=== PATIENT | female | born 1955 | race Caucasian/White ===

== ENCOUNTER 2019-11-13 14:02 | Outpatient (REF) | payer OTHER, SELFPAY ==
[2019-11-13 14:14] LABS: Glucose Urine UA NEG (NEG); Leukocyte Esterase Urine 2+ (NEG); Nitrite Urine POS (NEG); PH 5.5 (5.0-8.0); Specific Gravity - Urine >= 1.030 (1.005-1.025); Urine Blood TRACE (NEG); Urine Ketones NEG (NEG); Urine Protein NEG (NEG-TRACE)
[2019-11-13 14:17] LABS: Appearance Urine CLOUDY; Color Urine YELLOW
[2019-11-13 14:24] LABS: Bacteria Urine 2+ /LPF; Mucus Urine 1+ /LPF; RBC Urine 0-2 /HPF (0); Squamous Epithelial Cell Urine 1+ /LPF; WBC Urine TNTC /HPF (0-4)
[2019-11-14 09:34] LABS: BV Int Neg Control Negative (Negative)
[2019-11-14 09:36] LABS: BV Int Pos Control Positive (Positive)
== END 2019-11-13 14:03 | disposition home or self-care (01) ==
LOC: HO.LNP 14:02
PROVIDERS: Visit Provider Nurse Practitioner Family
DX: R19.5 Other fecal abnormalities (principal); R10.2 Pelvic and perineal pain; N39.0 Urinary tract infection, site not specified
CPT/HCPCS: 81001; 87086; 87088; 87186; 87480; 87510; 87660

== ENCOUNTER 2019-12-14 08:46 | Outpatient (REF) | payer OTHER, SELFPAY ==
[2019-12-14 10:51] LABS: Potassium Urine Random 43.8 mmol/l
[2019-12-14 10:57] LABS: Anion Gap 14 (12-20); Blood Urea Nitrogen 16 mg/dL (9-16); Calcium 9.1 mg/dL (8.4-10.2); Carbon Dioxide 25 mmol/L (22-29); Chloride 109 mmol/L (96-108); Estimated Glomerular Filt Rate > 60; Potassium 4.2 mmol/l (3.3-5.1); Sodium 144 mmol/L (135-145)
== END 2019-12-14 08:47 | disposition home or self-care (01) ==
LOC: HO.LAB 08:46
PROVIDERS: PCP Internal Medicine; Visit Provider Internal Medicine Hypertension Specialist
DX: I63.9 Cerebral infarction, unspecified (principal); I10 Essential (primary) hypertension
CPT/HCPCS: 80051; 82310; 82436; 82565; 84133; 84300; 84520

== ENCOUNTER 2020-01-09 08:01 | Outpatient (REF) | payer OTHER, SELFPAY ==
[2020-01-09 09:03] LABS: MANUAL DIFF FLAG NO
[2020-01-09 09:07] LABS: Basophils Absolute Auto 0.1 X10*3/uL (0.0-0.2); Basophils Percent Auto 0.7 % (0-2); Eosinophils Absolute Auto 0.2 X10*3/uL (0.0-0.4); Eosinophils Percent Auto 3.4 % (0-4); Hematocrit 41.9 % (37-47); Hemoglobin 13.2 g/dl (12.0-16.0); Imm Gran Abs Auto 0.09 X10*3/uL (0.00-0.03); Imm Gran Pct Auto 1.3 % (0.0-0.4); Lymphocytes Absolute Auto 1.6 X10*3/uL (1.2-4.9); Lymphocytes Percent Auto 22.7 % (20-40); Mean Corpuscular HGB Conc 31.5 g/dl (31.0-35.0); Mean Corpuscular Hemoglobin 27.6 pg (27.0-33.0); Mean Corpuscular Volume 87.5 fL (80-98); Mean Platelet Volume 11.1 fL (9.4-12.3); Monocytes Absolute Auto 0.4 X10*3/uL (0.1-1.2); Monocytes Percent Auto 5.7 % (2-11); Neutrophils Absolute Auto 4.5 X10*3/uL (2.0-8.3); Neutrophils Percent Auto 66.2 % (45-73); Platelet Count 244 X10*3/uL (160-400); Red Blood Count 4.79 X10*6/uL (4.20-5.50); Red Cell Distribution Width 13.9 % (11.0-16.0); White Blood Count 6.8 X10*3/uL (4.8-10.8)
[2020-01-09 09:35] LABS: Alanine Aminotransferase 35 U/L (0-31); Albumin Level 4.1 g/dL (3.5-5.0); Alkaline Phosphatase 92 U/L (39-117); Anion Gap 13 (12-20); Aspartate Amino Transferase 21 U/L (5-31); Bilirubin Total 0.5 mg/dL (0.0-1.0); Blood Urea Nitrogen 15 mg/dL (9-16); Calcium 9.5 mg/dL (8.4-10.2); Carbon Dioxide 26 mmol/L (22-29); Chloride 110 mmol/L (96-108); Cholesterol 156 mg/dL; Estimated Glomerular Filt Rate > 60; Glucose Fasting 204 mg/dL (60-99); HDL Cholesterol 35 mg/dL; LDL Cholesterol Calculated 90 mg/dl; Potassium 4.4 mmol/l (3.3-5.1); Sodium 145 mmol/L (135-145); Total Protein 6.9 g/dL (6.5-8.0); Triglycerides 157 mg/dL
[2020-01-09 09:50] LABS: Vitamin D 25-OH Total 17.4 ng/mL (>30)
[2020-01-09 10:09] LABS: Glucose Urine UA 100 MG/DL (NEG); Leukocyte Esterase Urine NEG (NEG); Nitrite Urine NEG (NEG); PH 5.5 (5.0-8.0); Specific Gravity - Urine >= 1.030 (1.005-1.025); Urine Blood NEG (NEG); Urine Ketones NEG (NEG); Urine Protein NEG (NEG-TRACE)
[2020-01-09 10:13] LABS: Appearance Urine CLEAR; Color Urine YELLOW
== END 2020-01-09 08:02 | disposition home or self-care (01) ==
LOC: HO.LAB 08:01
PROVIDERS: Nurse Practitioner Family; Visit Provider Internal Medicine
DX: N39.0 Urinary tract infection, site not specified (principal); R10.2 Pelvic and perineal pain; E11.9 Type 2 diabetes mellitus without complications; E78.2 Mixed hyperlipidemia; E55.9 Vitamin D deficiency, unspecified; Z86.73 Personal history of transient ischemic attack (TIA), and cerebral infarction without residual deficits
CPT/HCPCS: 36415; 80053; 80061; 81003; 82306; 85025

== ENCOUNTER 2020-01-23 15:52 | Emergency (ER) | payer OTHER, SELFPAY ==
--- NOTE | 2020-01-23 | ECG_ITS ---
Test Reason : CHEST PAIN Blood Pressure : / mmHG Vent. Rate : 092 BPM Atrial Rate : 092 BPM P-R Int : 158 ms QRS Dur : 084 ms QT Int : 358 ms P-R-T Axes : 063 056 051 degrees QTc Int : 442 ms Normal sinus rhythm Nonspecific ST abnormality Abnormal ECG When compared with ECG of 29-AUG-2017 08:30, No significant change was found Referred By: Generic ED Physician Electronically Signed By:Jeff Barrett
[2020-01-23 16:12] VITALS: BP 157/71; PULSE 90; RESP 18; TEMP 37.6; O2SAT 96; BMI 26.4
[2020-01-23] MEDS: Magnesium Hydrox/Alum Hydrox 30 ML ORAL.SUSP PO (17:22)
[2020-01-23] MEDS: Lidocaine HCl Viscous 2 % 15 ML SOLUTION MUCOUS MEM (17:22)
--- NOTE | 2020-01-23 17:41 | ED_ITS ---
HPI - Chest Pain General Chief Complaint: Chest Pain Stated Complaint: Chest Pain/Abdominal pain Time Seen by Provider: 01/23/20 16:07 Source: patient and family Mode of arrival: wheelchair Limitations: language barrier ([place]-speaking) History of Present Illness HPI narrative: Patient comes to emergency room complaining reflux and chest pain. Patient states she has history of frequent episodes of reflux, this time did not feel any different. Patient states earlier this morning she had an episode of chest pain, lasted approximately 1 minute and it self-resolved. At this time, patient states that she does not have reflux or chest pain. Patient states she usually has GERD that is worse at night, takes Tums at night with some relief. Related Data Home Medications Medication Instructions Recorded Confirmed amlodipine 2.5 mg tablet 2.5 mg PO DAILY 11/13/19 01/09/20 anastrozole 1 mg tablet 1 mg PO DAILY 11/13/19 01/09/20 aspirin 81 mg tablet,delayed 81 mg PO DAILY 11/13/19 01/09/20 release atorvastatin 80 mg tablet 80 mg PO DAILY 11/13/19 01/09/20 blood-glucose meter #1 ea 11/13/19 01/09/20 clopidogrel 75 mg tablet 75 mg PO DAILY 11/13/19 01/09/20 dulaglutide 0.75 mg/0.5 mL mg SUBCUT 11/13/19 01/09/20 subcutaneous pen injector fenofibrate 54 mg tablet 54 mg PO DAILY 11/13/19 01/09/20 insulin lispro 100 unit/mL SUBCUT 11/13/19 01/09/20 subcutaneous solution lancets 28 gauge #100 ea 11/13/19 01/09/20 linagliptin 5 mg tablet 5 mg PO DAILY 11/13/19 01/09/20 lisinopril 20 mg tablet 20 mg PO DAILY 11/13/19 01/09/20 pen needle, diabetic 32 gauge x #50 ea 11/13/19 01/09/20 Previous Rx's Medication Instructions Recorded blood sugar diagnostic #100 ea 11/11/19 metformin 500 mg tablet,extended 500 mg PO DAILY 90 Days #90 tab 11/13/19 release 24 hr insulin glargine 100 unit/mL 60 unit SUBCUT DAILY #30 ml 12/19/19 subcutaneous solution insulin syringe-needle U-100 1 mL 1 ml MISCELLANEOUS BID #150 ea 12/19/19 31 gauge x 06/22 insulin glargine 100 unit/mL (3 57 unit SUBCUT DAILY #15 ml 12/27/19 mL) subcutaneous pen insulin syringe-needle U-100 0.5 #150 ea 01/07/20 mL 31 gauge x 06/22 ergocalciferol (vitamin D2) 1,250 1,250 mcg PO QWEEK 30 Days #5 cap 01/09/20 mcg (50,000 unit) capsule ondansetron 8 mg disintegrating 8 mg PO Q12H PRN 30 Days #60 tab 01/09/20 tablet omeprazole 40 mg PO DAILY #14 cap 01/23/20 Allergies Allergy/AdvReac Type Severity Reaction Status Date / Time metformin AdvReac Unknown diarrhea Verified 01/09/20 10:05 sitagliptin [Januvia] AdvReac Unknown abdominal Verified 01/09/20 10:05 pain Review of Systems Review of Systems: Constitutional : No Weight loss, No Fever, No Chills, No Night Sweats, No Fatigue, No Malaise ENT/Mouth : No Hearing loss, No Ear Pain, No Nasal Congestion, No Sinus Pain, No Hoarseness, No sore throat, No Rhinorrhea, No Swallowing Difficulty Eyes: No Eye Pain, No Swelling, No Redness, No Foreign Body, No Discharge, No Vision Changes Cardiovascular : 1 episode of chest pain that lasted 1 minutes and self- resolved, no chest pain at this time, No SOB, No Dyspnea on Exertion, No Orthopnea, No Edema, No Palpitations Respiratory : No Cough, No Sputum, No Wheezing, No Smoke Exposure, No Dyspnea Gastrointestinal : No Nausea, No Vomiting, No Diarrhea, No Constipation, No abdominal Pain, earlier episode GERD, burning sensation which self resolved, No Hematochezia, No Melena Genitourinary : no irregular bleeding, No Dysuria, No Urinary Frequency, No Hematuria, No Urinary Incontinence, No Urgency, No Flank Pain, No Urinary Flow Changes, No Hesitancy Musculoskeletal : No joint pain, No Myalgias, No Joint Swelling Skin : No Skin Lesions, No rash Neuro : No Weakness, No Numbness, No Paresthesias, No Loss of Consciousness, No Dizziness, No Headache Psych : No Anxiety/Panic, No Depression, No SI/HI/AH/VH, No Social Issues, Heme/Lymph: No Bruising, No Bleeding,No Lymphadenopathy Endocrine : No Polyuria, No Polydipsia, No Temperature Intolerance [facility] Past Medical History Medical History Diabetes mellitus Diabetes mellitus Essential hypertension History of stroke Hypovitaminosis D Mixed hyperlipidemia Nausea Surgical History (Updated 12/03/19 @ 07:08 by DREW Nunez) H/O right mastectomy History of hemicolectomy History of left mastectomy Status post unilateral salpingo-oophorectomy Family History Family History (Updated 12/03/19 @ 07:09 by Ruth Dickson Jean) Father Diabetes Mother Diabetes Hypertension Sister Cervical cancer Social History Social History Alcohol intake: never Smoking Status: Former smoker Tobacco Type: Cigarette Smoked in Last 30 Days: No Use of substances other than those prescribed or required for medical reasons: No Advance Directives: No Advance Directives Information Provided: Yes Physical Exam Vital Signs: Vital Signs: Last Vital Signs Temp 98.7 F 01/23/20 18:00 Pulse 86 01/23/20 18:00 Resp 16 01/23/20 18:00 BP 147/64 H 01/23/20 18:00 Pulse Ox 98 01/23/20 18:00 Body Mass Index 26.4 Appearance: Alert. Oriented X3. No acute distress. Eyes: Pupils equal, round and reactive to light. ENT: Pharynx normal. Neck: Normal inspection. Neck supple. No lymph nodes noted. No crepitus CVS: Normal heart rate and rhythm. Pulses normal. Normal S1 and S2 Respiratory: No respiratory distress. Breath sounds normal. No Wheezing. No rales Abdomen: Soft and nontender. No rigidity. No distention. good BS x4 Skin: Skin warm and dry. Normal skin color. Normal skin turgor. Extremities: No lower extremity edema. No lower extremity edema. No Lacerations. No Rash Neuro: Oriented X 3. No motor deficit. No sensory deficit. Moving all extermities. No slurred speech. Course Course Course Narrative: Patient remains asymptomatic. I discussed the labs with the patient, EKG and troponin within normal limits. Patient ready for discharge home. MDM - Chest Pain Lab Data Result diagrams: 01/23/20 17:50 01/23/20 17:50 Labs: Lab Results 01/23/20 01/23/20 01/23/20 Range/Units 17:50 17:50 17:50 WBC 8.5 (4.8-10.8) X10*3/uL RBC 4.71 (4.20-5.50) X10*6/uL Hgb 13.2 (12.0-16.0) g/dl Hct 41.0 (37-47) % MCV 87.0 (80-98) fL MCH 28.0 (27.0-33.0) pg MCHC 32.2 (31.0-35.0) g/dl RDW 13.7 (11.0-16.0) % Plt Count 254 (160-400) X10*3/uL MPV 10.6 (9.4-12.3) fL Immature Gran % (Auto) 0.8 H (0.0-0.4) % Neut % (Auto) 73.9 H (45-73) % Lymph % (Auto) 17.9 L (20-40) % Butts % (Auto) 5.1 (2-11) % Eos % (Auto) 1.9 (0-4) % Baso % (Auto) 0.4 (0-2) % Lymph # (Auto) 1.5 (1.2-4.9) X10*3/uL Butts # (Auto) 0.4 (0.1-1.2) X10*3/uL Eos # (Auto) 0.2 (0.0-0.4) X10*3/uL Baso # (Auto) 0.0 (0.0-0.2) X10*3/uL Abs Immat Gran (auto) 0.07 H (0.00-0.03) X10*3/uL Absolute Neuts (auto) 6.3 (2.0-8.3) X10*3/uL Absolute Nucleated RBC 0.000 (0.0-0.012) X10*3/uL Nucleated RBC % (auto) 0.0 (0.0-0.2) /100WBC Sodium 146 H (135-145) mmol/L Potassium 4.1 (3.3-5.1) mmol/l Chloride 111 H (96-108) mmol/L Carbon Dioxide 27 (22-29) mmol/L Anion Gap 12 (12-20) BUN 13 (9-16) mg/dL Creatinine 0.76 (0.5-1.4) mg/dL Estim Creat Clear Calc 61.1 Estimated GFR > 60 Random Glucose 115 (60-115) mg/dL Calcium 8.6 D (8.4-10.2) mg/dL Total Bilirubin 0.3 (0.0-1.0) mg/dL Direct Bilirubin < 0.2 (0.0-0.5) mg/dL AST 23 (5-31) U/L ALT 34 H (0-31) U/L Alkaline Phosphatase 87 (39-117) U/L Troponin I High Sens < 3.5 (<3.5-17.0) ng/L Total Protein 6.9 (6.5-8.0) g/dL Albumin 4.1 (3.5-5.0) g/dL Lipase 64 (8-78) U/L ECG Data ECG #1: Attestation: I personally reviewed and interpreted this ECG as follows: (Normal sinus rhythm, heart rate 92, QTC 442, nonspecific T-wave abnormalities in leads V4 through V6) Discharge Plan Discharge Clinical Impression: Atypical chest pain GERD (gastroesophageal reflux disease) Qualifiers: Esophagitis presence: esophagitis presence not specified Qualified Code(s): K2 1.9 - Gastro-esophageal reflux disease without esophagitis Patient Disposition: Home, Self-Care Instructions: Gastroesophageal Reflux Disease (ED) Additional Instructions: Please try to increase the inclination on your bed, so that the top part is slightly above the rest of your body. Please follow-up with your primary care physician tomorrow. If you have any worsening or new symptoms, please return to the emergency room or call 911 Prescriptions: New omeprazole 40 mg capsule,delayed release(DR/EC) 40 mg PO DAILY Qty: 14 RF: 0 No Action (DME) FreeStyle Test Strip See Rx Instructions .ROUTE .MEDSUPPLY Qty: 100 RF: 11 metformin 500 mg tablet extended release 24 hr 500 mg PO DAILY 90 Days Qty: 90 RF: 4 insulin glargine [Lantus U-100 Insulin] 100 unit/mL solution 60 unit subcut DAILY Qty: 30 RF: 2 insulin syringe-needle U-100 [BD Insulin Syringe Ultra-Fine] 1 mL 31 gauge x 5/16 syringe 1 ml miscellaneous BID Qty: 150 RF: 5 insulin glargine 100 unit/mL (3 mL) insulin pen 57 unit subcut DAILY Qty: 15 RF: 2 (DME) insulin syringe-needle U-100 0.5 mL 31 gauge x 5/16 syringe See Rx Instructions ml .ROUTE .MEDSUPPLY Qty: 150 RF: 11 ergocalciferol (vitamin D2) 1,250 mcg (50,000 unit) capsule 1,250 mcg PO QWEEK 30 Days Qty: 5 RF: 3 ondansetron 8 mg tablet,disintegrating 8 mg PO Q12H PRN (Reason: nausea and vomiting) 30 Days Qty: 60 RF: 3 (DME) lancets 28 gauge misc See Rx Instructions lancet topical TID Qty: 100 RF: 0 insulin lispro 100 unit/mL solution subcut RF: 0 Trulicity 0.75 mg/0.5 mL pen injector subcut RF: 0 Tradjenta 5 mg tablet 5 mg PO DAILY RF: 0 fenofibrate 54 mg tablet 54 mg PO DAILY RF: 0 aspirin 81 mg tablet,delayed release (DR/EC) 81 mg PO DAILY RF: 0 amlodipine 2.5 mg tablet 2.5 mg PO DAILY RF: 0 atorvastatin 80 mg tablet 80 mg PO DAILY RF: 0 anastrozole 1 mg tablet 1 mg PO DAILY RF: 0 clopidogrel 75 mg tablet 75 mg PO DAILY RF: 0 lisinopril 20 mg tablet 20 mg PO DAILY RF: 0 (DME) pen needle, diabetic 32 gauge x 5/32 needle See Rx Instructions ea subcut DAILY Qty: 50 RF: 0 (DME) blood-glucose meter Kit See Rx Instructions ea .ROUTE BID Qty: 1 RF: 0
[2020-01-23 17:56] LABS: MANUAL DIFF FLAG NO
[2020-01-23 17:59] LABS: Basophils Percent Auto 0.4 % (0-2); Eosinophils Absolute Auto 0.2 X10*3/uL (0.0-0.4); Eosinophils Percent Auto 1.9 % (0-4); Hemoglobin 13.2 g/dl (12.0-16.0); Imm Gran Abs Auto 0.07 X10*3/uL (0.00-0.03); Imm Gran Pct Auto 0.8 % (0.0-0.4); Lymphocytes Absolute Auto 1.5 X10*3/uL (1.2-4.9); Lymphocytes Percent Auto 17.9 % (20-40); Mean Corpuscular HGB Conc 32.2 g/dl (31.0-35.0); Mean Platelet Volume 10.6 fL (9.4-12.3); Monocytes Absolute Auto 0.4 X10*3/uL (0.1-1.2); Monocytes Percent Auto 5.1 % (2-11); Neutrophils Absolute Auto 6.3 X10*3/uL (2.0-8.3); Neutrophils Percent Auto 73.9 % (45-73); Platelet Count 254 X10*3/uL (160-400); Red Blood Count 4.71 X10*6/uL (4.20-5.50); Red Cell Distribution Width 13.7 % (11.0-16.0); White Blood Count 8.5 X10*3/uL (4.8-10.8)
[2020-01-23 18:00] VITALS: BP 147/64; PULSE 86; PULSE 89; RESP 16; TEMP 37.1; O2SAT 98
[2020-01-23 18:22] LABS: Alanine Aminotransferase 34 U/L (0-31); Albumin Level 4.1 g/dL (3.5-5.0); Alkaline Phosphatase 87 U/L (39-117); Anion Gap 12 (12-20); Aspartate Amino Transferase 23 U/L (5-31); Bilirubin Direct < 0.2 mg/dL (0.0-0.5); Bilirubin Total 0.3 mg/dL (0.0-1.0); Blood Urea Nitrogen 13 mg/dL (9-16); Calcium 8.6 mg/dL (8.4-10.2); Carbon Dioxide 27 mmol/L (22-29); Chloride 111 mmol/L (96-108); Creatinine Clr Calc Pharmacy 61.1; Estimated Glomerular Filt Rate > 60; Glucose Random 115 mg/dL (60-115); Lipase 64 U/L (8-78); Potassium 4.1 mmol/l (3.3-5.1); Sodium 146 mmol/L (135-145); Total Protein 6.9 g/dL (6.5-8.0)
[2020-01-23 18:28] LABS: Troponin-I High Sensitivity < 3.5 ng/L (<3.5-17.0)
== END 2020-01-23 19:18 | disposition home or self-care (01) ==
PROVIDERS: Emergency Provider Emergency Medicine; PCP Internal Medicine
DX: R07.89 Other chest pain (principal); K21.9 Gastro-esophageal reflux disease without esophagitis; E11.9 Type 2 diabetes mellitus without complications; I10 Essential (primary) hypertension; Z87.891 Personal history of nicotine dependence; Z79.4 Long term (current) use of insulin; Z79.899 Other long term (current) drug therapy; Z79.82 Long term (current) use of aspirin
CPT/HCPCS: 36415; 80048; 80076; 83690; 84484; 85025; 93005; 99284

== ENCOUNTER → 2020-02-15 09:24 | Outpatient (BNVA) | payer OTHER, SELFPAY | PROVIDERS: PCP Internal Medicine; Visit Provider Internal Medicine Gastroenterology | DX: Z76.89 Persons encountering health services in other specified circumstances (principal) ==

== ENCOUNTER → 2020-02-19 08:00 | Outpatient (BNV) | payer MEDICARE, OTHER, MEDICAID, SELFPAY | PROVIDERS: PCP Internal Medicine; Visit Provider Internal Medicine | DX: C18.2 Malignant neoplasm of ascending colon (principal); C18.7 Malignant neoplasm of sigmoid colon; Z85.3 Personal history of malignant neoplasm of breast; Z79.811 Long term (current) use of aromatase inhibitors | CPT/HCPCS: 99212; 99213; 99214 ==

== ENCOUNTER 2020-02-25 18:41 | Outpatient (REF) | payer OTHER, SELFPAY | END 2020-02-25 18:42 | disposition home or self-care (01) | LOC: HO.LNP 18:41 | PROVIDERS: Visit Provider Physician Assistant | DX: R30.0 Dysuria (principal) | CPT/HCPCS: 87086 ==

== ENCOUNTER 2020-04-08 07:40 | Outpatient (REF) | payer OTHER, SELFPAY ==
[2020-04-08 08:48] LABS: MANUAL DIFF FLAG NO
[2020-04-08 08:50] LABS: Basophils Absolute Auto 0.1 X10*3/uL (0.0-0.2); Basophils Percent Auto 0.7 % (0-2); Eosinophils Absolute Auto 0.2 X10*3/uL (0.0-0.4); Eosinophils Percent Auto 2.6 % (0-4); Hematocrit 41.5 % (37-47); Hemoglobin 13.3 g/dl (12.0-16.0); Imm Gran Abs Auto 0.09 X10*3/uL (0.00-0.03); Imm Gran Pct Auto 1.2 % (0.0-0.4); Lymphocytes Absolute Auto 1.9 X10*3/uL (1.2-4.9); Lymphocytes Percent Auto 25.4 % (20-40); Mean Corpuscular Hemoglobin 27.8 pg (27.0-33.0); Mean Corpuscular Volume 86.6 fL (80-98); Mean Platelet Volume 11.4 fL (9.4-12.3); Monocytes Absolute Auto 0.4 X10*3/uL (0.1-1.2); Monocytes Percent Auto 5.4 % (2-11); Neutrophils Absolute Auto 4.9 X10*3/uL (2.0-8.3); Neutrophils Percent Auto 64.7 % (45-73); Platelet Count 224 X10*3/uL (160-400); Red Blood Count 4.79 X10*6/uL (4.20-5.50); Red Cell Distribution Width 13.2 % (11.0-16.0); White Blood Count 7.6 X10*3/uL (4.8-10.8)
[2020-04-08 09:16] LABS: Creatinine Urine 52.92 mg/dL; Microalbum/Creatinine Ratio Ur 39.6 ug/mg cr
[2020-04-08 09:22] LABS: Alanine Aminotransferase 26 U/L (0-31); Albumin Level 4.1 g/dL (3.5-5.0); Alkaline Phosphatase 82 U/L (39-117); Anion Gap 13 (12-20); Aspartate Amino Transferase 16 U/L (5-31); Bilirubin Total 0.5 mg/dL (0.0-1.0); Blood Urea Nitrogen 19 mg/dL (9-16); Calcium 9.4 mg/dL (8.4-10.2); Carbon Dioxide 27 mmol/L (22-29); Chloride 109 mmol/L (96-108); Cholesterol 170 mg/dL; Estimated Glomerular Filt Rate > 60; Glucose Fasting 219 mg/dL (60-99); HDL Cholesterol 36 mg/dL; LDL Cholesterol Calculated 90 mg/dl; Potassium 4.3 mmol/L (3.3-5.1); Sodium 145 mmol/L (135-145); Total Protein 6.8 g/dL (6.5-8.0); Triglycerides 221 mg/dL
[2020-04-12 10:36] LABS: Vitamin D 25-OH, D2 44 ng/mL; Vitamin D 25-OH, D3 6 ng/mL; Vitamin D 25-OH, Total 50 ng/mL (30-100)
== END 2020-04-08 07:41 | disposition home or self-care (01) ==
LOC: HO.LAB 07:40
PROVIDERS: Absent Provider Internal Medicine; PCP Internal Medicine; Referring Provider Nurse Practitioner Family; Visit Provider Internal Medicine
DX: C50.919 Malignant neoplasm of unspecified site of unspecified female breast (principal); E78.5 Hyperlipidemia, unspecified; E11.65 Type 2 diabetes mellitus with hyperglycemia; Z79.4 Long term (current) use of insulin; E55.9 Vitamin D deficiency, unspecified
CPT/HCPCS: 36415; 80053; 80061; 82043; 82306; 85025

== ENCOUNTER 2020-04-29 08:45 | Outpatient (REF) | payer OTHER, SELFPAY ==
--- NOTE | ~2020-04-29 | CT_ITS ---
EXAMINATION: CT HEAD WITHOUT CONTRAST CLINICAL INFORMATION: New daily persistent headache. COMPARISON: CT brain 02/12/2016. MRI brain 05/24/2016. TECHNIQUE: Contiguous axial imaging was performed from the skull base to vertex without intravenous administration of contrast. This CT examination was performed using dose optimization techniques as appropriate, variously including the following: *Automated exposure control *Adjustment of mA and/or kV according to patient size (this includes techniques or standardized protocols for targeted exams where dose is matched to indication/reason for exam; i.e. extremities or head) *Use of iterative reconstruction technique DLP: 793 mGy-cm FINDINGS: There is no evidence of acute intracranial hemorrhage or territorial infarction. No abnormal mass effect or midline shift is seen. Lopez to white matter differentiation is well preserved. No extra-axial fluid collections are identified. The ventricles are normal in size. There is no abnormal attenuation within the brain parenchyma. There is focal hypodensity periventricular white matter left frontal lobe, asymmetric to right side. There is benign hyperostosis frontalis interna. Osseous structures and soft tissues are normal. The mastoid air cells and visualized portions of the paranasal sinuses are well aerated. CT/CT head/brain wo con IMPRESSION: No acute intracranial process seen. There is moderate hypodensity more prominent in the left frontal lobe deep white matter, similar to previous study 05/24/2016 MRI.
== END 2020-04-29 08:46 | disposition home or self-care (01) ==
LOC: HO.CT 08:45
PROVIDERS: Visit Provider Internal Medicine
DX: G44.52 New daily persistent headache (NDPH) (principal)
CPT/HCPCS: 70450

== ENCOUNTER 2020-06-27 09:38 | Outpatient (REF) | payer MEDICARE, MEDICAID, SELFPAY ==
--- NOTE | ~2020-06-27 | XR_ITS ---
EXAMINATION: XR CHEST CLINICAL INFORMATION: Right lower rib pain. COMPARISON: Chest 08/29/2017 TECHNIQUE: 2 views of the chest were obtained. FINDINGS: The lungs are well-expanded and clear of acute process. Heart size and pulmonary vascularity is normal. No gross bony abnormality seen. There are surgical henrry along the left anterior chest wall. XR/XR chest 2V IMPRESSION: Unremarkable chest exam. No major change from previous study 03/01/2017.
== END 2020-06-27 09:39 | disposition home or self-care (01) ==
LOC: HO.XRAY 09:38
PROVIDERS: PCP Internal Medicine; Visit Provider Internal Medicine
DX: R07.81 Pleurodynia (principal)
CPT/HCPCS: 71046

== ENCOUNTER → 2020-07-10 07:40 | Outpatient (BNVA) | payer MEDICARE, MEDICAID, SELFPAY | PROVIDERS: PCP Internal Medicine; Visit Provider Internal Medicine | DX: Z13.89 Encounter for screening for other disorder (principal) | CPT/HCPCS: 82947; 99202 ==

== ENCOUNTER 2020-07-10 09:20 | Outpatient (REF) | payer MEDICARE, MEDICAID, SELFPAY ==
[2020-07-10 10:52] LABS: Creatinine Urine 80.06 mg/dL
[2020-07-10 10:53] LABS: Creatinine Urine 80.89 mg/dL; Microalbum/Creatinine Ratio Ur 22.2 ug/mg cr
[2020-07-10 10:56] LABS: Cholesterol 186 mg/dL; HDL Cholesterol 43 mg/dL; LDL Cholesterol Calculated 106 mg/dl; Triglycerides 187 mg/dL
[2020-07-10 11:01] LABS: Alanine Aminotransferase 33 U/L (0-31); Albumin Level 4.1 g/dL (3.5-5.0); Alkaline Phosphatase 74 U/L (39-117); Anion Gap 13 (12-20); Aspartate Amino Transferase 18 U/L (5-31); Bilirubin Total 0.5 mg/dL (0.0-1.0); Blood Urea Nitrogen 19 mg/dL (9-16); Carbon Dioxide 29 mmol/L (22-29); Chloride 109 mmol/L (96-108); Estimated Glomerular Filt Rate > 60; Glucose Random 127 mg/dL (60-115); Sodium 147 mmol/L (135-145); Total Protein 6.9 g/dL (6.5-8.0)
[2020-07-11 06:47] LABS: LDL Cholesterol Direct 104 mg/dL (<100)
[2020-07-11 08:22] LABS: C Peptide 1.16 ng/mL (0.80-3.85)
[2020-07-11 10:01] LABS: Insulin Level Total 54.2 uIU/mL
[2020-07-13 15:51] LABS: Glutamic acid decarboxylase Ab <5 IU/mL (<5)
[2020-07-17 18:52] LABS: Insulinoma associated 2 aatb <5.4 U/mL (<5.4)
[2020-07-18 10:12] LABS: Islet Cell Antibody Screen NEGATIVE (NEGATIVE)
== END 2020-07-10 09:21 | disposition home or self-care (01) ==
LOC: HO.10HDL 09:20
PROVIDERS: PCP Internal Medicine; Visit Provider Internal Medicine
DX: E11.65 Type 2 diabetes mellitus with hyperglycemia (principal); Z79.4 Long term (current) use of insulin; I10 Essential (primary) hypertension; E78.5 Hyperlipidemia, unspecified; Z79.899 Other long term (current) drug therapy
CPT/HCPCS: 36415; 80053; 80061; 82043; 82947; 83525; 83721; 84681; 86255; 86341; 99202

== ENCOUNTER → 2020-08-08 08:26 | Outpatient (BNVA) | payer MEDICARE, SELFPAY | PROVIDERS: PCP Internal Medicine; Visit Provider Internal Medicine Gastroenterology | DX: L29.0 Pruritus ani (principal) | CPT/HCPCS: 99212 ==

== ENCOUNTER → 2020-08-14 09:12 | Outpatient (BNVA) | payer MEDICARE, SELFPAY | PROVIDERS: PCP Internal Medicine; Visit Provider Dietitian, Registered | DX: E11.65 Type 2 diabetes mellitus with hyperglycemia (principal); Z79.4 Long term (current) use of insulin | CPT/HCPCS: 97802 ==

== ENCOUNTER 2020-09-05 08:27 | Outpatient (REF) | payer MEDICARE, SELFPAY ==
[2020-09-05 09:52] LABS: Alanine Aminotransferase 31 U/L (0-31); Albumin Level 4.2 g/dL (3.5-5.0); Alkaline Phosphatase 98 U/L (39-117); Anion Gap 10 (12-20); Aspartate Amino Transferase 18 U/L (5-31); Bilirubin Total 0.6 mg/dL (0.0-1.0); Blood Urea Nitrogen 18 mg/dL (9-16); Calcium 10.1 mg/dL (8.4-10.2); Carbon Dioxide 29 mmol/L (22-29); Chloride 109 mmol/L (96-108); Cholesterol 163 mg/dL; Estimated Glomerular Filt Rate > 60; Glucose Fasting 226 mg/dL (60-99); HDL Cholesterol 36 mg/dL; LDL Cholesterol Calculated 97 mg/dl; Sodium 144 mmol/L (135-145); Total Protein 7.1 g/dL (6.5-8.0); Triglycerides 151 mg/dL
[2020-09-05 10:34] LABS: Creatinine Urine 68.75 mg/dL; Microalbum/Creatinine Ratio Ur 66.9 ug/mg cr
[2020-09-10 19:06] LABS: Vitamin D 25-OH, D2 15 ng/mL; Vitamin D 25-OH, D3 30 ng/mL; Vitamin D 25-OH, Total 45 ng/mL (30-100)
== END 2020-09-05 08:28 | disposition home or self-care (01) ==
LOC: HO.LAB 08:27
PROVIDERS: PCP Internal Medicine; Visit Provider Internal Medicine
DX: E55.9 Vitamin D deficiency, unspecified (principal); E11.65 Type 2 diabetes mellitus with hyperglycemia; E78.5 Hyperlipidemia, unspecified; Z79.4 Long term (current) use of insulin
CPT/HCPCS: 36415; 80053; 80061; 82043; 82306

== ENCOUNTER → 2020-10-16 07:41 | Outpatient (BNVA) | payer MEDICARE, SELFPAY | PROVIDERS: PCP Internal Medicine; Visit Provider Internal Medicine | DX: E11.65 Type 2 diabetes mellitus with hyperglycemia (principal); Z79.4 Long term (current) use of insulin | CPT/HCPCS: 82947; 99212 ==

== ENCOUNTER 2020-12-06 17:15 | Outpatient (REF) | payer MEDICARE, SELFPAY ==
[2020-12-06 17:21] LABS: Appearance Urine CLEAR; Color Urine ORANGE; Glucose Urine UA >=1000 MG/DL (NEG); Leukocyte Esterase Urine 1+ (NEG); Nitrite Urine POS (NEG); PH 5.5 (5.0-8.0); Specific Gravity - Urine 1.025 (1.005-1.025); UACC Culture Trigger YES; Urine Blood NEG (NEG); Urine Ketones NEG (NEG); Urine Protein NEG (NEG-TRACE)
[2020-12-06 17:35] LABS: WBC Urine 50-75 /HPF (0-4)
[2020-12-06 17:36] LABS: Bacteria Urine 3+ /LPF; Mucus Urine TRACE /LPF; Squamous Epithelial Cell Urine 2+ /LPF
== END 2020-12-06 17:16 | disposition home or self-care (01) ==
LOC: HO.LNP 17:15
PROVIDERS: Visit Provider Physician Assistant
DX: R30.0 Dysuria (principal)
CPT/HCPCS: 81001; 87086; 87088; 87186

== ENCOUNTER 2020-12-29 18:51 | Outpatient (REF) | payer MEDICARE, SELFPAY ==
[2020-12-29 19:10] LABS: Appearance Urine CLEAR; Color Urine YELLOW; Glucose Urine UA NEG (NEG); Leukocyte Esterase Urine NEG (NEG); Nitrite Urine NEG (NEG); PH 5.5 (5.0-8.0); Specific Gravity - Urine >= 1.030 (1.005-1.025); Urine Blood NEG (NEG); Urine Ketones NEG (NEG); Urine Protein NEG (NEG-TRACE)
== END 2020-12-29 18:52 | disposition home or self-care (01) ==
LOC: HO.LNP 18:51
PROVIDERS: Visit Provider Nurse Practitioner Acute Care
DX: N76.0 Acute vaginitis (principal); C50.919 Malignant neoplasm of unspecified site of unspecified female breast; N39.0 Urinary tract infection, site not specified
CPT/HCPCS: 81003

== ENCOUNTER 2021-01-08 11:40 | Outpatient (REF) | payer MEDICARE, SELFPAY ==
[2021-01-08 16:57] LABS: CT PCR NOT DETECTED (Not Detect.); NG PCR NOT DETECTED (Not Detect.)
[2021-01-09 10:08] LABS: BV Int Neg Control Negative (Negative); BV Int Pos Control Positive (Positive)
== END 2021-01-08 11:41 | disposition home or self-care (01) ==
LOC: HO.LAB 11:40
PROVIDERS: PCP Internal Medicine; Visit Provider Obstetrics & Gynecology
DX: R10.2 Pelvic and perineal pain (principal); N76.0 Acute vaginitis
CPT/HCPCS: 87480; 87491; 87510; 87591; 87660; 99212

== ENCOUNTER 2021-01-29 10:51 | Outpatient (REF) | payer MEDICARE, MEDICAID, SELFPAY ==
--- NOTE | ~2021-01-29 | MM_ITS ---
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 Left lumpectomy for breast cancer, 2002. Due for yearly exam. COMPARISON: Mammography: 10/17/2019, 04/28/2018, 04/04/2017, 04/01/2016 TECHNIQUE: Digital breast tomosynthesis is performed in both the craniocaudal and mediolateral oblique views along with computer-aided detection (CAD). Synthesized 2D images are generated from the tomosynthesis. Additional exaggerated left CC view is provided. FINDINGS: There are scattered areas of fibroglandular density (ACR BI-RADS breast composition Category b). There are postsurgical changes with minor scarring. No interval mass or architectural abnormality. Again, there are scattered punctate calcifications along with some coarse and dystrophic calcification. No significant changes. MM/MM tomosynthesis screening BI IMPRESSION: No significant changes from prior exams. ASSESSMENT: BI-RADS 2: Benign RECOMMENDATION: Routine annual mammography screening. This patient's information was entered into a reminder system with a target due date for their next mammogram.
== END 2021-01-29 10:52 | disposition home or self-care (01) ==
LOC: HO.MAMMO 10:51
PROVIDERS: Visit Provider Internal Medicine
DX: Z12.31 Encounter for screening mammogram for malignant neoplasm of breast (principal)
CPT/HCPCS: 77063; 77067

== ENCOUNTER 2021-02-02 11:25 | Outpatient (REF) | payer MEDICARE, MEDICAID, SELFPAY ==
--- NOTE | ~2021-02-02 | US_ITS ---
EXAMINATION: US PELVIS CLINICAL INFORMATION: Right lower quadrant and left lower quadrant pain. Postmenopausal. Left oophorectomy. COMPARISON: CT 07/20/2019, ultrasound 12/06/2018 TECHNIQUE: Ultrasound of the pelvis is performed using both transabdominal and transvaginal transducers along with Doppler. Transvaginal imaging is performed due to inadequate visualization transabdominally. FINDINGS: Uterus: The uterus is anteverted and measures 8.2 x 4.2 x 5.3 cm. The double wall endometrial thickness is 7 mm. The uterus is smooth in contour and has normal myometrial echogenicity. For fibroids are identified, similar to the prior study. The largest measures 1.5 x 1.2 x 1.5 cm in the anterior body, previously measuring 1.4 x 1.3 x 1.2 cm. Adnexa: Only the right ovary was visualized. There is normal color flow to the adnexa. There is no ovarian torsion. Small pelvic free fluid. Right ovary measures 2.8 x 1.0 x 2.2 cm. US/US pelvic and transvaginal IMPRESSION: 1. Uterus contains 4 small fibroids. 2. Small pelvic free fluid of uncertain significance.
== END 2021-02-02 11:26 | disposition home or self-care (01) ==
LOC: HO.US 11:25
PROVIDERS: Visit Provider Obstetrics & Gynecology
DX: R10.2 Pelvic and perineal pain (principal)
CPT/HCPCS: 76830; 76856

== ENCOUNTER → 2021-02-16 11:03 | Outpatient (BNVA) | payer MEDICAID, SELFPAY | PROVIDERS: Visit Provider Obstetrics & Gynecology ==

== ENCOUNTER → 2021-03-05 11:45 | Outpatient (BNVA) | payer MEDICARE, SELFPAY | PROVIDERS: PCP Internal Medicine; Visit Provider Obstetrics & Gynecology | DX: N76.0 Acute vaginitis (principal) | CPT/HCPCS: 99212 ==

== ENCOUNTER 2021-05-11 08:28 | Outpatient (REF) | payer MEDICARE, MEDICAID, SELFPAY ==
[2021-05-11 09:18] LABS: COVID-19 Test Negative (Negative)
== END 2021-05-11 08:29 | disposition home or self-care (01) ==
LOC: HO.LAB 08:28
PROVIDERS: PCP Internal Medicine; Visit Provider Internal Medicine
DX: Z20.822 Contact with and (suspected) exposure to COVID-19 (principal)
CPT/HCPCS: 87635; C9803

== ENCOUNTER 2022-02-19 08:55 | Outpatient (REF) | payer MEDICARE, MEDICAID, SELFPAY ==
--- NOTE | ~2022-02-19 | MM_ITS ---
EXAMINATION: MM SCREENING DIGITAL BREAST TOMOSYNTHESIS, LEFT CLINICAL INFORMATION: Screening. Asymptomatic. Right IDC status post mastectomy, 2016. Prior history left lumpectomy for breast cancer, 2002. COMPARISON: Mammography: 01/29/2021, 10/17/2019, 04/28/2018, 04/04/2017 TECHNIQUE: Digital breast tomosynthesis is performed in both the craniocaudal and mediolateral oblique views along with computer-aided detection (CAD). Synthesized 2D images are generated from the tomosynthesis. FINDINGS: There are scattered areas of fibroglandular density (ACR BI-RADS breast composition Category b). Left breast parenchymal pattern is similar to prior exams. There is no developing density or significant mass or interval architectural abnormality. Again, there are post surgical changes with old scarring and scattered coarse and dystrophic calcifications as well as scattered punctate calcifications as before. The axilla is unremarkable. No significant changes. MM/MM tomosynthesis screening LT IMPRESSION: No significant changes from prior studies. ASSESSMENT: BI-RADS 2: Benign RECOMMENDATION: Routine annual mammography screening. This patient's information was entered into a reminder system with a target due date for their next mammogram.
== END 2022-02-19 08:56 | disposition home or self-care (01) ==
LOC: HO.MAMMO 08:55
PROVIDERS: Visit Provider Internal Medicine
DX: Z12.31 Encounter for screening mammogram for malignant neoplasm of breast (principal)
CPT/HCPCS: 77063; 77067

== ENCOUNTER 2022-04-05 09:13 | Outpatient (REF) | payer MEDICARE, MEDICAID, SELFPAY ==
[2022-04-05 12:15] LABS: Appearance Urine Clear; Color Urine Yellow; Glucose Urine UA >=1000 mg/dL (Negative); Leukocyte Esterase Urine Negative (Negative); Nitrite Urine Positive (Negative); Specific Gravity - Urine >= 1.030 (1.005-1.025); UMIC TRIGGER UACC YES; Urine Blood Negative (Negative); Urine Ketones Negative (Negative); Urine Protein Negative (Neg-Trace)
[2022-04-05 12:42] LABS: Bacteria Urine 1+ (None Seen); Hyaline Casts Urine 0-2 /LPF (0-2); RBC Urine 0-2 /HPF (0-2); UACC Culture Trigger YES
== END 2022-04-05 09:14 | disposition home or self-care (01) ==
LOC: HO.LAB 09:13
PROVIDERS: Internal Medicine; PCP Internal Medicine; Referring Provider Internal Medicine; Visit Provider Internal Medicine Gastroenterology
DX: R10.9 Unspecified abdominal pain (principal); R30.0 Dysuria
CPT/HCPCS: 81001; 81003; 87086; 99212

== ENCOUNTER 2022-04-22 07:54 | Outpatient (REF) | payer MEDICARE, MEDICAID, SELFPAY ==
--- NOTE | ~2022-04-22 | US_ITS ---
EXAMINATION: US ABDOMEN COMPLETE CLINICAL INFORMATION: Right flank pain, extends into right groin. Rule out kidney pathology. COMPARISON: CT abdomen and pelvis 07/20/2019. Ultrasound abdomen limited 05/19/2017. TECHNIQUE: Real-time imaging of the abdominal viscera. FINDINGS: PANCREAS: Pancreas could not be adequately examined secondary to overlying bowel gas. ABDOMINAL AORTA: The proximal, mid, and distal segments are normal in caliber. INFERIOR VENA CAVA: Visualized portions are normal. LIVER: The liver measures at least 16.5 cm in cephalocaudad dimension. The liver contour is normal. There is diffuse increased liver parenchymal echogenicity, consistent with hepatic steatosis. No focal hepatic lesion. There is no intrahepatic biliary duct dilatation seen. GALLBLADDER: A 3 mm-sized gallbladder polyp is noted. The gallbladder is physiologically distended without evidence of stones, sludge, wall thickening or pericholecystic fluid. COMMON BILE DUCT: Normal in caliber measuring 0.5 cm in diameter. RIGHT KIDNEY: Two echogenic masses are present in the left kidney, one measuring 1.6 cm and the other 0.6 cm, both consistent with angiomyolipomas which have been seen in the past. There is a lower pole benign simple 1.4 cm cyst that needs no additional imaging or followup. No hydronephrosis or renal calculi. The kidney measures 10.6 cm in maximum dimension. LEFT KIDNEY: Normal. No hydronephrosis. No renal calculi or focal parenchymal lesions. The kidney measures 9.4 cm in maximum dimension. SPLEEN: The spleen measures 9.0 cm in maximum dimension. FREE FLUID: None. US/US abdomen complete IMPRESSION: 1. Hepatic steatosis. 2. Gallbladder polyp. 3. Benign right renal angiomyolipomas.
== END 2022-04-22 07:55 | disposition home or self-care (01) ==
LOC: HO.US 07:54
PROVIDERS: PCP Internal Medicine; Visit Provider Internal Medicine Gastroenterology
DX: R10.9 Unspecified abdominal pain (principal)
CPT/HCPCS: 76700

== ENCOUNTER → 2022-08-02 08:50 | Outpatient (BNVA) | payer MEDICARE, MEDICAID, SELFPAY | PROVIDERS: Visit Provider Internal Medicine Gastroenterology | DX: K76.0 Fatty (change of) liver, not elsewhere classified (principal); Z87.19 Personal history of other diseases of the digestive system | CPT/HCPCS: 99212 ==

== ENCOUNTER 2022-10-01 10:03 | Outpatient (AMB) | payer MEDICARE, MEDICAID, SELFPAY ==
--- NOTE | 2022-10-01 10:13 | AM.OFFWIN_ITS ---
Intake Vital Signs 10/01/22 10:29 Weight 135 lb BP 118/64 Blood Pressure Location Rt brachial Position Sitting Pulse 80 Pulse Source Pulse Oximeter Temp 98 F Temp Source Temporal Artery Scan Pulse Oximetry (%) 97 Oxygen Delivery Method Room Air Intake Visit Reasons: EP, UTI? [phone] Intake Note: Patient here for UTI that has been present for a few weeks. strong odor, lower back pain, burning when urinating and frequent urination. Patient Tobacco Use Status: Former Tobacco user Allergies dulaglutide [From Trulicity] Allergy (Mild, Verified 10/01/22 10:27) Abdominal Pain metformin Adverse Reaction (Mild, Verified 10/01/22 10:27) Diarrhea sitagliptin [Januvia] Adverse Reaction (Mild, Verified 10/01/22 10:27) abdominal pain Do you need a note to return to daycare/school/sports/work: No HPI HPI Comments History of Present Illness Details This is a 67-year-old female who presents to the office today for sick visit. Patient complaining of vaginal odor and burning x 1-2 weeks. She reports some mild increased urinary frequency. She denies any fevers or chills. She denies any flank or back pain. She is not sure if she has any vaginal discharge as she utilizes a pad. She denies any abnormal vaginal bleeding. She is not sexually active. 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 Son No problems noted. Brother No problems noted. Brother No problems noted. Family/Other Mental health disorder Substance use disorder Social History Household Members: Spouse Housing: Condominium Alcohol intake: never Patient Tobacco Use Status: Former Tobacco user Tobacco use type: Cigarette e-Cigarette/Vaping Use: Never Used Second Hand Smoke Exposure: No service: No Current occupational status: disabled Cognitive needs: No Hearing needs: No Vision needs: No Female Reproductive History Menstrual Age of Menarche: 12 Review of Systems Const All systems reviewed & are unremarkable except as noted in HPI and below Reports no additional complaints Eyes Reports no additional complaints ENT Reports no additional complaints Card Reports no additional complaints Resp Reports no additional complaints GI Reports no additional complaints Reports no additional complaints Musc Reports no additional complaints Skin/Breast Reports system reviewed and no additional complaints, except as documented Neuro Reports no additional complaints Psych Reports no additional complaints Endo Reports no additional complaints Gonzalez/Lymph Reports no additional complaints Aller/Immun Reports no additional complaints Physical Exam Vital Signs: Last Vital Signs Temp 98 F 10/01/22 10:29 Pulse 80 10/01/22 10:29 BP 118/64 10/01/22 10:29 Pulse Ox 97 10/01/22 10:29 Oxygen Delivery Method Room Air 10/01/22 10:29 Const General: cooperative, healthy appearing, no acute distress and well developed Orientation/consciousness: patient oriented x3 HEENT Head: Yes normal to inspection Ears: hearing grossly normal bilaterally General nose exam: Normal external nose present Face and sinus: Yes normal facial exam Mouth: Normal oral and palatal mucosa present Eyes General: appearance normal, both eyes and all related structures Pupils: Equal, round and reactive pupils present EOM: EOMs intact bilaterally Resp Effort & Inspection: normal respiratory effort and no respiratory distress Auscultation: clear to auscultation bilaterally Cardio Rate: regular rate Rhythm: regular rhythm Heart sounds: no gallops, no murmurs and no rubs Peripheral pulses: Peripheral pulses 2+ throughout GI Inspection: No distended Palpation (GI): Soft to palpation and nontender Auscultation: normal bowel sounds Other: Darleen-Linda Stevenson CCMA 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 External Female Exam: normal external appearance Speculum Exam - Vagina: abnormal vaginal discharge white Skin General skin exam: no rashes or lesions noted Neuro General: patient oriented x3 Cranial nerves: Yes CN's II-XII intact bilaterally and Yes Equal, round and reactive pupils present Gait exam (Neuro): Normal gait present Motor exam (neuro): 5/5 motor strength present throughout Extrem General: Yes normal to inspection, Yes full ROM and Yes no clubbing, cyanosis or edema Psych Appearance: grossly normal Mental Status: mental status grossly normal Results AMB Urinalysis, Automated UA Leukoctes 0 Yeimy/uL Last Edit by Arya Stevenson [facility] on 10/01/22 10:37 UA Nitrite Negative Last Edit by Arya Stevenson [facility] on 10/01/22 10:37 UA Urobilinogen 0.2 mg/dL Last Edit by Arya Stevenson [facility] on 10/01/22 10:37 UA Protein 0 mg/dL Last Edit by Arya Stevenson [facility] on 10/01/22 10:37 UA pH 5.5 Last Edit by DarleenPricila Stevenson [facility] on 10/01/22 10:37 UA Blood 10 Ethan/uL Last Edit by Arya Stevenson [facility] on 10/01/22 10:37 UA Specific [place] 1.015 Last Edit by Arya Stevenson [facility] on 10/01/22 10:37 UA Ketone Negative Last Edit by Arya Stevenson [facility] on 10/01/22 10:37 UA Bilirubin 0 mg/dL Last Edit by Arya Stevenson [facility] on 10/01/22 10:37 UA Glucose 1000 mg/dL Last Edit by DarleenPricila Stevenson [facility] on 10/01/22 10:37 AMB Random Glucose (hemocue) AMB Random Glucose (hemocue) 134 mg/dL Last Edit by Arya Stevenson [facility] on 10/01/22 10:46 Assessment & Plan Assessment & Plan (1) Vulvovaginal candidiasis: Code(s): B37.31 - Acute candidiasis of vulva and vagina Plan: This is a 67-year-old female with past medical history significant for diabetes mellitus who presents with vaginal odor and burning. Urinalysis was negative for nitrites or leukocyte esterase, so urinary tract infection is unlikely. She did have 3+ glucose in her urine but POC glucose in the office was well controlled at 134. On pelvic exam in patient, patient found to have white vaginal discharge. Bacterial vaginosis swab was obtained and sent. History and physical most consistent with vulvovaginal candidiasis, possible BP. Patient sent home on p.o. fluconazole 150 mg x 1 dose with repeat dose in 72 hours if symptoms persist. Follow results of BV panel. Patient advised to follow-up here go to the emergency room for persistent/worsening symptoms or if she were to develop fever/chills, flank/back pain, or systemic symptoms. Patient verbalized understanding and she is in agreement with the plan. Orders: Orders AMB Urinalysis Automated Today Z13.9 - Encounter for screening, unspecified AMB Random Glucose (hemocue) Today Z13.9 - Encounter for screening, unspecified Bacterial Vaginosis Panel Today N89.8 - Other specified noninflammatory disorders of vagina Medications: New fluconazole may repeat second dose 72 hrs after first dose if symptoms persist 150 mg PO Q3D 2 tabs 0RF Coding Level of Care Code Est Pt Level 3 (57713) Diagnoses Vulvovaginal candidiasis B37.31
[2022-10-01 10:29] VITALS: BP 118/64; PULSE 80; TEMP 36.6; O2SAT 97
== END 2022-10-01 11:20 | disposition home or self-care (01) ==
PROVIDERS: Visit Provider Physician Assistant Medical
DX: B37.31 Acute candidiasis of vulva and vagina (principal); R30.0 Dysuria
CPT/HCPCS: 81003; 82948; 99213

== ENCOUNTER 2022-10-01 11:05 | Outpatient (REF) | payer MEDICARE, MEDICAID, SELFPAY ==
[2022-10-03 13:31] LABS: BV Int Neg Control Negative (Negative); BV Int Pos Control Positive (Positive)
== END 2022-10-01 11:06 | disposition home or self-care (01) ==
LOC: HO.LAB 11:05
PROVIDERS: Visit Provider Physician Assistant Medical
DX: N89.8 Other specified noninflammatory disorders of vagina (principal)
CPT/HCPCS: 87480; 87510; 87660

== ENCOUNTER 2022-10-06 09:05 | Day surgery (SDC) | payer MEDICARE, MEDICAID, SELFPAY ==
--- NOTE | 2022-10-04 12:26 | HO.ANESPROP2 ---
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 (Acute) Vaginitis (Acute) Vaginitis and vulvovaginitis (Acute) Acute sinusitis (Acute) Memory loss (Acute) Muscle cramps (Acute) Menieres disease (Acute) Rectal itching (Acute) Hypernatremia (Acute) HTN (hypertension) (Acute) HLD (hyperlipidemia) (Acute) T2DM (type 2 diabetes mellitus) (Acute) Skin lesion (Acute) New daily persistent headache (Acute) Dysuria (Acute) Pelvic pain (Acute) Urinary tract infection (Acute) GERD (gastroesophageal reflux disease) (Acute) Epigastric abdominal pain (Acute) Dark stools (Acute) Rectal itching (Acute) Breast cancer (Chronic) History of stroke (Acute) Hypovitaminosis D (Acute) Nausea (Acute) Mixed hyperlipidemia (Acute) Essential hypertension (Acute) Diabetes mellitus (Acute) Past Medical History Medical History Breast cancer Diabetes mellitus Dizziness Essential hypertension History of stroke HLD (hyperlipidemia) HTN (hypertension) Hypercalcemia Hypovitaminosis D 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 Son No problems noted. Brother No problems noted. Brother No problems noted. Family/Other Mental health disorder Substance use disorder Surgical History Surgical History H/O colonoscopy H/O right mastectomy History of hemicolectomy History of left mastectomy History of parotid gland removal Status post unilateral salpingo-oophorectomy Social History Social History Household Members: Spouse Housing: Condominium Alcohol intake: never Patient Tobacco Use Status: Former Tobacco user Tobacco use type: Cigarette e-Cigarette/Vaping Use: Never Used Second Hand Smoke Exposure: No Advance Directives: No Advance Directives Information Provided: Yes service: No Current occupational status: disabled Cognitive needs: No Hearing needs: No Vision needs: No Meds Allergies Allergy/AdvReac Type Severity Reaction Status Date / Time dulaglutide [From Trulicity] Allergy Mild Abdominal Verified 10/01/22 10:27 Pain metformin AdvReac Mild Diarrhea Verified 10/01/22 10:27 sitagliptin [Januvia] AdvReac Mild abdominal Verified 10/01/22 10:27 pain Home Medications Medication Instructions Recorded Confirmed Last Taken Type ciclopirox 1 % shampoo ml topical Q OTHER DAY 04/05/22 Unknown History empagliflozin 25 mg tablet 25 mg PO QAM 04/05/22 10/04/22 Unknown History (Jardiance) blood sugar diagnostic (FreeStyle #10 ea 08/02/22 Unknown History Lite Strips) Exam Exam Date and Time: October 04, 2022 1226 Assessment and Plan Assessment Anesthesia Assessment: Chart Reviewed Documented by User: Ana Laura Haddad MD 10/06/22 09:51 [facility] Past Medical History Medical History Breast cancer Diabetes mellitus Dizziness Essential hypertension History of stroke HLD (hyperlipidemia) HTN (hypertension) Hypercalcemia Hypovitaminosis D 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 Son No problems noted. Brother No problems noted. Brother No problems noted. Family/Other Mental health disorder Substance use disorder Family history of problems with anesthesia: No Surgical History Surgical History H/O colonoscopy H/O right mastectomy History of hemicolectomy History of left mastectomy History of parotid gland removal Status post unilateral salpingo-oophorectomy History of Problems with Anesthesia: No Social History Social History Household Members: Spouse Housing: [facility] Alcohol intake: never Patient Tobacco Use Status: Former Tobacco user Tobacco use type: Cigarette e-Cigarette/Vaping Use: Never Used Second Hand Smoke Exposure: No Advance Directives: No Advance Directives Information Provided: Yes service: No Current occupational status: disabled Cognitive needs: No Hearing needs: No Vision needs: No Meds Allergies Allergy/AdvReac Type Severity Reaction Status Date / Time dulaglutide [From Trulicity] Allergy Mild Abdominal Verified 10/01/22 10:27 Pain metformin AdvReac Mild Diarrhea Verified 10/01/22 10:27 sitagliptin [Januvia] AdvReac Mild abdominal Verified 10/01/22 10:27 pain Home Medications Medication Instructions Recorded Confirmed Last Taken Type ciclopirox 1 % shampoo ml topical Q OTHER DAY 04/05/22 Unknown History empagliflozin 25 mg tablet 25 mg PO QAM 04/05/22 10/04/22 Unknown History (Jardiance) blood sugar diagnostic (FreeStyle #10 ea 08/02/22 Unknown History Lite Strips) Exam Airway Mallampati Class: II TM Dist: >3cm Neck ROM: Full Heart: rrr Lungs: cta Assessment and Plan Assessment Anesthesia Assessment: Anesthesia Plan Discussed Final Anesthetic Review Family History of Problems with Anesthesia: No History of Problems with Anesthesia: No NPO: Yes ASA Class: III Final Preanesthetic Review: No Changes in Pt Med Stat, Meds/Allgs Chart Reviewed and Consent Obtained/Reviewed Patient Risk: Intermediate Procedure Risk: Intermediate Anesthetic Plan Anesthetic Plan: MAC: Disposition: Standard PACU
[2022-10-04 14:08] VITALS: BMI 26.2
[2022-10-06 09:39] LABS: Glucose, Whole Blood 140 mg/dL (60-115)
[2022-10-06 09:44] VITALS: BMI 26.2
[2022-10-06 09:55] VITALS: BP 154/59; PULSE 78; RESP 20; TEMP 36.2; O2SAT 97
[2022-10-06] MEDS: Lactated Ringers 1,000 ML 100 ML IVCONT (10:22)
--- NOTE | 2022-10-06 10:33 | MHC.SHP ---
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) use of insulin Memory loss Menieres disease Mixed hyperlipidemia Mixed hyperlipidemia Muscle cramps Nausea New daily persiste) History of Previous Operations: Relevant previous surgery/procedure and date(s) (H/O colonoscopy H/O right mastectomy History of hemicolectomy History of left mastectomy History of parotid gland removal Status post unilateral salpingo-oophorectomy) Allergies: Allergies Allergy/AdvReac Type Severity Reaction Status Date / Time dulaglutide [From Trulicity] Allergy Mild Abdominal Verified 10/01/22 10:27 Pain metformin AdvReac Mild Diarrhea Verified 10/01/22 10:27 sitagliptin [Januvia] AdvReac Mild abdominal Verified 10/01/22 10:27 pain Review of Systems Sugical H&P ROS: Negative: Constitution, Cardiovascular, Respiratory, Neurological, Psychiatric, Hem-Onc, Allergic/Immunologic, Gastrointestinal, Genitourinary, Musculoskeletal, Integumentary, Endocrine and Eyes/Ears/Nose/Throat Exam Surgical H&P Exam: Normal: HEENT, Normal: Heart, Normal: Lungs, Normal: Extremities, Normal: Abdomen, Normal: Skin and Normal: Neurological Plan Diagnosis/Plan: Unchanged I have reviewed the history and physical and performed a pertinent physical examination on my patient. No changes have occurred unless specified. Time Spent With Patient Time: Total time managing care of this patient today ____ minutes.
--- NOTE | 2022-10-06 10:35 | W.PM.OPN ---
Operative Note Operative Note Date of Service: 10/06/22 Narrative: Operative Information Procedure Description: Colonoscopy Indication: hx of polyps Anesthesia: MAC COLONOSCOPY Instrument: Olympus variable stiffness pediatric scope 190L Colonoscopy Monitoring: Vital signs and clinical assessment, continuous EKG monitoring, Pulse oximetry, Carbon Dioxide monitoring and blood pressure monitoring were done throughout the procedure. Colon withdrawal time was 11 minutes. Procedure: The patient was placed in the left lateral decubitis position and pre-procedure medications were administered. After a digital rectal examination of the ano-rectum, the video colonoscope was inserted into the rectum and advanced through the colon to the cecum/TI. The colonoscope was slowly withdrawn in a retrograde panoramic fashion and the colon mucosa was carefully examined including a retroflexed view of the rectum. Findings and interventions are described below. Procedure Difficulty: easy Findings: Terminal Ileum-not intubated Cecum:normal Ascending Colon: x 2 sessile polyps 10-14 mm removed with cold snare Transverse Colon -normal Descending Colon:normal Sigmoid Colon: normal Rectum: Retroflexion with small internal hemorrhoids, grade I, 5-6 mm sessile polyp removed with cold forceps Anorectum - normal Colon preparation: [place] Bowel Preparation Scale Right colon; 1-2 Transverse colon: 2 Left colon; 2 (0 = Unprepared colon segment with mucosa not seen due to solid stool that cannot be cleared. 1 = Portion of mucosa of the colon segment seen, but other areas of the colon segment not well seen due to staining, residual stool and/or opaque liquid. 2 = Minor amount of residual staining, small fragments of stool and/or opaque liquid, but mucosa of colon segment seen well. 3 = Entire mucosa of colon segment seen well with no residual staining, small fragments of stool or opaque liquid) Impression and Post Procedure Diagnosis: polyps internal hemorrhoids Plan: High fiber diet leaflet Avoid straining at stool, epsom salts and sitz bath, anusol supps or cream Repeat Colonoscopy in 1-2 years due to fair right sided prep or earlier if clinically indicated restart plavix tomorrow Above findings were reviewed with the patient and relevant handouts were provided if indicated.
[2022-10-06 11:10] VITALS: BP 100/40; PULSE 75; RESP 16; TEMP 36.2; O2SAT 97
[2022-10-06 11:25] VITALS: BP 119/51; PULSE 75; RESP 18; O2SAT 95
[2022-10-06 11:35] VITALS: BP 124/55; PULSE 68; RESP 18; TEMP 36.7; O2SAT 95
== END 2022-10-06 12:28 | disposition home or self-care (01) ==
PROVIDERS: Visit Provider Internal Medicine Gastroenterology
PROC: 0DJD8ZZ Inspection of Lower Intestinal Tract, Via Natural or Artificial Opening Endoscopic (ICD-10-PCS; CPT 45378; principal; 2022-10-06 11:10)
DX: Z12.11 Encounter for screening for malignant neoplasm of colon (principal); Z86.010 Personal history of colon polyps; K51.40 Inflammatory polyps of colon without complications; K62.1 Rectal polyp; K64.0 First degree hemorrhoids; Z85.3 Personal history of malignant neoplasm of breast; E11.9 Type 2 diabetes mellitus without complications; I10 Essential (primary) hypertension; E78.2 Mixed hyperlipidemia; Z79.4 Long term (current) use of insulin; Z79.899 Other long term (current) drug therapy; Z88.8 Allergy status to other drugs, medicaments and biological substances; Z87.891 Personal history of nicotine dependence
CPT/HCPCS: 45385; 45380; 82947; 88305

== ENCOUNTER → 2022-10-06 09:05 | Outpatient (BNV) | payer MEDICARE, MEDICAID, SELFPAY | PROVIDERS: Visit Provider Internal Medicine Gastroenterology | DX: Z86.010 Personal history of colon polyps (principal); D12.2 Benign neoplasm of ascending colon; D12.8 Benign neoplasm of rectum; K64.9 Unspecified hemorrhoids | CPT/HCPCS: 45380; 45385 ==

== ENCOUNTER 2022-10-22 09:59 | Outpatient (REF) | payer OTHER, SELFPAY ==
[2022-10-22 11:53] LABS: Appearance Urine Clear; Color Urine Yellow; Glucose Urine UA >=1000 mg/dL (Negative); Leukocyte Esterase Urine Trace (Negative); Nitrite Urine Positive (Negative); PH 5.5 (5.0-9.0); Specific Gravity - Urine >= 1.030 (1.005-1.025); UMIC TRIGGER UACC YES; Urine Blood Negative (Negative); Urine Ketones Negative (Negative); Urine Protein Negative (Neg-Trace)
[2022-10-22 11:59] LABS: Bacteria Urine 4+ (None Seen); Hyaline Casts Urine 0-2 /LPF (0-2); RBC Urine 0-2 /HPF (0-2); UACC Culture Trigger YES; WBC Urine >50 /HPF (0-5)
== END 2022-10-22 10:00 | disposition home or self-care (01) ==
LOC: HO.LAB 09:59
PROVIDERS: PCP Internal Medicine; Visit Provider Internal Medicine Gastroenterology
DX: K76.0 Fatty (change of) liver, not elsewhere classified (principal); K63.5 Polyp of colon; N39.0 Urinary tract infection, site not specified
CPT/HCPCS: 81001; 87086; 87088; 87186; 99212

== ENCOUNTER 2022-10-22 09:59 | Outpatient (AMB) | payer MEDICARE, MEDICAID, SELFPAY ==
--- NOTE | 2022-10-22 10:00 | MHC.OFFVIS ---
Intake Vital Signs 10/22/22 10:04 Height 5 ft 3 in Weight 132 lb 4.438 oz BMI 23.4 BP 167/71 H Blood Pressure Location Lt brachial Position Sitting Pulse 73 Intake Visit Reasons: S/P Colon Intake Note: Monica presents in the office as a follow up colonoscopy. CC: She states that she is having pains in her stomach still. Senior Media Planner Required: Yes Senior Media Planner Name: Allergies dulaglutide [[facility] Allergy (Mild, Verified 10/22/22 10:04) Abdominal Pain metformin Adverse Reaction (Mild, Verified 10/22/22 10:04) Diarrhea sitagliptin [Januvia] Adverse Reaction (Mild, Verified 10/22/22 10:04) abdominal pain HPI S/P Colon HPI Details 67 yr old f with hx of breast ca, DM, HTN, sleep d/o, HLP, carotid surgery being seen for f/u? RECAP She had been having itching in the rectum, ? been on and off ? denied rectal bleeding ? had nausea no vomiting ? she had abdo pain but not now for a while, it was in her sides, mostly right ? no urine sx ? she had diarrhea , thoguht due to metformin, going on for a while ? denied straining at stool ? she had palpitations when sits down ? she is on aspirin and plavix ? advised on fiber diet, epsom salts and sitz bath\ TESTS: colonoscopy 2018--several polyps removed-mostly tubular adenomas, internal hemorhroids ? colonoscopy 2019---desc and rectal polyps, internal hemorrhoids--path--TA and hyperplastic polyps colonoscopy 09/29-- inflammatory polyp and hyperplastic polyp removed ? UA: ?Renal US: 04/2022 hepatic steatosis, GB polyp, renal angiomyolipoma INTERIM: she has lower back pain since colonoscopy feels like soreness, worse with bending she has urine frequency, but this chronic no constipation or diarrhea - but recently stools more hard and pain worse in back when passes stool no dysphagia EXAM: GENERAL: The patient is well developed and nontoxic. VITAL SIGNS:see workflow HEENT: Nonicteric sclerae, PERRLA, EOMI. Oropharynx clear. Moist mucous membranes. Conjunctivae appear well perfused. No thyroid mass. CHEST: Chest wall is nontender. HEART: Regular rate and rhythm without murmurs. LUNGS: Clear to auscultation bilaterally. ABDOMEN: Soft, positive bowel sounds, nontender, no organomegaly. pos tenderness suprapubic area , no hernia seen SKIN: No rash, no excessive bruising, petechiae, or purpura. brijesh keratosis noted on skin NEUROLOGIC: Cranial nerves II-XII intact without motor/sensory deficit. MS; pain with lateral flexion of spine, no point tenderness but reduced ROM spine Assessments ? 1. Fatty liver --nml LFT 2. hx of polyps 3. 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 Son No problems noted. Brother No problems noted. Brother No problems noted. Family/Other Mental health disorder Substance use disorder Social History Household Members: Spouse Housing: Condominium Alcohol intake: never Patient Tobacco Use Status: Former Tobacco user Quit Date: quit 40 yrs ago Tobacco use type: Cigarette e-Cigarette/Vaping Use: Never Used Second Hand Smoke Exposure: No service: No Current occupational status: disabled Cognitive needs: No Hearing needs: No Vision needs: No Female Reproductive History Menstrual Age of Menarche: 12 Physical Exam Vital Signs: Last Vital Signs Pulse 73 10/22/22 10:04 BP 167/71 H 10/22/22 10:04 BMI result Body Mass Index 23.4 Assessment & Plan Assessment & Plan (1) NAFLD (nonalcoholic fatty liver disease): Code(s): K76.0 - Fatty (change of) liver, not elsewhere classified (2) Colon polyps: Code(s): K63.5 - Polyp of colon (3) Urinary tract infection: Code(s): N39.0 - Urinary tract infection, site not specified Orders: Orders UA CC w/rflx Micro + Cult Today R30.0 - Dysuria Medications: New polyethylene glycol 3350 (Miralax) 17 grams PO BID 510 grams 0RF psyllium husk (Metamucil) mix into at least 8 oz of water or juice before administering 1 tbsp PO BID 660 grams 3RF Coding Level of Care Code Est Pt Level 3 (44431) Diagnoses NAFLD (nonalcoholic fatty liver disease) K76.0 Colon polyps K63.5 Urinary tract infection N39.0
[2022-10-22 10:04] VITALS: BP 167/71; PULSE 73; BMI 23.4
== END 2022-10-22 10:29 | disposition home or self-care (01) ==
PROVIDERS: PCP Internal Medicine; Visit Provider Internal Medicine Gastroenterology
DX: K76.0 Fatty (change of) liver, not elsewhere classified (principal); K63.5 Polyp of colon; N39.0 Urinary tract infection, site not specified
CPT/HCPCS: 99213

== ENCOUNTER 2022-10-26 12:51 | Outpatient (AMB) | payer OTHER, SELFPAY ==
--- NOTE | 2022-10-26 14:10 | MHC.OFFWIV ---
Intake Vital Signs 10/26/22 14:17 Weight 130 lb BP 114/72 Blood Pressure Location Rt brachial Position Sitting Pulse 75 Pulse Source Pulse Oximeter Pulse Oximetry (%) 95 Oxygen Delivery Method Room Air Intake Visit Reasons: EST/UTI Intake Note: Patient here for UTI, she has been experiecing lower back pain. she was put on a antibiotic here which helped but then it came back. She had a pcp appt last week and spoke to pcp about symptoms and was put on cipro and was advised of side affects and she is not willing to take them now. Patient Tobacco Use Status: Former Tobacco user Quit Date: quit 40 yrs ago Allergies dulaglutide [From Trulicity] Allergy (Mild, Verified 10/26/22 14:53) Abdominal Pain metformin Adverse Reaction (Mild, Verified 10/26/22 14:53) Diarrhea sitagliptin [Januvia] Adverse Reaction (Mild, Verified 10/26/22 14:53) abdominal pain Medication List - Last Reconciled 10/26/22 by Anthony Alvarez MD amlodipine 2.5 mg PO DAILY aspirin 81 mg PO DAILY atorvastatin 80 mg PO DAILY 90 days blood sugar diagnostic (FreeStyle Lite Strips) As directed blood-glucose meter (FreeStyle Lite Meter kit) As directed cholecalciferol (vitamin D3) 50 mcg PO DAILY 90 days ciclopirox 1% mL topical Q OTHER DAY ciprofloxacin HCl 500 mg PO BID clopidogrel 75 mg PO DAILY empagliflozin (Jardiance) 25 mg PO QAM fenofibrate 54 mg PO DAILY 90 days flash glucose scanning reader (FreeStyle Katelyn 14 Day [place]) As directed flash glucose sensor (FreeStyle Katelyn 14 Day Sensor kit) Once every 14 days insulin glargine (Lantus U-100 Insulin) 82 units (0.82 mL) subcut DAILY 90 days insulin lispro (Humalog U-100 Insulin) 30 units (0.3 mL) subcut TID 90 days insulin syringe-needle U-100 (BD Insulin Syringe Ultra-Fine) Use 1 syringe four times a day lancets TEST 4 TIMES DAILY lisinopril 20 mg PO DAILY mastectomy bra (bra, mastectomy) As Directed pen needle, diabetic (BD Ultra-Fine Short Pen Needle) 4x daily polyethylene glycol 3350 (Miralax) 17 grams PO BID psyllium husk (Metamucil) 1 tbsp PO BID Do you need a note to return to daycare/school/sports/work: No HPI EST/UTI HPI Details 67-year-old female presents to the office for a sick visit. Her is translating for her. Patient complains of symptoms of back pain. Yesterday she was at another medical provider's office when she reported the symptoms of back pain. She was given a prescription of ciprofloxacin. Today she comes back with her stating she wants another prescription. She stays due to the side effects that she read in the pamphlet provided at the pharmacy, she does not want to take this medication. Patient has lower back pain. 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 Son No problems noted. Brother No problems noted. Brother No problems noted. Family/Other Mental health disorder Substance use disorder Social History Household Members: Spouse Housing: Condominium Alcohol intake: never Patient Tobacco Use Status: Former Tobacco user Quit Date: quit 40 yrs ago Tobacco use type: Cigarette e-Cigarette/Vaping Use: Never Used Second Hand Smoke Exposure: No service: No Current occupational status: disabled Cognitive needs: No Hearing needs: No Vision needs: No Female Reproductive History Menstrual Age of Menarche: 12 Physical Exam Vital Signs: Last Vital Signs Pulse 75 10/26/22 14:17 BP 114/72 10/26/22 14:17 Pulse Ox 95 10/26/22 14:17 Oxygen Delivery Method Room Air 10/26/22 14:17 General: Yes no CVA tenderness Back/Spine/Pelvis Back: no CVA tenderness Results AMB Urinalysis, Automated UA Leukoctes 0 Yeimy/uL Last Edit by Arya Stevenson [facility] on 10/26/22 14:29 UA Nitrite Negative Last Edit by Arya Stevenson [facility] on 10/26/22 14:29 UA Urobilinogen 0 mg/dL Last Edit by Arya Stevenson [facility] on 10/26/22 14:29 UA Protein 0 mg/dL Last Edit by Arya Stevenson [facility] on 10/26/22 14:29 UA pH 5.5 Last Edit by Arya Stevenson [facility] on 10/26/22 14:29 UA Blood 0 Ethan/uL Last Edit by Arya Stevenson [facility] on 10/26/22 14:29 UA Specific [place] 1.015 Last Edit by Arya Stevenson [facility] on 10/26/22 14:29 UA Ketone Negative Last Edit by Arya Stevenson [facility] on 10/26/22 14:29 UA Bilirubin 0 mg/dL Last Edit by DarleenPricila Stevenson [facility] on 10/26/22 14:29 UA Glucose 1000 mg/dL Last Edit by DarleenPricila Stevenson [facility] on 10/26/22 14:29 Results Reviewed Results Reviewed: Laboratory Last Values Urine pH (Auto) 5.5 10/26/22 14:27 Specific [place] (Auto) 1.015 10/26/22 14:27 Urine Protein (Auto) 0 mg/dL 10/26/22 14:27 Glucose (UA)(Auto) 1000 mg/dL 10/26/22 14:27 Urine Ketones (Auto) Negative 10/26/22 14:27 Urine Blood (Auto) 0 Ethan/uL 10/26/22 14:27 Urine Nitrite (Auto) Negative 10/26/22 14:27 Urine Bilirubin (Auto) 0 mg/dL 10/26/22 14:27 Urine Urobilinogen (Auto) 0 mg/dL 10/26/22 14:27 Leukocyte Esterase (Auto) 0 Yeimy/uL 10/26/22 14:27 Assessment & Plan Assessment & Plan (1) Urinary tract infection: Code(s): N39.0 - Urinary tract infection, site not specified Plan: Urinalysis done in the office did not show any evidence of UTI. I declined to write her an alternative medication to ciprofloxacin. She could contact the physician who prescribed the medication in the 1st place. Or she could contact her primary care provider. Orders: Orders AMB Urinalysis Automated Today Z13.9 - Encounter for screening, unspecified Coding Level of Care Code Est Pt Level 3 (75367) Diagnoses Urinary tract infection N39.0
[2022-10-26 14:17] VITALS: BP 114/72; PULSE 75; O2SAT 95
== END 2022-10-26 15:09 | disposition home or self-care (01) ==
PROVIDERS: PCP Internal Medicine; Visit Provider Internal Medicine
DX: N39.0 Urinary tract infection, site not specified (principal); M54.50 Low back pain, unspecified
CPT/HCPCS: 81003; 99213

== ENCOUNTER 2022-12-15 12:28 | Outpatient (AMB) | payer OTHER, SELFPAY ==
--- NOTE | 2022-12-15 12:41 | MHC.OFFWIV ---
Intake Intake Visit Reasons: EP Vaginal Infection [phone] Patient Tobacco Use Status: Former Tobacco user Quit Date: quit 40 yrs ago [facility] Allergy (Mild, Verified 10/26/22 14:53) Abdominal Pain metformin Adverse Reaction (Mild, Verified 10/26/22 14:53) Diarrhea sitagliptin [Januvia] Adverse Reaction (Mild, Verified 10/26/22 14:53) abdominal pain PFSH Medical History Hypercalcemia Mixed hyperlipidemia Dizziness [facility] (current) use of insulin Breast cancer Memory loss Muscle cramps Menieres disease HTN (hypertension) T2DM (type 2 diabetes mellitus) Skin lesion New daily persistent headache History of stroke Hypovitaminosis D Nausea Essential hypertension Diabetes mellitus Surgical History H/O colonoscopy History of parotid gland removal Status post unilateral salpingo-oophorectomy H/O right mastectomy History of left mastectomy History of hemicolectomy Family History Father Diabetes Mother Diabetes Hypertension Sister Cervical cancer Daughter No problems noted. Son No problems noted. Brother No problems noted. Brother No problems noted. Family/Other Mental health disorder Substance use disorder Social History Household Members: Spouse Housing: Condominium Alcohol intake: never Patient Tobacco Use Status: Former Tobacco user Quit Date: quit 40 yrs ago Tobacco use type: Cigarette e-Cigarette/Vaping Use: Never Used Second Hand Smoke Exposure: No service: No Current occupational status: disabled Cognitive needs: No Hearing needs: No Vision needs: No Female Reproductive History Menstrual Age of Menarche: 12 Coding
[2022-12-15 12:55] VITALS: PULSE 79; TEMP 36.8; O2SAT 93
--- NOTE | 2022-12-15 12:55 | MHC.OFFWIV ---
Intake Vital Signs 12/15/22 12:55 Weight 137 lb Pulse 79 Pulse Source Pulse Oximeter Temp 98.2 F Temp Source Oral Pulse Oximetry (%) 93 Intake Visit Reasons: EP Vaginal Infection [phone] Patient Tobacco Use Status: Former Tobacco user Quit Date: quit 40 yrs ago Allergies dulaglutide [From Trulicity] Allergy (Mild, Verified 12/15/22 12:56) Abdominal Pain metformin Adverse Reaction (Mild, Verified 12/15/22 12:56) Diarrhea sitagliptin [Januvia] Adverse Reaction (Mild, Verified 12/15/22 12:56) abdominal pain Medication List - Last Reconciled 12/15/22 by Joel Mccord MD amlodipine 2.5 mg PO DAILY aspirin 81 mg PO DAILY atorvastatin 80 mg PO DAILY 90 days blood sugar diagnostic (FreeStyle Lite Strips) As directed blood-glucose meter (FreeStyle Lite Meter kit) As directed cholecalciferol (vitamin D3) 50 mcg PO DAILY 90 days ciclopirox 1% mL topical Q OTHER DAY clopidogrel 75 mg PO DAILY empagliflozin (Jardiance) 25 mg PO QAM fenofibrate 54 mg PO DAILY 90 days flash glucose scanning reader ([employer] Katelyn 14 Day [place]) As directed flash glucose sensor (FreeStyle Katelyn 14 Day Sensor kit) Once every 14 days insulin glargine (Lantus U-100 Insulin) 82 units (0.82 mL) subcut DAILY 90 days insulin lispro (Humalog U-100 Insulin) 30 units (0.3 mL) subcut TID 90 days insulin syringe-needle U-100 (BD Insulin Syringe Ultra-Fine) Use 1 syringe four times a day lancets TEST 4 TIMES DAILY lisinopril 20 mg PO DAILY mastectomy bra (bra, mastectomy) As Directed pen needle, diabetic (BD Ultra-Fine Short Pen Needle) 4x daily HPI EP Vaginal Infection [phone] HPI Details Chief complaint: Vaginal and lower pelvic pain for the past 1 week with vaginal discharge Was sent for ultrasound this morning, by PCP, but patient could not go through because of discomfort Came in today for evaluation and treatment On examination she has green vaginal discharge Patient has no fever no chills no nausea vomiting diarrhea We have taken vaginal cultures She is having discomfort with pelvic pressure mild I am treating her with metronidazole and doxycycline b.i.d. 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 Son No problems noted. Brother No problems noted. Brother No problems noted. Family/Other Mental health disorder Substance use disorder Social History Household Members: Spouse Housing: Condominium Alcohol intake: never Patient Tobacco Use Status: Former Tobacco user Quit Date: quit 40 yrs ago Tobacco use type: Cigarette e-Cigarette/Vaping Use: Never Used Second Hand Smoke Exposure: No service: No Current occupational status: disabled Cognitive needs: No Hearing needs: No Vision needs: No Female Reproductive History Menstrual Age of Menarche: 12 Review of Systems Const All systems reviewed & are unremarkable except as noted in HPI and below Physical Exam Vital Signs: Last Vital Signs Temp 98.2 F 12/15/22 12:55 Pulse 79 12/15/22 12:55 Pulse Ox 93 12/15/22 12:55 Const General: no acute distress Orientation/consciousness: patient oriented x3 Eyes General: appearance normal, both eyes and all related structures Resp Effort & Inspection: normal respiratory effort and able to speak in complete sentences Auscultation: clear to auscultation bilaterally Cardio Other: S1 S2 Other: Greenish vaginal discharge noticed, discomfort with pressure over pelvic area Neuro General: patient oriented x3 Psych Mental Status: mental status grossly normal Assessment & Plan Assessment & Plan (1) Pelvic inflammatory disease: Code(s): N73.9 - Female pelvic inflammatory disease, unspecified (2) Pelvic pain in female: Code(s): R10.2 - Pelvic and perineal pain (3) Vaginal discharge: Code(s): N89.8 - Other specified noninflammatory disorders of vagina (4) Vaginal pain: Code(s): R10.2 - Pelvic and perineal pain Plan Chief complaint: Vaginal and lower pelvic pain for the past 1 week with vaginal discharge Was sent for ultrasound this morning, by PCP, but patient could not go through because of discomfort Came in today for evaluation and treatment On examination she has green vaginal discharge Patient has no fever no chills no nausea vomiting diarrhea We have taken vaginal cultures She is having discomfort with pelvic pressure mild I am treating her with metronidazole and doxycycline b.i.d. for 7 days Patient should had repeat vaginal cultures after Orders: Orders Bacterial Vaginosis Panel Today N89.8 - Other specified noninflammatory disorders of vagina, R10.2 - Pelvic and perineal pain Medications: New doxycycline hyclate 100 mg PO BID 14 tabs 0RF 7 days metronidazole 500 mg PO Q8H 21 tabs 0RF 7 days Coding Level of Care Code Est Pt Level 4 (04196) Diagnoses Pelvic inflammatory disease N73.9 Pelvic pain in female R10.2 Vaginal discharge N89.8 Vaginal pain R10.2
== END 2022-12-15 13:50 | disposition home or self-care (01) ==
PROVIDERS: PCP Internal Medicine; Visit Provider Internal Medicine
DX: N73.9 Female pelvic inflammatory disease, unspecified (principal); R10.2 Pelvic and perineal pain; N89.8 Other specified noninflammatory disorders of vagina
CPT/HCPCS: 99214

== ENCOUNTER 2022-12-15 14:00 | Outpatient (REF) | payer OTHER, SELFPAY ==
[2022-12-17 13:11] LABS: BV Int Neg Control Negative (Negative); BV Int Pos Control Positive (Positive)
== END 2022-12-15 14:01 | disposition home or self-care (01) ==
LOC: HO.LAB 14:00
PROVIDERS: Visit Provider Internal Medicine
DX: R10.2 Pelvic and perineal pain (principal); N89.8 Other specified noninflammatory disorders of vagina
CPT/HCPCS: 87480; 87510; 87660

== ENCOUNTER 2023-02-25 08:46 | Outpatient (REF) | payer MEDICARE, SELFPAY ==
--- NOTE | ~2023-02-25 | MM_ITS ---
EXAMINATION: MM SCREENING DIGITAL BREAST TOMOSYNTHESIS, LEFT BREAST CLINICAL INFORMATION: Screening. Asymptomatic. The patient is status post right mastectomy. The patient has a history of prior left breast conservation surgery for cancer in 2003. COMPARISON: Mammography: This study is compared with prior exams dating back to 2019. TECHNIQUE: Digital breast tomosynthesis is performed in both the craniocaudal and mediolateral oblique views along with computer-aided detection (CAD). Synthesized 2D images are generated from the tomosynthesis. FINDINGS: There are scattered areas of fibroglandular density (ACR BI-RADS breast composition Category b). There are no significant masses, abnormal calcifications, or other abnormalities. Postsurgical changes in benign calcifications are present in the medial aspect of the left breast. MM/MM tomosynthesis screening LT IMPRESSION: No mammographic evidence of malignancy. ASSESSMENT: BI-RADS BI-RADS 2 - Benign Findings RECOMMENDATION: Routine annual mammography screening. 1 year F/U This examination should not preclude the clinical evaluation of a suspicious palpable abnormality. This patient's information was entered into a reminder system with a target due date for their next mammogram.
== END 2023-02-25 08:47 | disposition home or self-care (01) ==
LOC: HO.MAMMO 08:46
PROVIDERS: PCP Internal Medicine; Visit Provider Internal Medicine
DX: Z12.31 Encounter for screening mammogram for malignant neoplasm of breast (principal)
CPT/HCPCS: 77063; 77067

== ENCOUNTER → 2023-02-25 09:00 | Outpatient (BNV) | payer MEDICARE, SELFPAY | PROVIDERS: PCP Internal Medicine; Visit Provider Radiology Diagnostic Radiology | DX: Z12.31 Encounter for screening mammogram for malignant neoplasm of breast (principal) | CPT/HCPCS: 77063; 77067 ==

== ENCOUNTER 2023-03-30 09:49 | Outpatient (AMB) | payer MEDICARE, SELFPAY ==
--- NOTE | 2023-03-30 09:59 | AM.OFFWIN_ITS ---
Intake Vital Signs 03/30/23 10:00 Height 5 ft Weight 138 lb BMI 26.9 BP 122/68 Blood Pressure Location Lt brachial Position Sitting Pulse 82 Pulse Source Pulse Oximeter Temp 98.7 F Temp Source Temporal Artery Scan Pulse Oximetry (%) 96 Oxygen Delivery Method Room Air Intake Visit Reasons: EP cough head/earache sore throat sinus pain Intake Note: pt is here today for cough head ear ache sore throat sinus pain started 1 month ago Patient Tobacco Use Status: Former Tobacco user Quit Date: quit 40 yrs ago Allergies dulaglutide [From Trulicity] Allergy (Mild, Verified 03/30/23 10:01) Abdominal Pain metformin Adverse Reaction (Mild, Verified 03/30/23 10:01) Diarrhea sitagliptin [Januvia] Adverse Reaction (Mild, Verified 03/30/23 10:01) abdominal pain Do you need a note to return to daycare/school/sports/work: No HPI HPI Comments History of Present Illness Details She presents to office with flu symptoms Ongoing x 3-4 weeks States getting worse + body aches, fatigue + congestion, watery eyes + ST + cough; no phlegm She sais fevers; subjective with chills She tried NyQuil OTC medicine; BP controlled one; no help No SOB No urine or bowel complaints PFSH Medical History Hypercalcemia Mixed hyperlipidemia Dizziness [facility] ([facility]) use of insulin Breast cancer Memory loss Muscle cramps Menieres disease HTN (hypertension) T2DM (type 2 diabetes mellitus) Skin lesion New daily persistent headache History of stroke Hypovitaminosis D Nausea Essential hypertension Diabetes mellitus Surgical History H/O colonoscopy History of parotid gland removal Status post unilateral salpingo-oophorectomy H/O right mastectomy History of left mastectomy History of hemicolectomy Family History Father Diabetes Mother Diabetes Hypertension Sister Cervical cancer Daughter No problems noted. Son No problems noted. Brother No problems noted. Brother No problems noted. Family/Other Mental health disorder Substance use disorder Social History Household Members: Spouse Housing: Condominium Alcohol intake: never Patient Tobacco Use Status: Former Tobacco user Quit Date: quit 40 yrs ago Tobacco use type: Cigarette e-Cigarette/Vaping Use: Never Used Second Hand Smoke Exposure: No service: No Current occupational status: disabled Cognitive needs: No Hearing needs: No Vision needs: No Female Reproductive History Menstrual Age of Menarche: 12 Review of Systems Const Reports body aches, Reports chills, Reports fatigue and Denies fever(s) Eyes Denies blurry vision ENT Reports otalgia (pressure), Reports nasal discharge, Denies sinus pain, Denies sinus pressure, Reports sore throat and Denies throat swelling Card Denies chest pain and Denies dyspnea Resp Reports chest congestion, Reports cough and Denies dyspnea GI Denies diarrhea and Denies vomiting Endo Reports fatigue Aller/Immun Denies throat swelling Physical Exam Vital Signs: Last Vital Signs Temp 98.7 F 03/30/23 10:00 Pulse 82 03/30/23 10:00 BP 122/68 03/30/23 10:00 Pulse Ox 96 03/30/23 10:00 Oxygen Delivery Method Room Air 03/30/23 10:00 BMI result Body Mass Index 26.9 General: Non-toxic, NAD. Speaking full sentences. Skin: Warm dry throughout Eye: EOMI HENT: Airway patent. Uvula midline. No pharyngeal erythema or edema. No DIRECTOR OF CHANNEL MARKETING. +rhinorrhea Bilateral canals clear. TM non-erythematous, non-bulging. No TM perforation or hemotympanum noted. Respiratory: Slight decreased at bases due to poor ausculatory effort. CTA bilaterally. No wheezes, rales or rhonchi Cardiac: RRR. No murmur MSK: Full ROM extremities. Neurology: A/O. No aphasia or facial droop. Gait without abnormality Psych: Good mood and affect Results AMB Rapid Strep AMB Rapid Strep Negative Last Edit by Yisel Packer CMA on 03/30/23 10:14 Results Reviewed Results Reviewed: Laboratory Last Values Strep Scn [facility] Negative 03/30/23 10:13 Assessment & Plan Assessment & Plan (1) Cough: Code(s): R05.9 - Cough, unspecified Qualifiers: Cough type: acute Qualified Code(s): R05.1 - Acute cough Plan: Patient seen and evaluated. Symptoms ongoing x 4 weeks No respiratory distress At home covid test negative Strep negative in office Concern for development of bacterial infection with hx of diabetes; will cover with augmentin Take medicine with food; no alcohol F/U with PCP to discussed CPAP machine and follow up Patient gave verbal understanding and had no additional questions or concerns at time of discharge All questions answered Orders: Orders AMB Rapid Strep Screen Today Z13.9 - Encounter for screening, unspecified Medications: New amoxicillin-pot clavulanate 875-125 mg 1 tab PO BID 14 tabs 0RF Coding Level of Care Code Est Pt Level 3 (53100) Diagnoses Acute cough R05.1 Cough type: acute
[2023-03-30 10:00] VITALS: BP 122/68; PULSE 82; TEMP 37.1; O2SAT 96; BMI 26.9
== END 2023-03-30 10:22 | disposition home or self-care (01) ==
PROVIDERS: PCP Internal Medicine; Visit Provider Physician Assistant
DX: R05.1 Acute cough (principal); J02.9 Acute pharyngitis, unspecified
CPT/HCPCS: 87880; 99213

== ENCOUNTER 2023-04-11 12:45 | Outpatient (AMB) | payer OTHER, SELFPAY ==
--- NOTE | 2023-04-11 12:50 | MHC.OFFVIS ---
Intake Vital Signs 04/11/23 12:52 Height 5 ft Weight 134 lb 7.712 oz BMI 26.3 BP 136/63 Blood Pressure Location Lt brachial Position Sitting Pulse 80 Intake Visit Reasons: 4 month follow up Intake Note: Monica presents in the office as a 4 month follow up. CC: She is having bleeding when she has a BM. No irregular bowel movements. Pains in her stomach. Allergies dulaglutide [From Trulicity] Allergy (Mild, Verified 04/11/23 12:55) Abdominal Pain metformin Adverse Reaction (Mild, Verified 04/11/23 12:55) Diarrhea sitagliptin [Januvia] Adverse Reaction (Mild, Verified 04/11/23 12:55) abdominal pain HPI 4 month follow up HPI Details 67 yr old f with hx of breast ca, DM, HTN, sleep d/o, exp-lap, HLP, carotid surgery being seen for f/u RECAP She had been having itching in the rectum, been on and off denied rectal bleeding had nausea no vomiting she had abdo pain but not now for a while, it was in her sides, mostly right no urine sx she had diarrhea , thoguht due to metformin, going on for a while denied straining at stool she had palpitations when sits down she is on aspirin and plavix advised on fiber diet, epsom salts and sitz bath\ TESTS: colonoscopy 2018--several polyps removed-mostly tubular adenomas, internal hemorhroids colonoscopy 2019---desc and rectal polyps, internal hemorrhoids--path--TA and hyperplastic polyps colonoscopy 09/29-- inflammatory polyp and hyperplastic polyp removed UA: Renal US: 04/2022 hepatic steatosis, GB polyp, renal angiomyolipoma INTERIM: she has noted blood in stool usu on wiping she has lower abdominal pain, relieved once she passes stool denies nausea or vomiting stool is soft, comes out easy no dysphagia no urine sx, no dysuria, no anal pain she has occ lower back pain EXAM: GENERAL: The patient is well developed and nontoxic., ++ brijesh warts VITAL SIGNS:see workflow HEENT: Nonicteric sclerae, PERRLA, EOMI. Oropharynx clear. Moist mucous membranes. Conjunctivae appear well perfused. No thyroid mass. CHEST: Chest wall is nontender. HEART: Regular rate and rhythm without murmurs. LUNGS: Clear to auscultation bilaterally. ABDOMEN: Soft, positive bowel sounds, nontender, no organomegaly. pos tenderness suprapubic area , no hernia seen -- scar noted SKIN: No rash, no excessive bruising, petechiae, or purpura. brijesh keratosis noted on skin NEUROLOGIC: Cranial nerves II-XII intact without motor/sensory deficit. Assessments 1. Fatty liver --nml LFT 2. hx of polyps 3. 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 Son No problems noted. Brother No problems noted. Brother No problems noted. Family/Other Mental health disorder Substance use disorder Social History Household Members: Spouse Housing: Condominium Alcohol intake: never Patient Tobacco Use Status: Former Tobacco user Quit Date: quit 40 yrs ago Tobacco use type: Cigarette e-Cigarette/Vaping Use: Never Used Second Hand Smoke Exposure: No service: No Current occupational status: disabled Cognitive needs: No Hearing needs: No Vision needs: No Female Reproductive History Menstrual Age of Menarche: 12 Physical Exam Vital Signs: Last Vital Signs Pulse 80 04/11/23 12:52 BP 136/63 04/11/23 12:52 BMI result Body Mass Index 26.3 Assessment & Plan Assessment & Plan (1) Nausea: Code(s): R11.0 - Nausea Plan: 1. Fatty liver --nml LFT 2. hx of polyps 3. abn bowel habit, has ++ brijesh warts can be associated wt internal malignancy (Leser Trelet sign) Plan: 1/ TSH 2/ CT A/P 3/ repeat colonoscopy can use suprep (2) RLQ abdominal pain: Code(s): R10.31 - Right lower quadrant pain Plan: 1. Fatty liver --nml LFT 2. hx of polyps 3. abn bowel habit, has ++ brijesh warts can be associated wt internal malignancy (Leser Trelet sign) Plan: 1/ TSH 2/ CT A/P 3/ repeat colonoscopy can use suprep (3) Constipation: Code(s): K59.00 - Constipation, unspecified Plan: 1. Fatty liver --nml LFT 2. hx of polyps 3. abn bowel habit, has ++ brijesh warts can be associated wt internal malignancy (Leser Trelet sign) Plan: 1/ TSH 2/ CT A/P 3/ repeat colonoscopy can use suprep Orders: Orders XR KUB Today K59.00 - Constipation, unspecified, R10.31 - Right lower quadrant pain, R11.0 - Nausea CT abdomen pelvis w IV con Today K59.00 - Constipation, unspecified, R10.31 - Right lower quadrant pain, R11.0 - Nausea TSH reflex Free T4 Today K59.00 - Constipation, unspecified, R10.31 - Right lower quadrant pain Comprehensive Met. Panel Today K75.81 - Nonalcoholic steatohepatitis (BERUMEN) Coding Level of Care Code Est Pt Level 4 (06206) Diagnoses Nausea R11.0 RLQ abdominal pain R10.31 Constipation K59.00
[2023-04-11 12:52] VITALS: BP 136/63; PULSE 80; BMI 26.3
== END 2023-04-11 13:50 | disposition home or self-care (01) ==
PROVIDERS: PCP Internal Medicine; Visit Provider Internal Medicine Gastroenterology
DX: R11.0 Nausea (principal); R10.31 Right lower quadrant pain; K59.00 Constipation, unspecified
CPT/HCPCS: 99214

== ENCOUNTER 2023-04-11 12:45 | Outpatient (REF) | payer OTHER, SELFPAY ==
--- NOTE | ~2023-04-11 | XR_ITS ---
EXAMINATION: XR ABDOMEN KUB CLINICAL INDICATION: Constipation. COMPARISON: Ultrasound abdomen of 04/22/2022, CT abdomen and pelvis of 07/20/2019. TECHNIQUE: 2 AP views of the abdomen. FINDINGS: Surgical clips in the left midabdomen. Degenerative change in the imaged spine and bilateral hips. Nonobstructive bowel gas pattern. Axmpjutx-kd-cztxv amount of stool in the colon. XR/XR KUB IMPRESSION: Yinyyymi-or-cjimp amount of stool in the colon. Nonobstructive bowel gas pattern.
[2023-04-11 15:35] LABS: Alanine Aminotransferase 20 U/L (0-31); Albumin Level 3.9 g/dL (3.5-5.0); Alkaline Phosphatase 81 U/L (39-117); Anion Gap 12 (12-20); Aspartate Amino Transferase 19 U/L (5-31); Bilirubin Total 0.3 mg/dL (0.0-1.0); Blood Urea Nitrogen 17 mg/dL (9-16); Calcium 9.7 mg/dL (8.4-10.2); Carbon Dioxide 29 mmol/L (22-29); Chloride 110 mmol/L (96-108); Estimated Glomerular Filt Rate > 60; Glucose Random 103 mg/dL (60-115); Potassium 3.7 mmol/L (3.3-5.1); Sodium 147 mmol/L (135-145); Total Protein 7.3 g/dL (6.5-8.0)
[2023-04-11 15:52] LABS: TSH reflex Free T4 2.36 uIU/mL (0.32-4.0)
== END 2023-04-11 12:46 | disposition home or self-care (01) ==
LOC: HO.LAB 12:45
PROVIDERS: PCP Internal Medicine; Visit Provider Internal Medicine Gastroenterology
DX: R11.0 Nausea (principal); K59.00 Constipation, unspecified; R10.31 Right lower quadrant pain; K75.81 Nonalcoholic steatohepatitis (NASH)
CPT/HCPCS: 36415; 74018; 80053; 84443; 99212

== ENCOUNTER 2023-05-02 10:18 | Outpatient (AMB) | payer OTHER, SELFPAY ==
--- NOTE | 2023-05-02 10:21 | HO.NEPHOV_ITS ---
HPI HPI Comments History of Present Illness Details Middle-aged woman with a history of hypertension and obstructive sleep apnea. Overall blood pressure has been well controlled. She is unable to use CPAP machine and has returned the same. She continues to have lower abdominal pain has been evaluated by Dr. Loredo. 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 Son No problems noted. Brother No problems noted. Brother No problems noted. Family/Other Mental health disorder Substance use disorder Social History Household Members: Spouse Housing: Condominium Alcohol intake: never Patient Tobacco Use Status: Former Tobacco user Quit Date: quit 40 yrs ago Tobacco use type: Cigarette e-Cigarette/Vaping Use: Never Used Second Hand Smoke Exposure: No service: No Current occupational status: disabled Cognitive needs: No Hearing needs: No Vision needs: No Female Reproductive History Menstrual Age of Menarche: 12 Vital Signs 05/02/23 10:22 Height 5 ft Weight 134 lb BMI 26.2 BP 120/58 L Blood Pressure Location Lt brachial Position Sitting Pulse 83 Pulse Source Pulse Oximeter Pulse Oximetry (%) 97 Oxygen Delivery Method Room Air Physical Exam Vital Signs: Last Vital Signs Pulse 83 05/02/23 10:22 BP 120/58 L 05/02/23 10:22 Pulse Ox 97 05/02/23 10:22 Oxygen Delivery Method Room Air 05/02/23 10:22 BMI result Body Mass Index 26.2 Const General: comfortable Nutritional Appearance: well nourished Orientation/consciousness: patient oriented x3 HEENT Head: No normal to inspection Mouth: moist mucous membranes Neck Neck: Yes supple and Yes no JVD Resp Auscultation: clear to auscultation bilaterally, no rales and rub present Cardio Jugular venous distension: no JVD Palpation: no palpable S3 and no palpable S4 Heart sounds: no rubs GI Palpation (GI): Soft to palpation and nontender Percussion: No Fluid wave present General: Yes no CVA tenderness Back/Spine/Pelvis Back: no CVA tenderness Skin General skin exam: no rashes or lesions noted Neuro General: patient oriented x3 Extrem General: Yes no pedal edema and No clubbing Assessment & Plan Assessment & Plan (1) Hypernatremia: Code(s): E87.0 - Hyperosmolality and hypernatremia (2) HTN (hypertension): Code(s): I10 - Essential (primary) hypertension Plan Middle-aged woman with well-controlled hypertension and an essentially normal renal function. She has no significant proteinuria. She is mild hypernatremia due to free water deficit. I have encouraged her to increase her free water intake. Keep intake more than output. Continue to stand low-sodium diet. At present blood pressure control therefore not made any changes to her medications. Continue to avoid nephrotoxic agents including NSAIDs. Orders: Orders UA and rflx microscopic 11 Months E87.0 - Hyperosmolality and hypernatremia, I10 - Essential (primary) hypertension Basic Metabolic Panel 11 Months E87.0 - Hyperosmolality and hypernatremia, I10 - Essential (primary) hypertension Coding Level of Care Code Est Pt Level 4 (40608) Diagnoses Hypernatremia E87.0 HTN (hypertension) I10 Results Reviewed Nephrology Results: Hgb 14.8 g/dl (12.0-16.0) 02/16/23 WBC 7.2 X10*3/uL (4.8-10.8) 02/16/23 Plt Count 207 X10*3/uL (160-400) 02/16/23 Sodium 147 mmol/L (135-145) H 04/11/23 Potassium 3.7 mmol/L (3.3-5.1) 04/11/23 Chloride 110 mmol/L (96-108) H 04/11/23 Carbon Dioxide 29 mmol/L (22-29) 04/11/23 BUN 17 mg/dL (9-16) H 04/11/23 Creatinine 0.73 mg/dL (0.5-1.4) 04/11/23 Calcium 9.7 mg/dL (8.4-10.2) 04/11/23 Urine Protein Negative mg/dL (Neg-Trace) 10/22/22
[2023-05-02 10:22] VITALS: BP 120/58; PULSE 83; O2SAT 97; BMI 26.2
== END 2023-05-02 10:45 | disposition home or self-care (01) ==
PROVIDERS: PCP Internal Medicine; Visit Provider Internal Medicine Hypertension Specialist
DX: E87.0 Hyperosmolality and hypernatremia (principal); I10 Essential (primary) hypertension
CPT/HCPCS: 99214

== ENCOUNTER → 2023-05-02 10:18 | Outpatient (BNVA) | payer OTHER, SELFPAY | PROVIDERS: PCP Internal Medicine; Visit Provider Internal Medicine Hypertension Specialist | DX: E87.0 Hyperosmolality and hypernatremia (principal); I10 Essential (primary) hypertension | CPT/HCPCS: 99212 ==

== ENCOUNTER 2023-05-30 10:03 | Outpatient (REF) | payer OTHER, SELFPAY ==
[2023-05-30 11:15] LABS: Anion Gap 11 (12-20); Blood Urea Nitrogen 15 mg/dL (9-16); Calcium 9.8 mg/dL (8.4-10.2); Carbon Dioxide 28 mmol/L (22-29); Chloride 111 mmol/L (96-108); Estimated Glomerular Filt Rate > 60; Glucose Random 169 mg/dL (60-115); Potassium 3.8 mmol/L (3.3-5.1); Sodium 146 mmol/L (135-145)
== END 2023-05-30 10:04 | disposition home or self-care (01) ==
LOC: HO.CT 10:03
PROVIDERS: PCP Internal Medicine; Visit Provider Internal Medicine Gastroenterology
DX: R10.31 Right lower quadrant pain (principal); N18.30 Chronic kidney disease, stage 3 unspecified; R11.0 Nausea; K59.00 Constipation, unspecified
CPT/HCPCS: 36415; 80048

== ENCOUNTER 2023-05-31 08:02 | Outpatient (REF) | payer OTHER, SELFPAY ==
--- NOTE | ~2023-05-31 | CT_ITS ---
EXAMINATION: CT ABDOMEN AND PELVIS WITH CONTRAST CLINICAL INFORMATION: Right lower quadrant pain. COMPARISON: Ultrasound abdomen 04/22/2022, ultrasound pelvis 02/02/2021, CT abdomen and pelvis 07/20/2019. TECHNIQUE: Multidetector volumetric images were obtained from the superior aspect of the liver through the pubic symphysis following administration 85 mL of Omnipaque 350 intravenous contrast. Sagittal and coronal reformatted images were obtained on the technologist's workstation. Oral contrast: No This CT examination was performed using dose optimization techniques as appropriate, variously including the following: *Automated exposure control *Adjustment of mA and/or kV according to patient size (this includes techniques or standardized protocols for targeted exams where dose is matched to indication/reason for exam; i.e. extremities or head) *Use of iterative reconstruction technique DLP: 236 mGy-cm FINDINGS: LUNG BASES: Right basilar atelectasis/scarring is again noted laterally. The visualized lung bases are otherwise unremarkable. LIVER, GALLBLADDER, AND BILIARY TREE: The liver is normal in size, shape, and attenuation. 6 mm hypodensity seen in the right lobe of the liver which measures 8 Hounsfield units even after IV contrast consistent with a benign cyst. Fatty infiltration seen previously is still present but less apparent after IV contrast. No concerning focal hepatic lesion or biliary ductal dilatation is present. The gallbladder is unremarkable with no evidence of radiopaque gallstones, gallbladder wall thickening, or obvious pericholecystic inflammatory changes. PANCREAS: Unremarkable. SPLEEN: Unremarkable. ADRENAL GLANDS: There is a benign 8 mm left adrenal myelolipoma which needs no additional imaging or follow-up. The right adrenal gland appears normal. KIDNEYS AND URETERS: The kidneys are normal in size, shape, and attenuation. No hydronephrosis, hydroureter, or calculi seen. No perinephric stranding. 2 right-sided benign Bosniak class I renal cysts are noted which require no additional imaging or follow-up. No solid renal masses are seen. BLADDER: Unremarkable. GASTROINTESTINAL TRACT: Moderately large stool burden is present in the colon. A colonic anastomosis is seen at the descending colon/sigmoid junction. No convincing obstruction seen. Small bowel is unremarkable. The appendix is normal. ABDOMINAL WALL: No significant hernia is appreciated. LYMPH NODES: No retroperitoneal lymphadenopathy. VASCULAR: Calcific atherosclerotic changes are present in the aorta and iliofemoral vessels. There is no evidence of an abdominal aortic aneurysm. PELVIC VISCERA: The uterus contains enhancing small fibroids similar to prior studies. The adnexa are unremarkable. OSSEOUS STRUCTURES: Degenerative changes are seen at the L5-S1 facet joints. Minimal degenerative changes seen elsewhere. CT/CT abdomen pelvis w IV con IMPRESSION: 1. A cause for the patient's right lower quadrant pain has not been found. The appendix is normal. 2. Benign hepatic and renal cysts which need no additional imaging or follow-up. 3. Benign left adrenal myelolipoma needs no additional imaging or follow-up. 4. Colonic anastomosis without obstruction. 5. Fibroid uterus. 6. Degenerative changes L5-S1 facet joints. Fleischner guidelines were followed.
[2023-05-31] MEDS: iohexoL 350 MG/ML 100 ML INFUS..BTL IV (10:58)
[2023-05-31] MEDS: Barium Sulfate Oral (Vanilla) 450 ML ORAL.SUSP 900 ML PO (10:59)
[2023-05-31] MEDS: Barium Sulfate Oral (Vanilla) 450 ML ORAL.SUSP PO (11:00)
== END 2023-05-31 08:03 | disposition home or self-care (01) ==
LOC: HO.CT 08:02
PROVIDERS: PCP Internal Medicine; Visit Provider Internal Medicine Gastroenterology
DX: R10.31 Right lower quadrant pain (principal); K59.00 Constipation, unspecified; R11.0 Nausea
CPT/HCPCS: 74177; Q9967

== ENCOUNTER 2023-06-01 12:44 | Outpatient (AMB) | payer OTHER, SELFPAY ==
[2023-06-01 12:46] VITALS: BP 122/60; PULSE 85; TEMP 36.8; O2SAT 95; BMI 26.0
--- NOTE | 2023-06-01 12:46 | AM.OFFWIN_ITS ---
Intake Vital Signs 06/01/23 12:46 Height 5 ft Weight 133 lb BMI 26.0 BP 122/60 Blood Pressure Location Lt brachial Position Sitting Pulse 85 Pulse Source Pulse Oximeter Temp 98.3 F Temp Source Temporal Artery Scan Pulse Oximetry (%) 95 Oxygen Delivery Method Room Air Intake Visit Reasons: EP rt ear pain Intake Note: pt is here today for rt ear pain started 3 months ago and has been dizzy Patient Tobacco Use Status: Former Tobacco user Quit Date: quit 40 yrs ago Allergies dulaglutide [From Trulicity] Allergy (Mild, Verified 06/01/23 12:49) Abdominal Pain metformin Adverse Reaction (Mild, Verified 06/01/23 12:49) Diarrhea sitagliptin [Januvia] Adverse Reaction (Mild, Verified 06/01/23 12:49) abdominal pain Do you need a note to return to daycare/school/sports/work: No HPI HPI Comments History of Present Illness Details Patient is a 67yo F who presents with R ear pain Pt many years ago had tumor removed from R ear and said shes had issues with it since She said intermittent infections or cerumen impaction Symptoms include pressure in R ear, decreased hearing and slight headache No discharge, sharp pains, fever or chills She has not tried anything for symptoms Last time this happened, ear lavage helped [facility] Medical History Hypercalcemia Mixed hyperlipidemia 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 Son No problems noted. Brother No problems noted. Brother No problems noted. Family/Other Mental health disorder Substance use disorder Social History Household Members: Spouse Housing: Condominium Alcohol intake: never Patient Tobacco Use Status: Former Tobacco user Quit Date: quit 40 yrs ago Tobacco use type: Cigarette e-Cigarette/Vaping Use: Never Used Second Hand Smoke Exposure: No service: No Current occupational status: disabled Cognitive needs: No Hearing needs: No Vision needs: No Female Reproductive History Menstrual Age of Menarche: 12 Review of Systems Const Denies chills and Denies fever(s) ENT Reports otalgia, Denies nasal discharge and Denies sinus pressure Card Denies chest pain Physical Exam Vital Signs: Last Vital Signs Temp 98.3 F 06/01/23 12:46 Pulse 85 06/01/23 12:46 BP 122/60 06/01/23 12:46 Pulse Ox 95 06/01/23 12:46 Oxygen Delivery Method Room Air 06/01/23 12:46 BMI result Body Mass Index 26.0 General: Non-toxic, NAD. Speaking full sentences. Skin: Warm dry throughout Eye: EOMI HENT: R canal clear. R TM non-erythematous, non-bulging. No TM perforation or hemotympanum noted. R canals + cerumen, unable to visualize TM. Respiratory: No respiratory distress MSK: Full ROM extremities. Neurology: A/O. No aphasia or facial droop. Gait without abnormality Psych: Good mood and affect Office Procedures Cerumen Removal From which ear canal was the cerumen removed: right Removal: irrigation and cerumen loop/spoon Notes: patient tolerated procedure well, no complications and ear canal clear [id number] Irrigation/Lavage Assessment & Plan Assessment & Plan (1) Cerumen impaction: Code(s): H61.20 - Impacted cerumen, unspecified ear Qualifiers: Laterality: right Qualified Code(s): H61.21 - Impacted cerumen, right ear Plan: verbal consent. see procedure note. After removal TM non-erythematous, non-bulging. No TM perforation or hemotympanum noted. Pt tolerted well and could hear post procedure Will call with any concerns. Otherwise all questions answered at time of discharge Coding Level of Care Code Est Pt Level 3 (62896) Diagnoses Impacted cerumen of right ear H61.21 Laterality: right CPT Codes Office Procedure - CPT: 44867-Mqz Irrigation/Lavage ([id number])
== END 2023-06-01 13:28 | disposition home or self-care (01) ==
PROVIDERS: PCP Internal Medicine; Visit Provider Physician Assistant
DX: H61.21 Impacted cerumen, right ear (principal)
CPT/HCPCS: 69210; 99213

== ENCOUNTER 2023-07-25 14:43 | Outpatient (AMB) | payer OTHER, SELFPAY ==
[2023-07-25 15:10] VITALS: BP 120/68; BMI 25.8
--- NOTE | 2023-07-25 15:10 | MHC.OFFVIS ---
Vital Signs 07/25/23 15:10 Height 5 ft Weight 132 lb 4.438 oz BMI 25.8 BP 120/68 Intake Visit Reasons: PMB Editor House Organ Required: Yes Editor House Organ Language: Research Assistant Member Name: Sara RUSSELL Information Interpreted: non-clinical & clinical Director Of Environmental Services: Director Of Environmental Services Present (Sara RUSSELL) Accompanied by: Self / Same As Patient Allergies dulaglutide [From Trulicity] Allergy (Mild, Verified 07/25/23 15:17) Abdominal Pain metformin Adverse Reaction (Mild, Verified 07/25/23 15:17) Diarrhea sitagliptin [Januvia] Adverse Reaction (Mild, Verified 07/25/23 15:17) abdominal pain Post menopausal: Yes HPI Comments Details: The patient is presenting with right LQ pain started many ago. The patient has been having blood per rectum over the last few months. It's intermittent in nature lasting few seconds and occurs 3x/day. it is not associated with constipation, no dysuria, frequency or incontinence, no n/v, no feverishness. The patient is scheduled for follow-up appointment with Dr. 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 Son No problems noted. Brother No problems noted. Brother No problems noted. Family/Other Mental health disorder Substance use disorder Social History Household Members: Spouse Housing: Condominium Alcohol intake: never Patient Tobacco Use Status: Former Tobacco user Tobacco use type: Cigarette e-Cigarette/Vaping Use: Never Used Second Hand Smoke Exposure: No service: No Current occupational status: disabled Cognitive needs: No Hearing needs: No Vision needs: No Female Reproductive History Menstrual Age of Menarche: 12 Review of Systems Const All systems reviewed & are unremarkable except as noted in HPI and below Physical Exam Vital Signs: Last Vital Signs BP 120/68 07/25/23 15:10 BMI result Body Mass Index 25.8 General: Yes no CVA tenderness External Female Exam: normal external appearance and normal appearance of the urethra Speculum Exam - Vagina: normal appearance of the vagina, normal palpation, no lesions and no masses Speculum Exam - Cervix: normal appearance of the cervix, normal palpation, no lesions, no masses and nontender Bimanual exam- vagina & uterus: normal bimanual exam, normal palpation, uterine size normal, normal palpation, uterine shape normal, No Cervical tenderness present and non-tender Bimanual Exam- Adnexa, other: normal adnexae Back/Spine/Pelvis Back: no CVA tenderness Results AMB Urinalysis Dipstick UR Leukocytes Negative Last Edit by Sara Jimenes CMA on 07/25/23 15:48 UR Nitrite Negative Last Edit by Sara Jimeens CMA on 07/25/23 15:48 UR Urobilinogen Normal Last Edit by Sara Jimenes CMA on 07/25/23 15:48 UR Protein Negative Last Edit by Sara Jimenes CMA on 07/25/23 15:48 UR Ph 5.5 Last Edit by Sara Jimenes CMA on 07/25/23 15:48 UR Blood Negative Last Edit by Sara Jimenes CMA on 07/25/23 15:48 UR Specific [place] 1.015 Last Edit by Sara Jimenes CMA on 07/25/23 15:48 UR Ketone Negative Last Edit by Sara Jimenes CMA on 07/25/23 15:48 UR Bilirubin Negative Last Edit by Sara Jimenes CMA on 07/25/23 15:48 UR Glucose 2000 Last Edit by Sara Jimenes CMA on 07/25/23 15:48 Assessment & Plan Assessment & Plan (1) Pelvic pain: Code(s): R10.2 - Pelvic and perineal pain Category: Medical Plan: Urine dip done in the office was negative. GC and chlamydia taken and pelvic ultrasound ordered. Discussed with the patient the differential diagnosis of pelvic pain including but not limited to adnexal, uterine masses, pelvic infections (PID), GI the (Irritable bowel syndrome, diverticulitis, others), musculoskeletal, myofascial pain abdominal wall , adhesions, endometriosis, psychological and others causes. Instructions given the patient to schedule an ultrasound follow-up appointment within 2 weeks.. All questions answered, the patient verbalized understanding. (2) Blood per rectum: Code(s): K62.5 - Hemorrhage of anus and rectum Category: Medical Plan: Instructed the patient to follow-up with schedule GI appointment for colonoscopy with Dr. Carson within 2 weeks. All questions answered, the patient verbalized understanding Orders: Orders AMB Urinalysis Dipstick Today R10.2 - Pelvic and perineal pain US pelvic and transvaginal Today R10.2 - Pelvic and perineal pain Coding Level of Care Code Est Pt Level 3 (35442) Diagnoses Pelvic pain R10.2 Blood per rectum K62.5
== END 2023-07-25 15:51 | disposition home or self-care (01) ==
PROVIDERS: PCP Internal Medicine; Visit Provider Obstetrics & Gynecology
DX: R10.2 Pelvic and perineal pain (principal); K62.5 Hemorrhage of anus and rectum
CPT/HCPCS: 99213

== ENCOUNTER 2023-07-25 14:43 | Outpatient (REF) | payer OTHER, SELFPAY ==
[2023-07-27 03:57] LABS: CT PCR NOT DETECTED (Not Detect.); NG PCR NOT DETECTED (Not Detect.)
== END 2023-07-25 14:44 | disposition home or self-care (01) ==
LOC: HO.LNP 14:43
PROVIDERS: PCP Internal Medicine; Visit Provider Obstetrics & Gynecology
DX: R10.2 Pelvic and perineal pain (principal)
CPT/HCPCS: 0353U; 81002; 99212

== ENCOUNTER 2023-07-29 10:42 | Outpatient (REF) | payer OTHER, SELFPAY ==
--- NOTE | ~2023-07-29 | US_ITS ---
EXAMINATION: US PELVIS CLINICAL INFORMATION: Pelvic and perineal pain Right lower quadrant pain History of left salpingo-oophorectomy Postmenopausal COMPARISON: CT scan abdomen and pelvis 05/31/2023, pelvic ultrasound 02/02/2021 TECHNIQUE: Transabdominal scanning was performed. The patient refused transvaginal scanning. FINDINGS: Uterus: The uterus is anteverted and measures 9.8 x 4.0 x 5.0 cm. 0.8 x 0.3 x 0.4 cm avascular echogenic focus in the myometrium was previously seen and is unchanged in appearance. 1.2 x 0.9 x 1.0 cm fibroid in the anterior body previously measured 1.0 x 0.8 x 0.9 cm. 1.5 x 1.3 x 1.2 cm fibroid in the posterior body previously measured 1.5 x 1.2 x 1.5 cm. The endometrium measures 0.2 cm. Adnexa: Right ovary measures 2.0 x 1.1 x 1.5 cm. Volume 1.7 mL. The right ovary is normal in appearance. The left ovary was removed. US/US pelvic complete IMPRESSION: 1. Uterine fibroids. 2. Normal right ovary. 3. Prior left salpingo-oophorectomy.
== END 2023-07-29 10:43 | disposition home or self-care (01) ==
LOC: HO.US 10:42
PROVIDERS: PCP Internal Medicine; Visit Provider Obstetrics & Gynecology
DX: R10.2 Pelvic and perineal pain (principal)
CPT/HCPCS: 76856

== ENCOUNTER 2023-08-15 09:15 | Outpatient (AMB) | payer OTHER, SELFPAY ==
--- NOTE | 2023-08-15 09:18 | MHC.OFFVIS ---
Vital Signs 08/15/23 09:20 Height 5 ft Weight 131 lb 13.383 oz BMI 25.7 BP 119/56 L Blood Pressure Location Lt brachial Position Sitting Pulse 80 Intake Visit Reasons: Follow up months Intake Note: Monica presents in the office as a follow up. CC: rectal bleeding, pains on the lower right side of her abdomen. Denies irregular bowel movements. Allergies dulaglutide [From Trulicity] Allergy (Mild, Verified 08/15/23 09:20) Abdominal Pain metformin Adverse Reaction (Mild, Verified 08/15/23 09:20) Diarrhea sitagliptin [Januvia] Adverse Reaction (Mild, Verified 08/15/23 09:20) abdominal pain HPI HPI Follow up months: Details: 68 yr old f with hx of breast ca, DM, HTN, sleep d/o, exp-lap, HLP, carotid surgery being seen for f/u RECAP She had been having itching in the rectum, been on and off denied rectal bleeding had nausea no vomiting she had abdo pain but not now for a while, it was in her sides, mostly right no urine sx she had diarrhea , thoguht due to metformin, going on for a while denied straining at stool she had palpitations when sits down she is on aspirin and plavix advised on fiber diet, epsom salts and sitz bath\ TESTS: colonoscopy 2018--several polyps removed-mostly tubular adenomas, internal hemorhroids colonoscopy 2019---desc and rectal polyps, internal hemorrhoids--path--TA and hyperplastic polyps colonoscopy 09/29-- inflammatory polyp and hyperplastic polyp removed UA: Renal US: 04/2022 hepatic steatosis, GB polyp, renal angiomyolipoma CT 05/31 --ordered due to lower abdominal pain, incidental findings benign, no serious pathology, but fibroid uterus noted --colonic anastomosis w/o obstruction also saw ob/gyn and had pelvic US INTERIM: she has simialr sx to before RLQ pain, rectal bleeding she has noted blood in stool usu on wiping she has lower abdominal pain, relieved once she passes stool denies nausea or vomiting stool is soft, comes out easy no dysphagia no urine sx, no dysuria, no anal pain she has occ lower back pain EXAM: GENERAL: The patient is well developed and nontoxic., ++ brijesh warts VITAL SIGNS:see workflow HEENT: Nonicteric sclerae, PERRLA, EOMI. Oropharynx clear. Moist mucous membranes. Conjunctivae appear well perfused. No thyroid mass. CHEST: Chest wall is nontender. HEART: Regular rate and rhythm without murmurs. LUNGS: Clear to auscultation bilaterally. ABDOMEN: Soft, positive bowel sounds, nontender, no organomegaly. pos tenderness suprapubic area , no hernia seen -- scar noted SKIN: No rash, no excessive bruising, petechiae, or purpura. brijesh keratosis noted on skin NEUROLOGIC: Cranial nerves II-XII intact without motor/sensory deficit. Assessments 1. Fatty liver --nml LFT 2. hx of polyps 3. 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 Son No problems noted. Brother No problems noted. Brother No problems noted. Family/Other Mental health disorder Substance use disorder Social History Household Members: Spouse Housing: Condominium Alcohol intake: never Patient Tobacco Use Status: Former Tobacco user Tobacco use type: Cigarette e-Cigarette/Vaping Use: Never Used Second Hand Smoke Exposure: No service: No Current occupational status: disabled Cognitive needs: No Hearing needs: No Vision needs: No Female Reproductive History Menstrual Age of Menarche: 12 Physical Exam Vital Signs: Last Vital Signs Pulse 80 08/15/23 09:20 BP 119/56 L 08/15/23 09:20 BMI result Body Mass Index 25.7 Assessment & Plan Assessment & Plan (1) Blood per rectum: Code(s): K62.5 - Hemorrhage of anus and rectum Category: Medical Plan: see above (2) RLQ abdominal pain: Code(s): R10.31 - Right lower quadrant pain Category: Medical Plan: see above Medications: New sodium,potassium,mag sulfates 17.5-3.13-1.6 gram (Suprep Bowel Prep Kit) DILUTE; drink 1/2 at 6-8 pm and half at 11 PM- 1AM 354 mL 0RF dicyclomine 10 mg PO BID 30 caps 0RF Coding Level of Care Code Est Pt Level 3 (38280) Diagnoses Blood per rectum K62.5 RLQ abdominal pain R10.31
[2023-08-15 09:20] VITALS: BP 119/56; PULSE 80; BMI 25.7
== END 2023-08-15 09:46 | disposition home or self-care (01) ==
PROVIDERS: PCP Internal Medicine; Visit Provider Internal Medicine Gastroenterology
DX: K62.5 Hemorrhage of anus and rectum (principal); R10.31 Right lower quadrant pain
CPT/HCPCS: 99213

== ENCOUNTER → 2023-08-15 09:15 | Outpatient (BNVA) | payer OTHER, SELFPAY | PROVIDERS: PCP Internal Medicine; Visit Provider Internal Medicine Gastroenterology | DX: K62.5 Hemorrhage of anus and rectum (principal); R10.31 Right lower quadrant pain | CPT/HCPCS: 99212 ==

== ENCOUNTER 2023-09-15 14:04 | Outpatient (AMB) | payer OTHER, SELFPAY ==
--- NOTE | 2023-09-15 14:17 | AM.OFFWIN_ITS ---
Intake Vital Signs 09/15/23 14:19 Height 5 ft Weight 130 lb BMI 25.4 BP 142/90 H Blood Pressure Location Lt brachial Position Sitting Pulse 90 Pulse Source Pulse Oximeter Temp 100.9 F H Temp Source Oral Pulse Oximetry (%) 97 Oxygen Delivery Method Room Air Intake Visit Reasons: EP Flu like symptoms Intake Note: pt c/o flu like symptoms, body aches, diarrhea, cough. Started 4 days ago Patient Tobacco Use Status: Former Tobacco user Allergies dulaglutide [From Trulicity] Allergy (Mild, Verified 09/15/23 14:21) Abdominal Pain metformin Adverse Reaction (Mild, Verified 09/15/23 14:21) Diarrhea sitagliptin [Januvia] Adverse Reaction (Mild, Verified 09/15/23 14:21) abdominal pain Do you need a note to return to daycare/school/sports/work: No HPI HPI Comments History of Present Illness Details Patient is a 68-year-old female complaining of 4 days of a dry cough, head congestion, headaches and body aches as well as some diarrhea. She denies any bloody or black in her diarrhea, she also denies fevers, wheezing, shortness of breath, chest congestion, ear pain or sinus pain. Her is also sick with similar symptoms, she has tried Tylenol without much relief. 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 Son No problems noted. Brother No problems noted. Brother No problems noted. Family/Other Mental health disorder Substance use disorder Social History Household Members: Spouse Housing: Condominium Alcohol intake: never Patient Tobacco Use Status: Former Tobacco user Tobacco use type: Cigarette e-Cigarette/Vaping Use: Never Used Second Hand Smoke Exposure: No service: No Current occupational status: disabled Cognitive needs: No Hearing needs: No Vision needs: No Female Reproductive History Menstrual Age of Menarche: 12 Review of Systems Const All systems reviewed & are unremarkable except as noted in HPI and below Physical Exam Vital Signs: Last Vital Signs Temp 100.9 F H 09/15/23 14:19 Pulse 90 09/15/23 14:19 BP 142/90 H 09/15/23 14:19 Pulse Ox 97 09/15/23 14:19 Oxygen Delivery Method Room Air 09/15/23 14:19 BMI result Body Mass Index 25.4 Const General: cooperative, healthy appearing, comfortable and no acute distress Orientation/consciousness: patient oriented x3 Limitations: no limitations HEENT Head: Yes normal to inspection Ears: hearing grossly normal bilaterally, external ears normal and TM's normal bilaterally General nose exam: Normal external nose present, Normal nares present and No nasal discharge present Face and sinus: Yes normal facial exam and Yes sinuses nontender Mouth: Normal oral and palatal mucosa present and moist mucous membranes Throat: Yes tonsils normal, Yes uvula midline and Yes posterior oropharynx abnormal (Erythema) Eyes General: appearance normal, both eyes and all related structures Neck Neck: Yes normal visual inspection Resp Effort & Inspection: normal respiratory effort, able to speak in complete sentences, no respiratory distress, not tachypneic, no tripod positioning and no use of accessory muscles Auscultation: clear to auscultation bilaterally Cardio Rate: regular rate Rhythm: regular rhythm Heart sounds: normal S1 and S2 Skin General skin exam: no rashes or lesions noted Neuro General: patient oriented x3 Extrem General: Yes normal to inspection and Yes no clubbing, cyanosis or edema Assessment & Plan Assessment & Plan (1) Upper respiratory tract infection: Code(s): J06.9 - Acute upper respiratory infection, unspecified Qualifiers: URI type: unspecified viral URI Qualified Code(s): J06.9 - Acute upper respiratory infection, unspecified Plan: Patient did have temp of 100.9F, recommended treating with Tylenol, sent flu COVID and RSV testing. Plan See above Orders: Orders SARS-CoV2/FLU/RSV Today J06.9 - Acute upper respiratory infection, unspecified Coding Level of Care Code New Pt Level 3 (01986) Diagnoses Viral upper respiratory tract infection J06.9 URI type: unspecified viral URI
[2023-09-15 14:19] VITALS: BP 142/90; PULSE 90; TEMP 38.3; O2SAT 97; BMI 25.4
== END 2023-09-15 15:19 | disposition home or self-care (01) ==
PROVIDERS: PCP Internal Medicine; Visit Provider Physician Assistant
DX: J06.9 Acute upper respiratory infection, unspecified (principal)
CPT/HCPCS: 99203

== ENCOUNTER 2023-09-15 14:26 | Outpatient (REF) | payer OTHER, SELFPAY ==
[2023-09-15 17:35] LABS: Influenza A PCR NEGATIVE (Negative); Influenza B PCR NEGATIVE (Negative); Resp Syncy Virus RNA Qual PCR NEGATIVE (Negative); SARS COV2 PCR INHOUSE POSITIVE (Negative)
== END 2023-09-15 14:27 | disposition home or self-care (01) ==
LOC: HO.LAB 14:26
PROVIDERS: Visit Provider Physician Assistant
DX: J06.9 Acute upper respiratory infection, unspecified (principal)
CPT/HCPCS: 0241U

== ENCOUNTER 2023-09-26 09:29 | Emergency (ER) | payer OTHER, SELFPAY ==
--- NOTE | ~2023-09-26 | CT_ITS ---
EXAMINATION: CT ABDOMEN AND PELVIS WITH CONTRAST CLINICAL INFORMATION: Right lower quadrant tenderness. COMPARISON: 07/20/2019 and 05/31/2023 TECHNIQUE: Multidetector volumetric images were obtained from the superior aspect of the liver through the pubic symphysis following administration 85 mL of Omnipaque 350 intravenous contrast. Sagittal and coronal reformatted images were obtained on the technologist's workstation. Oral contrast: None given. This CT examination was performed using dose optimization techniques as appropriate, variously including the following: *Automated exposure control *Adjustment of mA and/or kV according to patient size (this includes techniques or standardized protocols for targeted exams where dose is matched to indication/reason for exam; i.e. extremities or head) *Use of iterative reconstruction technique DLP: 330 mGy-cm FINDINGS: LUNG BASES: Chronic peripheral opacity of scarring and lateral right lower lobe. Also, there is peripheral somewhat linear opacity of mild atelectasis or scarring in lateral left lower lobe. No pleural effusion. HEPATOBILIARY: 0.8 cm simple cyst in the right lobe of liver. No suspicious hepatic lesion. Gallbladder is unremarkable. No dilated bile ducts. PANCREAS: No edema, pancreatic ductal dilatation or mass. SPLEEN: Normal. ADRENAL GLANDS: An old small lesion of fat density of the left adrenal gland (lipoma or myelolipoma) is 1 cm AP dimension. No adrenal imaging follow-up required. KIDNEYS AND URETERS: Kidneys are normal in size and enhance symmetrically. 1.7 cm simple cortical cyst of the anterior right lower pole. No renal imaging follow-up recommended for a simple cyst. Angiomyolipoma of fat attenuation at the posterior right lower pole is approximately 1.4 cm AP dimension, unchanged in size compared to 07/20/2019. No nephrolithiasis or hydronephrosis. BLADDER: Normal. BOWEL AND PERITONEUM: No dilated bowel loops. There is a diverticulum of the distal duodenum. Within the right lower quadrant, the distal ileum, cecum and appendix are unremarkable. There is focal abnormal wall thickening of the sigmoid colon at site of sigmoid anastomosis with subtle haziness of the fat in this area. No pericolonic fluid collection. No pneumoperitoneum. ABDOMINAL WALL: Unremarkable. VASCULATURE: Unremarkable. LYMPH NODES: No pathologic sized lymph nodes in the abdomen or pelvis. No inguinal lymphadenopathy. PELVIC VISCERA: There appear to be a few small uterine leiomyomas. No adnexal mass. No pelvic free fluid. MUSCULOSKELETAL: No acute or suspicious osseous abnormality. Hemangioma of the T12 vertebra. CT/CT abdomen pelvis w IV con IMPRESSION: * No evidence of appendicitis. * Focal abnormal wall thickening at site of sigmoid anastomosis and subtle haziness of adjacent pericolonic fat without bowel perforation or abscess. This might represent a malignant lesion. If not recently performed, correlation with colonoscopy may be needed to further evaluate for possible carcinoma. 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
[2023-09-26 09:40] VITALS: BP 157/62; PULSE 84; RESP 16; O2SAT 97; BMI 25.4
[2023-09-26 10:24] LABS: Basophils Absolute Auto 0.1 X10*3/uL (0.0-0.2); Basophils Percent Auto 0.7 % (0-2); PLT CLUMP 1; SCAN SMEAR FLAG 1
[2023-09-26 10:26] VITALS: BP 179/67; PULSE 76; RESP 14; TEMP 37; O2SAT 98
[2023-09-26 10:26] LABS: Eosinophils Absolute Auto 0.1 X10*3/uL (0.0-0.4); Eosinophils Percent Auto 1.4 % (0-4); Hematocrit 42.9 % (37.0-47.0); Hemoglobin 13.2 g/dl (12.0-16.0); Imm Gran Abs Auto 0.18 X10*3/uL (0.00-0.03); Imm Gran Pct Auto 1.9 % (0.0-0.4); Lymphocytes Absolute Auto 1.7 X10*3/uL (1.2-4.9); Lymphocytes Percent Auto 17.5 % (20-40); MANUAL DIFF FLAG SCAN; Mean Corpuscular HGB Conc 30.8 g/dl (31.0-35.0); Mean Corpuscular Hemoglobin 25.9 pg (27.0-33.0); Mean Corpuscular Volume 84.3 fL (80.0-98.0); Monocytes Absolute Auto 0.5 X10*3/uL (0.1-1.2); Monocytes Percent Auto 5.7 % (2-11); Neutrophils Absolute Auto 6.9 x10*3/uL (2.0-8.3); Neutrophils Percent Auto 72.8 % (45-73); Red Blood Count 5.09 X10*6/uL (4.20-5.50); Red Cell Distribution Width 14.7 % (11.0-16.0); White Blood Count 9.5 X10*3/uL (4.8-10.8)
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
[2023-09-26 11:11] LABS: Alanine Aminotransferase 20 U/L (0-31); Alkaline Phosphatase 80 U/L (39-117); Anion Gap 17 (12-20); Aspartate Amino Transferase 21 U/L (5-31); Bilirubin Direct 0.1 mg/dL (0.0-0.5); Bilirubin Total 0.3 mg/dL (0.0-1.0); Blood Urea Nitrogen 14 mg/dL (9-16); Calcium 10.1 mg/dL (8.4-10.2); Carbon Dioxide 22 mmol/L (22-29); Chloride 111 mmol/L (96-108); Creatinine Clr Calc Pharmacy 52.1; Estimated Glomerular Filt Rate > 60; Glucose Random 207 mg/dL (60-115); Lipase 32 U/L (8-78); Potassium 5.1 mmol/L (3.3-5.1); Sodium 145 mmol/L (135-145)
[2023-09-26 11:15] LABS: Platelet Count 280 X10*3/uL (160-400)
[2023-09-26 11:16] LABS: SLIDE REVIEW VERIFIED
--- NOTE | 2023-09-26 11:44 | ED_ITS ---
HPI - General Adult General Chief complaint: Abdominal Pain Stated complaint: Abd pain? Time Seen by Provider: 09/26/23 10:36 Source: patient, family () and nurses educator Mode of arrival: ambulatory Limitations: language barrier History of Present Illness ED Provider: paulo GAMBOA narrative: Patient is a 68-year-old Australian-speaking female with history of T2DM on insulin, HTN, prior CVA, Menieres disease, breast CA, HLD presenting to the emergency department with complaint of right lower quadrant abdominal pain and rectal bleeding for several months. Has seen GI, had colonoscopy which was + for polyps, as well as CT abdomen/pelvis which was relatively unremarkable. Scheduled for repeat colonoscopy in January. Saw Dr. Talamantes who ordered pelvic ultrasound notable for uterine fibroids. She reports intermittent diarrhea at times due to her metformin use, states this is not new. Denies constipation, nausea, vomiting. Denies fevers. Denies dysuria, urinary urgency or other urinary symptoms. Patient reports feeling a mass to RLQ. MD complaint: abdominal pain Onset (ago): month(s) Location: abdomen Quality: aching Pain Consistency: colicky Associated symptoms: other Related Data Home Medications ?Medication ?Instructions ?Recorded ?Confirmed ciclopirox 1 % shampoo 1 ml topical Q OTHER DAY 04/05/22 02/16/23 empagliflozin 25 mg tablet 25 mg PO QAM 04/05/22 02/16/23 (Jardiance) blood sugar diagnostic (FreeStyle #10 ea 08/02/22 02/16/23 Lite Strips) blood-glucose meter,continuous #1 ea 08/15/23 (FreeStyle Katelyn 3 [place]) blood-glucose sensor (FreeStyle #1 ea 08/15/23 Katelyn 3 Sensor device) Previous Rx's ?Medication ?Instructions ?Recorded lancets 28 gauge #120 ea 05/01/20 aspirin 81 mg tablet,delayed 81 mg PO DAILY #90 tabs 06/22/20 release mastectomy bra (bra, mastectomy) #1 ea 07/08/20 flash glucose sensor (FreeStyle #2 ea 07/14/20 Katelyn 14 Day Sensor kit) blood-glucose meter (FreeStyle #1 ea 07/22/20 Lite Meter kit) flash glucose scanning reader #1 ea 08/05/20 (FreeStyle Katelyn 14 Day [place]) pen needle, diabetic 31 gauge x #100 ea 11/17/20 5/16 (BD Ultra-Fine Short Pen Needle) insulin glargine 100 unit/mL 82 unit (0.82 mL) subcut DAILY 90 01/15/21 subcutaneous solution (Lantus days #73.8 mL U-100 Insulin) insulin syringe-needle U-100 1 mL #100 ea 01/15/21 31 gauge x 5/16 (BD Insulin Syringe Ultra-Fine) amlodipine 2.5 mg tablet 2.5 mg PO DAILY #90 tabs 03/21/21 fenofibrate 54 mg tablet 54 mg PO DAILY 90 days #90 tabs 06/01/21 cholecalciferol (vitamin D3) 50 50 mcg PO DAILY 90 days #90 caps 06/06/21 mcg (2,000 unit) capsule clopidogrel 75 mg tablet 75 mg PO DAILY #30 tabs 07/11/21 atorvastatin 80 mg tablet 80 mg PO DAILY 90 days #90 tabs 04/25/22 lisinopril 20 mg tablet 20 mg PO DAILY #90 tabs 07/10/22 insulin lispro 100 unit/mL 30 unit (0.3 mL) subcut TID 90 12/29/22 subcutaneous solution (Humalog days #81 mL U-100 Insulin) peg-electrolyte solution 420 gram 240 ml PO Q10M #4,000 mL 06/09/23 oral solution sodium,potassium,mag sulfates 17.5 See Rx Instructions PO .COMPLEX 08/15/23 gram-3.13 gram-1.6 gram oral soln #354 mL (Suprep Bowel Prep Kit) dicyclomine 10 mg capsule 10 mg PO BID 90 days #180 caps 08/25/23 methocarbamol 750 mg tablet 750 mg PO Q8H #14 tabs 09/26/23 Allergies Allergy/AdvReac Type Severity Reaction Status Date / Time dulaglutide [From [facility]] Allergy Mild Abdominal Verified 09/26/23 09:43 Pain metformin AdvReac Mild Diarrhea Verified 09/26/23 09:43 sitagliptin [Januvia] AdvReac Mild abdominal Verified 09/26/23 09:43 pain Review of Systems 2 Review of Systems: As per HPI. Yes all other systems are reviewed and are negative Constitutional: Constitutional: Reports as per HPI PMFSH Past Medical History Medical History Hypercalcemia Mixed hyperlipidemia Dizziness alf (current) use of insulin Breast cancer Memory loss Muscle cramps Menieres disease HTN (hypertension) T2DM (type 2 diabetes mellitus) Skin lesion New daily persistent headache History of stroke Hypovitaminosis D Nausea Essential hypertension Diabetes mellitus Surgical History H/O colonoscopy History of parotid gland removal Status post unilateral salpingo-oophorectomy H/O right mastectomy History of left mastectomy History of hemicolectomy Family History Family History Father Diabetes Mother Diabetes Hypertension Sister Cervical cancer Daughter No problems noted. Son No problems noted. Brother No problems noted. Brother No problems noted. Family/Other Mental health disorder Substance use disorder Social History Social History Household Members: Spouse Housing: Condominium Alcohol intake: never Patient Tobacco Use Status: Former Tobacco user Tobacco use type: Cigarette Smoked in Last 30 Days: No e-Cigarette/Vaping Use: Never Used Second Hand Smoke Exposure: No Use of substances other than those prescribed or required for medical reasons: No Advance Directives: No Advance Directives Information Provided: Yes service: No Current occupational status: disabled Cognitive needs: No Hearing needs: No Vision needs: No Physical Exam ED Vital Signs: Vital Signs - 24 hr 09/26/23 09:40 09/26/23 10:26 09/26/23 14:28 Temperature 98.6 F Pulse Rate 84 76 87 Respiratory Rate 16 14 16 Blood Pressure 157/62 H 179/67 H 149/72 H Pulse Oximetry 97 98 95 Oxygen Delivery Method Room Air Room Air Room Air BMI result Body Mass Index 25.4 Vital signs have been reviewed and appear to be correct. Blood pressure elevated. Heart rate normal. Respiratory rate normal. Temperature normal. Oxygen saturation normal. Const General: cooperative, healthy appearing and no acute distress Orientation/consciousness: oriented to person, oriented to place, oriented to time and patient oriented x3 Limitations: no limitations HENMT Head: Yes normocephalic and Yes atraumatic Ears: external ears normal General nose exam: Normal external nose present Face and sinus: Yes face symmetric Mouth: oropharynx normal and moist mucous membranes Throat: Yes uvula midline Eyes Pupils: Equal, round and reactive pupils present Neck Neck: Yes normal visual inspection and Yes supple Resp Effort & Inspection: normal respiratory effort and able to speak in complete sentences Auscultation: clear to auscultation bilaterally Cardio Rate: regular rate Rhythm: regular rhythm Heart sounds: S1 normal heart sound present and S2 normal heart sound present GI Palpation (GI): Soft to palpation, Tenderness to palpation present (GI) in the RLQ, no guarding and No Rebound tenderness present Auscultation: normoactive bowel sounds General: Yes no CVA tenderness Back/Spine/Pelvis Back: no CVA tenderness Skin General skin exam: elasticity normal and turgor normal Neuro General: oriented to person, oriented to place, oriented to time, patient oriented x3, moves all extremities, no focal motor deficits and CN's II-XI intact bilaterally Cranial nerves: Yes Equal, round and reactive pupils present Cognition (Neuro): normal cognition Extrem General: Yes full ROM, Yes no pedal edema and Yes no calf tenderness Psych Mental Status: mental status grossly normal Affect: normal affect Thought process: Normal thought process present Course Reevaluation(s) Reevaluation #1: I Noni Lopes PA-C have accepted care of the patient had signed out pending imaging and final disposition. Patient has had been having ongoing right lower quadrant discomfort for months. She has had colonoscopy in the spring, she has polyps that are being followed. Her neck subsequent colonoscopy scheduled for January. In addition, patient has known uterine fibroids. The patient denies vaginal bleeding at this time. The patient has not had additional episodes of rectal bleeding, she is hemodynamically stable, her H and H your stable as well Time: 02:00 Reevaluation #2: I have independently reviewed the following tests: CT abdomen and pelvis:EXAMINATION: CT ABDOMEN AND PELVIS WITH CONTRAST CLINICAL INFORMATION: Right lower quadrant tenderness. COMPARISON: 07/20/2019 and 05/31/2023 TECHNIQUE: Multidetector volumetric images were obtained from the superior aspect of the liver through the pubic symphysis following administration 85 mL of Omnipaque 350 intravenous contrast. Sagittal and coronal reformatted images were obtained on the technologist's workstation. Oral contrast: None given. This CT examination was performed using dose optimization techniques as appropriate, variously including the following: *Automated exposure control *Adjustment of mA and/or kV according to patient size (this includes techniques or standardized protocols for targeted exams where dose is matched to indication/reason for exam; i.e. extremities or head) *Use of iterative reconstruction technique DLP: 330 mGy-cm FINDINGS: LUNG BASES: Chronic peripheral opacity of scarring and lateral right lower lobe. Also, there is peripheral somewhat linear opacity of mild atelectasis or scarring in lateral left lower lobe. No pleural effusion. HEPATOBILIARY: 0.8 cm simple cyst in the right lobe of liver. No suspicious hepatic lesion. Gallbladder is unremarkable. No dilated bile ducts. PANCREAS: No edema, pancreatic ductal dilatation or mass. SPLEEN: Normal. ADRENAL GLANDS: An old small lesion of fat density of the left adrenal gland (lipoma or myelolipoma) is 1 cm AP dimension. No adrenal imaging follow-up required. KIDNEYS AND URETERS: Kidneys are normal in size and enhance symmetrically. 1.7 cm simple cortical cyst of the anterior right lower pole. No renal imaging follow-up recommended for a simple cyst. Angiomyolipoma of fat attenuation at the posterior right lower pole is approximately 1.4 cm AP dimension, unchanged in size compared to 07/20/2019. No nephrolithiasis or hydronephrosis. BLADDER: Normal. BOWEL AND PERITONEUM: No dilated bowel loops. There is a diverticulum of the distal duodenum. Within the right lower quadrant, the distal ileum, cecum and appendix are unremarkable. There is focal abnormal wall thickening of the sigmoid colon at site of sigmoid anastomosis with subtle haziness of the fat in this area. No pericolonic fluid collection. No pneumoperitoneum. ABDOMINAL WALL: Unremarkable. VASCULATURE: Unremarkable. LYMPH NODES: No pathologic sized lymph nodes in the abdomen or pelvis. No inguinal lymphadenopathy. PELVIC VISCERA: There appear to be a few small uterine leiomyomas. No adnexal mass. No pelvic free fluid. MUSCULOSKELETAL: No acute or suspicious osseous abnormality. Hemangioma of the T12 vertebra. CT/CT abdomen pelvis w IV con IMPRESSION: * No evidence of appendicitis. * Focal abnormal wall thickening at site of sigmoid anastomosis and subtle haziness of adjacent pericolonic fat without bowel perforation or abscess. This might represent a malignant lesion. If not recently performed, correlation with colonoscopy may be needed to further evaluate for possible carcinoma. 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 I have reviewed findings with the patient and her spouse. They are very frustrated with her ongoing discomfort. I have explained at length that the patient requires further assessment by her cloth mender, and top steep tender. She may require a repeat colonoscopy sooner than what is scheduled for January. I have advised that they call their specialists tomorrow for further guidance. They understand. We will be sending the patient with medication for ongoing discomfort, to note, it seems as if it is mostly attributed to her fibroid. Time: 15:54 Medical Decision Making Medical Decision Making [facility] Narrative: Patient is a 68-year-old Australian-speaking female with history of T2DM on insulin, HTN, prior CVA, Menieres disease, breast CA, HLD presenting to the emergency department with complaint of right lower quadrant abdominal pain and rectal bleeding for several months. On exam patient is awake, A+Ox3, VS WNL, afebrile, normal neurological exam without focal deficits, physical exam findings as above. Given reported symptoms and physical exam findings, initial differential includes anemia, uterine fibroid, hemorrhoids, malignancy/mass. Less likely appendicitis, diverticulitis. Labs notable for no leukocytosis, no anemia, no significant electrolyte abnormalities, no ZARA, normal transaminases. Patient signed out to [facility] pending results of UA and CT. Differential Diagnosis Differential Diagnoses: The differential diagnosis associated with the presentation includes asper [facility] Admission/Observation Consideration of admission/observation: Escalation of care including admission/observation considered Lab Data [facility] Lab Attestation statement: I reviewed the patient's lab results. as per [facility] 09/26/23 10:15 09/26/23 10:15 Labs: Lab Results 09/26/23 09/26/23 09/26/23 Range/Units 10:15 11:49 12:48 WBC 9.5 (4.8-10.8) X10*3/uL RBC 5.09 (4.20-5.50) X10*6/uL Hgb 13.2 (12.0-16.0) g/dl Hct 42.9 (37.0-47.0) % MCV 84.3 (80.0-98.0) fL MCH 25.9 L (27.0-33.0) pg MCHC 30.8 L (31.0-35.0) g/dl RDW 14.7 (11.0-16.0) % Plt Count 280 D (160-400) X10*3/uL MPV Not Reportable Immature Gran % (Auto) 1.9 H (0.0-0.4) % Neut % (Auto) 72.8 (45-73) % Lymph % (Auto) 17.5 L (20-40) % [place] % (Auto) 5.7 (2-11) % Eos % (Auto) 1.4 (0-4) % Baso % (Auto) 0.7 (0-2) % Lymph # (Auto) 1.7 (1.2-4.9) X10*3/uL [place] # (Auto) 0.5 (0.1-1.2) X10*3/uL Eos # (Auto) 0.1 (0.0-0.4) X10*3/uL Baso # (Auto) 0.1 (0.0-0.2) X10*3/uL Abs Immat Gran (auto) 0.18 H (0.00-0.03) X10*3/uL Absolute Neuts (auto) 6.9 (2.0-8.3) x10*3/uL Absolute Nucleated RBC 0.000 (0.0-0.012) X10*3/uL Nucleated RBC % (auto) 0.0 (0.0-0.2) /100WBC Smear Tech's Comments VERIFIED PT 11.2 (11.1-13.3) SEC INR 0.9 (0.9-1.1) APTT 27.0 (26.0-36.8) SEC Sodium 145 (135-145) mmol/L Potassium 5.1 D (3.3-5.1) mmol/L Chloride 111 H (96-108) mmol/L Carbon Dioxide 22 (22-29) mmol/L Anion Gap 17 (12-20) BUN 14 (9-16) mg/dL Creatinine 0.83 (0.5-1.4) mg/dL Estim Creat Clear Calc 52.1 Estimated GFR > 60 Random Glucose 207 H (60-115) mg/dL Calcium 10.1 (8.4-10.2) mg/dL Total Bilirubin 0.3 (0.0-1.0) mg/dL Direct Bilirubin 0.1 (0.0-0.5) mg/dL AST 21 (5-31) U/L ALT 20 (0-31) U/L Alkaline Phosphatase 80 (39-117) U/L Total Protein 8.0 (6.5-8.0) g/dL Albumin 4.0 (3.5-5.0) g/dL Lipase 32 (8-78) U/L Urine Color Yellow Urine Appearance Clear Urine pH 6.0 (5.0-9.0) Ur Specific [place] >= 1.030 H (1.005-1.025) Urine Protein Negative (Neg-Trace) mg/dL Urine Glucose (UA) >=1000 H (Negative) mg/dL Urine Ketones Negative (Negative) mg/dL Urine Blood Negative (Negative) Urine Nitrite Negative (Negative) Ur Leukocyte Esterase Negative (Negative) Urine RBC 0-2 (0-2) /HPF Urine WBC 11-20 H (0-5) /HPF Ur Squamous Epith Cells 0-2 (0-2) /HPF Urine Bacteria 4+ (None Seen) Hyaline Casts 0-2 (0-2) /LPF Urine Yeast Present External Record Review External record reviewed: Inpatient record, Office record and Outpatient record Discharge Plan Discharge Clinical Impression: Abdominal pain, Colon polyps, Fibroid uterus Patient Disposition: Home, Self-Care Additional Instructions: All of your labs were stable including your blood counts. The CT scan did not reveal a new acute process. Given these you were still experiencing rectal bleeding at times, you need to touch base with your top steep tender, I will call tomorrow to make an appointment. You may require another colonoscopy sooner rather than what is scheduled for January. In regard to the uterine fibroid, you need to call your cloth mender, at that point you can have discussion about the next steps in regard to her ongoing discomfort. I am prescribing you a muscle relaxant, it may offer relief from this discomfort you are experiencing. To note it may cause drowsiness, do not drive or operate machinery while taking the medication. You can alternate this medication with the use of [id number] ibuprofen 600 mg taken every 6 hours with food. Prescriptions: New methocarbamol 750 mg tablet 750 mg PO Q8H Qty: 14 0RF No Action (DME) lancets 28 gauge misc See Rx Instructions topical TID Qty: 120 11RF Rx Instructions: TEST 4 TIMES DAILY aspirin 81 mg tablet,delayed release (DR/EC) 81 mg PO DAILY Qty: 90 2RF (DME) FreeStyle Katelyn 14 Day Sensor Kit See Rx Instructions .ROUTE .MEDSUPPLY Qty: 2 11RF Rx Instructions: Once every 14 days (DME) blood-glucose meter [FreeStyle Lite Meter] Kit See Rx Instructions .ROUTE .MEDSUPPLY Qty: 1 0RF Rx Instructions: As directed (DME) FreeStyle Katelyn 14 Day [place] Misc See Rx Instructions .ROUTE .MEDSUPPLY Qty: 1 0RF Rx Instructions: As directed (DME) pen needle, diabetic [BD Ultra-Fine Short Pen Needle] 31 gauge x 5/16 needle See Rx Instructions .ROUTE .MEDSUPPLY Qty: 100 11RF Rx Instructions: 4x daily amlodipine 2.5 mg tablet 2.5 mg PO DAILY Qty: 90 2RF fenofibrate 54 mg tablet 54 mg PO DAILY 90 Days Qty: 90 1RF cholecalciferol (vitamin D3) 50 mcg (2,000 unit) capsule 50 mcg PO DAILY 90 Days Qty: 90 3RF clopidogrel 75 mg tablet 75 mg PO DAILY Qty: 30 6RF atorvastatin 80 mg tablet 80 mg PO DAILY 90 Days Qty: 90 3RF lisinopril 20 mg tablet 20 mg PO DAILY Qty: 90 3RF insulin lispro [Humalog U-100 Insulin] 100 unit/mL solution 30 unit subcut TID 90 Days Qty: 81 3RF peg-electrolyte soln 420 gram recon soln 240 ml PO Q10M Qty: 4000 0RF Rx Instructions: until fecal effluent is clear; do not exceed a total volume of 2,000 mL dicyclomine 10 mg capsule 10 mg PO BID 90 Days Qty: 180 0RF (DME) bra, mastectomy Crystals Qty: 1 2RF Rx Instructions: As Directed (DME) insulin syringe-needle U-100 [BD Insulin Syringe Ultra-Fine] 1 mL 31 gauge x 5/16 syringe See Rx Instructions .Route Qty: 100 10RF Rx Instructions: Use 1 syringe four times a day Lantus U-100 Insulin 100 unit/mL solution 82 unit subcut DAILY 90 Days Qty: 73.8 3RF (DME) FreeStyle Lite Strips Strip See Rx Instructions .ROUTE QID Qty: 10 Rx Instructions: As directed ciclopirox 1 % shampoo 1 ml topical Q OTHER DAY Jardiance 25 mg tablet 25 mg PO QAM (DME) FreeStyle Katelyn 3 Sensor Device See Rx Instructions .ROUTE .MEDSUPPLY Qty: 1 Rx Instructions: As directed (DME) FreeStyle Katelyn 3 [place] Misc See Rx Instructions .ROUTE .MEDSUPPLY Qty: 1 Rx Instructions: As directed sodium,potassium,mag sulfates [Suprep Bowel Prep Kit] 17.5-3.13-1.6 gram recon soln See Rx Instructions PO .COMPLEX Qty: 354 0RF Rx Instructions: DILUTE; drink 1/2 at 6-8 pm and half at 11 PM- 1AM Print Language: Australian
--- NOTE | 2023-09-26 11:53 | PC.NURSE ---
22G PIV placed left hand, recollect PT/INR drawn and sent to lab, pt aware of need for urine sample.
[2023-09-26 12:00] LABS: INTERNATIONAL NORM RATIO 0.9 (0.9-1.1); Prothrombin Time 11.2 SEC (11.1-13.3)
[2023-09-26 12:57] LABS: Appearance Urine Clear; Color Urine Yellow; Glucose Urine UA >=1000 mg/dL (Negative); Leukocyte Esterase Urine Negative (Negative); Nitrite Urine Negative (Negative); Specific Gravity - Urine >= 1.030 (1.005-1.025); UMIC TRIGGER UACC YES; Urine Blood Negative (Negative); Urine Ketones Negative (Negative); Urine Protein Negative (Neg-Trace)
[2023-09-26 13:20] LABS: Bacteria Urine 4+ (None Seen); Hyaline Casts Urine 0-2 /LPF (0-2); RBC Urine 0-2 /HPF (0-2); Squamous Epithelial Cell Urine 0-2 /HPF (0-2); UACC Culture Trigger YES
[2023-09-26 14:28] VITALS: BP 149/72; PULSE 87; RESP 16; O2SAT 95
--- NOTE | 2023-09-26 14:42 | PC.NURSE ---
Pt reports feeling the need to have a BM; Pt assisted to the bathroom.
[2023-09-26 16:16] VITALS: BP 155/64; PULSE 86; RESP 16; TEMP 36.6; O2SAT 98
== END 2023-09-26 16:17 | disposition home or self-care (01) ==
PROVIDERS: Emergency Provider Emergency Medicine; PCP Internal Medicine
DX: N39.0 Urinary tract infection, site not specified (principal); B96.20 Unspecified Escherichia coli [E. coli] as the cause of diseases classified elsewhere; K63.5 Polyp of colon; D25.9 Leiomyoma of uterus, unspecified; R10.31 Right lower quadrant pain; E11.9 Type 2 diabetes mellitus without complications; I10 Essential (primary) hypertension; E78.5 Hyperlipidemia, unspecified; Z79.02 Long term (current) use of antithrombotics/antiplatelets; Z79.4 Long term (current) use of insulin; Z79.899 Other long term (current) drug therapy
CPT/HCPCS: 36415; 74177; 80048; 80076; 81001; 81003; 83690; 85025; 85610; 85730; 87086; 87088; 87186; 99284

== ENCOUNTER 2023-10-04 08:37 | Day surgery (SDC) | payer OTHER, SELFPAY ==
[2023-10-04 10:38] VITALS: BP 154/66; PULSE 84; RESP 16; TEMP 36.9; O2SAT 100; BMI 25.3
--- NOTE | 2023-10-04 10:45 | P.CONAN_ITS ---
[facility], [facility] Active Problems Active Problems: All Active Problems Blood per rectum (Acute) Cerumen impaction (Acute) RLQ abdominal pain (Acute) Constipation (Acute) Cough (Acute) Pelvic inflammatory disease (Acute) Vaginal pain (Acute) Vaginal discharge (Acute) Pelvic pain in female (Acute) NAFLD (nonalcoholic fatty liver disease) (Acute) Colon polyps (Acute) Right flank discomfort (Acute) COVID-19 (Acute) Upper respiratory tract infection (Acute) Vaginitis (Acute) Vaginitis and vulvovaginitis (Acute) Acute sinusitis (Acute) Rectal itching (Acute) Hypernatremia (Acute) HLD (hyperlipidemia) (Acute) Dysuria (Acute) Breast cancer (Chronic) Rectal itching (Acute) Dark stools (Acute) Epigastric abdominal pain (Acute) GERD (gastroesophageal reflux disease) (Acute) Urinary tract infection (Acute) Pelvic pain (Acute) Hypercalcemia (Acute) Mixed hyperlipidemia (Acute) Dizziness (Acute nursing home (current) use of insulin (Acute) Memory loss (Acute) Muscle cramps (Acute) Menieres disease (Acute) HTN (hypertension) (Acute) T2DM (type 2 diabetes mellitus) (Acute) Skin lesion (Acute) New daily persistent headache (Acute) History of stroke (Acute) Hypovitaminosis D (Acute) Nausea (Acute) Mixed hyperlipidemia (Acute) Essential hypertension (Acute) Diabetes mellitus (Acute) Past Medical History Medical History Hypercalcemia Mixed hyperlipidemia Dizziness 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 Son No problems noted. Brother No problems noted. Brother No problems noted. Family/Other Mental health disorder Substance use disorder Family history of problems with anesthesia: No Surgical History Surgical History H/O colonoscopy History of parotid gland removal Status post unilateral salpingo-oophorectomy H/O right mastectomy History of left mastectomy History of hemicolectomy History of Problems with Anesthesia: No Social History Social History Household Members: Spouse Housing: Condominium Alcohol intake: never Patient Tobacco Use Status: Former Tobacco user Tobacco use type: Cigarette e-Cigarette/Vaping Use: Never Used Second Hand Smoke Exposure: No Advance Directives: No Advance Directives Information Provided: Yes service: No Current occupational status: disabled Cognitive needs: No Hearing needs: No Vision needs: No Meds Allergies Allergy/AdvReac Type Severity Reaction Status Date / Time dulaglutide [From Trulicity] Allergy Mild Abdominal Verified 10/04/23 10:35 Pain metformin AdvReac Mild Diarrhea Verified 10/04/23 10:35 sitagliptin [Januvia] AdvReac Mild abdominal Verified 10/04/23 10:35 pain Active Medications: Current Medications Lactated Ringer's (Lr) 1,000 mls @ 80 mls/hr IVCONT .[id number] BRITTNEY Home Medications ?Medication ?Instructions ?Recorded ?Confirmed ?Last Taken ?Type ciclopirox 1 % shampoo 1 ml topical Q OTHER DAY 04/05/22 10/04/23 Unknown History empagliflozin 25 mg tablet 25 mg PO QAM 04/05/22 10/04/23 09/30/23 History (Jardiance) blood sugar diagnostic (FreeStyle #10 ea 08/02/22 02/16/23 Unknown History Lite Strips) blood-glucose meter,continuous #1 ea 08/15/23 Unknown History (FreeStyle Katelyn 3 [place]) blood-glucose sensor (FreeStyle #1 ea 08/15/23 Unknown History Katelyn 3 Sensor device) Exam Airway Mallampati Class: III TM Dist: >3cm Neck ROM: Limited Loose/Missing/Broken Teeth: No Heart: RRR Lungs: CTA Assessment and Plan Assessment Anesthesia Assessment: Anesthesia Plan Discussed and Chart Reviewed Final Anesthetic Review Family History of Problems with Anesthesia: No History of Problems with Anesthesia: No NPO: Yes ASA Class: III Final Preanesthetic Review: Meds/Allgs Chart Reviewed, Consent Obtained/Reviewed and Anes Risks/Benef Reviewed Patient Risk: Intermediate Procedure Risk: Low Anesthetic Plan Anesthetic Plan: MAC: Disposition: Standard PACU
--- NOTE | 2023-10-04 10:52 | P.HPSUR_ITS ---
Pre-Procedural Eval Section A - 24 Hr Update-Section A only Date of Service: 10/04/23 Section B - Complete if H&P > 30 days Chief Complaint: Hemorrhage of anus and rectum Relevant Family History (Specify if Yes): No Relevant Social History: None Present Medications: see Short Stay Collaborative assessment Medical History: Significant History (Hypercalcemia Mixed hyperlipidemia Dizziness group home (current) use of insulin Breast cancer Memory loss Muscle cramps Menieres disease HTN (hypertension) T2DM (type 2 diabetes mellitus) Skin lesion New daily persistent headache History of stroke Hypovitaminosis D Nausea Essential hypertension Diab) History of Previous Operations: Relevant previous surgery/procedure and date(s) ( H/O colonoscopy History of parotid gland removal Status post unilateral salpingo-oophorectomy H/O right mastectomy History of left mastectomy History of hemicolectomy) Allergies: Allergies Allergy/AdvReac Type Severity Reaction Status Date / Time dulaglutide [From Trulicity] Allergy Mild Abdominal Verified 10/04/23 10:35 Pain metformin AdvReac Mild Diarrhea Verified 10/04/23 10:35 sitagliptin [Januvia] AdvReac Mild abdominal Verified 10/04/23 10:35 pain Review of Systems Sugical H&P ROS: Negative: Constitution, Cardiovascular, Respiratory, Neurological, Psychiatric, Hem-Onc, Allergic/Immunologic, Gastrointestinal, Genitourinary, Musculoskeletal, Integumentary, Endocrine and Eyes/Ears/Nose/Throat Exam Surgical H&P Exam: Normal: HEENT, Normal: Heart, Normal: Lungs, Normal: Extremities, Normal: Abdomen, Normal: Skin and Normal: Neurological Plan Diagnosis/Plan: Unchanged I have reviewed the history and physical and performed a pertinent physical examination on my patient. No changes have occurred unless specified. Time Spent With Patient Time: Total time managing care of this patient today ____ minutes.
--- NOTE | 2023-10-04 11:01 | PC.NURSE ---
Patient in the ED earlier this month, COVID positive 09/14. Dr. Breen made aware. No s/s currently. Patient also in ED 09/25 ago with + UTI symptoms. Patient started on antibiotics and per her only took a few because of all of the procedures going on, but my peeing feels better . Dr. Loredo made aware. in waiting room assisted with reconciling home medications and last doses of meds.
[2023-10-04 11:04] LABS: Glucose, Whole Blood 133 mg/dL (60-115)
[2023-10-04] MEDS: Lactated Ringers 1,000 ML 80 ML IVCONT (11:12)
--- NOTE | 2023-10-04 11:35 | P.OPN-COLO_ITS ---
Colonoscopy Operative Note Operative Note Date of Service: 10/04/23 Narrative: Operative Information Procedure Description: Colonoscopy Indication: rectal bleeding Anesthesia: MAC COLONOSCOPY Instrument: Olympus variable stiffness pediatric scope 190L Colonoscopy Monitoring: Vital signs and clinical assessment, continuous EKG monitoring, Pulse oximetry, Carbon Dioxide monitoring and blood pressure monitoring were done throughout the procedure. Colon withdrawal time was 11 minutes. Procedure: The patient was placed in the left lateral decubitis position and pre-procedure medications were administered. After a digital rectal examination of the ano-rectum, the video colonoscope was inserted into the rectum and advanced through the colon to the cecum/TI. The colonoscope was slowly withdrawn in a retrograde panoramic fashion and the colon mucosa was carefully examined including a retroflexed view of the rectum. Findings and interventions are described below. Procedure Difficulty: easy Findings: Terminal Ileum-normal Cecum:normal Ascending Colon: 6-8 mm sessile polyp removed with cold snare Transverse Colon -normal Descending Colon:normal Sigmoid Colon: at 23 cm from anal verge there was a circumferential mass like lesion, with irregular edges and luminal narrowing, bx were taken Rectum: Retroflexion with small internal hemorrhoids seen, grade I Anorectum - normal Intervention: cold forceps biopsy and cold snare Colon preparation: [place] Bowel Preparation Scale Right colon; 2 Transverse colon: 2 Left colon; 2 (0 = Unprepared colon segment with mucosa not seen due to solid stool that cannot be cleared. 1 = Portion of mucosa of the colon segment seen, but other areas of the colon segment not well seen due to staining, residual stool and/or opaque liquid. 2 = Minor amount of residual staining, small fragments of stool and/or opaque liquid, but mucosa of colon segment seen well. 3 = Entire mucosa of colon segment seen well with no residual staining, small fragments of stool or opaque liquid) Impression and Post Procedure Diagnosis: colon polyp internal hemorrhoids distal sigmoid mass lesion concern for neoplasia Plan: High fiber diet leaflet Avoid straining at stool, epsom salts and sitz bath, anusol supps or cream Refer urgent assessment to Dr Ramírez, patient just had CT scan recently Above findings were reviewed with the patient and relevant handouts were provided if indicated.
[2023-10-04 11:38] VITALS: BP 105/48; PULSE 74; RESP 18; TEMP 36.3; O2SAT 99
[2023-10-04 11:53] VITALS: BP 126/84; PULSE 83; RESP 18; TEMP 36.8; O2SAT 100
--- NOTE | 2023-10-04 12:02 | PC.NURSE ---
Dr. Loredo visited with patient and and updated them regarding procedure, findings and f/u appts.
== END 2023-10-04 12:43 | disposition home or self-care (01) ==
LOC: HO.SSS 08:38
PROVIDERS: PCP Internal Medicine; Visit Provider Internal Medicine Gastroenterology
PROC: 0DJD8ZZ Inspection of Lower Intestinal Tract, Via Natural or Artificial Opening Endoscopic (ICD-10-PCS; CPT 45378; principal; 2023-10-04 11:30)
DX: K62.5 Hemorrhage of anus and rectum (principal); C18.2 Malignant neoplasm of ascending colon; C18.7 Malignant neoplasm of sigmoid colon; R10.31 Right lower quadrant pain; K64.0 First degree hemorrhoids; I10 Essential (primary) hypertension; E78.2 Mixed hyperlipidemia; E11.9 Type 2 diabetes mellitus without complications; Z85.3 Personal history of malignant neoplasm of breast; Z79.4 Long term (current) use of insulin; Z79.84 Long term (current) use of oral hypoglycemic drugs; Z79.82 Long term (current) use of aspirin; Z79.899 Other long term (current) drug therapy; Z88.8 Allergy status to other drugs, medicaments and biological substances; Z87.891 Personal history of nicotine dependence; Z86.73 Personal history of transient ischemic attack (TIA), and cerebral infarction without residual deficits
CPT/HCPCS: 45385; 45380; 82947; 88305; 88341; 88342; J2704

== ENCOUNTER → 2023-10-04 08:37 | Outpatient (BNV) | payer OTHER, SELFPAY | PROVIDERS: PCP Internal Medicine; Visit Provider Internal Medicine Gastroenterology | DX: K63.5 Polyp of colon (principal); K62.5 Hemorrhage of anus and rectum; K64.8 Other hemorrhoids; D37.4 Neoplasm of uncertain behavior of colon | CPT/HCPCS: 45380; 45385 ==

== ENCOUNTER 2023-10-13 09:04 | Outpatient (AMB) | payer OTHER, SELFPAY ==
--- NOTE | 2023-10-13 09:05 | AM.OFFWIN_ITS ---
Intake Vital Signs 10/13/23 09:06 Height 5 ft Weight 129 lb BMI 25.2 BP 118/82 Blood Pressure Location Rt brachial Position Sitting Pulse 85 Pulse Source Pulse Oximeter Temp 98.6 F Temp Source Oral Pulse Oximetry (%) 98 Oxygen Delivery Method Room Air Intake Visit Reasons: EP-urine burning Intake Note: pt c/o burning while urinating. Ongoing for a couple weeks. Was on antibiotics but stopped taking. No reaction Patient Tobacco Use Status: Former Tobacco user Allergies dulaglutide [From Trulicity] Allergy (Mild, Verified 10/13/23 09:05) Abdominal Pain metformin Adverse Reaction (Mild, Verified 10/13/23 09:05) Diarrhea sitagliptin [Januvia] Adverse Reaction (Mild, Verified 10/13/23 09:05) abdominal pain Do you need a note to return to daycare/school/sports/work: No HPI HPI Comments History of Present Illness Details Patient is a 68-year-old female complaining of feeling of pressure in her bladder like she has a urinary tract infection. She states she always feels this way when she gets 1. She states she just had a UTI on September 25, she was at [facility] and they called her a few days later to let her know that they were calling in a prescription because her urine grew out E coli. She took a those antibiotics in fall and felt better but now started feeling the same symptoms yesterday. She denies any fevers, low back pain or blood in her urine. 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 Son No problems noted. Brother No problems noted. Brother No problems noted. Family/Other Mental health disorder Substance use disorder Social History Household Members: Spouse Housing: Condominium Are you a primary field care advocate to a significant other at home: No Do you presently have visiting nurse or other home services: No Alcohol intake: never Patient Tobacco Use Status: Former Tobacco user Tobacco use type: Cigarette Years Smoked: 20 e-Cigarette/Vaping Use: Never Used Second Hand Smoke Exposure: No service: No Current occupational status: disabled Cognitive needs: No Hearing needs: No Vision needs: No Female Reproductive History Menstrual Age of Menarche: 12 Review of Systems Const All systems reviewed & are unremarkable except as noted in HPI and below Physical Exam Vital Signs: Last Vital Signs Temp 98.6 F 10/13/23 09:06 Pulse 85 10/13/23 09:06 BP 118/82 10/13/23 09:06 Pulse Ox 98 10/13/23 09:06 Oxygen Delivery Method Room Air 10/13/23 09:06 BMI result Body Mass Index 25.2 Const General: cooperative, healthy appearing, comfortable and no acute distress Orientation/consciousness: patient oriented x3 HEENT Head: Yes normal to inspection Ears: hearing grossly normal bilaterally General nose exam: Normal external nose present Face and sinus: Yes normal facial exam Neck Neck: Yes normal visual inspection, Yes trachea midline and Yes supple Resp Effort & Inspection: normal respiratory effort and able to speak in complete sentences Skin General skin exam: no rashes or lesions noted Neuro General: patient oriented x3 Psych Appearance: grossly normal Speech and movement: Normal speech and movement present Attitude: cooperative Thought process: Normal thought process present Insight: Good insight present (Psych) Judgement: Good judgement present (Psych) Results AMB Urinalysis, Automated UA Leukoctes 0 Yeimy/uL Last Edit by Mc Jordan CMA on 10/13/23 09:19 UA Nitrite Negative Last Edit by Mc Jordan CMA on 10/13/23 09:19 UA Urobilinogen 0.2 mg/dL Last Edit by Mc Jordan CMA on 10/13/23 09:19 UA Protein 0 mg/dL Last Edit by Mc Jordan CMA on 10/13/23 09:19 UA pH 5.5 Last Edit by Mc Jordan CMA on 10/13/23 09:19 UA Blood 0 Ethan/uL Last Edit by Mc Jordan CMA on 10/13/23 09:19 UA Specific [place] 1.020 Last Edit by Mc Jordan CMA on 10/13/23 09:19 UA Ketone Negative Last Edit by Mc Jordan CMA on 10/13/23 09:19 UA Bilirubin 0 mg/dL Last Edit by Mc Jordan CMA on 10/13/23 09:19 UA Glucose 1000 mg/dL Last Edit by Mc Jordan CMA on 10/13/23 09:19 Results Reviewed Results Reviewed: Laboratory Last Values Urine pH (Auto) 5.5 10/13/23 09:18 Specific [place] (Auto) 1.020 10/13/23 09:18 Urine Protein (Auto) 0 mg/dL 10/13/23 09:18 Glucose (UA)(Auto) 1000 mg/dL 10/13/23 09:18 Urine Ketones (Auto) Negative 10/13/23 09:18 Urine Blood (Auto) 0 Ethan/uL 10/13/23 09:18 Urine Nitrite (Auto) Negative 10/13/23 09:18 Urine Bilirubin (Auto) 0 mg/dL 10/13/23 09:18 Urine Urobilinogen (Auto) 0.2 mg/dL 10/13/23 09:18 Leukocyte Esterase (Auto) 0 Yeimy/uL 10/13/23 09:18 Assessment & Plan Assessment & Plan (1) Urinary tract infection: Code(s): N39.0 - Urinary tract infection, site not specified Qualifiers: Urinary tract infection type: acute cystitis Hematuria presence: without hematuria Qualified Code(s): N30.00 - Acute cystitis without hematuria Plan: Send prescription to pharmacy Plan See above Orders: Orders AMB Urinalysis Automated Today Z13.9 - Encounter for screening, unspecified Medications: New cefuroxime axetil 500 mg PO Q12H 10 tabs 0RF Coding Level of Care Code New Pt Level 3 (56603) Diagnoses Acute cystitis without hematuria N30.00 Urinary tract infection type: acute cystitis Hematuria presence: without hematuria
[2023-10-13 09:06] VITALS: BP 118/82; PULSE 85; TEMP 37; O2SAT 98; BMI 25.2
== END 2023-10-13 10:08 | disposition home or self-care (01) ==
PROVIDERS: PCP Internal Medicine; Visit Provider Physician Assistant
DX: N30.00 Acute cystitis without hematuria (principal)
CPT/HCPCS: 81003; 99213

== ENCOUNTER 2023-10-17 12:30 | Outpatient (AMB) | payer OTHER, SELFPAY ==
--- NOTE | 2023-10-17 12:51 | MHC.OFFVIS ---
Vital Signs 10/17/23 13:40 Height 5 ft Weight 127 lb 13.89 oz BMI 25.0 Pulse 80 Intake Visit Reasons: ref from [facility] Intake Note: Patient is seen in office for evaluation and treatment of Hemorrhage of anus and rectum. Pt c/o: per pt here for colon cancer, admits to pain right side of the abdomen, bleeding when cleaning and toilet, denies n/v/d Motorcycle Repairer Required: Yes Motorcycle Repairer Language: Drawing Box Tender Services: Motorcycle Repairer Present Motorcycle Repairer Name: Angelica Accompanied by: Family/Other Allergies dulaglutide [From Trulicity] Allergy (Mild, Verified 11/09/23 13:56) Abdominal Pain metformin Adverse Reaction (Mild, Verified 11/09/23 13:56) Diarrhea sitagliptin [Januvia] Adverse Reaction (Mild, Verified 11/09/23 13:56) abdominal pain Medication List - Last Reconciled 10/17/23 by Juan Jose Ramírez MD amlodipine 2.5 mg PO DAILY aspirin 81 mg PO DAILY atorvastatin 80 mg PO DAILY 90 days blood sugar diagnostic (FreeStyle Lite Strips) As directed blood-glucose meter (FreeStyle Lite Meter kit) As directed blood-glucose meter,continuous (FreeStyle Katelyn 3 [place]) As directed blood-glucose sensor (FreeStyle Katelyn 3 Sensor device) As directed cefuroxime axetil 500 mg PO Q12H cholecalciferol (vitamin D3) 50 mcg PO DAILY 90 days ciclopirox 1% 1 mL topical Q OTHER DAY clopidogrel 75 mg PO DAILY dicyclomine 10 mg PO BID 90 days empagliflozin (Jardiance) 25 mg PO QAM fenofibrate 54 mg PO DAILY 90 days flash glucose scanning reader (FreeStyle Katelyn 14 Day [place]) As directed flash glucose sensor (FreeStyle Katelyn 14 Day Sensor kit) Once every 14 days insulin glargine (Lantus U-100 Insulin) 82 units (0.82 mL) subcut DAILY 90 days insulin lispro (Humalog U-100 Insulin) 30 units (0.3 mL) subcut TID 90 days insulin syringe-needle U-100 (BD Insulin Syringe Ultra-Fine) Use 1 syringe four times a day lancets TEST 4 TIMES DAILY lisinopril 20 mg PO DAILY mastectomy bra (bra, mastectomy) As Directed pen needle, diabetic (BD Ultra-Fine Short Pen Needle) 4x daily HPI HPI ref from [facility] : Details: [age] year old female referred for a new diagnosis colon cancer. She had a colonoscopy with Dr. L[facility]o last 10/04/[address] scan. She had a CAT scan last month done in the ER for right lower quadrant pain showing this thickening of a segment of the sigmoid along an old anastomosis. She also had a CT scan last May, in the ER for similar symptoms which did not reveal any acute changes. Her colonoscopy last October 03 showed a circumferential masslike non obstructing lesion at level 23 cm. She also had a polyp removed from the right colon which was removed. Both of these lesions in the sigmoid as well as the right colon were adenocarcinoma on pathology. She has a history of sigmoid resection about 30 years ago. She was uncertain about the details of this but she states that this was not because of cancer. [facility] Medical History (Updated 11/10/23 @ 14:05 by Reyna Becker RN) Hx of radiation therapy History of chemotherapy Arthritis On anticoagulant therapy Sleep apnea Colon cancer Hypercalcemia Mixed hyperlipidemia Dizziness emt intermediate (current) use of insulin Breast cancer Memory loss Muscle cramps Menieres disease HTN (hypertension) T2DM (type 2 diabetes mellitus) Skin lesion New daily persistent headache History of stroke Hypovitaminosis D Nausea Essential hypertension Diabetes mellitus Surgical History H/O colonoscopy History of parotid gland removal Status post unilateral salpingo-oophorectomy H/O right mastectomy History of left mastectomy History of hemicolectomy Family History Father Diabetes Mother Diabetes Hypertension Sister Cervical cancer Daughter No problems noted. Son Skin cancer Brother No problems noted. Brother No problems noted. Family/Other Mental health disorder Substance use disorder Social History Household Members: Spouse Housing: Condominium Are you a primary career placement specialist to a significant other at home: No Do you presently have visiting nurse or other home services: No Alcohol intake: never Patient Tobacco Use Status: Former Tobacco user Tobacco use type: Cigarette Years Smoked: 20 e-Cigarette/Vaping Use: Never Used Second Hand Smoke Exposure: No service: No Current occupational status: disabled Cognitive needs: No Hearing needs: No Vision needs: No Female Reproductive History Menstrual Age of Menarche: 12 Review of Systems Const Denies chills and Denies fever(s) Card Denies chest pain, Denies dyspnea and Denies dyspnea on exertion Resp Denies cough, Denies dyspnea and Denies dyspnea on exertion GI Denies hematochezia and Denies change in bowel habits Denies hematuria Musc Details: Walks slowly in view of previous strokes Reports abnormal gait, Denies back pain and Denies limited range of motion Neuro Reports abnormal gait, Denies focal weakness and Denies convulsions Psych Denies depression and Denies mood swings Physical Exam Vital Signs: Last Vital Signs Pulse 80 10/17/23 13:40 BMI result Body Mass Index 25.0 Const Other: Has diffuse seborrheic keratotic lesions and nevi of the skin mostly on the face General: comfortable and no acute distress Orientation/consciousness: patient oriented x3 Neck Neck: Yes no lymphadenopathy Resp Auscultation: clear to auscultation bilaterally Cardio Rhythm: regular rhythm GI Other: Has a long left paramedian laparotomy scar Palpation (GI): Soft to palpation, nontender and no guarding Neuro General: patient oriented x3 Assessment & Plan Assessment & Plan (1) Colon cancer: Code(s): C18.9 - Malignant neoplasm of colon, unspecified Category: Medical Plan: She had a colonoscopy last October 03 and a circumferentially lesion was seen in the sigmoid colon at 23 cm. A small polyp was also removed from the right colon. Both of this lesions showed an invasive adenocarcinoma on pathology. I had a long discussion with the patient about the need to proceed with resection. I explained the procedure of a separate resection with a right colon resection and sigmoid resection. I explained the technique of hand assisted laparoscopic resection of these 2 different segments. I discussed the possibility of requiring a stoma. I also explained the option of subtotal colectomy for the synchronous lesions. This will involve an ileostomy and we will leave part of the rectum. She may still have adenocarcinoma in the remaining rectum. I reviewed the risks including but not limited to bleeding, infections, bowel injury, anastomotic leak, blood clots, pneumonia, inherent risks of anesthesia, injury to other organs in the abdomen, as well as the benefits and alternatives. She says that she wants to have the entire colon removed with a subtotal colectomy and a permanent ileostomy. She understands that she will need care for this ileostomy. I explained to her possible electrolyte problems with fluid losses. She is interested in genetic testing as well. She has had multiple cancers including on both breasts in the past. 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 She will need to be off Plavix for the procedure. She understands that she will need to be an inpatient after the surgery Her family was with her during the visit and appeared to have a good understanding of the plan. Her who say and her granddaughter Paola was present during the entire discussion. 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 Orders: Referrals Hematology & Oncology Referral C18.9 - Malignant neoplasm of colon, unspecified Coding Level of Care Code Est Pt Level 4 (90789) Diagnoses Colon cancer C18.9
[2023-10-17 13:40] VITALS: PULSE 80; BMI 25.0
== END 2023-10-17 14:07 | disposition home or self-care (01) ==
PROVIDERS: PCP Internal Medicine; Visit Provider Surgery
DX: C18.9 Malignant neoplasm of colon, unspecified (principal)
CPT/HCPCS: 99214

== ENCOUNTER 2023-10-17 12:30 | Outpatient (AMB) | payer OTHER, SELFPAY ==
--- NOTE | 2023-10-17 12:32 | MHC.OFFVIS ---
Vital Signs 10/17/23 12:34 Height 5 ft Weight 128 lb 4.944 oz BMI 25.1 BP 141/69 H Blood Pressure Location Lt brachial Position Sitting Pulse 82 Pulse Source Pulse Oximeter Pulse Oximetry (%) 98 Oxygen Delivery Method Room Air Intake Visit Reasons: f/u colonoscopy Intake Note: Pt presents to the office today for a follow up colonoscopy. Pt states she is having abdominal pain that comes and goes still but denies any N/V/D. Allergies dulaglutide [From Trulicity] Allergy (Mild, Verified 10/17/23 13:34) Abdominal Pain metformin Adverse Reaction (Mild, Verified 10/17/23 13:34) Diarrhea sitagliptin [Januvia] Adverse Reaction (Mild, Verified 10/17/23 13:34) abdominal pain HPI HPI f/u colonoscopy: Details: 68 yr old f here for f/u to review colon path Colonoscopy revealed sigmoid anastomosis adenoca and surprisingly a small polyp in the ascending colon with invasive adenoca on background of HGD. Last colonoscopy 1 yr ago without any sign of cancer albeit right sided prep was fair to poor. Ct scan 05/31 with constipation, no obstruction CT scan with thickened sigmoid anastomosis She is c/o non specific abdominal pain in various areas no nausea, no vomiting appetite is fair EXAM: GENERAL: The patient is well developed and nontoxic, ++ brijesh warts VITAL SIGNS:see workflow HEENT: Nonicteric sclerae, PERRLA, EOMI. Oropharynx clear. Moist mucous membranes. Conjunctivae appear well perfused. No thyroid mass. CHEST: Chest wall is nontender. HEART: Regular rate and rhythm without murmurs. LUNGS: Clear to auscultation bilaterally. ABDOMEN: Soft, positive bowel sounds, nontender, no organomegaly.no flank tenderness SKIN: No rash, no excessive bruising, petechiae, or purpura. NEUROLOGIC: Cranial nerves II-XII intact without motor/sensory deficit. 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 Son No problems noted. Brother No problems noted. Brother No problems noted. Family/Other Mental health disorder Substance use disorder Social History Household Members: Spouse Housing: [facility] Are you a primary occasional caregiver to a significant other at home: No Do you presently have visiting nurse or other home services: No Alcohol intake: never Patient Tobacco Use Status: Former Tobacco user Tobacco use type: Cigarette Years Smoked: 20 e-Cigarette/Vaping Use: Never Used Second Hand Smoke Exposure: No service: No Current occupational status: disabled Cognitive needs: No Hearing needs: No Vision needs: No Female Reproductive History Menstrual Age of Menarche: 12 Physical Exam Vital Signs: Last Vital Signs Pulse 82 10/17/23 12:34 BP 141/69 H 10/17/23 12:34 Pulse Ox 98 10/17/23 12:34 Oxygen Delivery Method Room Air 10/17/23 12:34 BMI result Body Mass Index 25.1 Assessment & Plan Assessment & Plan (1) Colon cancer: Code(s): C18.9 - Malignant neoplasm of colon, unspecified Category: Medical Plan: see above Coding Level of Care Code Est Pt Level 3 (76654) Diagnoses Colon cancer C18.9
[2023-10-17 12:34] VITALS: BP 141/69; PULSE 82; O2SAT 98; BMI 25.1
== END 2023-10-17 13:36 | disposition home or self-care (01) ==
PROVIDERS: PCP Internal Medicine; Visit Provider Internal Medicine Gastroenterology
DX: C18.9 Malignant neoplasm of colon, unspecified (principal)
CPT/HCPCS: 99213

== ENCOUNTER → 2023-10-17 12:30 | Outpatient (BNVA) | payer OTHER, SELFPAY | PROVIDERS: PCP Internal Medicine; Visit Provider Internal Medicine Gastroenterology | DX: C18.9 Malignant neoplasm of colon, unspecified (principal) | CPT/HCPCS: 99212 ==

== ENCOUNTER 2023-11-09 13:28 | Outpatient (AMB) | payer OTHER, SELFPAY ==
[2023-11-09 13:53] VITALS: BMI 25.4
--- NOTE | 2023-11-09 13:53 | A.OFFVIS_ITS ---
Vital Signs 11/09/23 13:53 Height 5 ft Weight 130 lb 1.164 oz BMI 25.4 Intake Visit Reasons: US follow up [employer] Certified Internetwork Expert Required: Yes [employer] Certified Internetwork Expert Language: Cartography Supervisor Services: [employer] Certified Internetwork Expert Present (in person) [employer] Certified Internetwork Expert Name: Sara RUSSELL Information Interpreted: non-clinical & clinical Accompanied by: Spouse Allergies dulaglutide [From Trulicity] Allergy (Mild, Verified 11/09/23 13:56) Abdominal Pain metformin Adverse Reaction (Mild, Verified 11/09/23 13:56) Diarrhea sitagliptin [Januvia] Adverse Reaction (Mild, Verified 11/09/23 13:56) abdominal pain Post menopausal: Yes HPI Comments Details: Presenting for follow-up regarding pelvic ultrasound Uterus: The uterus is anteverted and measures 9.8 x 4.0 x 5.0 cm. 0.8 x 0.3 x 0.4 cm avascular echogenic focus in the myometrium was previously seen and is unchanged in appearance. 1.2 x 0.9 x 1.0 cm fibroid in the anterior body previously measured 1.0 x 0.8 x 0.9 cm. 1.5 x 1.3 x 1.2 cm fibroid in the posterior body previously measured 1.5 x 1.2 x 1.5 cm. The endometrium measures 0.2 cm. Adnexa: Right ovary measures 2.0 x 1.1 x 1.5 cm. Volume 1.7 mL. The right ovary is normal in appearance. The left ovary was removed. The patient has no complaints no pelvic pressure or pain or vaginal bleeding [facility] Medical History Colon cancer Hypercalcemia Mixed hyperlipidemia Dizziness custodial (current) use of insulin Breast cancer Memory loss Muscle cramps Menieres disease HTN (hypertension) T2DM (type 2 diabetes mellitus) Skin lesion New daily persistent headache History of stroke Hypovitaminosis D Nausea Essential hypertension Diabetes mellitus Surgical History H/O colonoscopy History of parotid gland removal Status post unilateral salpingo-oophorectomy H/O right mastectomy History of left mastectomy History of hemicolectomy Family History Father Diabetes Mother Diabetes Hypertension Sister Cervical cancer Daughter No problems noted. Son Skin cancer Brother No problems noted. Brother No problems noted. Family/Other Mental health disorder Substance use disorder Social History Household Members: Spouse Housing: Condominium Are you a primary hearing care professional to a significant other at home: No Do you presently have visiting nurse or other home services: No Alcohol intake: never Patient Tobacco Use Status: Former Tobacco user Tobacco use type: Cigarette Years Smoked: 20 e-Cigarette/Vaping Use: Never Used Second Hand Smoke Exposure: No service: No Current occupational status: disabled Cognitive needs: No Hearing needs: No Vision needs: No Female Reproductive History Menstrual Age of Menarche: 12 Review of Systems Const All systems reviewed & are unremarkable except as noted in HPI and below Reports as per HPI and Reports no additional complaints GI Reports no additional complaints Reports no additional complaints Physical Exam Vital Signs: BMI result Body Mass Index 25.4 Assessment & Plan Assessment & Plan (1) Fibroid uterus: Code(s): D25.9 - Leiomyoma of uterus, unspecified Category: Medical Plan: Discussed with the patient the findings on pelvic ultrasound & the risk of myosarcoma; discussed with the patient the options of treatment including expectant management versus hysterectomy; the pros and cons, risks benefits of each approach were discussed with the patient including the fact that in cases of myosarcoma, surgical treatment can lead to early diagnosis and positively affects the prognosis; after further discussion, the patient decided to proceed with expectant management. Will repeat pelvic ultrasound periodically. Instructions given to patient to call in case any of the following occurs: pressure symptoms, abnormal uterine bleeding, pelvic pain; All questions answered, the patient verbalized understanding and agreed with the plan . Coding Level of Care Code Est Pt Level 3 (27077) Diagnoses Fibroid uterus D25.9
== END 2023-11-09 14:10 | disposition home or self-care (01) ==
PROVIDERS: PCP Internal Medicine; Visit Provider Obstetrics & Gynecology
DX: D25.9 Leiomyoma of uterus, unspecified (principal)
CPT/HCPCS: 99213

== ENCOUNTER → 2023-11-09 13:28 | Outpatient (BNVA) | payer OTHER, SELFPAY | PROVIDERS: PCP Internal Medicine; Visit Provider Obstetrics & Gynecology | DX: D25.9 Leiomyoma of uterus, unspecified (principal) | CPT/HCPCS: 99212 ==

== ENCOUNTER 2023-11-10 | Outpatient (REF) | payer OTHER, SELFPAY ==
--- NOTE | 2023-11-10 14:04 | P.CONAN_ITS ---
HPI - Anesthesia Eval Consult details Narrative: 68yo F for FOWLER Laparoscopic subtotal Colon Resection and Ileostomy, possible open, 11/22/23 s/p colo 09/2023 with MAC Medically optimized per [facility] preop clinic No CP/SOB with grocery shopping MARILOU: No CPAP d/t discomfort Stroke 2016: DAPT - Pt unsure of preop instructions, will contact CHRISTEN [facility] Bilateral Breast cancer s/p chemo/radiation/mastectomy 2015 DM: FBS ~ <100 Anesthesia Pre-Procedure Meds Is the patient on any of the following meds?: SGLT2 Inhib PMFSH Active Problems Active Problems: All Active Problems Blood per rectum (Acute) Cerumen impaction (Acute) RLQ abdominal pain (Acute) Constipation (Acute) Cough (Acute) Pelvic inflammatory disease (Acute) Vaginal pain (Acute) Vaginal discharge (Acute) Pelvic pain in female (Acute) NAFLD (nonalcoholic fatty liver disease) (Acute) Colon polyps (Acute) Right flank discomfort (Acute) COVID-19 (Acute) Upper respiratory tract infection (Acute) Vaginitis (Acute) Vaginitis and vulvovaginitis (Acute) Acute sinusitis (Acute) Rectal itching (Acute) Hypernatremia (Acute) HLD (hyperlipidemia) (Acute) Dysuria (Acute) Breast cancer (Chronic) Rectal itching (Acute) Mixed hyperlipidemia (Acute) Dark stools (Acute) Epigastric abdominal pain (Acute) GERD (gastroesophageal reflux disease) (Acute) Urinary tract infection (Acute) Pelvic pain (Acute) Colon cancer (Acute) Hypercalcemia (Acute) Mixed hyperlipidemia (Acute) Dizziness (Acute) alf (current) use of insulin (Acute) Memory loss (Acute) Muscle cramps (Acute) Menieres disease (Acute) HTN (hypertension) (Acute) T2DM (type 2 diabetes mellitus) (Acute) Skin lesion (Acute) New daily persistent headache (Acute) History of stroke (Acute) Hypovitaminosis D (Acute) Nausea (Acute) Essential hypertension (Acute) Diabetes mellitus (Acute) Past Medical History Medical History (Updated 11/10/23 @ 14:05 by Reyna Becker RN) Hx of radiation therapy History of chemotherapy Arthritis On anticoagulant therapy Sleep apnea Colon cancer Hypercalcemia Mixed hyperlipidemia Dizziness alf (current) use of insulin Breast cancer Memory loss Muscle cramps Menieres disease HTN (hypertension) T2DM (type 2 diabetes mellitus) Skin lesion New daily persistent headache History of stroke Hypovitaminosis D Nausea Essential hypertension Diabetes mellitus Family History Family History Father Diabetes Mother Diabetes Hypertension Sister Cervical cancer Daughter No problems noted. Son Skin cancer Brother No problems noted. Brother No problems noted. Family/Other Mental health disorder Substance use disorder Family history of problems with anesthesia: No Surgical History Surgical History H/O colonoscopy History of parotid gland removal Status post unilateral salpingo-oophorectomy H/O right mastectomy History of left mastectomy History of hemicolectomy History of Problems with Anesthesia: No Social History Social History Household Members: [facility] Are you a primary patient care assistant to a significant other at home: No Do you presently have visiting nurse or other home services: No Alcohol intake: never Patient Tobacco Use Status: Former Tobacco user Tobacco use type: Cigarette Years Smoked: 20 e-Cigarette/Vaping Use: Never Used Second Hand Smoke Exposure: No service: No Current occupational status: disabled Cognitive needs: No Hearing needs: No Vision needs: No Meds Allergies Allergy/AdvReac Type Severity Reaction Status Date / Time dulaglutide [From Trulicity] Allergy Mild Abdominal Verified 11/09/23 13:56 Pain simvastatin Allergy Joint Pain Verified 11/10/23 14:39 metformin AdvReac Mild Diarrhea Verified 11/09/23 13:56 sitagliptin [Januvia] AdvReac Mild abdominal Verified 11/09/23 13:56 pain Home Medications ?Medication ?Instructions ?Recorded ?Confirmed ?Last Taken ?Type empagliflozin 25 mg tablet 25 mg PO QAM 04/05/22 11/10/23 09/30/23 History (Jardiance) blood sugar diagnostic (FreeStyle #10 ea 08/02/22 11/08/23 Unknown History Lite Strips) blood-glucose meter,continuous #1 ea 08/15/23 11/08/23 Unknown History (FreeStyle Katelyn 3 [place]) blood-glucose sensor (FreeStyle #1 ea 08/15/23 10/17/23 Unknown History Katelyn 3 Sensor device) amlodipine 2.5 mg tablet 2.5 mg PO BEDTIME 11/10/23 11/10/23 Unknown History atorvastatin 80 mg tablet 80 mg PO BEDTIME 11/10/23 11/10/23 Unknown History clopidogrel 75 mg tablet 75 mg PO BEDTIME 11/10/23 11/10/23 Unknown History insulin glargine 100 unit/mL 52 unit subcut DAILY 11/10/23 11/10/23 Unknown History subcutaneous solution (Lantus U-100 Insulin) insulin lispro 100 unit/mL 11/10/23 11/10/23 Unknown History subcutaneous solution (Humalog U-100 Insulin) Exam Pertinent Lab Results Pertinent Lab Results: Last CBC, CMP & Coagulation? WBC: 8.7 k/mm3 (10/26/23) Hgb: 13.3 Gm/dL (10/26/23) Hct: 43.1 % (10/26/23) Platelet Count: 257 k/mm3 (10/26/23) Sodium: 144 mmol/L (10/26/23) Potassium: 4.8 mmol/L (10/26/23) Chloride: 106 mmol/L (10/26/23) Bicarbonate Level: 26 mmol/L (10/26/23) Anion Gap: 12 (10/26/23) Glucose Level: 93 mg/dL (10/26/23) BUN: 19 mg/dL (10/26/23) Creatinine-Blood:?1.06 mg/dL?High (10/26/23) Estimated GFR Creatinine: 57 ML/MIN/1.73 M2 (10/26/23) Calcium: 10.2 mg/dL (10/26/23) Narrative Narrative: EKG 10/2023 Ventricular Rate: 75 ?BPM Atrial Rate: 75 ?BPM P-R Interval: 150 ?ms QRS Duration: 78 ?ms Q-T Interval: 374 ?ms QTC Calculation(Bazett): 417 ?ms P [place]: 71 ?degrees R [place]: 55 ?degrees T [place]: 61 ?degrees Normal sinus rhythm Normal ECG When compared with ECG of 21-JAN-2023 12:32, Nonspecific T wave abnormality no longer evident in Inferior leads Confirmed by ADELA MENEZES MD ([id number]) on 10/26/2023 4:06:13 PM Airway Mallampati Class: III TM Dist: >3cm Neck ROM: Limited Loose/Missing/Broken Teeth: No Heart: RRR Lungs: CTA Assessment and Plan Assessment Anesthesia Assessment: Anesthesia Plan Discussed and PAT Visit Final Anesthetic Review Family History of Problems with Anesthesia: No History of Problems with Anesthesia: No
[2023-11-10 14:21] VITALS: BP 124/53; PULSE 82; RESP 16; O2SAT 98; BMI 25.8
== END 2023-11-10 00:01 ==
LOC: HO.PAT
PROVIDERS: PCP Internal Medicine; Visit Provider Surgery
DX: Z01.812 Encounter for preprocedural laboratory examination (principal); C18.9 Malignant neoplasm of colon, unspecified
CPT/HCPCS: 86850; 86900; 86901

== ENCOUNTER 2023-12-09 14:27 | Outpatient (AMB) | payer OTHER, SELFPAY ==
[2023-12-09 14:35] VITALS: BP 124/60; PULSE 88; O2SAT 98; BMI 21.2
--- NOTE | 2023-12-09 14:36 | MHC.OFFWIV ---
Intake Vital Signs 12/09/23 14:35 Height 5 ft 6 in Weight 131 lb 5 oz BMI 21.2 BP 124/60 Blood Pressure Location Lt brachial Position Sitting Pulse 88 Pulse Source Pulse Oximeter Pulse Oximetry (%) 98 Oxygen Delivery Method Room Air Intake Visit Reasons: EP-? yeast infection Patient Tobacco Use Status: Former Tobacco user Allergies dulaglutide [From Trulicity] Allergy (Mild, Verified 12/09/23 14:35) Abdominal Pain simvastatin Allergy (Verified 12/09/23 14:35) Joint Pain metformin Adverse Reaction (Mild, Verified 12/09/23 14:35) Diarrhea sitagliptin [Januvia] Adverse Reaction (Mild, Verified 12/09/23 14:35) abdominal pain Medication List - Last Reconciled 12/09/23 by Joel Mccord MD amlodipine 2.5 mg PO BEDTIME aspirin 81 mg PO DAILY atorvastatin 80 mg PO BEDTIME blood sugar diagnostic (FreeStyle Lite Strips) As directed blood-glucose meter (FreeStyle Lite Meter kit) As directed blood-glucose meter,continuous (FreeStyle Katelyn 3 [place]) As directed blood-glucose sensor (FreeStyle Katelyn 3 Sensor device) As directed cholecalciferol (vitamin D3) 50 mcg PO DAILY 90 days clopidogrel 75 mg PO BEDTIME docusate sodium (Colace) 100 mg PO BID empagliflozin (Jardiance) 25 mg PO QAM fenofibrate 54 mg PO DAILY 90 days flash glucose scanning reader (FreeStyle Katelyn 14 Day [place]) As directed flash glucose sensor (FreeStyle Katelyn 14 Day Sensor kit) Once every 14 days insulin glargine (Lantus U-100 Insulin) 52 units subcut DAILY insulin lispro (Humalog U-100 Insulin) insulin syringe-needle U-100 (BD Insulin Syringe Ultra-Fine) Use 1 syringe four times a day lancets TEST 4 TIMES DAILY lisinopril 20 mg PO DAILY mastectomy bra (bra, mastectomy) As Directed pen needle, diabetic (BD Ultra-Fine Short Pen Needle) 4x daily psyllium seed (sugar) (Metamucil (sugar) oral powder) 1 tbsp PO BID HPI EP-? yeast infection HPI Details Patient is 68-year-old female came in today to be evaluated for possible yeast infection Examination patient have erythema around genitalia Symptom has been going on for 2 days Patient says that since she has been started on Trulicity she has been having these symptoms Before that it was Jardiance which was also causing the symptoms UA does not show any infection But there is 3+ sugar Talked about controlling diet to controlled diabetes Also to discuss it further with endocrinology Diflucan 2 tablets sent 3 days apart Nystatin cream locally to be used [facility] Medical History Hx of radiation therapy History of chemotherapy Arthritis On anticoagulant therapy Sleep apnea Colon cancer Hypercalcemia Mixed hyperlipidemia 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 Son Skin cancer Brother No problems noted. Brother No problems noted. Family/Other Mental health disorder Substance use disorder Social History Household Members: Spouse [facility] Are you a primary care worker to a significant other at home: No Do you presently have visiting nurse or other home services: No Alcohol intake: never Patient Tobacco Use Status: Former Tobacco user Tobacco use type: Cigarette Years Smoked: 20 e-Cigarette/Vaping Use: Never Used Second Hand Smoke Exposure: No service: No Current occupational status: disabled Cognitive needs: No Hearing needs: No Vision needs: No Female Reproductive History Menstrual Age of Menarche: 12 Review of Systems Const All systems reviewed & are unremarkable except as noted in HPI and below Physical Exam Vital Signs: Last Vital Signs Pulse 88 12/09/23 14:35 BP 124/60 12/09/23 14:35 Pulse Ox 98 12/09/23 14:35 Oxygen Delivery Method Room Air 12/09/23 14:35 BMI result Body Mass Index 21.2 Const General: no acute distress Orientation/consciousness: patient oriented x3 Eyes General: appearance normal, both eyes and all related structures Resp Effort & Inspection: normal respiratory effort and able to speak in complete sentences Other: Positive erythema surrounding vaginal area with white discharge in vagina Neuro General: patient oriented x3 Psych Mental Status: mental status grossly normal Assessment & Plan Assessment & Plan (1) Vaginitis and vulvovaginitis: Code(s): N76.0 - Acute vaginitis Plan Patient is 68-year-old female came in today to be evaluated for possible yeast infection Examination patient have erythema around genitalia Symptom has been going on for 2 days Patient says that since she has been started on Trulicity she has been having these symptoms Before that it was Jardiance which was also causing the symptoms UA does not show any infection But there is 3+ sugar Talked about controlling diet to controlled diabetes Also to discuss it further with endocrinology Diflucan 2 tablets sent 3 days apart Nystatin cream locally to be used Medications: New fluconazole may repeat second dose 72 hrs after first dose if symptoms persist 150 mg PO Q3D 2 doses 2 tabs 0RF nystatin 1 appl topical DAILY 30 days 30 grams 1RF Coding Level of Care Code Est Pt Level 3 (07867) Diagnoses Vaginitis and vulvovaginitis N76.0
== END 2023-12-09 15:19 | disposition home or self-care (01) ==
PROVIDERS: PCP Internal Medicine; Visit Provider Internal Medicine
DX: N76.0 Acute vaginitis (principal)

== ENCOUNTER → 2023-12-09 14:27 | Outpatient (BNVA) | payer OTHER, SELFPAY | PROVIDERS: PCP Internal Medicine; Visit Provider Internal Medicine | DX: N76.0 Acute vaginitis (principal) | CPT/HCPCS: 99212 ==

== ENCOUNTER 2024-01-06 11:52 | Outpatient (REF) | payer OTHER, SELFPAY ==
[2024-01-06 13:47] LABS: Mean Corpuscular HGB Conc 31.6 g/dl (31.0-35.0); Mean Corpuscular Volume 82.4 fL (80.0-98.0); Mean Platelet Volume 10.9 fL (9.4-12.3); Platelet Count 263 X10*3/uL (160-400); Red Blood Count 4.61 X10*6/uL (4.20-5.50)
[2024-01-06 14:00] LABS: Alanine Aminotransferase 19 U/L (0-31); Albumin Level 3.9 g/dL (3.5-5.0); Alkaline Phosphatase 70 U/L (39-117); Anion Gap 11 (12-20); Aspartate Amino Transferase 20 U/L (5-31); Bilirubin Direct 0.2 mg/dL (0.0-0.5); Bilirubin Total 0.4 mg/dL (0.0-1.0); Blood Urea Nitrogen 15 mg/dL (9-16); Calcium 10.5 mg/dL (8.4-10.2); Carbon Dioxide 27 mmol/L (22-29); Chloride 109 mmol/L (96-108); Estimated Glomerular Filt Rate > 60; Glucose Random 157 mg/dL (60-115); Sodium 143 mmol/L (135-145); Total Protein 7.4 g/dL (6.5-8.0)
[2024-01-06 14:25] LABS: Erythrocyte Sedimentation Rate 34 MM/HR (0-20)
== END 2024-01-06 11:53 | disposition home or self-care (01) ==
LOC: HO.HMGCLDS 11:52
PROVIDERS: PCP Internal Medicine; Visit Provider Internal Medicine
DX: A09 Infectious gastroenteritis and colitis, unspecified (principal)
CPT/HCPCS: 36415; 80048; 80076; 85027; 85652; 99212

== ENCOUNTER 2024-01-06 11:52 | Outpatient (AMB) | payer OTHER, SELFPAY ==
--- NOTE | 2024-01-06 11:53 | MHC.OFFWIV ---
Intake Vital Signs 01/06/24 11:54 Weight 128 lb BP 122/78 Blood Pressure Location Lt brachial Position Sitting Pulse 88 Pulse Source Pulse Oximeter Temp 98.1 F Temp Source Oral Pulse Oximetry (%) 97 Oxygen Delivery Method Room Air Intake Visit Reasons: EP lower Ab pain/diarrhea Intake Note: Patient here for lower abd pain and diarrhea that has been present since Tuesday Patient Tobacco Use Status: Former Tobacco user Allergies dulaglutide [From Trulicity] Allergy (Mild, Verified 01/06/24 12:09) Abdominal Pain simvastatin Allergy (Verified 01/06/24 12:09) Joint Pain metformin Adverse Reaction (Mild, Verified 01/06/24 12:09) Diarrhea sitagliptin [Januvia] Adverse Reaction (Mild, Verified 01/06/24 12:09) abdominal pain Medication List - Last Reconciled 01/06/24 by Anthony Alvarez MD amlodipine 2.5 mg PO BEDTIME aspirin 81 mg PO DAILY atorvastatin 80 mg PO BEDTIME blood sugar diagnostic (FreeStyle Lite Strips) As directed blood-glucose meter (FreeStyle Lite Meter kit) As directed blood-glucose meter,continuous (FreeStyle Katelyn 3 [place]) As directed blood-glucose sensor (FreeStyle Katelyn 3 Sensor device) As directed cholecalciferol (vitamin D3) 50 mcg PO DAILY 90 days ciprofloxacin HCl 250 mg PO BID 7 days clopidogrel 75 mg PO BEDTIME docusate sodium (Colace) 100 mg PO BID dulaglutide (Trulicity) mg subcut fenofibrate 54 mg PO DAILY 90 days flash glucose scanning reader (FreeStyle Katelyn 14 Day [place]) As directed flash glucose sensor (FreeStyle Katelyn 14 Day Sensor kit) Once every 14 days insulin glargine (Lantus U-100 Insulin) 52 units subcut DAILY insulin lispro (Humalog U-100 Insulin) insulin syringe-needle U-100 (BD Insulin Syringe Ultra-Fine) Use 1 syringe four times a day lancets TEST 4 TIMES DAILY lisinopril 20 mg PO DAILY mastectomy bra (bra, mastectomy) As Directed nystatin 1 appl topical DAILY 30 days pen needle, diabetic (BD Ultra-Fine Short Pen Needle) 4x daily psyllium seed (sugar) (Metamucil (sugar) oral powder) 1 tbsp PO BID HPI EP lower Ab pain/diarrhea HPI Details 68-year-old female presents to the office for a sick visit. She is accompanied by her . Patient gives history of diarrhea for the past 5 days. No associated cramping. No nausea or vomiting. Patient has been going to the bathroom 6-10 times a day. Predominantly yellow and liquid. No fecal incontinence. Patient has been diagnosed with colon cancer in November and has been offered a complete colectomy with a permanent colostomy. She is looking for a 2nd opinion before getting the radical procedure done. Patient is also a diabetic but states her sugars have been reasonably under control. [facility] Medical History Hx of radiation therapy History of chemotherapy Arthritis On anticoagulant therapy Sleep apnea Colon cancer Hypercalcemia Mixed hyperlipidemia Dizziness [facility] (current) use of insulin Breast cancer Memory loss Muscle cramps Menieres disease HTN (hypertension) T2DM (type 2 diabetes mellitus) Skin lesion New daily persistent headache History of stroke Hypovitaminosis D Nausea Essential hypertension Diabetes mellitus Surgical History H/O colonoscopy History of parotid gland removal Status post unilateral salpingo-oophorectomy H/O right mastectomy History of left mastectomy History of hemicolectomy Family History Father Diabetes Mother Diabetes Hypertension Sister Cervical cancer Daughter No problems noted. Son Skin cancer Brother No problems noted. Brother No problems noted. Family/Other Mental health disorder Substance use disorder Social History Household Members: [facility] Are you a primary manager respiratory care to a significant other at home: No Do you presently have visiting nurse or other home services: No Alcohol intake: never Patient Tobacco Use Status: Former Tobacco user Tobacco use type: Cigarette Years Smoked: 20 e-Cigarette/Vaping Use: Never Used Second Hand Smoke Exposure: No service: No Current occupational status: disabled Cognitive needs: No Hearing needs: No Vision needs: No Female Reproductive History Menstrual Age of Menarche: 12 Physical Exam Vital Signs: Last Vital Signs Temp 98.1 F 01/06/24 11:54 Pulse 88 01/06/24 11:54 BP 122/78 01/06/24 11:54 Pulse Ox 97 01/06/24 11:54 Oxygen Delivery Method Room Air 01/06/24 11:54 Const General: cooperative and healthy appearing Nutritional Appearance: well nourished Orientation/consciousness: patient oriented x3 Limitations: no limitations HEENT Head: Yes normal to inspection Eyes General: appearance normal, both eyes and all related structures Neck Neck: Yes normal visual inspection Chest Chest palpation & inspection: normal palpation of entire chest wall Resp Effort & Inspection: normal respiratory effort Neuro General: patient oriented x3 Assessment & Plan Assessment & Plan (1) Diarrhea: Code(s): R19.7 - Diarrhea, unspecified Qualifiers: Diarrhea type: infectious Qualified Code(s): A09 - Infectious gastroenteritis and colitis, unspecified Plan: Diarrhea could have multiple etiologies. Infectious diarrhea is being treated right now with ciprofloxacin and blood work. Diarrhea could also be due to her colon cancer. Patient was advised to follow-up with her primary care afterr the weekend Orders: Orders Basic Metabolic Panel Today R19.7 - Diarrhea, unspecified Liver Panel Today R19.7 - Diarrhea, unspecified Complete Blood Count no Diff Today R19.7 - Diarrhea, unspecified Erythrocyte Sedimentation Rate Today R19.7 - Diarrhea, unspecified Medications: New ciprofloxacin HCl 250 mg PO BID 14 tabs 0RF 7 days Coding Level of Care Code Est Pt Level 4 (31072) Diagnoses Diarrhea of infectious origin A09 Diarrhea type: infectious
[2024-01-06 11:54] VITALS: BP 122/78; PULSE 88; TEMP 36.7; O2SAT 97
== END 2024-01-06 12:18 | disposition home or self-care (01) ==
PROVIDERS: PCP Internal Medicine; Visit Provider Internal Medicine
DX: A09 Infectious gastroenteritis and colitis, unspecified (principal)

== ENCOUNTER 2024-04-24 10:03 | Outpatient (REF) | payer OTHER, SELFPAY ==
--- NOTE | ~2024-04-24 | PE_ITS ---
EXAMINATION: FLUORINE-18 FDG PET/CT SCAN CLINICAL INFORMATION: Colon cancer. Elevated CEA levels. TECHNIQUE: 61 minutes following the intravenous administration of 15.9 mCi of fluorine 18 FDG, images from the skull base to proximal thigh were obtained using a combined PET/CT scanner with CT scan based attenuation correction. No oral or intravenous contrast was administered. Transverse, coronal, sagittal, and volume reconstruction projections were obtained. The patient's blood glucose as determined by a finger stick, was 111 mg/dL immediately prior to injection. The radiotracer was injected intravenously through left forearm, without any complications. Total CT exam dose-length product 442 mGy-cm. * These CT images were obtained using dose optimization techniques as appropriate, variously including the following: Automated exposure control * Adjustment of mA and/or kV according to patient size (this includes techniques or standardized protocols for targeted exams where dose is matched to indication/reason for exam; i.e. extremities or head) * Use of iterative reconstruction technique COMPARISON: CT abdomen and pelvis 09/26/2023. FINDINGS: HEAD AND NECK: There is a focal moderate to intense FDG activity seen in the left parotid gland corresponding to 8 mm hypodense lesion in the left superficial parotid gland on axial CT 209/2. Mild focal activity seen in the left inferior cricoid cartilage axial PET slice 189/3. CHEST: Ports and Devices: None Lungs: The lungs are well-expanded and focal atelectatic changes right lower lobe lateral basal segment. No FDG activity seen within. Rest of lungs are clear. No abnormal FDG avid lymph nodes in the mediastinum, axilla or the neck. Pleura: No significant pleural effusion. Lymph Nodes: No tracer-avid mediastinal, hilar or internal mammary or axillary lymphadenopathy. Mediastinum: There is no significant pericardial effusion/thickening. Breasts/Chest Wall: No abnormal radiotracer uptake. There is nonspecific calcification seen in left medial breast without FDG activity. ABDOMEN/PELVIS: Liver/Biliary System: No focal tracer-avid liver lesion. The gallbladder appears unremarkable. Pancreas: Normal. Spleen: No abnormal radiotracer uptake. No evidence of splenomegaly. Adrenal Glands: No abnormal radiotracer uptake. Kidneys: There is a 4 mm radiopaque calculi mid to lower pole left kidney. No additional radiopaque calculi seen. There is no caliectasis or hydronephrosis. Bowel: There is no significant bowel dilatation to suggest obstruction. Annular sutures are seen involving the entire sigmoid colon with patent lumen. No abnormal FDG activity seen in the GI tract or at the site of surgery. No FDG activity seen in the retroperitoneal or pelvic lymph nodes. Lymph Nodes: No tracer avid retroperitoneal, mesenteric, pelvic and/or groin lymphadenopathy. Pelvic Organs: The urinary bladder is underdistended. The left retroperitoneal henrry from previous intervention, likely lymph node resection. MUSCULOSKELETAL: There is diffuse abnormal metastatic skeletal disease involving right ischium, bilateral acetabulum, right pubis right sacrum, bilateral iliac bones, lumbar, thoracic, cervical spine, bilateral ribs, bilateral scapula PET/PET CT fusion skull to thigh IMPRESSION: Diffuse skeletal metastatic disease. No abnormal FDG active is seen in the lymph nodes involving neck, chest, abdomen or pelvis. Annular sutures in sigmoid colon from previous intervention. No FDG activity seen at this surgical site or in the pelvis. Focal abnormal FDG activity left superficial parotid gland corresponding to a hyper dense nodule on CT. Recommend further evaluation with ultrasound and if clinically indicated ultrasound guided biopsy. Electronically signed by: Roney Hernandez MD 04/26/2024 08:16 AM EDT
== END 2024-04-24 10:04 | disposition home or self-care (01) ==
LOC: HO.PET 10:03
PROVIDERS: PCP Internal Medicine; Visit Provider Internal Medicine
DX: Z13.89 Encounter for screening for other disorder (principal)

== ENCOUNTER 2024-04-27 08:08 | Outpatient (REF) | payer OTHER, SELFPAY ==
[2024-04-27 08:49] LABS: Appearance Urine Clear; Color Urine Yellow; Glucose Urine UA Negative (Negative); Leukocyte Esterase Urine Small (1+) (Negative); Nitrite Urine Negative (Negative); Specific Gravity - Urine 1.015 (1.005-1.025); UMIC TRIGGER UA YES; Urine Blood Negative (Negative); Urine Ketones Negative (Negative); Urine Protein Negative (Neg-Trace)
[2024-04-27 08:51] LABS: Bacteria Urine None Seen (None Seen); Hyaline Casts Urine 0-2 /LPF (0-2); RBC Urine 0-2 /HPF (0-2); WBC Urine 21-50 /HPF (0-5)
[2024-04-27 09:39] LABS: Anion Gap 10 (12-20); Blood Urea Nitrogen 14 mg/dL (9-16); Carbon Dioxide 27 mmol/L (22-29); Chloride 113 mmol/L (96-108); Estimated Glomerular Filt Rate > 60; Glucose Random 142 mg/dL (60-115); Potassium 3.9 mmol/L (3.3-5.1); Sodium 146 mmol/L (135-145)
== END 2024-04-27 08:09 | disposition home or self-care (01) ==
LOC: HO.LAB 08:08
PROVIDERS: PCP Internal Medicine; Visit Provider Internal Medicine Hypertension Specialist
DX: E87.0 Hyperosmolality and hypernatremia (principal); I10 Essential (primary) hypertension
CPT/HCPCS: 36415; 80048; 81001

== ENCOUNTER 2024-05-01 10:24 | Outpatient (AMB) | payer OTHER, SELFPAY ==
[2024-05-01 10:39] VITALS: BP 140/62; PULSE 86; O2SAT 97; BMI 25.4
--- NOTE | 2024-05-01 10:39 | HO.NEPHOV ---
Vital Signs 05/01/24 10:39 Height 5 ft Weight 130 lb BMI 25.4 BP 140/62 H Blood Pressure Location Rt brachial Position Sitting Pulse 86 Pulse Source Pulse Oximeter Pulse Oximetry (%) 97 Oxygen Delivery Method Room Air Intake Visit Reasons: 1 yr follow up/ Conf Medical And Health Services Manager Required: No Medical And Health Services Manager Services: Medical And Health Services Manager Offered & Declined Accompanied by: Spouse Allergies dulaglutide [From Trulicity] Allergy (Mild, Verified 05/01/24 10:42) Abdominal Pain simvastatin Allergy (Verified 05/01/24 10:42) Joint Pain metformin Adverse Reaction (Mild, Verified 05/01/24 10:42) Diarrhea sitagliptin [Januvia] Adverse Reaction (Mild, Verified 05/01/24 10:42) abdominal pain Medication List - Last Reconciled 05/01/24 by Ernesto Flores MD acetaminophen (Pain Relief Extra Strength (acetaminophen)) mg PO amlodipine 2.5 mg PO BEDTIME aspirin 81 mg PO DAILY atorvastatin 80 mg PO BEDTIME blood sugar diagnostic (FreeStyle Lite Strips) As directed blood-glucose meter (FreeStyle Lite Meter kit) As directed blood-glucose meter,continuous (FreeStyle Katelyn 3 [place]) As directed blood-glucose sensor (FreeStyle Katelyn 3 Sensor device) As directed cholecalciferol (vitamin D3) 50 mcg PO DAILY 90 days ciprofloxacin HCl 250 mg PO BID 7 days clopidogrel 75 mg PO BEDTIME docusate sodium (Colace) 100 mg PO BID fenofibrate 54 mg PO DAILY 90 days flash glucose scanning reader (FreeStyle Katelyn 14 Day [place]) As directed flash glucose sensor (FreeStyle Katelyn 14 Day Sensor kit) Once every 14 days insulin glargine (Lantus U-100 Insulin) 52 units subcut DAILY insulin lispro (Humalog U-100 Insulin) insulin syringe-needle U-100 (BD Insulin Syringe Ultra-Fine) Use 1 syringe four times a day lancets TEST 4 TIMES DAILY lisinopril 20 mg PO DAILY mastectomy bra (bra, mastectomy) As Directed nystatin 1 appl topical DAILY 30 days pen needle, diabetic (BD Ultra-Fine Short Pen Needle) 4x daily psyllium seed (sugar) (Metamucil (sugar) oral powder) 1 tbsp PO BID HPI Comments Details: Middle-aged woman with a history of hypertension and obstructive sleep apnea. Overall blood pressure has been well controlled. She is unable to use CPAP machine and has returned the same. She continues to have lower abdominal pain has been evaluated by Dr. Loredo. 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 Son Skin cancer Brother No problems noted. Brother No problems noted. Family/Other Mental health disorder Substance use disorder Social History Household Members: [facility] Are you a primary child care leader to a significant other at home: No Do you presently have visiting nurse or other home services: No Alcohol intake: never Patient Tobacco Use Status: Former Tobacco user Tobacco use type: Cigarette Years Smoked: 20 e-Cigarette/Vaping Use: Never Used Second Hand Smoke Exposure: No service: No Current occupational status: disabled Cognitive needs: No Hearing needs: No Vision needs: No Female Reproductive History Menstrual Age of Menarche: 12 Physical Exam Vital Signs: Last Vital Signs Pulse 86 05/01/24 10:39 BP 140/62 H 05/01/24 10:39 Pulse Ox 97 05/01/24 10:39 Oxygen Delivery Method Room Air 05/01/24 10:39 BMI result Body Mass Index 25.4 Const General: comfortable Nutritional Appearance: well nourished Orientation/consciousness: patient oriented x3 HEENT Head: No normal to inspection Mouth: moist mucous membranes Neck Neck: Yes supple and Yes no JVD Resp Auscultation: clear to auscultation bilaterally, no rales and rub present Cardio Jugular venous distension: no JVD Palpation: no palpable S3 and no palpable S4 Heart sounds: no rubs GI Palpation (GI): Soft to palpation and nontender Percussion: No Fluid wave present General: Yes no CVA tenderness Back/Spine/Pelvis Back: no CVA tenderness Skin General skin exam: no rashes or lesions noted Neuro General: patient oriented x3 Extrem General: Yes no pedal edema and No clubbing Results Reviewed Nephrology Results: Hgb 10.6 g/dl (12.0-16.0) L 04/02/24 WBC 7.8 X10*3/uL (4.8-10.8) 04/02/24 Plt Count 283 X10*3/uL (160-400) 04/02/24 Sodium 146 mmol/L (135-145) H 04/27/24 Potassium 3.9 mmol/L (3.3-5.1) 04/27/24 Chloride 113 mmol/L (96-108) H 04/27/24 Carbon Dioxide 27 mmol/L (22-29) 04/27/24 BUN 14 mg/dL (9-16) 04/27/24 Creatinine 0.67 mg/dL (0.5-1.4) 04/27/24 Calcium 10.0 mg/dL (8.4-10.2) 04/27/24 Urine Protein Negative mg/dL (Neg-Trace) 04/27/24 Assessment & Plan Assessment & Plan (1) Hypernatremia: Code(s): E87.0 - Hyperosmolality and hypernatremia Category: Medical (2) HTN (hypertension): Code(s): I10 - Essential (primary) hypertension Category: Medical Plan Middle-aged woman with well-controlled hypertension and an essentially normal renal function. She has no significant proteinuria. She is mild hypernatremia due to free water deficit. I have encouraged her to increase her free water intake. Keep intake more than output. Continue to stand low-sodium diet. At present blood pressure control therefore not made any changes to her medications. Continue to avoid nephrotoxic agents including NSAIDs. Breast CA and Colon CA PET with skeletal mets Await biopsy and management per Oncology Orders: Orders Basic Metabolic Panel 6 Months E87.0 - Hyperosmolality and hypernatremia Coding Level of Care Code Est Pt Level 4 (53876) Diagnoses Hypernatremia E87.0 HTN (hypertension) I10
--- OUTSIDE RECORDS SUMMARY | 2024-05-01 12:27 | XMS_ITS | Encounter Summary ---
Author Organization [facility] and [facility] Address [address] [place] [phone] Care Team Providers Care Marketing Strategy Manager Name Role Phone Unavailable Primary Care Provider Unavailabl e Encounter Details Date Type Department Care Team ([facility] Contact Info) Description 12/07/2023 Scanned Document [facility] Health Information Management [address] [place] [phone] External, Provider Social History Tobacco Use Types Packs/Day Years Used Date Smoking Tobacco: Never Assessed Comments Unknown Sex and Gender Information Value Date Recorded Sex Assigned at Not on file Legal Sex Female 7:38 AM EST Gender Identity Not on file Sexual Orientation Not on file documented as of this encounter Plan of Treatment Not on file documented as of this encounter Visit Diagnoses Not on filedocumented in this encounter
--- OUTSIDE RECORDS SUMMARY | 2024-05-01 12:27 | XMS_ITS | Encounter Summary ---
Author Organization [facility] and [facility] Address [address] [place] [phone] Care Team Providers Care Farm Equipment Maintenance Supervisor Name Role Phone Unavailable Primary Care Provider Unavailabl e Encounter Details Date Type Department Care Team ([facility] st Contact Info) Description 05/31/2023 Scanned Document INTERFACE DEFAULT [address] [place] [phone] System, Provider Not In Social History Tobacco Use Types Packs/Day Years Used Date Smoking Tobacco: Never Assessed Comments Unknown Sex and Gender Information Value Date Recorded Sex Assigned at Not on file Legal Sex Female 7:38 AM EST Gender Identity Not on file Sexual Orientation Not on file documented as of this encounter Plan of Treatment Not on file documented as of this encounter Procedures Procedure Name Priority Date/Time Associated Diagnosis Comments CT RESULT SCAN 05/31/2023 12:00 AM EDT documented in this encounter Results * CT Result Scan (05/31/2023 12:00 AM EDT) us Provider Not In System IMG SCAN REPORTS Final Re sult documented in this encounter Visit Diagnoses Not on filedocumented in this encounter
--- OUTSIDE RECORDS SUMMARY | 2024-05-01 12:27 | XMS_ITS | Encounter Summary ---
Author Organization [facility] and [facility] Address [address] [place] [phone] Care Team Providers Care Brusher Warp Name Role Phone Unavailable Primary Care Provider Unavailabl e Encounter Details Date Type Department Care Team ([facility] Contact Info) Description 08/15/2023 Scanned Document INTERFACE DEFAULT [address] [place] [phone] System, Provider Not In Social History Tobacco [...]
--- OUTSIDE RECORDS SUMMARY | 2024-05-01 12:27 | XMS_ITS | Encounter Summary ---
Author Organization [facility] and [facility] Address [address] [place] [phone] Care Team Providers Care Utility Porter Name Role Phone Unavailable Primary Care Provider Unavailabl e Encounter Details Date Type Department Care Team ([facility] st Contact Info) Description 10/04/2023 Scanned Document INTERFACE DEFAULT [address] [place] [phone] System, Provider Not In Social History [...] Procedure Name Priority Date/Time Associated Diagnosis Comments PATHOLOGY/CYTOLOGY SCAN 10/04/19 12:00 AM EDT COLONOSCOPY 10/04/2023 12:00 AM EDT documented in this encounter Results * HM COLONOSCOPY (10/04/2023 12:00 AM EDT) us Provider Not In System HEALTH MAINTENANCE Final Result * Pathology/Cytology Scan (10/04/2023 12:00 AM EDT) us Provider Not In System PATHOLOGY/CYTOLOGY ORDERA BLES Edited Result - Final documented in this encounter Visit Diagnoses Not on filedocumented in this encounter
--- OUTSIDE RECORDS SUMMARY | 2024-05-01 12:27 | XMS_ITS | Encounter Summary ---
Author Organization [facility] and [facility] Address [address] [place] [phone] Care Team Providers Care Automatic Grinding Machine Operator Name Role Phone Unavailable Primary Care Provider Unavailabl e Encounter Details Date Type Department Care Team ([facility] st Contact Info) Description 11/11/2023 Scanned Document INTERFACE DEFAULT [address] [place] [phone] System, Provider Not In Social History [...] Date/Time Associated Diagnosis Comments CT RESULT SCAN 11/11/2023 12:00 AM EDT documented in this encounter Results * CT Result Scan (11/11/2023 12:00 AM EDT) us Provider Not In System IMG SCAN REPORTS Final Re sult documented in this encounter Visit Diagnoses Not on filedocumented in this encounter
--- OUTSIDE RECORDS SUMMARY | 2024-05-01 12:27 | XMS_ITS | Encounter Summary ---
Author Organization [facility] and [facility] Address [address] [place] [phone] Care Team Providers Care Knotter Name Role Phone Unavailable Primary Care Provider Unavailabl e Encounter Details Date Type Department Care Team ([facility] Contact Info) Description 10/17/2023 Scanned Document INTERFACE DEFAULT [address] [place] [phone] System, Provider Not In Social History [...]
--- OUTSIDE RECORDS SUMMARY | 2024-05-01 12:27 | XMS_ITS | Encounter Summary ---
Author Organization [facility] and [facility] Address [address] [place] [phone] Care Team Providers Care Police District Switchboard Operator Name Role Phone Unavailable Primary Care Provider Unavailabl e Encounter Details Date Type Department Care Team ([facility] Contact Info) Description 11/08/2023 Scanned Document INTERFACE DEFAULT [address] [place] [phone] System, Provider Not In Social History [...]
--- OUTSIDE RECORDS SUMMARY | 2024-05-01 12:27 | XMS_ITS | Encounter Summary ---
Author Organization [facility] and [facility] Address [address] [place] [phone] Care Team Providers Care Flame Hardening Machine Setter Name Role Phone Unavailable Primary Care Provider Unavailabl e Encounter Details Date Type Department Care Team ([facility] Contact Info) Description 02/16/2023 Scanned Document INTERFACE DEFAULT [address] [place] [phone] System, Provider Not In Social History [...]
--- OUTSIDE RECORDS SUMMARY | 2024-05-01 12:27 | XMS_ITS | Encounter Summary ---
Author Organization [facility] and [facility] Address [address] [place] [phone] Care Team Providers Care Tiler'S Assistant Name Role Phone Unavailable Primary Care Provider Unavailabl e Encounter Details Date Type Department Care Team ([facility] st Contact Info) Description 03/29/2018 Scanned Document INTERFACE DEFAULT [address] [place] [phone] System, Provider Not In Social History Tobacco [...] Procedure Name Priority Date/Time Associated Diagnosis Comments GENETICS SCAN 03/29/2018 12:00 AM EST documented in this encounter Results * Genetics Scan (03/29/2018 12:00 AM EST) us Provider Not In System GENETIC TESTING Final Res ult documented in this encounter Visit Diagnoses Not on filedocumented in this encounter
--- OUTSIDE RECORDS SUMMARY | 2024-05-01 12:27 | XMS_ITS | Encounter Summary ---
Author Organization [facility] and [facility] Address [address] [place] [phone] Care Team Providers Care Information Technology Architect Name Role Phone Unavailable Primary Care Provider Unavailabl e Encounter Details Date Type Department Care Team ([facility] Contact Info) Description 04/11/2023 Scanned Document INTERFACE DEFAULT [address] [place] [phone] System, Provider Not In Social History [...]
--- OUTSIDE RECORDS SUMMARY | 2024-05-01 12:27 | XMS_ITS | Encounter Summary ---
Author Organization [facility] Address [address] [place] [id number] Care Team Providers Care Roll Up Machine Operator Name Role Phone Unavailable Primary Care Provider Unavailabl e Encounter Details Date Type Department Care Team ([facility] st Contact Info) Description 11/10/2023 Scanned Document INTERFACE DEFAULT [address] [place] [id number] System, Provider Not In Social History [...] Date/Time Associated Diagnosis Comments CT RESULT SCAN 11/10/2023 12:00 AM EDT documented in this encounter Results * CT Result Scan (11/10/2023 12:00 AM EDT) us Provider Not In System IMG SCAN REPORTS Final Re sult documented in this encounter Visit Diagnoses Not on filedocumented in this encounter
--- OUTSIDE RECORDS SUMMARY | 2024-05-01 12:28 | XMS_ITS | Clinical Summary ---
Author Organization 175 [facility] Address [address] [place] [address] Phone Care Team Providers Care Cloth Sponger Name Role Phone Reyna Pak MD Primary Care Provider [phone] Allergies Active Allergy Reactions Criticality Noted Date Comments Biguanides Low 10/01/2008 Diarrhea and nausea Metformin Low 10/01/2008 Diarrhea and nausea Simvastatin Low 06/09/2009 Muscle, joint pain Medications blood-glucose meter kit USE TO TEST 4 TIMES A DAY Active FREESTYLE LANCETS MISC TEST BLOOD SUGARS 4 TIMES DIALY Active blood sugar diagnostic (FreeStyle Lite Strips) test strip USE TO TEST BLOOD SUGAR 4 TIMES DAILY Active insulin syringe-needle U-100 0.3 mL 30 gauge x 1/2 syringe For insulin injection 4 times daily Active insulin syringe-needle U-100 1 mL 31 gauge x 5/16 syringe USE DIRECTED 5 TIMES DAILY Active atorvastatin (LIPITOR) 40 mg tablet Take 2 tablets (80 mg total) by mouth at bedtime. Active docusate sodium (COLACE) 100 mg capsule Take 1 Cap by mouth daily. Active fenofibrate (LOFIBRA) 54 mg tablet Take 54 mg by mouth daily. Active insulin glargine (Lantus U-100 Insulin) 100 unit/mL injection 52 Units at bedtime. Active insulin lispro (HumaLOG U-100 Insulin) 100 unit/mL injection INJECT 20 UNITS 3 TIMES A DAY BEFORE MEALS Active aspirin 81 mg EC tablet Take 1 tablet (81 mg total) by mouth 1 (one) time each day. 9 Active amLODIPine (NORVASC) 2.5 mg tablet Take 1 tablet (2.5 mg total) by mouth 1 (one) time each day. Active Trulicity 0.75 mg/0.5 mL pen injector injection Inject 0.5 mL (0.75 mg total) under the skin. 4 Active clopidogrel bisulfate (PLAVIX ORAL) Take by mouth. A ctive omega-3 fatty acids (FISH OIL CONCENTRATE ORAL) Take by mouth. Activ e bisacodyL (DULCOLAX) 5 mg EC tablet Take 2 tablets by mouth right before beginning bowel prep. See instructions provided by the office 2 tablet 4 Active lisinopriL (PRINIVIL,ZESTR IL) 20 mg tablet Take 1 tablet (20 mg total) by mouth 1 (one) time each day. Active oxyCODONE (ROXICODONE) 5 mg immediate release tablet Take 1 tablet (5 mg total) by mouth every 4 (four) hours if needed for moderate pain. Max Daily Amount: 30 mg 10 tablet 5 Active psyllium (MetamuciL) 0.4 gram capsule Take 1 capsule (400 mg total) by mouth 1 (one) time each day. 30 capsule 1 5 05/07/19 25 Active Active Problems Problem Noted Date Diagnosed Date Adenocarcinoma of sigmoid colon 01/19/2024 Other specified disorders of bladder 01/19/2024 Dysarthria 07/18/2015 Cerebrovascular accident (CV A) due to embolism of cerebral artery 07/18/2015 Ovarian cyst 10/18/2013 Overview (11/25/2023): Repeat TVUS 02/2016 Microalbuminuria 08/23/2012 Overview (11/25/2023): Elevated at 25 on 01/10/2012. Known medical problems 09/07/2010 Overview (11/25/2023): Last Assessment & Plan: Pt reports compliance with insulins but blood sugars above goal. She is inconsistent with testing. 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 Vitamin D deficiency 08/31/2010 Non-compliance with treatment 10/02/2008 Nevus 10/01/2008 Overview (11/25/2023): IMO update HTN (hypertension) 07/29/2008 High cholesterol 07/29/2008 Encounters Date Type Department Care Team Description 03/27/2024 Telephone Gastroenterology - [place] [address] [place] 175 [facility] [address] [place] [phone] Faisal Spear PA Establish Care 03/12/2024 Telephone Gastroenterology - [place] 175 [facility] 175 [facility] [address] [place] [phone] Clive Kunz DO 03/07/2024 10:30 AM EST Office Visit General Surgery - [address] [phone] Ralph Kimble MD History of colon cancer, stage II (Primary Dx); History of partial colectomy; Secondary hypertension; High cholesterol; Type 2 diabetes mellitus without complication, with long-term current use of insulin (CMS/HCC) 02/23/2024 7:54 AM EST Anesthesia Event [facility] OR [address] [place] [phone] Emir Delgadillo MD Georgette, Nathaniel, CRNA 02/23/2024 7:30 AM EST - 02/23/2024 11:30 AM EST Surgery [facility] OR [address] [place] [phone] Ralph Kimble MD LAPAROSCOPIC LEFT COLECTOMY, MOBILIZATION OF THE SPLENIC FLEXURE, LYSIS OF ADHESIONS [93497 (CPT??)] 02/23/2024 5:50 AM EST - 02/25/2024 4:00 PM EST Hospital Encounter [facility] Medical Surgical Unit [address] [place] [address] Ralph Kimble MD Adenocarcinoma of sigmoid colon (CMS/HCC); Other specified disorders of bladder Discharge Disposition: Home or Self Care 02/16/2024 Telephone General Surgery - [place] [address] [phone] Ralph Kimble MD Prior Authorization (02/23/24 Dr. Ralph Kimble) 02/16/2024 Telephone General Surgery - [place] 175 [facility] [address] [place] [address] Ralph Kimble MD Medication 02/13/2024 Telephone Gastroenterology [facility] 175 [facility] 175 [facility] [address] [place] [phone] Faisal Spear PA 02/10/2024 Telephone Gastroenterology [facility] 175 [facility] 175 [facility] [address] [place] [address] Faisal Spear, PA provider call back 02/06/2024 8:06 AM EST Anesthesia Event [facility] Endoscopy [address] [place] [address] Juan Pablo Mayes MD Elliott, Barbara J, FRANCO 02/06/2024 6:43 AM EST - 02/06/2024 11:59 PM EST Hospital Encounter [facility] Endoscopy [address] [place] [address] Clive Kunz DO Elliott, Barbara J, Juan Pablo Castillo MD Abnormal CT of the abdomen; Abnormal rectal biopsy; Adenocarcinoma of colon (CMS/HCC) Discharge Disposition: Home or Self Care 02/02/2024 Telephone Gastroenterology [facility] [address] [phone] Anabela Pro LPN Anticoagulation (Colonoscopy with Dr Kunz) 02/02/2024 Telephone [facility] 175 [facility] [address] [phone] Anabela Pro LPN reschedule colonoscopy (Needs colonoscopy rescheduled) from Last 3 Months Immunizations Name Administration Dates Next Due Td Tetanus diptheria (Tdvax) 7yo and older 10/22 Tdap Tetanus diptheria acell ular pertussis (Boostrix; Adacel) 7yo and older 01/10/2012 Surgical History Surgery Date Site/Laterality Comments BREAST LUMPECTOMY PROCEDURE: HISTORICAL BREAST LUMPECTOMY; COMMENT: 2002, left breast OTHER SURGICAL HISTORY PROCEDURE: CO RESCJ OVARIAN/TUBAL/PERITONEAL MALIGNANCY W/BSO; COMMENT: COLONOSCOPY 01/20/10 PROCEDURE: HISTORICAL COLONOSCOPY; COMMENT: adenomas; repeat in three years COLONOSCOPY W/ POLYPECTOMY 02/10/15 PROCEDURE: CO COLSC FLX W/RMVL OF TUMOR POLYP LESION SNARE TQ; COMMENT: adenomas; repeat in 3 yrs BREAST BIOPSY PROCEDURE: BX BREAST; PERC NEEDLE CORE W/IMAG GUID OOPHORECTOMY BREAST LUMPECTOMY Bilateral Medical History Medical History Date Comments DM (diabetes mellitus) (CMS/HCC) DX:DM (diabetes mellitus) (HCC) Hypercholesteremia DX:Hyperchole steremia Unspecified essential hypertension DX:Unspecified essential hypertension Personal history of malignan t neoplasm of breast DX:Personal history of malig nant neoplasm of breast; COMMENT: 2002 lt side Colon polyp Sleep apnea Stroke (CMS/HCC) Family History Medical History Relation Name Comments Diabetes Brother 1 Hyperlipidemia Brother 2 Hypertension Brother 3 Diabetes Father Hyperlipidemia Father Hypertension Father Cataracts Mother Diabetes Mother Hyperlipidemia Mother Hypertension Mother Diabetes Sister 1 Hyperlipidemia Sister 2 Hypertension Sister 3 Blindness Neg Hx Breast cancer Neg Hx Glaucoma Neg Hx Macular degeneration Neg Hx Strabismus Neg Hx Relation Name Status Comments Brother 1 Brother 2 Brother 3 Brother 4 Alive Brother 5 Alive Daughter Alive Father Alive dm, htn, high c holesterol Mother Alive dm, HTN Sister 1 Sister 2 Sister 3 Sister 4 Alive dm Sister 5 Alive Son 1 Alive Son 2 Alive Son 3 Alive Son 4 Alive Son 5 Alive Social History Tobacco Use Types Packs/Day Years Used Date Smoking Tobacco: Former Cigarettes Smokeless Tobacco: Never Alcohol Use Standard Drinks/Week Comments No 0 (1 standard drink = 0.6 oz pur e alcohol) Interpersonal Safety Answer Date Record ed Physical Abuse 02/23/2024 Verbal Abuse 02/23/2024 Comments Unknown Sex and Gender Information Value Date Recorded Sex Assigned at Female 02/21/2024 12:06 PM EST Legal Sex Female 12:50 AM EST Gender Identity Female 02/21/2024 12:06 PM EST Sexual Orientation Straight 02/21/2024 12 :06 PM EST Obstetrics History Last Filed Vital Signs Vital Sign Reading Time Taken Comments Blood Pressure 170/69 03/07/2024 10:40 AM EST Pulse 101 03/07/2024 10:40 AM EST Temperature 36.6 ??C (97.9 ??F) 02/25/2024 3:20 PM ES T Respiratory Rate 17 02/25/2024 3:20 PM EST Oxygen Saturation 97% 02/25/2024 3:20 PM EST Inhaled Oxygen Concentration - - Weight 57.9 kg (127 lb 9.6 oz) 03/07/2024 10:40 AM EST Height 152.4 cm (5') 03/07/2024 10:40 AM EST Body Mass Index 24.92 03/07/2024 10:40 AM EST Plan of Treatment Upcoming Encounters Date Type Department Care Team (Late st Contact Info) Description 05/21/2024 9:30 AM EDT Office Visit General Surgery - [place] 175 [facility] [address] [place] [phone] Ralph Kimble MD 175 [facility] [address] [place] [address] 09/13/2024 9:40 AM EDT Office Visit Gastroenterology - [place] [address] [place] 175 [facility] [address] [place] [address] Clive Kunz DO 175 [facility] [address] [place] [address] Health Maintenance Due Date Last Done Comments Breast Cancer Screening 1955 Diabetes: Annual Foot Exam 06/28/1965 Diabetes: Annual Retina Eye Exam 06/28/1965 Pneumococcal Vaccine: 50+ Years (1 of 2 - PCV) 06/28/1974 Zoster Vaccines (1 of 2) 06/28/1974 RSV Immunization Patients 60+ Years Old (1 - Risk 60-74 years 1-dose series) 2015 COVID-19 Vaccine (2 - Saurav risk series) 06/11/2020 05/14/2020 Influenza Vaccine (#1) 2023 Cholesterol Screening (Lipid Panel) 11/25/2023 11/16/2014 Depression Screening 11/25/2023 Hepatitis C Screening 11/25/2023 Medicare Annual Wellness Visit 11/25/2023 Osteoporosis Screening (Bone Density Screening) 11/25/2023 Social Influencers of Health Screening 11/25/2023 Diabetes: Annual Urine Albumin-Creatinine Ratio (uACR) 01/04/2024 11/16/2014 Diabetes: Blood Sugar Control Test (HGBA1C) 01/04/2024 05/09/2015 Diabetes: Annual GFR (Glomerular Filtration Rate) 02/24/2025 02/25/2024, 02/24/2024, 01/04/2024, Additional history exists Falls Risk Assessment 02/24/2025 02/25/2024 Hypertension/CHF/CAD Annual BMP Blood Test 02/24/2025 02/25/2024, 02/24/2024, 01/04/2024, Additional history exists DTaP,Tdap,and Td Vaccines (4 - Td or Tdap) 07/25/2031 07/24/2021, 01/10/2012, 10/22/2005 Colorectal Cancer Screening: Colonoscopy 02/05/2034 02/06/2024, 10/04/2023 HIB Vaccines Aged Out No longer eligi ble based on patient's age to complete this topic HPV Vaccines Aged Out No longer eligi ble based on patient's age to complete this topic Hepatitis A Vaccines Aged Out No long er eligible based on patient's age to complete this topic Hepatitis B Vaccines Aged Out No long er eligible based on patient's age to complete this topic IPV Vaccines Aged Out No longer eligi ble based on patient's age to complete this topic MMR Vaccines Aged Out No longer eligi ble based on patient's age to complete this topic Meningococcal ACWY Vaccine Aged Out N o longer eligible based on patient's age to complete this topic Meningococcal B Vacine Aged Out No lo nger eligible based on patient's age to complete this topic RSV Immunization Patients Under 20 months Aged Out No longer eligible based on patient's age to complete this topic Varicella Vaccines Aged Out No longer eligible based on patient's age to complete this topic Medical Devices Explanted Type Area Box Maker Device Identifier Shelf Expiration Date Model / Serial / Lot Stent Uret [id number] Stretch W/O Gw - Sna - [id number] Explanted:Qty: 1 on 02/23/2024 by Ralph Kimble MD at [facility] Stents Left: Ureter [employer]GYNECOL GY [id number] 08/16/2026 [id number] / NA / [id number] Procedures Procedure Name Priority Date/Time Associated Diagnosis Comments POCT GLUCOSE BLOOD Routine 02/25/2024 11:00 AM EST POCT GLUCOSE BLOOD Routine 02/25/2024 8: 59 AM EST CBC WITH AUTO DIFFERENTIAL Routine 02/25/2024 6:28 AM EST CBC AND DIFFERENTIAL Routine 02/25/2024 6:28 AM EST PHOSPHORUS Routine 02/25/2024 6:24 AM EST MAGNESIUM Routine 02/25/2024 6:24 AM EST BASIC METABOLIC PANEL Routine 02/25/2024 6:24 AM EST POCT GLUCOSE BLOOD Routine 02/24/2024 8: 00 PM EST POCT GLUCOSE BLOOD Routine 02/24/2024 4: 26 PM EST HEMOGLOBIN AND HEMATOCRIT Routine 02/24/2024 12:09 PM EST POCT GLUCOSE BLOOD Routine 02/24/2024 11:13 AM EST POCT GLUCOSE BLOOD Routine 02/24/2024 8: 06 AM EST CBC WITH AUTO DIFFERENTIAL Routine 02/24/2024 7:09 AM EST CBC AND DIFFERENTIAL Routine 02/24/2024 7:09 AM EST BASIC METABOLIC PANEL Routine 02/24/2024 7:09 AM EST MAGNESIUM Routine 02/24/2024 7:09 AM EST PHOSPHORUS Routine 02/24/2024 7:09 AM EST POCT GLUCOSE BLOOD Routine 02/23/2024 4: 37 PM EST POCT GLUCOSE BLOOD Routine 02/23/2024 1: 32 PM EST TISSUE EXAM Routine 02/23/2024 12:08 PM EST Adenocarcinoma of sigmoid colon (CMS/HCC) Other specified disorders of bladder ANESTHESIA PERIPHERAL IV PLACEMENT Routine 02/23/2024 8:48 AM EST TH AN ENDOTRACHEAL(NO CHARGE) Routine 02/23/2024 8:46 AM EST XR UROGRAM RETROGRADE Routine 02/23/2024 8:25 AM EST CO CYSTOURETHROSCOPY WITH INSERTION INDWELLING URETERAL STENT 02/23/2024 7:54 AM EST Adenocarcinoma of sigmoid colon (CMS/HCC) Other specified disorders of bladder Special Needs Coordinate with urology to place a left ureteral stent at the beginning of the case please Dr. Jones will be putting Left Stent in 7:30 a.m Please schedule 3 hours CO LAPAROSCOPY SURGICAL COLECTOMY PARTIAL WITH ANASTOMOSIS 02/23/2024 7:54 AM EST Adenocarcinoma of sigmoid colon (CMS/HCC) Other specified disorders of bladder Special Needs Coordinate with urology to place a left ureteral stent at the beginning of the case please Dr. Jones will be putting Left Stent in 7:30 a.m Please schedule 3 hours PROCEDURAL ECG Routine 02/23/2024 6:25 AM EST POCT GLUCOSE BLOOD Routine 02/23/2024 6: 13 AM EST COLONOSCOPY Routine 02/06/2024 8:[address] of the abdomen Abnormal rectal biopsy Adenocarcinoma of colon (CMS/HCC) TISSUE EXAM Routine 02/06/2024 8:[address] of the abdomen Abnormal rectal biopsy Adenocarcinoma of colon (CMS/HCC) TH AN ENDOTRACHEAL(NO CHARGE) Routine 02/06/2024 8:16 AM EST HEMOGLOBIN A1C Routine 05/09/2015 HM URINE ALBUMIN CREATININE RATIO Routine 11/16/2014 LIPID PANEL Routine 11/16/2014 from Last 3 Months or Most Recently Relevant to Health Maintenance Results * (ABNORMAL) POCT Glucose, blood (02/25/2024 11:00 AM EST) Only the most recent of9 resultswithin the time period is included. [facility] Glucose POCT 189(H) 70 - 100 mg/dL 02/25/2024 11:04 AM [facility] Blood Capillary blood specimen / Unknown 02/25/2024 11:00 AM EST 02/25/2024 11:05 AM EST Ralph Kimble MD LAB POINT OF CARE TE ST DOCKED DEVICE UNSOLICITED RESULTS Final Result [facility] [address] [place] [address], * (ABNORMAL) CBC auto differential (02/25/2024 6:28 AM EST) Only the most recent of2 resultswithin the time period is included. [facility] WBC 13.2(H) 4.8 - 10.8 K/mcL LAB HEMETOLOGY METHOD 02/25/2024 7:06 AM [facility] RBC 3.80 3.80 - 4.80 M/mcL LAB HEMETOLOGY METHOD 02/25/2024 7:06 AM [facility] Hemoglobin 9.2(L) 11.5 - 16.0 g/dL LAB HEMETOLOGY METHOD 02/25/2024 7:06 AM [facility] Hematocrit 30.7(L) 35.0 - 47.0 % LAB HEMETOLOGY METHOD 02/25/2024 7:06 AM [facility] MCV 81.9 79.0 - 98.0 FL LAB HEMETOLOGY METHOD 02/25/2024 7:06 AM [facility] MCH 24.5(L) 27.0 - 32.0 pcg LAB HEMETOLOGY METHOD 02/25/2024 7:06 AM [facility] MCHC 30.0(L) 32.0 - 37.0 g/dL LAB HEMETOLOGY METHOD 02/25/2024 7:06 AM [facility] RDW 15.6(H) 11.0 - 15.0 % LAB HEMETOLOGY METHOD 02/25/2024 7:06 AM [facility] Platelets 215 130 - 400 K/mcL LAB HEMETOLOGY METHOD 02/25/2024 7:06 AM [facility] MPV 10.7 7.0 - 11.0 FL LAB HEMETOLOGY METHOD 02/25/2024 7:06 AM [facility] NRBC 0.0 <1.0 % LAB HEMETOLOGY METHOD 02/25/2024 7:06 AM [facility] NRBC Absolute 0.00 <0.10 K/mcL LAB HEMETOLOGY METHOD 02/25/2024 7:06 AM [facility] Neutrophils Relative 82.6 % LAB HEMETOLOGY METHOD 02/25/2024 7:06 AM [facility] Lymphocytes Relative 10.4 % LAB HEMETOLOGY METHOD 02/25/2024 7:06 AM [facility] Monocytes Relative 4.3 % LAB HEMETOLOGY METHOD 02/25/2024 7:06 AM [facility] Eosinophils Relative 1.7 % LAB HEMETOLOGY METHOD 02/25/2024 7:06 AM [facility] Basophils Relative 0.4 % LAB HEMETOLOGY METHOD 02/25/2024 7:06 AM [facility] Immature Granulocytes Relative 0.6 % LAB HEMETOLOGY METHOD 02/25/2024 7:06 AM [facility] Neutrophils Absolute 10.87(H) 1.50 - 7.00 K/mcL LAB HEMETOLOGY METHOD 02/25/2024 7:06 AM EST [facility] Lymphocytes Absolute 1.37 1.00 - 5.00 K/mcL LAB HEMETOLOGY METHOD 02/25/2024 7:06 AM EST [facility] Monocytes Absolute 0.56 0.20 - 1.00 K/[facility] LAB HEMETOLOGY METHOD 02/25/2024 7:06 AM EST [facility] Eosinophils Absolute 0.22 0.00 - 0.50 K/[facility] LAB HEMETOLOGY METHOD 02/25/2024 7:06 AM EST [facility] Basophils Absolute 0.05 0.00 - 0.20 K/[facility] LAB HEMETOLOGY METHOD 02/25/2024 7:06 AM [facility] Immature Granulocytes Absolute 0.08(H) 0.00 - 0.03 K/[facility] LAB HEMETOLOGY METHOD 02/25/2024 7:06 AM [facility] Blood Venous blood specimen / Unknown Venipuncture / Unknown 02/25/2024 6:28 AM EST 02/25/2024 6:51 AM EST Fernanda SYLVESTER LAB BLOOD ORDERABLES Final R esult [facility] [address] [place] [address], * (ABNORMAL) Phosphorus (02/25/2024 6:24 AM EST) Only the most recent of2 resultswithin the time period is included. Phosphorus 1.8(L) 2.5 - 4.5 mg/dL LAB CHEMISTRY METHOD 02/25/2024 7:30 AM EST [facility] Blood Venous blood specimen / Unknown Venipuncture / Unknown 02/25/2024 6:24 AM EST 02/25/2024 6:51 AM EST Fernanda SYLVESTER LAB BLOOD ORDERABLES Final R esult Performing Organization Address City/[facility]/ZIP Co de Phone Number [facility] [address] [place] [address], [place] [phone] * Magnesium (02/25/2024 6:24 AM EST) Only the most recent of2 resultswithin the time period is included. Pathologist [facility] [place] Magnesium 2.2 1.9 - 2.6 mg/dL LAB CHEMISTRY METHOD 02/25/2024 7:30 AM [facility] Blood Venous blood specimen / Unknown Venipuncture / Unknown 02/25/2024 6:24 AM EST 02/25/2024 6:51 AM EST Fernanda SYLVESTER LAB BLOOD ORDERABLES Final R esult Performing Organization Address [facility] Co de Phone Number [facility] [address] [place] [address], [place] [phone] * (ABNORMAL) Basic metabolic panel (02/25/2024 6:24 AM EST) Only the most recent of2 resultswithin the time period is included. [facility] Sodium 143 133 - 145 mmol/L LAB CHEMISTRY METHOD 02/25/2024 8:40 AM [facility] Potassium 3.5 3.5 - 5.5 mmol/L LAB CHEMISTRY METHOD 02/25/2024 8:40 AM [facility] Chloride 109 96 - 110 mmol/L LAB CHEMISTRY METHOD 02/25/2024 8:40 AM [facility] CO2 29 21 - 32 mmol/L LAB CHEMISTRY METHOD 02/25/2024 8:40 AM [facility] Anion Gap 5 3 - 11 LAB CHEMISTRY METHOD 02/25/2024 8:40 AM [facility] Glucose 175(H) 70 - 100 mg/dL LAB CHEMISTRY METHOD 02/25/2024 8:40 AM [facility] BUN 12 5 - 25 mg/dL LAB CHEMISTRY METHOD 02/25/2024 8:40 AM [facility] Creatinine 0.83 0.50 - 1.10 mg/dL LAB CHEMISTRY METHOD 02/25/2024 8:40 AM [facility] eGFR 77 >=60 mL/min/1. 73m2 LAB CHEMISTRY METHOD 02/25/2024 8:40 AM [facility] Comment:Calculation based on the??Chronic Kidney Disease Epidemiology Collaboration (CKD-EPI) equation refit??without adjustment for race. BUN/Creatinine Ratio 14.5 LAB CHEMISTRY METHOD 02/25/2024 8:40 AM [facility] Calcium 8.9 8.5 - 10.5 mg/dL LAB CHEMISTRY METHOD 02/25/2024 8:40 AM [facility] Blood Venous blood specimen / Unknown Venipuncture / Unknown 02/25/2024 6:24 AM EST 02/25/2024 6:51 AM EST Fernanda SYLVESTER LAB BLOOD ORDERABLES Final R esult [facility] [address] [place] [address], * (ABNORMAL) Hemoglobin and hematocrit (02/24/2024 12:09 PM EST) Hemoglobin 8.8(L) 11.5 - 16.0 g/dL LAB HEMETOLOGY METHOD 02/24/2024 12:50 PM EST [facility] Hematocrit 29.4(L) 35.0 - 47.0 % LAB HEMETOLOGY METHOD 02/24/2024 12:50 PM [facility] Blood Venous blood specimen / Unknown Venipuncture / Unknown 02/24/2024 12:09 PM EST 02/24/2024 12:35 PM EST us Sherie SYLVESTER LAB BLOOD ORDERABLES Final Resu lt [facility] [address] [place] [address], [place] [phone] * Tissue exam (02/23/2024 12:08 PM EST) Only the most recent of2 resultswithin the time period is included. Final Diagnosis A. Sigmoid Colon, left hemicolectomy: Invasive adenocarcinoma with mucinous features. Carcinoma measures 5.5 cm in greatest dimension, is 95% circumferential, and extends through the muscularis propria into pericolic fat. Tattoo pigment present. No lymph vascular or perineural invasion is identfiied. Separate inflammatory polyp present. Margins are uninvolved. Twenty-two benign lymph nodes, negative for carcinoma (0/22). B. Large Intestine, Sigmoid Colon, anastamotic donuts: Short segments of benign colon with no specific pathologic change, compatible with donuts. AJCC 8th edition stage pT3N0, see synoptic. 2:53 PM EST [facility] Comment Given history of DRUPAL DEVELOPER primary, immunohistochemical stains are performed on block A7 and are interpreted as follows: -CDX2, SATB2, CK20: Positive. -PAX8, WT1: Negative. -CK7: Positive. Overall, the pattern favors colonic primary over involvement by DRUPAL DEVELOPER malignancy. As such, this case is staged as a primary colonic adenocarcinoma. Control stain appropriately. 2:53 PM EST [facility] Gross Description A. Large Intestine, Sigmoid Colon, left colectomy, stitch is proximal: Labeled left ilene, Sig colon . Received in formalin is a 15.5 x 3.5 cm oriented segment of colon with two stapled margins and abundant attached pericolic fat. There is a suture on one end designating proximal per the requisition. Adjacent, measuring 3 cm in length to the proximal margin is a there is a full-thickness slitlike incision and located 1.3 cm from the proximal stapled margin. The serosa is stevenson-pink and glistening with some black tattoo ink near the midpoint. The mucosa displays a 5.5 x 3.8 x 1.2 cm cm pink-red granular centrally ulcerating, 95% circumferential firm mass with raised rolled borders, located 4 cm from the proximal margin, 9 cm from the distal margin and 0.2 cm from the black inked circumferential resection margin. The mass grossly invades through the muscularis propria into the attached pericolic fat. The cut surfaces of the mass display embedded surgical henrry, consistent with a prior anastomosis. Also identified on the mucosa is a 0.2 cm mucosal polyp, located 6.5 cm distal to the mass, and 2.5 cm from the distal margin. The uninvolved mucosa is stevenson-pink and glistening with loss of normal folds. Multiple possible lymph nodes are identified within the attached pericolic fat, ranging from 0.2 cm to 1.4 cm in greatest dimension. The proximal margin is inked blue, distal green, circumferential resection margin black. Gross photographs are taken. Parking Meter Servicer sections are submitted follows: 1, perpendicular colonic margins, two pieces 2 and 3, mass to circumferential resection margin, one piece each 4, mass to uninvolved, one piece 5-7, mass, one piece each 8, additional mucosal polyp and five possible lymph nodes in toto, six pieces 9, six possible lymph nodes in toto, six pieces 10-12, three differentially bisected lymph nodes each, six pieces each 13, two differentially inked and bisected lymph nodes, four pieces 14 and 15, one sectioned lymph node, three pieces each B. Large Intestine, Sigmoid Colon, anastamotic donuts: Labeled anastomot, Sig colon . Received in formalin are two annular stevenson-pink mucosal covered tissue fragments, measuring 2.6 x 1.6 x 1.3 cm and 2.7 x 1.6 x 1.1 cm. The larger tissue is embedded with surgical henrry. The mucosa is stevenson-pink and glistening. No masses or lesions are appreciated. A security representative section of each is submitted in one cassette, two pieces. VINCE 5 2:53 PM EST [facility] Synoptic Checklist COLON AND RECTUM: Resection COLON AND RECTUM: RESECTION - All Specimens 8th Edition - Protocol posted: 07/27/2023 SPECIMEN ?? Procedure: ?Left hemicolectomy TUMOR ?? Tumor Site: ?Sigmoid colon ?? Histologic Type: ?Adenocarcinoma ? Histologic Type Comment: ?mucinous features ?? Histologic Grade: ?G1, well-differentiated ?? Tumor Size: ?Greatest dimension (Centimeters): 5.5 cm ?? Tumor Extent: ?Invades through muscularis propria into the pericolonic or perirectal tissue ?? Macroscopic Tumor Perforation: ?Not identified ?? Lymphatic and / or Vascular Invasion: ?Not identified ?? Perineural Invasion: ?Not identified ?? Tumor Budding Score: ?Low (0-4) ?? Type of Polyp in which Invasive Carcinoma Arose: ?None identified ?? Treatment Effect: ?No known presurgical therapy MARGINS ?? Margin Status for Invasive Carcinoma: ?All margins negative for invasive carcinoma ? Closest Margin(s) to Invasive Carcinoma: ?Radial (circumferential) ? Distance from Invasive Carcinoma to Closest Margin: ?0.2 cm ? Distance from Invasive Carcinoma to Radial (Circumferential) Margin: ?Distance already reported as closest margin ?? Margin Status for Non-Invasive Tumor: ?All margins negative for high-grade dysplasia / intramucosal carcinoma and low-grade dysplasia REGIONAL LYMPH NODES ?? Regional Lymph Node Status: ? : ?All regional lymph nodes negative for tumor ? Number of Lymph Nodes Examined: ?22 ?? Tumor Deposits: ?Not identified pTNM CLASSIFICATION (AJCC 8th Edition) ?? Reporting of pT, pN, and (when applicable) pM categories is based on information available to the pathologist at the time the report is issued. As per the AJCC (Chapter 1, 8th Ed.) it is the managing physician's responsibility to establish the final pathologic stage based upon all pertinent information, including but potentially not limited to this pathology report. ?? pT Category: ?pT3 ?? pN Category: ?pN0 ?? Comment(s): ?As per report from OSH, biomarkers previously done on diagnostic biopsy and are reported as MMR intact. 2:53 PM EST [facility] Disclaimer NOTE: The immunohistochemical tests and in situ hybridization tests were developed and their performance characteristics were determined by [facility]. They have not been cleared or approved by the U.S. Food and Drug Administration. The FDA has determined that such clearance or approval is not necessary. These tests are used for clinical purposes. They should not be regarded as investigational or for research. This laboratory is certified under the Clinical Laboratory Improvement Amendments of 1988 (CLIA) as qualified to perform high complexity clinical laboratory testing. (controls appropriate) Unless otherwise specified, all tissue is 10% NB formalin fixed and paraffin embedded. 5 2:53 PM EST [facility] Tissue Sigmoid colon structure / Unknown 02/23/2024 12:08 PM EST 02/23/2024 3:10 PM EST Tissue specimen (specimen) Sigmoid colon structure / Unknown 02/23/2024 12:26 PM EST 02/23/2024 3:10 PM EST Ralph Kimble MD LAB PATHOLOGY ORDERABLES Final Result [facility] [address] [place] [address], * Peripheral IV (02/23/2024 8:48 AM EST) Narrative Erwin Hawkins CRNA - 02/23/2024 8:48 AM EST Erwin Hawkins CRNA ? 02/23/2024 ??8:48 AM Peripheral IV Inserted by: Erwin Hawkins CRNA Placement Needle size: 20 G Laterality: left Location: antecubital Site prep: alcohol Technique: anatomical landmarks Attempts: 1 Emir Delgadillo MD ANESTHESIA ORDERABLES Final Re sult * TH AN ENDOTRACHEAL(NO CHARGE) (02/23/2024 8:46 AM EST) Narrative Erwin Hawkins CRNA - 02/23/2024 8:46 AM EST Erwin Hawkins CRNA ? 02/23/2024 ??8:48 AM General Information and Staff Patient location during procedure: OR Resident/EDITOR MAP: Erwin Hawkins CRNA Performed: resident/EDITOR MAP/CAA Performed by: Erwin Hawkins CRNA Authorized by: Emir Delgadillo MD ?? Intubation Urgency: elective Final Airway Details Successful airway: ETT Cuffed: yes Successful intubation technique: direct laryngoscopy Facilitating devices/methods: intubating stylet Endotracheal tube insertion site: oral Blade: Katharine Blade size: #3 Cormack-Lehane Classification: grade IIa - partial view of glottis Placement verified by: chest auscultation and capnometry Cuff volume (mL): 7 Measured from: lips ETT to lips (cm): 20 Number of attempts at approach: 1Final airway type: endotracheal airway Indications and Patient Condition Indications for airway management: anesthesia Spontaneous Ventilation: absent Sedation level: Yes Preoxygenated: yes Soft Tissue Damage: No Dentition Unchanged: Yes Patient position: sniffing MILS maintained throughout Mask difficulty assessment: 1 - vent by mask us Emir Delgadillo MD ANESTHESIA ORDERABLES Final Re sult * XR Urogram Retrograde (02/23/2024 8:25 AM EST) Anatomical Region Laterality Modality Body Radio Fluoroscop y 02/23/2024 8:27 AM EST Narrative 02/23/2024 8:28 AM EST Fluoroscopic spot radiographs obtained during a left endourologic procedure are submitted. No radiologist consultation was requested or provided during this procedure and there is no radiologist professional charge. This report is generated for documentation purposes only. The dose-area product for this procedure was 1304.8 mGy*cm2. PQRI CPT II G9500 -------- FINAL REPORT -------- Dictated By: Garrett Cespedes Dictated Date: 02/23/2024 08:27 ET Assigned Physician: Garrett Cespedes Reviewed and Electronically Signed By: Garrett Cespedes Signed Date: 02/23/2024 08:28 ET Workstation ID: [id number] Transcribed By: Self Edit Transcribed Date: 02/23/2024 08:27 ET Procedure Note Garrett Cespedes MD - 02/23/2024 Fluoroscopic spot radiographs obtained during a left endourologicprocedure are submitted. No radiologist consultation was requested orprovided during this procedure and there is no radiologist professionalcharge. This report is generated for documentation purposes only. The dose-area product for this procedure was 1304.8 mGy*cm2. PQRI CPT II G9500 -------- FINAL REPORT -------- Dictated By: Garrett Cespedes Dictated Date: 02/23/2024 08:27 ET Assigned Physician: Garrett Cespedes Reviewed and Electronically Signed By: Garrett Cespedes Signed Date: 02/23/2024 08:28 ET Workstation ID: [id number] Transcribed By: Self Edit Transcribed Date: 02/23/2024 08:27 ET Zachary Jones MD IMG FLUOROSCOPY PROCEDURES Final Result * ECG 12 lead - Procedural (No Charge) (02/23/2024 6:25 AM EST) Ventricular Rate ECG 85 BPM GEMUSE Atrial Rate 85 BPM GEMUSE P-R Interval 172 ms GEMUSE QRS Duration 84 ms GEMUSE Q-T Interval 404 ms GEMUSE QTc 480 ms GEMUSE P Wave [place] 75 degrees GEMUSE R [place] 57 degrees GEMUSE T [place] 44 degrees GEMUSE ECG Interpretation Normal sinus rhythm Nonspecific ST and T wave abnormality Prolonged QT Abnormal ECG No previous ECGs available Confirmed by Imelda INGRAM JAMES ([id number]) on 02/23/2024 9:33:47 PM GEMUSE 02/23/2024 6:25 AM EST 02/23/2024 9:33 PM EST us Ralph Kimble MD ECG ORDERABLES Final Result GEMUSE * COLONOSCOPY Anesthesia - MAC; [facility] ENDOSCOPY (02/06/2024 8:38 AM EST) Anatomical Region Laterality Modality Endoscopy 02/06/2024 7:31 AM EST Impressions 02/06/2024 8:38 AM EST - Hemorrhoids found on perianal exam. ? - Three 5 to 8 mm polyps at the recto-sigmoid colon, ? removed with a cold snare. Resected and retrieved. ? - Malignant partially obstructing tumor in the distal ? sigmoid colon. Biopsied. Tattooed. ? - The examination was otherwise normal on direct and ? retroflexion views. Recommendation: ?- Discharge patient to home. ? - Sigmoid colon mass (5 cm in length) at 20 cm from ? the anus. Tattooed proximally and distally. No other ? masses seen despite concern of syncronous colon cancer. ? - Soft diet. ? - Continue present medications. ? - Await pathology results. ? - F/U with general surgery. Narrative 02/06/2024 8:38 AM EST [facility] Patient Name: Monica Workman Procedure Date: 02/06/2024 7:31 AM Date of : 1955 Age: 68 Gender: Female Note Status: Finalized Attending MD: Clive Kunz DO, [id number] Procedure Date No Time: 02/06/2024 Procedure: ? Colonoscopy Indications: ? High risk colon cancer surveillance: Personal history ? of colon cancer Providers: ? Clive Kunz DO Referring MD: ?Reyna Pak MD, Ralph Kimble MD Medicines: ? General Anesthesia Complications: ? No immediate complications. Estimated blood loss: ? Minimal. Estimated Blood Loss: ? Estimated blood loss was minimal. Procedure: ? Pre-Anesthesia Assessment: ? - - Prior to the procedure, a History and Physical was ? performed, and patient medications and allergies were ? reviewed. The patient is competent. The risks and ? benefits of the procedure and the sedation options and ? risks were discussed with the patient. All questions ? were answered and informed consent was obtained. ? Patient identification and proposed procedure were ? verified by the physician, the nurse, the ? anesthesiologist, the mottler machine feeder and the quick service technician ? in the pre-procedure area in the endoscopy suite. ? Mental Status Examination: alert and oriented. Airway ? Examination: normal oropharyngeal airway and neck ? mobility. Respiratory Examination: clear to ? auscultation. CV Examination: normal. Prophylactic ? Antibiotics: The patient does not require prophylactic ? antibiotics. Prior Anticoagulants: The patient has ? taken no anticoagulant or antiplatelet agents. ASA ? Grade Assessment: II - A patient with severe systemic ? disease. After reviewing the risks and benefits, the ? patient was deemed in satisfactory condition to ? undergo the procedure. The anesthesia plan was to use ? monitored anesthesia care (MAC). Immediately prior to ? administration of medications, the patient was ? re-assessed for adequacy to receive sedatives. The ? heart rate, respiratory rate, oxygen saturations, ? blood pressure, adequacy of pulmonary ventilation, and ? response to care were monitored throughout the ? procedure. The physical status of the patient was ? re-assessed after the procedure. ? After I obtained informed consent, the scope was ? passed under direct vision. Throughout the procedure, ? the patient's blood pressure, pulse, and oxygen ? saturations were monitored continuously.The ? Colonoscope was introduced through the anus and ? advanced to the cecum, identified by appendiceal ? orifice and ileocecal valve. The colonoscopy was ? performed without difficulty. The patient tolerated ? the procedure well. The quality of the bowel ? preparation was good. Findings: ?Hemorrhoids were found on perianal exam. ? Three sessile polyps were found in the recto- sigmoid ? colon. The polyps were 5 to 8 mm in size. These polyps ? were removed with a cold snare. Resection and ? retrieval were complete. Estimated blood loss was ? minimal. ? A frond-like/villous, infiltrative and ulcerated ? partially obstructing large mass was found in the ? distal sigmoid colon. The mass was circumferential. ? The mass measured five cm in length. In addition, its ? diameter measured eleven mm. Oozing was present. ? Biopsies were taken with a cold forceps for histology. ? Area was tattooed with an injection of 5 mL of Spot ? (carbon black). Estimated blood loss was minimal. ? The exam was otherwise without abnormality on direct ? and retroflexion views. ? There was evidence of a prior end-to-end colo-colonic ? anastomosis in the sigmoid colon. This was patent and ? was characterized by congestion. Procedure Code(s): ? --- Professional --- ? 01076, Colonoscopy, flexible; with removal of ? tumor(s), polyp(s), or other lesion(s) by snare ? technique ? 82658, Colonoscopy, flexible; with directed submucosal ? injection(s), any substance ? 43111, 59, Colonoscopy, flexible; with biopsy, single ? or multiple Diagnosis Code(s): ? --- Professional --- ? Z85.038, Personal history of other malignant neoplasm ? of large intestine ? K64.9, Unspecified hemorrhoids ? D12.7, Benign neoplasm of rectosigmoid junction ? C18.7, Malignant neoplasm of sigmoid colon ? K56.690, Other partial intestinal obstruction CPT copyright 2020 [employer]. All rights reserved. The codes documented in this report are preliminary and upon workforce management consultant review may be revised to meet current compliance requirements. CLIVE Kunz DO 02/06/2024 8:38:14 AM This report has been signed electronically.Clive Kunz DO Number of Addenda: 0 Note Initiated On: 02/06/2024 7:31 AM Scope Withdrawal Time: 0 hours 11 minutes 36 seconds Scope In: 8:13:32 AM Scope Out: 8:27:51 AM ? Endoscopy Department at [facility] - [address] [place] [address], ? [place] [address] Procedure Note Clive Kunz DO - 02/06/2024 [facility] Patient Name: Monica Workman Procedure Date: 02/06/2024 7:31 AM Date of : 1955 Age: 68 Gender: Female Note Status: Finalized Attending MD: Clive Kunz DO, [id number] Procedure Date No Time: 02/06/2024 Procedure: Colonoscopy Indications: High risk colon cancer surveillance: Personalhistory of colon cancer Providers: Clive Kunz DO Referring MD: Reyna Pak MD, Ralph Kimble MD Medicines: General Anesthesia Complications: No immediate complications. Estimated blood loss: Minimal. Estimated Blood Loss: Estimated blood loss was minimal. Procedure: Pre-Anesthesia Assessment: - - Prior to the procedure, a History and Physicalwas performed, and patient medications and allergieswere reviewed. The patient is competent. The risks and benefits of the procedure and the sedation optionsand risks were discussed with the patient. Allquestions were answered and informed consent was obtained. Patient identification and proposed procedure were verified by the physician, the nurse, the anesthesiologist, the mottler machine feeder and thetechnician in the pre-procedure area in the endoscopy suite. Mental Status Examination: alert and oriented.Airway Examination: normal oropharyngeal airway and neck mobility. Respiratory Examination: clear to auscultation. CV Examination: normal. Prophylactic Antibiotics: The patient does not requireprophylactic antibiotics. Prior Anticoagulants: The patient has taken no anticoagulant or antiplatelet agents. ASA Grade Assessment: II - A patient with severesystemic disease. After reviewing the risks and benefits,the patient was deemed in satisfactory condition to undergo the procedure. The anesthesia plan was touse monitored anesthesia care (MAC). Immediately priorto administration of medications, the patient was re-assessed for adequacy to receive sedatives. The heart rate, respiratory rate, oxygen saturations, blood pressure, adequacy of pulmonary ventilation,and response to care were monitored throughout the procedure. The physical status of the patient was re-assessed after the procedure. After I obtained informed consent, the scope was passed under direct vision. Throughout theprocedure, the patient's blood pressure, pulse, and oxygen saturations were monitored continuously.The Colonoscope was introduced through the anus and advanced to the cecum, identified by appendiceal orifice and ileocecal valve. The colonoscopy was performed without difficulty. The patient tolerated the procedure well. The quality of the bowel preparation was good. Findings: Hemorrhoids were found on perianal exam. Three sessile polyps were found in therecto-sigmoid colon. The polyps were 5 to 8 mm in size. Thesepolyps were removed with a cold snare. Resection and retrieval were complete. Estimated blood loss was minimal. A frond-like/villous, infiltrative and ulcerated partially obstructing large mass was found in the distal sigmoid colon. The mass was circumferential. The mass measured five cm in length. In addition,its diameter measured eleven mm. Oozing was present. Biopsies were taken with a cold forceps forhistology. Area was tattooed with an injection of 5 mL of Spot (carbon black). Estimated blood loss was minimal. The exam was otherwise without abnormality ondirect and retroflexion views. There was evidence of a prior lca-rf-txwratc-colonic anastomosis in the sigmoid colon. This was patentand was characterized by congestion. Procedure Code(s): --- Professional --- 29665, Colonoscopy, flexible; with removal of tumor(s), polyp(s), or other lesion(s) by snare technique 78409, Colonoscopy, flexible; with directedsubmucosal injection(s), any substance 31049, 59, Colonoscopy, flexible; with biopsy,single or multiple Diagnosis Code(s): --- Professional --- Z85.038, Personal history of other malignantneoplasm of large intestine K64.9, Unspecified hemorrhoids D12.7, Benign neoplasm of rectosigmoid junction C18.7, Malignant neoplasm of sigmoid colon K56.690, Other partial intestinal obstruction CPT copyright 2020 [employer]. All rights reserved. The codes documented in this report are preliminary and upon workforce management consultant reviewmay be revised to meet current compliance requirements. CLIVE Kunz DO 02/06/2024 8:38:14 AM This report has been signed electronically.Clive Kunz DO Number of Addenda: 0 Note Initiated On: 02/06/2024 7:31 AM Scope Withdrawal Time: 0 hours 11 minutes 36 seconds Scope In: 8:13:32 AM Scope Out: 8:27:51 AM Endoscopy Department at [facility] - [address] [place] [id number] IMPRESSION: - Hemorrhoids found on perianal exam. - Three 5 to 8 mm polyps at the recto-sigmoidcolon, removed with a cold snare. Resected andretrieved. - Malignant partially obstructing tumor in thedistal sigmoid colon. Biopsied. Tattooed. - The examination was otherwise normal on directand retroflexion views. Recommendation: - Discharge patient to home. - Sigmoid colon mass (5 cm in length) at 20 cm from the anus. Tattooed proximally and distally. Noother masses seen despite concern of syncronous coloncancer. - Soft diet. - Continue present medications. - Await pathology results. - F/U with general surgery. Clive Kunz DO GI~PROCEDURE ORDERABLES Final Re sult * TH AN ENDOTRACHEAL(NO CHARGE) (02/06/2024 8:16 AM EST) Juan Pablo Grant MD - 02/06/2024 8:16 AM EST Juan Pablo Mayes MD ? 02/06/2024 ??8:48 AM General Information and Staff Patient location during procedure: [facility] Anesthesiologist: Juan Pablo Mayes MD Resident/EDITOR MAP: Yisel Chun CRNA Performed: resident/EDITOR MAP/CAA and anesthesiologist Performed by: Yisel Chun CRNA Authorized by: Juan Pablo Mayes MD ?? Intubation Urgency: elective Final Airway Details Successful airway: ETT Cuffed: yes Successful intubation technique: video laryngoscopy Facilitating devices/methods: cricoid pressure Blade size: #3 ETT size (mm): 7.0 Cormack-Lehane Classification: grade I - full view of glottis Placement verified by: chest auscultation and capnometry Measured from: gums ETT to gums (cm): 19 Number of attempts at approach: 1 Ventilation between attempts: none Number of other approaches attempted: 0Final airway type: endotracheal airway Indications and Patient Condition Indications for airway management: anesthesia and airway protection Spontaneous ventilation: present Sedation level: Yes Preoxygenated: yes Soft Tissue Damage: No Dentition Unchanged: Yes Patient position: reverse Trendelenburg MILS maintained throughout Mask difficulty assessment: 0 - not attempted Juan Pablo Mayes MD ANESTHESIA ORDERABLES Edited Result - Final * (ABNORMAL) Hemoglobin A1c (05/09/2015) Pathologist [facility] [place] Hemoglobin A1C 7.9(A) 4.0 - 6.0 % Blood Venous blood specimen / Unknown Result [facility] Historical Provider LAB BLOOD ORDERABLES Cecilia l Result * Urine Albumin Creatinine Ratio (11/16/2014) Pathologist [facility] Urine Albumin Creatinine Ratio abstracted Result [facility] Historical Provider HEALTH MAINTENANCE Final Result * (ABNORMAL) Lipid panel (11/16/2014) Pathologist [facility] [place] LDL/HDL Ratio 7(A) 0 - 4 Triglycerides 380(A) 0 - 150 mg/dL Cholesterol 269(A) 0 - 200 mg/dL HDL 38(A) >=40 mg/dL LDL Cholesterol 155(A) 0 - 100 mg/dL Blood Venous blood specimen / Unknown Result [facility] Historical Provider LAB BLOOD ORDERABLES Cecilia l Result from Last 3 Months or Most Recently Relevant to Health Maintenance Insurance [employer] Advance Directives Documents on File Type Date Recorded Patient Parking Meter Servicer Expl anation Advance Directives and Living Will 02/27/2024 12:13 PM Advance Directives and Living Will 02/24/2024 1:58 PM [facility] Proxy * Full Code - Default (Latest Code Status on File) Date Activated Date Inactivated Comments 02/23/2024 6:11 AM 02/25/2024 6:05 PM This is orde r is used when code status has not been discussed with the patient, or code status is otherwise unknown/unconfirmed To update the patient's code status, place a code status order. Do not modify or discontinue any currently active code status orders. Care Teams Cloth Sponger Relationship Specialty Start Date End Date Reyna Pak MD [address] [place] [address] PCP - General 10/03/23
--- OUTSIDE RECORDS SUMMARY | 2024-05-01 12:28 | XMS_ITS | Clinical Summary ---
Author Organization [facility] Address [address] [place] [address] Care Team Providers Care Top Printing Press Operator Name Role Phone Reyna Pak MD Primary Care Provider [phone] Allergies No known active allergies Medications amLODIPine (NORVASC) 2.5 mg tablet Take 2.5 mg by mouth at bed time. 9 Active anastrozole (ARIMIDEX) 1 mg tablet Take 1 mg by mouth at bed time. 9 Active aspirin 81 mg EC tablet Take 81 mg by mouth every morning. 2 9 Active atorvastatin (LIPITOR) 80 mg tablet Take 80 mg by mouth at bed time. 9 Active CALCIUM 600 + D,3, 600 mg(1,500mg) -200 unit per tablet Take 1 tablet by mouth daily. 9 Active LANTUS U-100 INSULIN 100 unit/mL solution injection Inject 55 Units under the skin nightly. 11 9 Active HUMALOG U-100 INSULIN 100 unit/mL injection PT TO INJECT UP TO 22 UNITS THREE TIME DAILY BEFORE MEALS 11 9 Active lisinopril (PRINIVIL,ZESTR IL) 20 mg tablet Take 20 mg by mouth every morning. 9 Active metFORMIN ER (GLUCOPHAGE XR) 500 mg tablet TAKE 1 TABLET WITH EVENING MEAL TWICE A DAY 6 9 Active fenofibrate (TRICOR) 54 mg tablet Take 54 mg by mouth at bed time. 9 Active clopidogrel (PLAVIX) 75 mg tabletIndicatio ns:Restart taking Plavix on 04/26/2019 Take 75 mg by mouth every morning. 0 Active oxyCODONE IR (ROXICODONE) 5 mg tablet Take 1 tablet (5 mg total) by mouth every 4 hours as needed for breakthrough pain for up to 10 doses. Max Daily Amount: 30 mg 10 tablet 0 Active Additional Information Patient not taking.Reported on 10/30/2021 white petrolatum-mine ral oil (LACRI-LUBE S.O.P.) 83-15% ointment Apply 0.25 inches to right eye nightly. 3.5 g 0 Active Additional Information Patient not taking.Reported on 10/30/2021 carboxymethylce llulose sodium (ARTIFICIAL TEARS, [facility],) 1 % drops Instill 2 drops into affected eye(s) 3 times a day. 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 Parotid mass 11/27/2018 Immunizations Immunization Administration Dates Next Due Influenza, Injectable, Quadr ivalent, Preservative Free 04/20/2019(Deferred: Patient Refused) Family History Medical History Relation Name Comments Chronic Kidney Disease Father Diabetes Father Diabetes Mother Cervical cancer Sister Relation Name Status Comments Father Mother Alive Sister Social History Tobacco Use Types Packs/Day Years Used Date Smoking Tobacco: Former Cigarettes 1 20 0 04/18/1965 - 04/18/1985 Smokeless Tobacco: Never Tobacco Cessation:Counseling Given: Not Answered Comments:Quit >20 years ago Alcohol Use Standard Drinks/Week Comments Not Currently 0 (1 standard drink = 0.6 oz pur e alcohol) Comments No Sex and Gender Information Value Date Recorded Sex Assigned at Not on file Legal Sex Female 11:49 AM EDT Gender Identity Not on file Sexual Orientation Not on file Last Filed Vital Signs Vital Sign Reading Time Taken Comments Blood Pressure 146/84 06/04/2020 11:33 AM EDT Pulse 80 06/04/2020 11:33 AM EDT Temperature 37 ??C (98.6 ??F) 04/20/2019 11:50 AM EDT Respiratory Rate 18 04/20/2019 11:50 AM EDT Oxygen Saturation 94% 04/20/2019 11:50 AM EDT Inhaled Oxygen Concentration - - Weight 59 kg (130 lb) 06/04/2020 11:33 AM EDT Height 152.4 cm (5') 06/04/2020 11:33 AM EDT Body Mass Index 25.39 06/04/2020 11:33 AM EDT Plan of Treatment Health Maintenance Due Date Last Done Comments Hepatitis C Screening 1955 Osteoporosis Screening 06/28/2005 Pneumococcal Vaccine: 50+ Years (1 of 1 - PCV) 06/28/2005 Zoster Vaccines (1 of 2) 06/28/2005 COVID-19 Vaccine (2 - 2023- season) 2023 05/14/2020 Influenza Vaccine (#1) 2023 Alcohol/Substance Use Screening 02/08/2024 Depression Screening and Follow-Up 02/08/2024 Health Care Proxy Review 02/08/2024 Social Drivers of Health Annual Screening 02/08/2024 RSV Vaccine (60+ years old and patients) (1 - 1-dose 75+ series) 06/28/2030 DTaP,Tdap,and Td Vaccines (3 - Td or Tdap) 07/25/2031 07/24/2021, 01/10/2012, 10/22/2005, Additional history exists Hepatitis B Vaccines Aged Out No long er eligible based on patient's age to complete this topic Insurance [address] [id number] [facility] Advance Directives Documents on File Type Date Recorded Patient Route Delivery Clerk Expl anation Health Care Proxy 04/20/2019 2:27 PM * Full Code (Latest Code Status on File) Date Activated Date Inactivated Comments 04/20/2019 9:36 AM 04/20/2019 4:50 PM Care Teams Top Printing Press Operator Relationship Specialty [place] [address] [place] [id number] PCP - General Internal Medicine 09/30/21
--- OUTSIDE RECORDS SUMMARY | 2024-05-01 12:28 | XMS_ITS | Clinical Summary ---
Author Organization [address] Address [address] [place] [id number] Care Team Providers Care Molder Sweep Name Role Phone Unavailable Primary Care Provider Unavailabl e Social History Tobacco Use Types Packs/Day Years Used Date Smoking Tobacco: Never Assessed Comments Unknown Sex and Gender Information Value Date Recorded Sex Assigned at Not on file Legal Sex Female 7:38 AM EST Gender Identity Not on file Sexual Orientation Not on file Plan of Treatment Health Maintenance Due Date Last Done Comments HIV screening 06/28/1968 Hepatitis C screening 06/28/1973 Breast cancer screening 1995 Lipid disorder screening 1995 Diabetes screening 06/28/2000 Shingles vaccine (Shingrix) (1 of 2 - Shingrix (RZV) 2 Dose Standard Series) 06/28/2005 Osteoporosis screening (bone density) 06/28/2020 Pneumococcal Vaccine (50+ years) (1 of 1 - PCV) 06/28/2020 Influenza vaccine 09/08/2023 Covid-19 vaccine series (2 - season) 2023 05/14/2020 RSV Immunization (1 - 1-dose 75+ series) 06/28/2030 Tetanus adult (Td q 10,TDAP once) 07/25/2031 07/24/2021, 01/10/2012, 10/22/2005 Colon cancer screening, Colonoscopy 10/03/2033 10/04/2023 Cervical cancer screening Discontinued Meningococcal Vaccine Aged Out No kiara francesca eligible based on patient's age to complete this topic Procedures Procedure Name Priority Date/Time Associated Diagnosis Comments HM COLONOSCOPY 10/04/2023 12:00 AM EDT from Last 3 Months or Most Recently Relevant to Health Maintenance Results * HM COLONOSCOPY (10/04/2023 12:00 AM EDT) us Provider Not In System HEALTH MAINTENANCE Final Result from Last 3 Months or Most Recently Relevant to Health Maintenance Insurance [employer]CIAL [employer] COMMERCIAL GENERIC COMMERCIAL GENERIC
--- OUTSIDE RECORDS SUMMARY | 2024-05-01 12:28 | XMS_ITS | Clinical Summary ---
Author Organization [facility] Address [address] [place] [id number] Care Team Providers Care Credit Underwriter Name Role Phone Karrie Aiken MD Primary Care Provider [phone] Allergies Active Allergy Reactions Criticality Noted Date Comments Metformin And Related 10/01/2008 Diarrhea and nausea Simvastatin 06/09/2009 Muscle, joint pain Medications insulin lispro (HumaLOG) 100 UNIT/ML injection Humalog U-100 Insulin 100 unit/mL subcutaneous cartridge INJECT 15 UNITS SUBCUTANEOUSLY 3 TIMES A DAY Active amLODIPine (NORVASC) 2.5 MG tablet amlodipine 2.5 mg tablet TAKE 1 TABLET BY MOUTH EVERY DAY 7 Active aspirin (ST BUZZ) 81 MG EC tablet Take 1 tablet by mouth 1 (one) time each day Active atorvastatin (LIPITOR) 80 MG tablet Take 1 tablet by mouth 1 (one) time each day Active Calcium 500-125 MG-UNIT tablet Take 1 tablet by mouth 1 (one) time each day Active clopidogrel (PLAVIX) 75 MG tablet Take 1 tablet by mouth 1 (one) time each day Active fenofibrate (TRICOR) 54 MG tablet Take 1 tablet by mouth 1 (one) time each day Active Insulin Pen Needle (B-D ULTRAFINE III SHORT PEN) 31G X 8 MM misc USE DIRECTED 4 TIMES A DAY 4 Active lisinopril (PRINIVIL,ZEST RIL) 20 MG tablet Take 1 tablet by mouth 1 (one) time each day Active omeprazole (PriLOSEC) [address] capsule omeprazole 20 mg capsule,delayed release 1 CAPSULE 30 MINUTES BEFORE MORNING MEAL ONCE A DAY Active Lantus 100 UNIT/ML injection INJECT 60 UNITS INTO THE SKIN ONCE DAILY 1 Active Empagliflozin 10 MG tablet Take 10 mg by mouth 2 Active Active Problems Problem Noted Date Diagnosed Date Aphagia 06/20/2020 Obstructive sleep apnea syndrome 06/20/2020 Thyroid nodule 06/20/2020 H/O Spinal surgery 08/14/2019 Impacted cerumen of right ear 08/14/2019 Otalgia of right ear 08/14/2019 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 Diabetes mellitus 09/07/2010 Overview (06/20/2020): Last Assessment & Plan: Pt reports compliance with insulins but blood sugars above goal. She is inconsistent with testing. 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 Vitamin D deficiency 08/31/2010 Noncompliance with treatment 10/02/2008 Benign neoplasm of soft tissue 10/01/2008 Overview (06/20/2020): IMO update History of malignant neoplasm of breast 07/30/19 09 Overview (06/20/2020): Ductal carcinoma in situ, partial left mastectomy; axillary lymph node dissection on the left in 2002. The patient had radiotherapy but she did not have chemotherapy. She tells me that she recently had a biopsy on the left breast that was benign Hyperlipidemia 07/29/2008 Hypertensive disorder 07/29/2008 Family History Medical History Relation Comments Diabetes Father Diabetes Mother Hypertension Mother Hypertension Sibling 1 brother Cancer Sibling 2 sister Diabetes Sibling 3 Relation Status Comments Father Mother Alive Sibling 1 Sibling 2 Sibling 3 Social History Tobacco Use Types Packs/Day Years Used Date Smoking Tobacco: Never Smokeless Tobacco: Never Tobacco Cessation:Counseling Given: Not Answered Alcohol Use Standard Drinks/Week Comments No 0 (1 standard drink = 0.6 oz pur e alcohol) Comments Unknown Sex and Gender Information Value Date Recorded Sex Assigned at Not on file Legal Sex Female 5:10 PM EST Gender Identity Not on file Sexual Orientation Not on file Last Filed Vital Signs Vital Sign Reading Time Taken Comments Blood Pressure 108/56 05/03/2022 2:27 PM EDT Pulse 78 05/03/2022 2:27 PM EDT Temperature - - Respiratory Rate - - Oxygen Saturation 96% 05/03/2022 2:27 PM EDT Inhaled Oxygen Concentration - - Weight 62.1 kg (137 lb) 05/03/2022 2:27 PM EDT Height 152.4 cm (5') 05/03/2022 2:27 PM EDT Body Mass Index 26.76 05/03/2022 2:27 PM EDT Plan of Treatment Health Maintenance Due Date Last Done Comments Breast Cancer Screening 1955 Pneumococcal Vaccine: 65+ Years (1 of 2 - PCV) 06/28/1961 Colorectal Cancer Screening: Annual FOBT 06/28/2004 Colorectal Cancer Screening: Colonoscopy 06/28/2004 Colorectal Cancer Screening: Sigmoidoscopy 06/28/2004 Diabetes: Hemoglobin A1C 03/07/2020 Diabetes: Ophthalmology Exam 03/07/202009/2015, 02/28/2013 Diabetes: Pedal Pulse Checked 03/07/2020 Diabetes: Sensory Foot Exam 03/07/2020 Diabetes: Visual Foot Exam 03/07/2020 Influenza Vaccine (#1) 2023 Hepatitis B Vaccine Aged Out No longe r eligible based on patient's age to complete this topic Insurance [place]ICAID [place] [facility] [place] [facility] [place] Care Teams Credit Underwriter Relationship Specialty Start Date End Date Karrie Aiken MD [address] [place], [place] PCP - General 02/18/20
--- OUTSIDE RECORDS SUMMARY | 2024-05-01 12:28 | XMS_ITS | Referral Summary ---
Author Organization [facility] Address [address] [place] [address] Care Team Providers Care Laborer Tree Tapping Name Role Phone Reyna Pak MD Primary Care Provider [phone] Allergies No known active allergies Medications amLODIPine [...] Quadr ivalent, Preservative Free 04/20/2019(Deferred: Patient Refused) Social History Tobacco Use Types Packs/Day Years [...] 06/04/2020 11:33 AM EDT Plan of Treatment Not on file Insurance [facility] Advance Directives Documents on File Type Date Recorded Patient Porcelain Waxer Expl anation Health Care Proxy 04/20/2019 2:27 PM * Full Code (Latest Code Status on File) Date Activated Date Inactivated Comments 04/20/2019 9:36 AM 04/20/2019 4:50 PM Care Teams Laborer Tree Tapping Relationship Specialty Start Date End Date Reyna Pak MD [address] [place] [address] PCP - General Internal Medicine 09/30/21
== END 2024-05-01 10:57 | disposition home or self-care (01) ==
LOC: HO.HKA 10:24
PROVIDERS: PCP Internal Medicine; Visit Provider Internal Medicine Hypertension Specialist
DX: E87.0 Hyperosmolality and hypernatremia (principal); I10 Essential (primary) hypertension
CPT/HCPCS: 99214

== ENCOUNTER → 2024-05-01 10:24 | Outpatient (BNVA) | payer OTHER, SELFPAY | PROVIDERS: PCP Internal Medicine; Visit Provider Internal Medicine Hypertension Specialist | DX: I10 Essential (primary) hypertension (principal); E87.0 Hyperosmolality and hypernatremia; G47.33 Obstructive sleep apnea (adult) (pediatric) | CPT/HCPCS: 99212 ==

== ENCOUNTER 2024-05-09 11:09 | Day surgery (SDC) | payer OTHER, SELFPAY ==
--- OUTSIDE RECORDS SUMMARY | 2024-05-07 13:19 | XMS_ITS | Encounter Summary ---
Author Organization [facility] Address [address] [place] [address] Care Team Providers Care Asphalt Raker Name Role Phone Name, Daniel MACE Primary Care Provider Vinicius Wellington MD Primary Care Provider [facility], Pcp Primary Care Provider Reyna Uriarte MD Primary Care Provider [facility] Reason for Visit * Reason Comments E-prescribe Rx Request Encounter Details Date Type Department Care Team Description 10/09/2013 Refill Adult Medicine [address] [address] Julia Abreu DO E-prescribe Rx Request Social History Tobacco Use Types Packs/Day Years Used Date Smoking Tobacco: Former Cigarettes 1 10 Smokeless Tobacco: Never Comments:2002 Alcohol Use Standard Drinks/Week Comments No 0 (1 standard drink = 0.6 oz pur e alcohol) Sex Assigned at Date Recorded Not on file documented as of this encounter Miscellaneous Notes * Telephone Encounter - Yohana Askew M.A. - 10/10/2013 10:30 AM EDT Component Value Date HGBA1C 7.7 03/03/2013 MALBUR 33.7 09/11/2013 MALBCR 46.1 09/11/2013 CHOL 281 09/11/2013 LDL 177 09/11/2013 HDL 38 09/11/2013 TRIG 332 09/11/2013 GLU 120 09/11/2013 CREAT 0.7 09/11/2013 * Telephone Encounter - Saray rIene - 10/10/2013 8:43 AM EDT Patient would like script to be: E-PRESCRIBED/FAXED TO PHARMACY WHEN WAS THE PATIENT'S LAST APPOINTMENT IN ADULT MEDICINE? 09/20/13 WHEN WAS THE LAST TIME THE PATIENT SAW THEIR PCP? Same as above Does patient have an upcoming appointment? Yes 04/02/14 (THE MEDICATION REQUESTED IS ON THE MED LIST ABOVE) All of the medications requested were on the CURRENT MEDS list Did you check the Pharmacy information above?: YES Patient wants: 30 -day supply Is this a mail order prescription request ? NO Patients current insurance carrier is: Payor: [employer] FFS / Plan: [employer] CARE PLUS PLAN / Product Type: MEDICAID RISK documented in this encounter Plan of Treatment Not on file documented as of this encounter Visit Diagnoses Not on filedocumented in this encounter Care Teams Asphalt Raker Relationship Specialty Start Date End Date Name, MD Daniel PCP - General 07/12/08 02/23/15 Vinicius Mendoza MD PCP - General Internal Medicine 02/24/15 07/14/16 Hossein Lechuga PCP - General Internal Medicine 07/15/16 10/02/23 Reyna Pak MD PCP - General Internal Medicine 10/03/23 documented as of this encounter
--- OUTSIDE RECORDS SUMMARY | 2024-05-07 13:19 | XMS_ITS | Encounter Summary ---
Author Organization [facility] Address [address] [place] [id number] Care Team Providers Care Composite Boat Builder Name Role Phone Unavailable Primary Care Provider Unavailabl e Encounter Details Date Type Department Care Team ([facility] st Contact Info) Description 11/11/2023 Scanned Document INTERFACE DEFAULT [address] [place] [phone] System, Provider Not In Social History [...]
--- OUTSIDE RECORDS SUMMARY | 2024-05-07 13:19 | XMS_ITS | Encounter Summary ---
Author Organization [facility] Address [address] [place] [address] Care Team Providers Care Stroboroma Operator Name Role Phone Name, Daniel MACE Primary Care Provider Vinicius Wellington MD Primary Care Provider Bhumi Lechuga, Pcp Primary Care Provider Reyna Uriarte MD Primary Care Provider [facility] Encounter Details Date Type Department Care Team Description 10/18/2013 [facility] [address] [address] Name, MD Daniel Social History Tobacco Use Types Packs/Day Years [...] on filedocumented in this encounter Care Teams Stroboroma Operator Relationship Specialty Start Date End Date Name, MD Daniel PCP - General 07/12/08 02/23/15 Vinicius Mendoza MD PCP - General Internal Medicine 02/24/15 07/14/16 Ankush, Hossein PCP - General Internal Medicine 07/15/16 10/02/23 Reyna Pak MD PCP - General Internal Medicine 10/03/23 documented as of this encounter
--- OUTSIDE RECORDS SUMMARY | 2024-05-07 13:19 | XMS_ITS | Clinical Summary ---
Author Organization 175 [facility] Address [address] [place] [address] Phone Care Team Providers Care Size Mixer Name Role Phone Reyna Pak MD Primary Care Provider [phone]- [phone] Allergies Active Allergy Reactions Criticality Noted Date [...] time each day. 30 capsule 1 5 025 Active Problems Problem Noted Date Diagnosed Date [...] Care Team Description 03/27/2024 Telephone Gastroenterology - [place] [address] [facility] [address] [place] [phone] Faisal Spear PA Establish Care 03/12/2024 Telephone Gastroenterology - [place] 175 [facility] 175 [facility] 200 [place] [phone] Clive Kunz DO 03/07/2024 10:30 AM EST Office Visit General Surgery - [address] [phone] Ralph Kimble MD History of colon cancer, stage II (Primary Dx); History of partial colectomy; Secondary hypertension; High cholesterol; Type 2 diabetes mellitus without complication, with long-term current use of insulin (CMS/HCC) 02/23/2024 7:54 AM EST Anesthesia Event [facility] [place] [address] [place] [phone] Emir Delgadillo MD Georgette, Nathaniel, CRNA 02/23/2024 7:30 AM EST - 02/23/2024 11:[address] [facility] OR [address] [place] [phone] Ralph Kimble MD LAPAROSCOPIC LEFT COLECTOMY, MOBILIZATION OF THE SPLENIC FLEXURE, LYSIS OF ADHESIONS [94304 (CPT??)] 02/23/2024 5:50 AM EST - 02/25/2024 4:00 PM EST Hospital Encounter [facility] [address] [place] [address] Ralph Kimble MD Adenocarcinoma of sigmoid colon (CMS/HCC); Other specified disorders of bladder Discharge Disposition: Home or Self Care 02/16/2024 Telephone General Surgery - [address] [phone] Ralph Kimble MD Prior Authorization (02/23/24 Dr. Ralph Kimble) 02/16/2024 Telephone General Surgery - [place] 175 [facility] [address] [place] [address] Ralph Kimble MD Medication 02/13/2024 Telephone Gastroenterology - [place] [address] [place] [address] Faisal Spear PA 02/10/2024 Telephone Gastroenterology - [place] 175 [address] 175 [facility] [address] [place] [address] Faisal Spear PA provider call back from Last 3 Months Immunizations Name Administration Dates Next Due Td Tetanus diptheria (Tdvax) 7yo and older 10/22 Tdap Tetanus diptheria acell ular pertussis (Boostrix; Adacel) 7yo and older 01/10/2012 Surgical History Surgery Date Site/Laterality Comments BREAST LUMPECTOMY PROCEDURE: HISTORICAL BREAST LUMPECTOMY; COMMENT: 2002, left breast OTHER SURGICAL HISTORY PROCEDURE: [place] RESCJ OVARIAN/TUBAL/PERITONEAL MALIGNANCY W/BSO; COMMENT: COLONOSCOPY 01/20/10 PROCEDURE: HISTORICAL COLONOSCOPY; COMMENT: adenomas; repeat in three years COLONOSCOPY W/ POLYPECTOMY 02/10/15 PROCEDURE: [place] COLSC FLX W/RMVL OF TUMOR POLYP LESION [...] AM EDT Office Visit General Surgery - [place] [address] [phone] Ralph Kimble MD 175 [facility] 110 [place] [address] 09/13/2024 9:40 AM EDT Office Visit Gastroenterology [facility] 175 [facility] [address] [phone] Clive Kunz DO 175 [facility] 200 [place] [address] Health Maintenance Due Date Last Done Comments [...] this topic Medical Devices Explanted Type Area Cable Way Operator Device Identifier Shelf Expiration Date Model / Serial / Lot Stent Uret [id number] Stretch W/O Gw - Sna - [id number] Explanted:Qty: 1 on 02/23/2024 by Ralph Kimble MD at [facility] Stents Left: Ureter [employer]GYNECOL GY [id number] 08/16/2026 [id number] / NA / [id number] Procedures Procedure Name Priority Date/Time Associated Diagnosis [...] UROGRAM RETROGRADE Routine 02/23/2024 8:25 AM EST [place] CYSTOURETHROSCOPY WITH INSERTION INDWELLING URETERAL STENT 02/23/2024 7:54 AM EST Adenocarcinoma of sigmoid colon (CMS/HCC) Other specified disorders of bladder Special Needs Coordinate with urology to place a left ureteral stent at the beginning of the case please Dr. Jones will be putting Left Stent in 7:30 a.m Please schedule 3 hours [place] LAPAROSCOPY SURGICAL COLECTOMY PARTIAL WITH ANASTOMOSIS 02/23/2024 [...] Abnormal rectal biopsy Adenocarcinoma of colon (CMS/HCC) HEMOGLOBIN A1C Routine 05/09/2015 HM URINE ALBUMIN CREATININE RATIO Routine 11/16/2014 LIPID PANEL Routine 11/16/2014 from Last 3 Months or Most Recently Relevant to Health Maintenance Results * (ABNORMAL) POCT Glucose, blood (02/25/2024 11:00 AM EST) Only the most recent of9 resultswithin the time period is included. Glucose POCT 189(H) 70 - 100 mg/dL 02/25/2024 11:04 AM EST [facility] Blood Capillary blood specimen / Unknown 02/25/2024 11:00 AM EST 02/25/2024 11:05 AM EST Ralph Kimble MD LAB POINT OF CARE TE ST DOCKED DEVICE UNSOLICITED RESULTS Final Result [facility] [address] [place] [address], [place] [phone] * (ABNORMAL) CBC auto differential (02/25/2024 6:28 AM EST) Only the most recent of2 resultswithin the time period is included. WBC 13.2(H) 4.8 - 10.8 K/Health system LAB HEMETOLOGY METHOD 02/25/2024 7:06 AM EST [facility] RBC 3.80 3.80 - 4.80 M/mcL LAB HEMETOLOGY METHOD 02/25/2024 7:06 AM [facility] Hemoglobin 9.2(L) 11.5 - 16.0 g/dL LAB HEMETOLOGY METHOD 02/25/2024 7:06 AM [facility] Hematocrit 30.7(L) 35.0 - 47.0 % LAB HEMETOLOGY METHOD 02/25/2024 7:06 AM [facility] MCV 81.9 79.0 - 98.0 FL LAB HEMETOLOGY METHOD 02/25/2024 7:06 AM [facility] MCH 24.5(L) 27.0 - 32.0 pcg LAB HEMETOLOGY METHOD 02/25/2024 7:06 AM [facility] MCHC 30.0(L) 32.0 - 37.0 g/dL LAB HEMETOLOGY METHOD 02/25/2024 7:06 AM [facility] RDW 15.6(H) 11.0 - 15.0 % LAB HEMETOLOGY METHOD 02/25/2024 7:06 AM [facility] Platelets 215 130 - 400 K/mcL LAB HEMETOLOGY METHOD 02/25/2024 7:06 AM [facility] MPV 10.7 7.0 - 11.0 FL LAB HEMETOLOGY METHOD 02/25/2024 7:06 AM [facility] NRBC 0.0 <1.0 % LAB HEMETOLOGY METHOD 02/25/2024 7:06 AM [facility] NRBC Absolute 0.00 <0.10 K/mcL LAB HEMETOLOGY METHOD 02/25/2024 7:06 AM [facility] Neutrophils Relative 82.6 % LAB HEMETOLOGY METHOD 02/25/2024 7:06 AM [facility] Lymphocytes Relative 10.4 % LAB HEMETOLOGY METHOD 02/25/2024 7:06 AM [facility] Monocytes Relative 4.3 % LAB HEMETOLOGY METHOD 02/25/2024 7:06 AM [facility] Eosinophils Relative 1.7 % LAB HEMETOLOGY METHOD 02/25/2024 7:06 AM [facility] Basophils Relative 0.4 % LAB HEMETOLOGY METHOD 02/25/2024 7:06 AM [facility] Immature Granulocytes Relative 0.6 % LAB HEMETOLOGY METHOD 02/25/2024 7:06 AM [facility] Neutrophils Absolute 10.87(H) 1.50 - 7.00 K/mcL LAB HEMETOLOGY METHOD 02/25/2024 7:06 AM [facility] Lymphocytes Absolute 1.37 1.00 - 5.00 K/mcL LAB HEMETOLOGY METHOD 02/25/2024 7:06 AM [facility] Monocytes Absolute 0.56 0.20 - 1.00 K/mcL LAB HEMETOLOGY METHOD 02/25/2024 7:06 AM [facility] Eosinophils Absolute 0.22 0.00 - 0.50 K/mcL LAB HEMETOLOGY METHOD 02/25/2024 7:06 AM [facility] Basophils Absolute 0.05 0.00 - 0.20 K/mcL LAB HEMETOLOGY METHOD 02/25/2024 7:06 AM [facility] Immature Granulocytes Absolute 0.08(H) 0.00 - 0.03 K/mcL LAB HEMETOLOGY METHOD 02/25/2024 7:06 AM [facility] Blood Venous blood specimen / Unknown Venipuncture / Unknown 02/25/2024 6:28 AM EST 02/25/2024 6:51 AM EST us Fernanda SYLVESTER LAB BLOOD ORDERABLES Final R esult [facility] [address] [place] [address], * (ABNORMAL) Phosphorus (02/25/2024 6:24 AM EST) Only the most recent of2 resultswithin the time period is included. Phosphorus 1.8(L) 2.5 - 4.5 mg/dL LAB CHEMISTRY METHOD 02/25/2024 7:30 AM EST [facility] Blood Venous blood specimen / Unknown Venipuncture / Unknown 02/25/2024 6:24 AM EST 02/25/2024 6:51 AM EST Fernanda SYLVESTER LAB BLOOD ORDERABLES Final R esult Performing Organization Address [facility] de Phone Number [facility] [address] [place] [address], * Magnesium (02/25/2024 6:24 AM EST) Only the most recent of2 resultswithin the time period is included. Magnesium 2.2 1.9 - 2.6 mg/dL LAB CHEMISTRY METHOD 02/25/2024 7:30 AM EST [facility] Blood Venous blood specimen / Unknown Venipuncture / Unknown 02/25/2024 6:24 AM EST 02/25/2024 6:51 AM EST us Fernanda SYLVESTER LAB BLOOD ORDERABLES Final R esult Performing Organization Address City/[facility]/ZIP Co de Phone Number [facility] [address] [place] [address], [place] [phone] * (ABNORMAL) Basic metabolic panel (02/25/2024 6:24 AM EST) Only the most recent of2 resultswithin the time period is included. Sodium 143 133 - 145 mmol/L LAB CHEMISTRY METHOD 02/25/2024 8:40 AM [facility] Potassium 3.5 3.5 - 5.5 mmol/L LAB CHEMISTRY METHOD 02/25/2024 8:40 AM [facility] Chloride 109 96 - 110 mmol/L LAB CHEMISTRY METHOD 02/25/2024 8:40 AM [facility] CO2 29 21 - 32 mmol/L LAB CHEMISTRY METHOD 02/25/2024 8:40 AM [facility] Anion Gap 5 3 - 11 LAB CHEMISTRY METHOD 02/25/2024 8:40 AM [facility] Glucose 175(H) 70 - 100 mg/dL LAB CHEMISTRY METHOD 02/25/2024 8:40 AM [facility] BUN 12 5 - 25 mg/dL LAB CHEMISTRY METHOD 02/25/2024 8:40 AM [facility] Creatinine 0.83 0.50 - 1.10 mg/dL LAB CHEMISTRY METHOD 02/25/2024 8:40 AM [facility] eGFR 77 >=60 mL/min/1. 73m2 LAB CHEMISTRY METHOD 02/25/2024 8:40 AM [facility] Comment:Calculation based on the??Chronic Kidney Disease Epidemiology Collaboration (CKD-EPI) equation refit??without adjustment for race. BUN/Creatinine Ratio 14.5 LAB CHEMISTRY METHOD 02/25/2024 8:40 AM [facility] Calcium 8.9 8.5 - 10.5 mg/dL LAB CHEMISTRY METHOD 02/25/2024 8:40 AM [facility] Blood Venous blood specimen / Unknown Venipuncture / Unknown 02/25/2024 6:24 AM EST 02/25/2024 6:51 AM EST us Fernanda SYLVESTER LAB BLOOD ORDERABLES Final R esult [facility] [address] [place] [address], [place] [phone] * (ABNORMAL) Hemoglobin and hematocrit (02/24/2024 12:09 PM EST) Hemoglobin 8.8(L) 11.5 - 16.0 g/dL LAB HEMETOLOGY METHOD 02/24/2024 12:50 PM EST [facility] Hematocrit 29.4(L) 35.0 - 47.0 % LAB HEMETOLOGY METHOD 02/24/2024 12:50 PM EST [facility] Blood Venous blood specimen / Unknown Venipuncture / Unknown 02/24/2024 12:09 PM EST 02/24/2024 12:35 PM EST Sherie SYLVESTER LAB BLOOD ORDERABLES Final Resu lt [facility] [address] [place] [address], * Tissue exam (02/23/2024 12:08 PM EST) Final Diagnosis A. Sigmoid Colon, left hemicolectomy: [...] stage pT3N0, see synoptic. 2:53 PM EST [facility] Comment Given history of ACQUISITION ANALYST primary, immunohistochemical stains are performed on block A7 and are interpreted as follows: -CDX2, SATB2, CK20: Positive. -PAX8, WT1: Negative. -CK7: Positive. Overall, the pattern favors colonic primary over involvement by ACQUISITION ANALYST malignancy. As such, this case is staged as a primary colonic adenocarcinoma. Control stain appropriately. 5 2:53 PM EST [facility] Gross Description A. Large Intestine, Sigmoid [...] resection margin black. Gross photographs are taken. Addictions Therapist sections are submitted follows: 1, perpendicular colonic [...] No masses or lesions are appreciated. A sales training representative section of each is submitted in one cassette, two pieces. VINCE 5 2:53 PM EST [facility] Synoptic Checklist COLON AND RECTUM: [...] ?pN0 ?? Comment(s): ?As per report from OS, biomarkers previously done on diagnostic biopsy and are reported as MMR intact. 2:53 PM EST [facility] Disclaimer NOTE: The immunohistochemical tests and in situ hybridization tests were developed and their performance characteristics were determined by [facility] Histology Laboratory. They have not been cleared [...] and paraffin embedded. 5 2:53 PM EST [facility] Tissue Sigmoid colon structure / Unknown 02/23/2024 12:08 PM EST 02/23/2024 3:10 PM EST Tissue specimen (specimen) Sigmoid colon structure / Unknown 02/23/2024 12:26 PM EST 02/23/2024 3:10 PM EST Ralph Kimble MD LAB PATHOLOGY ORDERABLES Final Result [facility]) [facility] [address] [place] [address], * Peripheral IV (02/23/2024 8:48 AM EST) Narrative Erwin Hawkins CRNA - 02/23/2024 8:48 AM EST Erwin Hawkins CRNA ? 02/23/2024 ??8:48 AM Peripheral IV Inserted by: Erwin Hawkins CRNA Placement Needle size: 20 G Laterality: left Location: antecubital Site prep: alcohol Technique: anatomical landmarks Attempts: 1 us Emir Delgadillo MD ANESTHESIA ORDERABLES Final Re sult * TH AN ENDOTRACHEAL(NO CHARGE) (02/23/2024 8:46 AM EST) Narrative Erwin Hawkins CRNA - 02/23/2024 8:46 AM EST Erwin Hawkins CRNA ? 02/23/2024 ??8:48 AM General Information and Staff Patient location during procedure: OR Resident/ELECTROPHYSIOLOGY TECHNICIAN: Erwin Hawkins CRNA Performed: resident/ELECTROPHYSIOLOGY TECHNICIAN/CAA Performed by: Erwin Hawkins CRNA Authorized by: [...] Signed Date: 02/23/2024 08:28 ET Workstation ID: [id number] Transcribed By: Self Edit Transcribed Date: 02/23/2024 [...] Signed Date: 02/23/2024 08:28 ET Workstation ID: [id number] Transcribed By: Self Edit Transcribed Date: 02/23/2024 08:27 ET Zachary Jones MD [facility] FLUOROSCOPY PROCEDURES Final Result * ECG 12 lead - Procedural (No Charge) (02/23/2024 6:25 AM EST) Ventricular Rate ECG 85 BPM GEMUSE Atrial Rate 85 BPM GEMUSE P-R Interval 172 ms GEMUSE QRS Duration 84 ms GEMUSE Q-T Interval 404 ms GEMUSE QTc 480 ms GEMUSE P Wave [place] 75 degrees GEMUSE R [place] 57 degrees GEMUSE T [place] 44 degrees GEMUSE ECG Interpretation Normal sinus rhythm Nonspecific ST and T wave abnormality Prolonged QT Abnormal ECG No previous ECGs available Confirmed by Imelda INGRAM JAMES ([id number]) on 02/23/2024 9:33:47 PM GEMUSE 02/23/2024 6:25 AM EST 02/23/2024 9:33 PM EST Ralph Kimble MD ECG ORDERABLES Final Result GEMUSE * COLONOSCOPY Anesthesia - MAC; [facility] ENDOSCOPY (02/06/2024 8:38 AM EST) Anatomical Region [...] general surgery. Narrative 02/06/2024 8:38 AM EST [facility] GI Patient Name: Monica Workman Procedure Date: 02/06/2024 7:31 AM Date of : 1955 Age: 68 Gender: Female Note Status: Finalized Attending MD: Clive Kunz DO, [id number] Procedure Date No Time: 02/06/2024 Procedure: ? [...] physician, the nurse, the ? anesthesiologist, the physics professor and the combination technician ? in the pre-procedure area in [...] Procedure Code(s): ? --- Professional --- ? 32333, Colonoscopy, flexible; with removal of ? tumor(s), polyp(s), or other lesion(s) by snare ? technique ? 00573, Colonoscopy, flexible; with directed submucosal ? injection(s), any substance ? 82969, 59, Colonoscopy, flexible; with biopsy, single ? or multiple Diagnosis Code(s): ? --- Professional --- ? Z85.038, Personal history of other malignant neoplasm ? of large intestine ? K64.9, Unspecified hemorrhoids ? D12.7, Benign neoplasm of rectosigmoid junction ? C18.7, Malignant neoplasm of sigmoid colon ? K56.690, Other partial intestinal obstruction CPT copyright 2020 [employer]. All rights reserved. The codes documented in this report are preliminary and upon fermenting cellars supervisor review may be revised to meet current compliance requirements. CLIVE Kunz DO 02/06/2024 8:38:14 AM This report has been signed electronically.Clive Kunz DO Number of Addenda: 0 Note Initiated On: 02/06/2024 7:31 AM Scope Withdrawal Time: 0 hours 11 minutes 36 seconds Scope In: 8:13:32 AM Scope Out: 8:27:51 AM ? Endoscopy Department at [facility] - [address] [place] [address], ? [place] [address] Procedure Note Clive Kunz DO - 02/06/2024 [facility] GI Patient Name: Monica Workman Procedure Date: 02/06/2024 7:31 AM Date of : 1955 Age: 68 Gender: Female Note Status: Finalized Attending MD: Clive Kunz DO, [id number] Procedure Date No Time: 02/06/2024 Procedure: Colonoscopy [...] the physician, the nurse, the anesthesiologist, the physics professor and thetechnician in the pre-procedure area in [...] views. There was evidence of a prior css-in-saticfh-colonic anastomosis in the sigmoid colon. This was patentand was characterized by congestion. Procedure Code(s): --- Professional --- 68336, Colonoscopy, flexible; with removal of tumor(s), polyp(s), or other lesion(s) by snare technique 96711, Colonoscopy, flexible; with directedsubmucosal injection(s), any substance 38113, 59, Colonoscopy, flexible; with biopsy,single or multiple Diagnosis Code(s): --- Professional --- Z85.038, Personal history of other malignantneoplasm of large intestine K64.9, Unspecified hemorrhoids D12.7, Benign neoplasm of rectosigmoid junction C18.7, Malignant neoplasm of sigmoid colon K56.690, Other partial intestinal obstruction CPT copyright 2020 [employer]. All rights reserved. The codes documented in this report are preliminary and upon fermenting cellars supervisor reviewmay be revised to meet current compliance requirements. CLIVE Kunz DO 02/06/2024 8:38:14 AM This report has been signed electronically.Clive Kunz DO Number of Addenda: 0 Note Initiated On: 02/06/2024 7:31 AM Scope Withdrawal Time: 0 hours 11 minutes 36 seconds Scope In: 8:13:32 AM Scope Out: 8:27:51 AM Endoscopy Department at [facility] - [address] [place] [phone] IMPRESSION: - Hemorrhoids found on perianal exam. [...] pathology results. - F/U with general surgery. us Clive Kunz DO GI~PROCEDURE ORDERABLES Final Re sult * (ABNORMAL) Hemoglobin A1c (05/09/2015) Hemoglobin A1C 7.9(A) 4.0 - 6.0 % Blood Venous blood specimen / Unknown Result [facility] Provider LAB BLOOD ORDERABLES Cecilia l Result * HM Urine Albumin Creatinine Ratio (11/16/2014) Pathologist Critical [facility] hospital Urine Albumin Creatinine Ratio abstracted [facility] Provider HEALTH MAINTENANCE Final Result * (ABNORMAL) Lipid panel (11/16/2014) Pathologist [facility] LDL/HDL Ratio 7(A) 0 - 4 Triglycerides 380(A) 0 - 150 mg/dL Cholesterol 269(A) 0 - 200 mg/dL HDL 38(A) >=40 mg/dL LDL Cholesterol 155(A) 0 - 100 mg/dL Blood Venous blood specimen / Unknown [facility] Provider LAB BLOOD ORDERABLES Cecilia l Result from Last 3 Months or Most Recently Relevant to Health Maintenance Insurance [employer] Advance Directives Documents on File Type Date Recorded Patient Addictions Therapist Expl 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 Care Teams Size Mixer Relationship Specialty Start Date End Date Reyna Pak MD [address] [place] [address] PCP - General 10/03/23
--- OUTSIDE RECORDS SUMMARY | 2024-05-07 13:19 | XMS_ITS | Encounter Summary ---
Author Organization [facility] Address [address] [place] [address] Care Team Providers Care Lacquer Shader Name Role Phone Vinicius Mendoza MD Primary Care Provider Bhumi Lechuga, Pcp Primary Care Provider Reyna Uriarte MD Primary Care Provider Ezequiel borrero Encounter Details Date Type Department Care Team Description 07/22/2015 Parking Control Officer Report Medical Records [address] [place] [id number] Alejandro Mccord MD Social History Tobacco Use Types Packs/Day Years [...] on filedocumented in this encounter Care Teams Lacquer Shader Relationship Specialty Start Date End Date Vinicius Mendoza MD PCP - General Internal Medicine 02/24/15 07/14/16 Ankush, Pcp PCP - General Internal Medicine 07/15/16 10/02/23 Reyna Pak MD PCP - General Internal Medicine 10/03/23 documented as of this encounter
--- OUTSIDE RECORDS SUMMARY | 2024-05-07 13:19 | XMS_ITS | Encounter Summary ---
Author Organization [facility] and [facility] Address [address] [place] [phone] Care Team Providers Care Material Checker Name Role Phone Unavailable Primary Care Provider Unavailabl e Encounter Details Date Type Department Care Team ([facility] Contact Info) Description 11/08/2023 Scanned Document INTERFACE DEFAULT [address] [place] [address] System, Provider Not In Social History [...]
--- OUTSIDE RECORDS SUMMARY | 2024-05-07 13:19 | XMS_ITS | Encounter Summary ---
Author Organization [facility] and [facility] Address [address] [place] [phone] Care Team Providers Care Data Capture Specialist Name Role Phone Unavailable Primary Care Provider Unavailabl e Encounter Details Date Type Department Care Team ([facility] Contact Info) Description 02/16/2023 Scanned Document INTERFACE DEFAULT [address] [place] [address] System, Provider Not In Social History [...]
--- OUTSIDE RECORDS SUMMARY | 2024-05-07 13:19 | XMS_ITS | Encounter Summary ---
Author Organization [facility] Address [address] [place] [phone] Care Team Providers Care Security Supervisor Name Role Phone Unavailable Primary Care Provider Unavailabl e Encounter Details Date Type Department Care Team ([facility] st Contact Info) Description 11/10/2023 Scanned Document INTERFACE DEFAULT [address] [place] [address] System, Provider Not In Social History [...]
--- OUTSIDE RECORDS SUMMARY | 2024-05-07 13:19 | XMS_ITS | Encounter Summary ---
Author Organization [facility] Address [address] [place] [phone] Care Team Providers Care Airbrush Painter Name Role Phone Unavailable Primary Care Provider Unavailabl e Encounter Details Date Type Department Care Team ([facility] st Contact Info) Description 10/04/2023 Scanned Document INTERFACE DEFAULT [address] [place] [address] System, Provider Not In Social History [...]
--- OUTSIDE RECORDS SUMMARY | 2024-05-07 13:19 | XMS_ITS | Encounter Summary ---
Author Organization [facility] and [facility] Address [address] [place] [phone] Care Team Providers Care Truck Loader Overhead Crane Name Role Phone Unavailable Primary Care Provider Unavailabl e Encounter Details Date Type Department Care Team ([facility] Contact Info) Description 08/15/2023 Scanned Document INTERFACE DEFAULT [address] [place] [address] System, Provider Not In Social History [...]
--- OUTSIDE RECORDS SUMMARY | 2024-05-07 13:19 | XMS_ITS | Encounter Summary ---
Author Organization [facility] Address [address] [place] [phone] Care Team Providers Care Cable Inspector Name Role Phone Unavailable Primary Care Provider Unavailabl e Encounter Details Date Type Department Care Team ([facility] Contact Info) Description 12/07/2023 Scanned Document [facility] Health Information Management [address] [place] [id number] External, Provider Social History Tobacco Use Types [...]
--- OUTSIDE RECORDS SUMMARY | 2024-05-07 13:19 | XMS_ITS | Encounter Summary ---
Author Organization [facility] Address [address] [place] [address] Care Team Providers Care Printing Manager Name Role Phone Vinicius Mendoza MD Primary Care Provider Bhumi Lechuga, Pcp Primary Care Provider Reyna Uriarte MD Primary Care Provider Ezequiel ilable Reason for Visit * Reason Comments Encounter Details Date Type Department Care Team Description 05/13/2015 [place] [facility] [address] [address] Michael Cervantes PA-C Social History Tobacco Use Types Packs/Day Years [...] on filedocumented in this encounter Care Teams Printing Manager Relationship Specialty Start Date End Date Vinicius Mendoza MD PCP - General Internal Medicine 02/24/15 07/14/16 Ankush, Pcp PCP - General Internal Medicine 07/15/16 10/02/23 Reyna Pak MD PCP - General Internal Medicine 10/03/23 documented as of this encounter
--- OUTSIDE RECORDS SUMMARY | 2024-05-07 13:19 | XMS_ITS | Encounter Summary ---
Author Organization [facility] Address [address] [place] [address] Care Team Providers Care Family Development Specialist Name Role Phone Vinicius Mendoza MD Primary Care Provider Bhumi Lechuga, Pcp Primary Care Provider Reyna Uriarte MD Primary Care Provider Ezequiel ilharry Reason for Visit * Reason Onset Date Comments Faxed Order 08/26/2015 Encounter Details Date Type Department Care Team Description 08/26/2015 Telephone Adult Medicine [address] [address] Vinicius Mendoza MD Faxed Order Social History Tobacco Use Types Packs/Day Years Used Date Smoking Tobacco: Former Cigarettes 1 10 Smokeless Tobacco: Never Comments:2002 Alcohol Use Standard Drinks/Week Comments No 0 (1 standard drink = 0.6 oz pur e alcohol) Sex Assigned at Date Recorded Not on file documented as of this encounter Miscellaneous Notes * Telephone Encounter - Aixa Barahona - 08/26/2015 10:18 AM EDT Faxed orders documented in this encounter Plan of Treatment Not on file documented as of this encounter Visit Diagnoses Not on filedocumented in this encounter Care Teams Family Development Specialist Relationship Specialty Start Date End Date iVnicius Mendoza MD PCP - General Internal Medicine 02/24/15 07/14/16 Ankush, Pcp PCP - General Internal Medicine 07/15/16 10/02/23 Reyna Pak MD PCP - General Internal Medicine 10/03/23 documented as of this encounter
--- OUTSIDE RECORDS SUMMARY | 2024-05-07 13:19 | XMS_ITS | Clinical Summary ---
Author Organization [facility] Address [address] [place] [address] Care Team Providers Care Demurrage Worker Name Role Phone Reyna Pak MD Primary Care Provider [phone] Allergies No known active allergies Medications amLODIPine [...] complete this topic Insurance [address] [id number] [facility] Advance Directives Documents on File Type Date Recorded Patient Bookkeeping Machine Mechanic Expl anation Health Care Proxy 04/20/2019 2:27 PM * Full Code (Latest Code Status on File) Date Activated Date Inactivated Comments 04/20/2019 9:36 AM 04/20/2019 4:50 PM Care Teams Demurrage Worker Relationship Specialty [place] [address] [place] [id number] PCP - General Internal Medicine 09/30/21
--- OUTSIDE RECORDS SUMMARY | 2024-05-07 13:19 | XMS_ITS | Referral Summary ---
Author Organization [facility] Address [address] [place] [address] Care Team Providers Care Home Restoration Service Supervisor Name Role Phone Reyna Pak MD Primary Care Provider [phone] Allergies No known active allergies Medications amLODIPine [...] Plan of Treatment Not on file Insurance [facility] Advance Directives Documents on File Type Date Recorded Patient Cream Cheese Maker Expl anation Health Care Proxy 04/20/2019 2:27 PM * Full Code (Latest Code Status on File) Date Activated Date Inactivated Comments 04/20/2019 9:36 AM 04/20/2019 4:50 PM Care Teams Home Restoration Service Supervisor Relationship Specialty Start Date End Date Reyna Pak MD [address] [place] [address] PCP - General Internal Medicine 09/30/21
--- OUTSIDE RECORDS SUMMARY | 2024-05-07 13:19 | XMS_ITS | Clinical Summary ---
Author Organization [address] Address [address] [place] [phone] Care Team Providers Care Medicare Sales Executive Name Role Phone Unavailable Primary Care Provider [...]
--- OUTSIDE RECORDS SUMMARY | 2024-05-07 13:19 | XMS_ITS | Encounter Summary ---
Author Organization [facility] Address [address] [place] [address] Care Team Providers Care Fruit Press Operator Name Role Phone Name, Daniel MACE Primary Care Provider Vinicius Wellington MD Primary Care Provider [facility], Pcp Primary Care Provider Reyna Uriarte MD Primary [facility] Encounter Details Date Type Department Care Team Description 01/30/2013 Orders Only Adult Medicine [address] [address] Name, MD Daniel DM type 2, uncontrolled, with renal complications (Primary Dx) Social History Tobacco Use Types Packs/Day Years Used Date Smoking Tobacco: Former Cigarettes 1 10 Smokeless Tobacco: Never Comments:2002 Alcohol Use Standard Drinks/Week Comments No 0 (1 standard drink = 0.6 oz pur e alcohol) Sex Assigned at Date Recorded Not on file documented as of this encounter Plan of Treatment Not on file documented as of this encounter Results * (ABNORMAL) LIPID PROFILE (03/03/2013 8:33 AM EST) Cholesterol 293(H) 0 - 200 mg/dL 03/03/2013 11:57 AM EST [facility] TRIGLYCERIDES 453(H) 0 - 150 mg/dL 03/03/2013 11:53 AM EST [facility] HDL CHOLESTEROL 39(L) >40 mg/dL 4 11:57 AM EST [facility] LDL CALCULATED 164(H) 0 - 100 mg/dL 03/03/2013 11:57 AM EST [facility] TC-HDLC RATIO 8(H) 0.0 - 4.4 mg/dL 03/03/2013 11:57 AM [facility] 03/03/2013 8:33 AM EST 03/03/2013 8:33 AM EST Daniel Alfaro MD LAB Performing Organization Address [facility] Co de Phone Number [address] * (ABNORMAL) MICROALBUMIN/CREATININE, URINE (03/03/2013 8:33 AM EST) CREAT,RANDOM URINE 109 mg/dL 03/03/2013 1:06 PM [facility] MICROALBUMIN, RANDOM 32.3(H) 0.0 - 29.0 mg/L 03/03/2013 1:07 PM [facility] MICROALB/CRE RATIO RANDOM 30(H) <30.0 mg/g 03/03/2013 1:07 PM [facility] 03/03/2013 8:33 AM EST 03/03/2013 8:33 AM EST Daniel Alfaro MD LAB Performing Organization Address [facility] de Phone Number [address] * (ABNORMAL) BASIC METABOLIC PANEL (03/03/2013 8:33 AM EST) GLUCOSE 110(H) 70 - 100 mg/dL 03/03/2013 11:56 AM [facility] Comment: Reference range applicable to fasting specimens only Based on recommendations from the ADA and AACE, the fasting glucose reference range has been changed to 70-100 mg/dL. ??This change is effective June 23, 2009 BUN 14 5 - 25 mg/dL 03/03/2013 11:51 AM [facility] CREAT 0.7 0.7 - 1.5 mg/dL 03/03/2013 11:54 AM [facility] GFR > 60 >60 03/03/2013 11:54 AM EST [facility] Comment: If patient is -Chinese, multiply result by 1.21 Chronic Kidney Disease: < 60 ml/min/1.73 square meters Kidney Failure: < 15 ml/min/1.73 square meters Sodium 144 133 - 145 mEq/L 03/03/2013 11:58 AM [facility] Potassium 3.8 3.5 - 5.2 mEq/L 03/03/2013 11:58 AM [facility] Chloride 104 96 - 108 mEq/L 03/03/2013 11:58 AM [facility] CO2 28.9 21.0 - 32.0 mEq/L 03/03/2013 11:53 AM [facility] CALCIUM 10.0 8.5 - 10.5 mg/dL 03/03/2013 11:52 AM [facility] 03/03/2013 8:33 AM EST 03/03/2013 8:33 AM EST Daniel Alfaro MD LAB Performing Organization Address [facility] de Phone Number [address] * (ABNORMAL) HEMOGLOBIN A1C (03/03/2013 8:33 AM EST) Glycosylated Hemoglobin A1C 7.7(H) 4.0 - 6.0 % 03/03/2013 10:43 AM [facility] Comment: HbA1C VALUES MAY NOT ACCURATELY REFLECT MEAN BLOOD GLUCOSE IN PATIENTS WITH HEMOGLOBIN VARIANTS SUCH HbF, HbS. 03/03/2013 8:33 AM EST 03/03/2013 8:33 AM EST Daniel Alfaro MD LAB Performing Organization Address [facility] de Phone Number [address] documented in this encounter Visit Diagnoses Diagnosis DM type 2, uncontrolled, with renal complications- Primary Type II or unspecified type diabetes mellitus with renal manifestations, uncontrolled documented in this encounter Care Teams Fruit Press Operator Relationship Specialty Start Date End Date Name, MD Daniel PCP - General 07/12/08 02/23/15 Laina Mendoza-MD Tk PCP - General Internal Medicine 02/24/15 07/14/16 Hossein Lechuga PCP - General Internal Medicine 07/15/16 10/02/23 Reyna Pak MD PCP - General Internal Medicine 10/03/23 documented as of this encounter
--- OUTSIDE RECORDS SUMMARY | 2024-05-07 13:19 | XMS_ITS | Encounter Summary ---
Author Organization [facility] Address [address] [place] [phone] Care Team Providers Care Barrel Driller Name Role Phone Unavailable Primary Care Provider Unavailabl e Encounter Details Date Type Department Care Team ([facility] st Contact Info) Description 05/31/2023 Scanned Document INTERFACE DEFAULT [address] [place] [phone] System, Provider Not In Social History Tobacco [...]
--- OUTSIDE RECORDS SUMMARY | 2024-05-07 13:19 | XMS_ITS | Encounter Summary ---
Author Organization [facility] Address [address] [place] [phone] Care Team Providers Care Optical Lab Technician Name Role Phone Unavailable Primary Care Provider Unavailabl e Encounter Details Date Type Department Care Team ([facility] Contact Info) Description 10/17/2023 Scanned Document INTERFACE DEFAULT [address] [place] [id number] System, Provider Not In Social History [...]
--- OUTSIDE RECORDS SUMMARY | 2024-05-07 13:19 | XMS_ITS | Clinical Summary ---
Author Organization [facility] Address [address] [place] [address] Care Team Providers Care Retail Operations Manager Name Role Phone Reyna Pak MD Primary Care Provider Unava ilable Allergies Active Allergy Reactions Severity Noted Date Comments Biguanides 10/01/2008 Diarrhea and nausea Simvastatin 06/09/2009 Muscle, joint pain Medications Medication Sig Dispensed Refills Start Date End Date Status Insulin Syringe 30G X 1/2 1 ML MISC For insulin injection 4 times daily 120 Each 3 08/04/2011 Active B-D ULTRAFINE III SHORT PEN 31G X 8 MM MISC USE DIRECTED 4 TIMES A DAY 120 Each 3 08/09/2013 Active FREESTYLE LANCETS MiscIndications:DM type 2, uncontrolled, with renal complications TEST BLOOD SUGARS 4 TIMES DIALY 100 Each 5 05/07/2014 Active ketoconazole (NIZORAL) 2 % shampoo Apply daily as needed 120 mL 1 05/14/2014 Active Blood Glucose Monitoring Suppl (FREESTYLE FREEDOM LITE) W/DEVICE Kit USE TO TEST 4 TIMES A DAY 1 Kit 0 05/21/2014 Active HUMALOG 100 UNIT/ML injection INJECT 20 UNITS 3 TIMES A DAY BEFORE MEALS 20 mL 5 05/20/2015 Active warfarin (COUMADIN) 5 MG tablet Take 5 mg by mouth See Admin Instructions. May cause heavy bleeding. Take at same time every day. Do not change dietary habits. 0 Active fenofibrate (TRICOR) 54 MG tablet Take 54 mg by mouth daily. 0 Active atorvastatin (LIPITOR) 40 MG tablet Take 40 mg by mouth daily. 0 Active lisinopril (PRINIVIL,ZESTRIL) 2.5 MG tablet Take 1 Tab by mouth daily. 30 Tab 5 07/18/2015 Active Psyllium (METAMUCIL SMOOTH TEXTURE) 28.3 % Powder Take 1 Units by mouth daily as needed (constipation). 1 tablespoon in 8 oz of water 1 Bottle 0 07/22/2015 Active LANTUS 100 UNIT/ML injection INJECT 60 UNITS DAILY AT BEDTIME 20 mL 5 11/24/2015 Active Insulin Syringe-Needle U-100 31G X 16 1 ML Misc USE DIRECTED 5 TIMES DAILY 100 Each 5 04/15/2016 Active Insulin Syringe-Needle U-100 31G X 16 1 ML Misc USE DIRECTED 5 TIMES DAILY 100 Each 0 04/21/2016 Active FREESTYLE LITE strip USE TO TEST BLOOD SUGAR 4 TIMES DAILY 100 Strip 3 05/05/2016 Active docusate sodium (COLACE) 100 MG capsule Take 1 Cap by mouth daily. 60 Cap 0 07/01/2016 Active Active Problems Patient Care Coordination No te Formatting of this note is d ifferent from the original. Checking Your Blood Sugars Please check your blood sugars every day. Please check your sugars at the following times of day: before breakfast and after dinner Your Blood Sugar Goals Pre Meal: 90-130 2 hours after meals: 110-180 Use the Results ?? Bring your glucometer to every appointment ?? Write your fingerstick blood sugars down on a log sheet or record book. Bring them to your appointment ?? Look for patterns in the numbers. The results help you and your provider make decisions about your diabetes treatment plan. Your Results and your Goals Your Result / Date of Completion Your Goal / How Often to Assess Component Value Date HGBA1C 8.0 11/16/2014 Less than 7% --- 2-4 times per year BP Readings from Last 1 Encounters: 05/09/15 122/72 Less than 140/90 --- once per year Component Value Date MALBCR 56.4 11/16/2014 Less than 30 --- once per year Component Value Date LDL 155 11/16/2014 Less than 100 --- once per year Wt Readings from Last 1 Encounters: 05/09/15 139 lb 8 oz (63.277 kg) Your goal weight by next visit: 135 --- reassess 2-4 times a year Health Maintenance Due Topic Date Due ? ? Pneumovax For High Risk Patients (1) 06/28/1973 ? ? Hepatitis C Screening 08/28/2006 ? ? Diabetes: Annual Foot Exam 12/16/2011 ? ? Diabetes: Annual Care Plan 03/09/2012 ? ? Diabetes: Annual Eye Exam 02/28/2014 ? ? Diabetes: Blood Sugar Control Test (Hgba1c) 03/19/2015 Your Action Plan Check blood glucose as directed and write down all results. Contact me if you experience any barriers to care such as inability to purchase your medication, difficulty getting to your appointments or difficulty understanding your care plan When to Call your Healthcare Provider If your blood sugar falls below 70 and you do not know why or you become unconscious If you are sick and unable to take liquids because or nausea or vomiting If you have a fever over 101 If your blood sugar is 300 or higher on greater than 3 separate occasions during the same week If you are just unsure what to do Educational Resources [place] Diabetes Association (www.diabetes.org) Centers for Disease Control and Prevention (www.cdc.gov/diabetes) This care plan was created in collaboration with Monica Workman on 05/09/2015 Problem Noted Date 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 DM type 2, uncontrolled, with renal comp lications 09/07/2010 Last Assessment & Plan: Pt reports compliance with insulins but blood sugars above goal. She is inconsistent with testing. 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 Vitamin D deficiency 08/31/2010 Non-compliance with treatment 10/02/2008 Skin moles 10/01/2008 Overview: IMO update HTN (hypertension) 07/29/2008 High cholesterol 07/29/2008 History of breast cancer 07/29/2008 Overview: Ductal carcinoma in situ, partial left mastectomy; axillary lymph node dissection on the left in 2002. The patient had radiotherapy but she did not have chemotherapy. She tells me that she recently had a biopsy on the left breast that was benign Resolved Problems Problem Noted Date Resolved Date Diabetes mellitus type II 07/29/20082010 Overview: IMO update Immunizations Name Administration Dates Next Due TD (STATE SUPPLIED FOR ADULTS AND CHILDREN) 10/08 Tdap 01/10/2012 Family History Medical History Relation Name Comments Diabetes Brother 3 Cholesterol Level Brother 4 Hypertension Brother 5 Cholesterol Level Father Diabetes Father Hypertension Father Cataract Mother Cholesterol Level Mother Diabetes Mother Hypertension Mother Diabetes Sister 3 Cholesterol Level Sister 4 Hypertension Sister 5 Blindness Negative Hx CA Breast Negative Hx Glaucoma Negative Hx Macular Degeneration Negative Hx Strabismus Negative Hx Relation Name Status Comments Brother 1 Alive Brother 2 Alive Brother 3 Brother 4 Brother 5 Daughter Alive Father Alive dm, htn, high c holesterol Mother Alive dm, HTN Sister 1 Alive dm Sister 2 Alive Sister 3 Sister 4 Sister 5 Son 1 Alive Son 2 Alive Son 3 Alive Son 4 Alive Son 5 Alive Social History Tobacco Use Types Packs/Day Years Used Date Smoking Tobacco: Former Cigarettes 1 10 Smokeless Tobacco: Never Comments:2002 Alcohol Use Standard Drinks/Week Comments No 0 (1 standard drink = 0.6 oz pur e alcohol) Sex Assigned at Date Recorded Not on file Last Filed Vital Signs Vital Sign Reading Time Taken Comments Blood Pressure 148/72 07/18/2015 1:56 PM EDT Pulse 74 07/18/2015 1:56 PM EDT Temperature 37 ??C (98.6 ??F) 07/18/2015 1:56 PM EDT Respiratory Rate 14 07/18/2015 1:56 PM EDT Oxygen Saturation 97% 02/10/2015 9:08 AM EST Inhaled Oxygen Concentration - - Weight 62.9 kg (138 lb 9.6 oz) 07/18/2015 1:56 P M EDT Height 152.4 cm (5') 07/18/2015 1:56 PM EDT Body Mass Index 27.07 07/18/2015 1:56 PM EDT Plan of Treatment Health Maintenance Due Date Last Done Comments Covid-19 Vaccine (#1) 1955 HEPATITIS C SCREENING 06/28/1973 TOBACCO CHECK/ADVISE 06/28/1973 SHINGLES VACCINE (1 of 2) 06/28/2005 DIABETES: ANNUAL FOOT EXAM 12/16/2011 12/15/2010, DIABETES: BLOOD SUGAR CONTRO L TEST (HGBA1C) 08/08/2015 05/09/2015, 11/16/2014, 10/18/2013, Additional history exists DIABETES/HEART DISEASE: LUIS AL CHOLESTEROL (LDL) 11/17/2015 11/16/2014, 05/25/2014, 09/11/2013, Additional history exists DIABETES: ANNUAL URINE PROTE IN TEST (MICROALBUMIN) 11/17/2015 11/16/2014, 09/11/2013, 03/03/2013, Additional history exists MAMMOGRAM 02/23/2016 02/22/2015, 09/2012, 07/10/2011 DIABETES: ANNUAL EYE EXAM 05/15/2016 05/16/2015, COLON CANCER SCREENING 02/10/2018 02/10/2015, 2009 BONE DENSITY SCREENING 06/28/2020 PNEUMOCOCCAL VACCINE (1 - PCV) 06/28/2020 DTAP/TDAP/TD (2 - Td or Tdap) 01/09/2022 01/10/2012, 10/22/2005 INFLUENZA (#1) 2023 BMI CHECK/ADVISE 02/08/2024 05/09/2015, , 11/15/2014, Additional history exists DEPRESSION SCREENING/FOLLOWUP 02/08/2024 Care Teams Retail Operations Manager Relationship Specialty Start Date End Date Reyna Pak MD PCP - General Internal Medicine 10/03/23
--- OUTSIDE RECORDS SUMMARY | 2024-05-07 13:19 | XMS_ITS | Clinical Summary ---
Author Organization [facility] Address [address] [place] [id number] Care Team Providers Care Boat Canvas Maker And Installer Name Role Phone Karrie Aiken MD Primary Care Provider [phone] Allergies Active Allergy Reactions Criticality Noted Date [...] MEDICAID [place] [facility] MEDICARE Care Teams Boat Canvas Maker And Installer Relationship Specialty Start Date End Date Karrie Aiken MD [address] [place], [place] PCP - General 02/18/20
--- OUTSIDE RECORDS SUMMARY | 2024-05-07 13:19 | XMS_ITS | Encounter Summary ---
Author Organization [facility] Address [address] [place] [address] Care Team Providers Care Litigation Legal Secretary Name Role Phone Vinicius Mendoza MD Primary Care Provider Bhumi Lechuga, Pcp Primary Care Provider Reyna Uriarte MD Primary Care Provider Ezequiel ilharry Reason for Visit * Reason Onset Date Comments Faxed Order 07/31/2015 Encounter Details Date Type Department Care Team Description 07/31/2015 Telephone Adult Medicine [address] [address] Vinicius Mendoza MD Faxed Order Social History Tobacco Use Types Packs/Day Years Used Date Smoking Tobacco: Former Cigarettes 1 10 Smokeless Tobacco: Never Comments:2002 Alcohol Use Standard Drinks/Week Comments No 0 (1 standard drink = 0.6 oz pur e alcohol) Sex Assigned at Date Recorded Not on file documented as of this encounter Miscellaneous Notes * Telephone Encounter - Sara Waldron M.A. - 07/31/2015 1:50 PM EDT Stephanie ERVIN is requesting Dr. Mendoza's signature documented in this encounter Plan of Treatment Not on file documented as of this encounter Visit Diagnoses Not on filedocumented in this encounter Care Teams Litigation Legal Secretary Relationship Specialty Start Date End Date Vinicius Mendoza MD PCP - General Internal Medicine 02/24/15 07/14/16 [facility], Pcp PCP - General Internal Medicine 07/15/16 10/02/23 Reyna Pak MD PCP - General Internal Medicine 10/03/23 documented as of this encounter
--- OUTSIDE RECORDS SUMMARY | 2024-05-07 13:19 | XMS_ITS | Encounter Summary ---
Author Organization [facility] Address [address] [place] [address] Care Team Providers Care Oracle Application Architect Name Role Phone Vinicius Mendoza MD Primary Care Provider Bhumi lomas [facility], Pcp Primary Care Provider Reyna Uriarte MD Primary Care Provider Ezequiel ilharry Reason for Visit * Reason Comments E-prescribe Rx Request Encounter Details Date Type Department Care Team Description 06/17/2015 Refill OBGYN - [place] [address] [place] [address] Name, MD Daniel E-prescribe Rx Request Social History Tobacco Use Types Packs/Day Years Used Date Smoking Tobacco: Former Cigarettes 1 10 Smokeless Tobacco: Never Comments:2002 Alcohol Use Standard Drinks/Week Comments No 0 (1 standard drink = 0.6 oz pur e alcohol) Sex Assigned at Date Recorded Not on file documented as of this encounter Miscellaneous Notes * Telephone Encounter - Blanca Zuleta L.P.N. - 06/17/2015 9:54 AM EDT Component Value Date NA 147 05/09/2015 K 3.8 05/09/2015 CO2 27.7 05/09/2015 CL 105 05/09/2015 BUN 12 05/09/2015 CREAT 0.7 05/09/2015 GLU 116 05/09/2015 CA 9.6 05/09/2015 GFR > 60 05/09/2015 * Telephone Encounter - Lesley Castillo - 06/17/2015 9:44 AM EDT Patient would like script to be: E-PRESCRIBED/FAXED TO PHARMACY WHEN WAS THE PATIENT'S LAST APPOINTMENT IN ADULT MEDICINE? 05-09-2015 WHEN WAS THE LAST TIME THE PATIENT SAW THEIR PCP? 09-20-2013 Does patient have an upcoming appointment? Yes 07-29-2015 pcp change (THE MEDICATION REQUESTED IS ON THE MED LIST ABOVE) All of the medications requested were on the CURRENT MEDS list Did you check the Pharmacy information above?: YES Patient wants: 30 -day supply Is this a mail order prescription request ? NO Patients current insurance carrier is: Payor: [employer] / Plan: [facility] TYPE II $10/$18 / Product Type: HMO [id number] documented in this encounter Plan of Treatment Not on file documented as of this encounter Visit Diagnoses Not on filedocumented in this encounter Care Teams Oracle Application Architect Relationship Specialty Start Date End Date Vinicius Mendoza MD PCP - General Internal Medicine 02/24/15 07/14/16 Hossein Lechuga PCP - General Internal Medicine 07/15/16 10/02/23 Reyna Pak MD PCP - General Internal Medicine 10/03/23 documented as of this encounter
--- OUTSIDE RECORDS SUMMARY | 2024-05-07 13:19 | XMS_ITS | Encounter Summary ---
Author Organization [facility] and [facility] Address [address] [place] [phone] Care Team Providers Care Content Strategy Lead Name Role Phone Unavailable Primary Care Provider Unavailabl e Encounter Details Date Type Department Care Team ([facility] st Contact Info) Description 03/29/2018 Scanned Document INTERFACE DEFAULT [address] [place] [phone] System, Provider Not In Social History Tobacco [...]
--- OUTSIDE RECORDS SUMMARY | 2024-05-07 13:19 | XMS_ITS | Encounter Summary ---
Author Organization Former[facility] Address [address] [place] [address] Care Team Providers Care Safety Deposit Clerk Name Role Phone Vinicius Mendoza MD Primary Care Provider Bhumi Lechuga, Pcp Primary Care Provider Reyna Uriarte MD Primary Care Provider Ezequiel borrero Encounter Details Date Type Department Care Team Description 11/05/2015 Release of Information [facility] [address] [place] [address] Abstract, Provider Social History Tobacco Use Types Packs/Day [...] on filedocumented in this encounter Care Teams Safety Deposit Clerk Relationship Specialty Start Date End Date Vinicius Mendoza MD PCP - General Internal Medicine 02/24/15 07/14/16 Ankush, Pcp PCP - General Internal Medicine 07/15/16 10/02/23 Reyna Pak MD PCP - General Internal Medicine 10/03/23 documented as of this encounter
--- OUTSIDE RECORDS SUMMARY | 2024-05-07 13:19 | XMS_ITS | Encounter Summary ---
Author Organization [facility] and [facility] Address [address] [place] [address] Care Team Providers Care Investigation Officer Name Role Phone Unavailable Primary Care Provider Unavailabl e Encounter Details Date Type Department Care Team ([facility] Contact Info) Description 04/11/2023 Scanned Document INTERFACE DEFAULT [address] [place] [address] System, Provider Not In Social History [...]
--- OUTSIDE RECORDS SUMMARY | 2024-05-07 13:19 | XMS_ITS | Encounter Summary ---
Author Organization [facility] Address [address] [place] [address] Care Team Providers Care Retread Technician Name Role Phone Name, Daniel MACE Primary Care Provider Vinicius Wellington MD Primary Care Provider [facility], Pcp Primary Care Provider Reyna Uriarte MD Primary Care Provider [facility] Reason for Visit * Reason Onset Date Comments Nuclear Stress Testing 05/29/2012 Encounter Details Date Type Department Care Team Description 05/29/2012 Telephone Adult Medicine [address] [address] Name, MD Daniel Nuclear Stress Testing Social History Tobacco Use Types Packs/Day Years Used Date Smoking Tobacco: Former Cigarettes 1 10 Smokeless Tobacco: Never Comments:2002 Alcohol Use Standard Drinks/Week Comments No 0 (1 standard drink = 0.6 oz pur e alcohol) Sex Assigned at Date Recorded Not on file documented as of this encounter Miscellaneous Notes * Telephone Encounter - Daniel Alfaro MD - 05/29/2012 2:59 PM EDT I will send her a letter * Telephone Encounter - Sarahi Rico - 05/29/2012 2:07 PM EDT You requested a nuclear test(insurance auth [id number] valid until 07-18) for this patient We were unable to reach this patient by phone unable to leave a message A letter was mailed on 4-15 With no response At this point we are removing the order from our report documented in this encounter Plan of Treatment Not on file documented as of this encounter Visit Diagnoses Not on filedocumented in this encounter Care Teams Retread Technician Relationship Specialty Start Date End Date Name, MD Daniel PCP - General 07/12/08 02/23/15 Vinicius Mendoza MD PCP - General Internal Medicine 02/24/15 07/14/16 [facility] Pcp PCP - General Internal Medicine 07/15/16 10/02/23 Reyna Pak MD PCP - General Internal Medicine 10/03/23 documented as of this encounter
[2024-05-09] VITALS (13 sets, daily range): BP systolic 121–197; BP diastolic 58–75; PULSE 76–94; RESP 12–18; TEMP 36.2–36.8; O2SAT 97–100; BMI 24.4
--- NOTE | ~2024-05-09 | CT_ITS ---
PROCEDURES: 1. Limited preprocedure CT of the pelvis. Permanent images saved in PACS. 2. 11 g bone marrow core biopsy of the left posterior iliac spine bone lesion MEDICATIONS: -Versed Fentanyl and lidocaine 1% -Antibiotics: None -For additional details, please see nursing flowsheet. COMPLICATIONS: None ESTIMATED BLOOD LOSS: < 5 ml CONTRAST: None SPECIMENS: 11 g core placed in formalin. MODERATE SEDATION TIME: 30 min PROCEDURE NOTE: The procedure, risks, benefits, and alternatives were carefully explained to the patient and written informed consent was obtained. The patient was placed prone on the CT table. A timeout was performed. A limited CT of the pelvis was performed to localize left iliac bone lesion and choose appropriate needle entry and trajectory. The patient was prepped and draped in usual sterile fashion. The skin, subcutaneous tissues, and periosteum were anesthetized with lidocaine. Under CT guidance, an 11-gauge bone marrow biopsy needle was advanced into the posterior iliac spine to region of hypermetabolic activity seen on CT PET. 2 11-gauge core biopsy specimens were obtained and placed in formalin. The needle was removed. A dry dressing was applied and secured with Tegaderm. There were no immediate complications. The patient was stable after the procedure and was transferred to the post anesthesia care unit. The procedure was done under moderate sedation with a dedicated nurse for monitoring of vital signs. CT/CT biopsy bone deep Impression: CT-guided biopsy of bone lesion from left iliac bone Electronically signed by: Ike Grimm MD 05/09/2024 02:19 PM EDT
[2024-05-09 11:55] LABS: MANUAL DIFF FLAG NO
[2024-05-09 11:57] LABS: Basophils Absolute Auto 0.1 X10*3/uL (0.0-0.2); Eosinophils Absolute Auto 0.1 X10*3/uL (0.0-0.4); Eosinophils Percent Auto 1.8 % (0-4); Hematocrit 40.8 % (37.0-47.0); Hemoglobin 12.5 g/dl (12.0-16.0); Imm Gran Abs Auto 0.05 X10*3/uL (0.00-0.03); Imm Gran Pct Auto 0.7 % (0.0-0.4); Lymphocytes Absolute Auto 1.7 X10*3/uL (1.2-4.9); Lymphocytes Percent Auto 23.5 % (20-40); Mean Corpuscular HGB Conc 30.6 g/dl (31.0-35.0); Mean Corpuscular Hemoglobin 24.4 pg (27.0-33.0); Mean Corpuscular Volume 79.7 fL (80.0-98.0); Mean Platelet Volume 10.2 fL (9.4-12.3); Monocytes Absolute Auto 0.4 X10*3/uL (0.1-1.2); Monocytes Percent Auto 5.7 % (2-11); Neutrophils Absolute Auto 4.8 x10*3/uL (2.0-8.3); Neutrophils Percent Auto 67.3 % (45-73); Platelet Count 241 X10*3/uL (160-400); Red Blood Count 5.12 X10*6/uL (4.20-5.50); Red Cell Distribution Width 16.7 % (11.0-16.0); White Blood Count 7.1 X10*3/uL (4.8-10.8)
[2024-05-09 12:02] LABS: INTERNATIONAL NORM RATIO 0.9 (0.9-1.1); Prothrombin Time 10.9 SEC (10.9-12.4)
[2024-05-09 12:15] LABS: Anion Gap 11 (12-20); Blood Urea Nitrogen 13 mg/dL (9-16); Calcium 10.1 mg/dL (8.4-10.2); Carbon Dioxide 26 mmol/L (22-29); Chloride 112 mmol/L (96-108); Creatinine Clr Calc Pharmacy 59.8; Estimated Glomerular Filt Rate > 60; Glucose Random 208 mg/dL (60-115); Potassium 4.2 mmol/L (3.3-5.1); Sodium 145 mmol/L (135-145)
[2024-05-09 12:25] LABS: Glucose, Whole Blood 176 mg/dL (60-115)
[2024-05-09] MEDS: fentaNYL citrate/PF 100 MCG/2 ML VIAL 50 MCG IVPUSH ×2 (13:30→13:40)
[2024-05-09] MEDS: Midazolam HCl 2 MG/2 ML VIAL 1 MG IVPUSH ×2 (13:33→13:53)
[2024-05-09] MEDS: Lidocaine HCl 1 % MPF 30 ML VIAL 10 ML SUBCUT (14:23)
== END 2024-05-09 15:22 | disposition home or self-care (01) ==
PROVIDERS: Pathology Cytopathology; Radiology Diagnostic Radiology; Student in an Organized Health Care Education/Training Program; PCP Internal Medicine; Visit Provider Internal Medicine
DX: C79.51 Secondary malignant neoplasm of bone (principal); C50.919 Malignant neoplasm of unspecified site of unspecified female breast; Z90.13 Acquired absence of bilateral breasts and nipples; Z85.038 Personal history of other malignant neoplasm of large intestine; Z90.49 Acquired absence of other specified parts of digestive tract; Z92.21 Personal history of antineoplastic chemotherapy; Z92.3 Personal history of irradiation; I10 Essential (primary) hypertension; E11.9 Type 2 diabetes mellitus without complications; E78.2 Mixed hyperlipidemia; D64.9 Anemia, unspecified; Z86.73 Personal history of transient ischemic attack (TIA), and cerebral infarction without residual deficits; Z79.01 Long term (current) use of anticoagulants; Z79.82 Long term (current) use of aspirin; Z79.4 Long term (current) use of insulin; Z79.899 Other long term (current) drug therapy; Z88.8 Allergy status to other drugs, medicaments and biological substances; Z87.891 Personal history of nicotine dependence; R42 Dizziness and giddiness; R25.2 Cramp and spasm
CPT/HCPCS: 20225; 36415; 77012; 80048; 82947; 85025; 85610; 85730; 88307; 88311; 88341; 88342; 88360; 99152; 99153; J2003; J2250; J2310; J3010

== ENCOUNTER → 2024-05-09 12:54 | Outpatient (BNV) | payer OTHER, SELFPAY | PROVIDERS: PCP Internal Medicine; Visit Provider Student in an Organized Health Care Education/Training Program | DX: C79.51 Secondary malignant neoplasm of bone (principal) | CPT/HCPCS: 20225; 77012 ==

== ENCOUNTER 2024-06-01 12:39 | Outpatient (REF) | payer OTHER, SELFPAY ==
--- NOTE | 2024-06-01 12:44 | ECG_ITS ---
Test Reason : C50.919 Blood Pressure : */* mmHG Vent. Rate : 81 BPM Atrial Rate : 81 BPM P-R Int : 156 ms QRS Dur : 82 ms QT Int : 384 ms P-R-T Axes : 78 70 63 degrees QTcB Int : 446 ms Normal sinus rhythm Possible Left atrial enlargement Septal infarct , age undetermined Nonspecific ST and T wave abnormality Abnormal ECG When compared with ECG of 23-Jan-2020 16:11, Septal infarct is now Present Referred By: Stephanie Dave Electronically Signed By: KATE GALEAS
--- OUTSIDE RECORDS SUMMARY | 2024-06-01 13:24 | XMS_ITS | Encounter Summary ---
Author Organization [facility] and [facility] Address [address] [place] [phone] Care Team Providers Care Chemical Equipment Repairer Name Role Phone Unavailable Primary Care Provider Unavailabl e Encounter Details Date Type Department Care Team ([facility] Contact Info) Description 12/07/2023 Scanned Document [facility] Health Information Management [address] [place] [address] External, Provider Social History Tobacco Use Types [...]
--- OUTSIDE RECORDS SUMMARY | 2024-06-01 13:24 | XMS_ITS | Clinical Summary ---
Author Organization [address] Address [address] [place] [phone] Care Team Providers Care Breaker Up Name Role Phone Unavailable Primary Care Provider [...] Lipid disorder screening 1995 Diabetes screening 06/28/2000 Pneumococcal Vaccine (50+ years) (1 of 1 - PCV) 06/28/2005 Shingles vaccine (Shingrix) (1 of 2 - Shingrix (RZV) 2 Dose Standard Series) 06/28/2005 Osteoporosis screening (bone density) 06/28/2020 Covid-19 vaccine series (2 - season) 2023 05/14/2020 Influenza vaccine 10/08/2024 RSV Immunization (1 - 1-dose 75+ series) [...]
--- OUTSIDE RECORDS SUMMARY | 2024-06-01 13:24 | XMS_ITS | Referral Summary ---
Author Organization [facility] Address [address] [place] [address] Care Team Providers Care Unattended Ground Sensor Specialist Name Role Phone Reyna Pak MD Primary Care Provider [phone] Allergies No known active allergies Medications amLODIPine [...] Plan of Treatment Not on file Insurance [facility] Advance Directives Documents on File Type Date Recorded Patient Shop Director Expl anation Health Care Proxy 04/20/2019 2:27 PM * Full Code (Latest Code Status on File) Date Activated Date Inactivated Comments 04/20/2019 9:36 AM 04/20/2019 4:50 PM Care Teams Unattended Ground Sensor Specialist Relationship Specialty Start Date End Date Reyna Pak MD [address] [place] [address] PCP - General Internal Medicine 09/30/21
--- OUTSIDE RECORDS SUMMARY | 2024-06-01 13:24 | XMS_ITS | Clinical Summary ---
Author Organization [facility] Address [address] [place] [address] Care Team Providers Care Molder Fitting Name Role Phone Karrie Aiken MD Primary Care Provider [phone] Allergies Active Allergy Reactions Criticality Noted Date [...] Comments Breast Cancer Screening 1955 Pneumococcal Vaccine: 50+ Years (1 of 2 - PCV) 06/28/1974 Colorectal Cancer Screening: Annual FOBT 06/28/2004 Colorectal Cancer Screening: Colonoscopy 06/28/2004 Colorectal Cancer Screening: Sigmoidoscopy 06/28/2004 Diabetes: Hemoglobin A1C 03/07/2020 Diabetes: Ophthalmology Exam 03/07/202009/2015, 02/28/2013 Diabetes: Pedal Pulse Checked 03/07/2020 Diabetes: Sensory Foot Exam 03/07/2020 Diabetes: Visual Foot Exam 03/07/2020 Influenza Vaccine (Season Ended) 2024 Hepatitis B Vaccine Aged Out No longe r eligible based on patient's age to complete this topic Insurance Medicaid [place] [facility] [place] [facility] Medicare Care Teams Molder Fitting Relationship Specialty Start Date End Date Karrie Aiken MD [address] [place], [place] PCP - General 02/18/20
--- OUTSIDE RECORDS SUMMARY | 2024-06-01 13:24 | XMS_ITS | Clinical Summary ---
Author Organization [facility] Address [address] [place] [address] Phone Care Team Providers Care Psych Specialist Name Role Phone Reyna Pak MD Primary Care Provider [phone] Allergies Active Allergy Reactions Criticality Noted Date [...] Date Diagnosed Date Adenocarcinoma of sigmoid colon ([facility] V24, [facility] V28) 01/19/2024 Other specified disorders of bladder 01/19/2024 Dysarthria 07/18/2015 Cerebrovascular accident (CV A) due to embolism of cerebral artery ([facility] V24, [facility] V28) 07/18/2015 Ovarian cyst 10/18/2013 Overview (11/25/2023): Repeat [...] Encounters Date Type Department Care Team Description 05/21/2024 9:30 AM EDT Office Visit General Surgery [address] [place] [address] Ralph Kimble MD History of colon cancer, stage II (Primary Dx); History of partial colectomy; History of colonoscopy with polypectomy; Stage IV breast cancer in female ([facility] V24, [facility] V28); History of colon cancer, stage I 03/27/2024 Telephone Gastroenterology [facility] [address] [place] [address] Faisal Spear PA Establish Care 03/12/2024 Telephone Gastroenterology [facility] [address] [facility] [address] [place] [address] Clive Kunz DO 03/07/2024 10:30 AM EST Office Visit General Surgery [facility] [address] [facility] [address] [place] [phone] Ralph Kimble MD History of colon cancer, stage II (Primary Dx); History of partial colectomy; Secondary hypertension; High cholesterol; Type 2 diabetes mellitus without complication, with long-term current use of insulin ([facility] V24, [facility] V28) from Last 3 Months Immunizations Name Administration Dates Next Due Td Tetanus diptheria (Tdvax) 7yo and older 10/22 Tdap Tetanus diptheria acell ular pertussis (Boostrix; Adacel) 7yo and older 01/10/2012 Surgical History Surgery Date Site/Laterality Comments BREAST LUMPECTOMY PROCEDURE: HISTORICAL BREAST LUMPECTOMY; COMMENT: 2002, left breast OTHER SURGICAL HISTORY PROCEDURE: [place] RESCJ OVARIAN/TUBAL/PERITONEAL MALIGNANCY W/BSO; COMMENT: COLONOSCOPY 01/20/10 PROCEDURE: HISTORICAL COLONOSCOPY; COMMENT: adenomas; repeat in three years COLONOSCOPY W/ POLYPECTOMY 02/10/15 PROCEDURE: [place] COLSC FLX W/RMVL OF TUMOR POLYP LESION SNARE TQ; COMMENT: adenomas; repeat in 3 yrs BREAST BIOPSY PROCEDURE: BX BREAST; PERC NEEDLE CORE W/IMAG GUID OOPHORECTOMY BREAST LUMPECTOMY Bilateral Medical History Medical History Date Comments DM (diabetes mellitus) ([facility] V24, [facility] V28) DX:DM (diabetes mellitus) (H CC) Hypercholesteremia DX:Hyperchole steremia Unspecified essential hypertension DX:Unspecified essential hypertension Personal history of malignan t neoplasm of breast DX:Personal history of malig nant neoplasm of breast; COMMENT: 2002 lt side Colon polyp Sleep apnea Stroke ([facility] V24, [facility] V28) Family History Medical History Relation Name Comments [...] Sign Reading Time Taken Comments Blood Pressure 163/72 05/21/2024 9:27 AM EDT Pulse 87 05/21/2024 9:27 AM EDT Temperature 36.6 ??C (97.9 ??F) 02/25/2024 3:20 PM ES T Respiratory Rate 17 02/25/2024 3:20 PM EST Oxygen Saturation 97% 02/25/2024 3:20 PM EST Inhaled Oxygen Concentration - - Weight 57.5 kg (126 lb 12.8 oz) 05/21/2024 9:27 AM EDT Height 152.4 cm (5') 05/21/2024 9:27 AM EDT Body Mass Index 24.76 05/21/2024 9:27 AM EDT Plan of Treatment Upcoming Encounters Date Type Department Care Team (Late st Contact Info) Description 09/13/2024 9:40 AM EDT Office Visit Gastroenterology - [place] [address] [place] [phone] Clive Kunz DO [address] [place] [address] Health Maintenance Due Date Last Done Comments Breast Cancer Screening 1955 Diabetes: Annual Foot Exam 06/28/1965 Diabetes: Annual Retina Eye Exam 06/28/1965 Pneumococcal Vaccine: 50+ Years (1 of 2 - PCV) 06/28/1974 Zoster Vaccines (1 of 2) 06/28/1974 RSV Immunization Adult Patients (1 - Risk 60-74 years 1-dose series) 2015 COVID-19 Vaccine (2 - Saurav risk series) 06/11/2020 05/14/2020 Cholesterol Screening (Lipid Panel) 11/25/2023 11/16/2014 Depression Screening 11/25/2023 Hepatitis C Screening 11/25/2023 Medicare Annual Wellness Visit 11/25/2023 Osteoporosis Screening (Bone Density Screening) 11/25/2023 Social Influencers of Health Screening 11/25/2023 Diabetes: Annual Urine Albumin-Creatinine Ratio (uACR) 01/04/2024 11/16/2014 Diabetes: Blood Sugar Control Test (HGBA1C) 01/04/2024 05/09/2015 Influenza Vaccine (Season Ended) 2024 Diabetes: Annual GFR (Glomerular Filtration Rate) 02/24/2025 [...] age to complete this topic Meningococcal B Vaccine Aged Out No l onger eligible based on patient's age to complete this topic RSV Immunization Patients Under 20 months Aged Out No longer eligible based on patient's age to complete this topic Varicella Vaccines Aged Out No longer eligible based on patient's age to complete this topic Medical Devices Explanted Type Area Supervisor Engines Road Device Identifier Shelf Expiration Date Model / Serial / Lot Stent Uret [id number] Stretch W/O Gw - Sna - [id number] Explanted:Qty: 1 on 02/23/2024 by Ralph Kimble MD at [facility] Stents Left: Ureter [employer]GYN[employer]OL GY [id number] 08/16/2026 [id number] / NA / [id number] Procedures Procedure Name Priority Date/Time Associated Diagnosis Comments BASIC METABOLIC PANEL Routine 02/25/2024 6:24 AM EST COLONOSCOPY Routine 02/06/2024 8:[address] of the abdomen Abnormal rectal biopsy Adenocarcinoma of colon (CMS/HCC V24, CMS/HCC V28) HEMOGLOBIN A1C Routine 05/09/2015 HM URINE ALBUMIN CREATININE RATIO Routine 11/16/2014 LIPID PANEL Routine 11/16/2014 from Last 3 Months or Most Recently Relevant to Health Maintenance Results * (ABNORMAL) Basic metabolic panel (02/25/2024 6:24 AM EST) Sodium 143 133 - 145 mmol/L LAB CHEMISTRY METHOD 02/25/2024 8:40 AM [facility] Potassium 3.5 3.5 - 5.5 mmol/L LAB CHEMISTRY METHOD 02/25/2024 8:40 AM [facility] Chloride 109 96 - 110 mmol/L LAB CHEMISTRY METHOD 02/25/2024 8:40 AM [facility] CO2 29 21 - 32 mmol/L LAB CHEMISTRY METHOD 02/25/2024 8:40 AM [facility] Anion Gap 5 3 - 11 LAB CHEMISTRY METHOD 02/25/2024 8:40 AM [facility] Glucose 175(H) 70 - 100 mg/dL LAB CHEMISTRY METHOD 02/25/2024 8:40 AM [facility] BUN 12 5 - 25 mg/dL LAB CHEMISTRY METHOD 02/25/2024 8:40 AM [facility] Creatinine 0.83 0.50 - 1.10 mg/dL LAB CHEMISTRY METHOD 02/25/2024 8:40 AM [facility] eGFR 77 >=60 mL/min/1. 73m2 LAB CHEMISTRY METHOD 02/25/2024 8:40 AM [facility] Comment:Calculation based on the??Chronic Kidney Disease Epidemiology Collaboration (CKD-EPI) equation refit??without adjustment for race. BUN/Creatinine Ratio 14.5 LAB CHEMISTRY METHOD 02/25/2024 8:40 AM [facility] Calcium 8.9 8.5 - 10.5 mg/dL LAB CHEMISTRY METHOD 02/25/2024 8:40 AM [facility] Blood Venous blood specimen / Unknown Venipuncture / Unknown 02/25/2024 6:24 AM EST 02/25/2024 6:51 AM EST us Fernanda SYLVESTER LAB BLOOD ORDERABLES Final R esult [facility] [address] [place] [address], * COLONOSCOPY Anesthesia - MAC; [facility] ENDOSCOPY (02/06/2024 8:38 AM EST) Anatomical Region [...] general surgery. Narrative 02/06/2024 8:38 AM EST [facility] GI Patient Name: Monica Workman Procedure Date: 02/06/2024 7:31 AM Date of : 1955 Age: 68 Gender: Female Note Status: Finalized Attending MD: Clive Kunz DO, [id number] Procedure Date No Time: 02/06/2024 Procedure: ? [...] physician, the nurse, the ? anesthesiologist, the banjo repairer and the digital field service technician ? in the pre-procedure area [...] Procedure Code(s): ? --- Professional --- ? 54341, Colonoscopy, flexible; with removal of ? tumor(s), polyp(s), or other lesion(s) by snare ? technique ? 35615, Colonoscopy, flexible; with directed submucosal ? injection(s), any substance ? 34515, 59, Colonoscopy, flexible; with biopsy, single ? or multiple Diagnosis Code(s): ? --- Professional --- ? Z85.038, Personal history of other malignant neoplasm ? of large intestine ? K64.9, Unspecified hemorrhoids ? D12.7, Benign neoplasm of rectosigmoid junction ? C18.7, Malignant neoplasm of sigmoid colon ? K56.690, Other partial intestinal obstruction CPT copyright 2020 [employer]. All rights reserved. The codes documented in this report are preliminary and upon hospital educator review may be revised to meet current compliance requirements. CLIVE Kunz DO 02/06/2024 8:38:14 AM This report has been signed electronically.Clive Kunz DO Number of Addenda: 0 Note Initiated On: 02/06/2024 7:31 AM Scope Withdrawal Time: 0 hours 11 minutes 36 seconds Scope In: 8:13:32 AM Scope Out: 8:27:51 AM ? Endoscopy Department at [facility] - [address] [place] [address], ? [place] [address] Procedure Note Clive Kunz DO - 02/06/2024 [facility] Patient Name: Monica Workman Procedure Date: 02/06/2024 7:31 AM Date of : 1955 Age: 68 Gender: Female Note Status: Finalized Attending MD: Clive Kunz DO, [id number] Procedure Date No Time: 02/06/2024 Procedure: Colonoscopy [...] the physician, the nurse, the anesthesiologist, the banjo repairer and thetechnician in the pre-procedure area in [...] views. There was evidence of a prior pgp-rr-tnjbfmh-colonic anastomosis in the sigmoid colon. This was patentand was characterized by congestion. Procedure Code(s): --- Professional --- 96260, Colonoscopy, flexible; with removal of tumor(s), polyp(s), or other lesion(s) by snare technique 81854, Colonoscopy, flexible; with directedsubmucosal injection(s), any substance 42407, 59, Colonoscopy, flexible; with biopsy,single or multiple Diagnosis Code(s): --- Professional --- Z85.038, Personal history of other malignantneoplasm of large intestine K64.9, Unspecified hemorrhoids D12.7, Benign neoplasm of rectosigmoid junction C18.7, Malignant neoplasm of sigmoid colon K56.690, Other partial intestinal obstruction CPT copyright 2020 [employer]. All rights reserved. The codes documented in this report are preliminary and upon hospital educator reviewmay be revised to meet current compliance requirements. CLIVE Kunz DO 02/06/2024 8:38:14 AM This report has been signed electronically.Clive Kunz DO Number of Addenda: 0 Note Initiated On: 02/06/2024 7:31 AM Scope Withdrawal Time: 0 hours 11 minutes 36 seconds Scope In: 8:13:32 AM Scope Out: 8:27:51 AM Endoscopy Department at [facility] - [address] [place] [phone] IMPRESSION: - Hemorrhoids found on perianal exam. [...] % Blood Venous blood specimen / Unknown [facility] Provider LAB BLOOD ORDERABLES Cecilia l Result * HM Urine Albumin Creatinine Ratio (11/16/2014) Pathologist [facility] Urine Albumin Creatinine Ratio abstracted [facility] Provider HEALTH MAINTENANCE Final Result * (ABNORMAL) Lipid panel (11/16/2014) LDL/HDL Ratio 7(A) 0 - 4 Triglycerides 380(A) 0 - 150 mg/dL Cholesterol 269(A) 0 - 200 mg/dL HDL 38(A) >=40 mg/dL LDL Cholesterol 155(A) 0 - 100 mg/dL Blood Venous blood specimen / Unknown [facility] Provider LAB BLOOD ORDERABLES Cecilia l Result from Last 3 Months or Most Recently Relevant to Health Maintenance Insurance [facility] [employer] Advance Directives Documents on File Type Date Recorded Patient Internet Marketing Intern Expl 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 Care Teams Psych Specialist Relationship Specialty Start Date End Date Reyna Pka MD [address] [place] [address] PCP - General 10/03/23
--- OUTSIDE RECORDS SUMMARY | 2024-06-01 13:24 | XMS_ITS | Encounter Summary ---
Author Organization [facility] Address [address] [place] [phone] Care Team Providers Care 1St [employer] On [employer] Name Role Phone Unavailable Primary Care Provider Unavailabl e Encounter Details Date Type Department Care Team ([facility] Contact Info) Description 10/17/2023 Scanned Document INTERFACE DEFAULT [address] [place] [address] System, Provider Not In Social History [...]
--- OUTSIDE RECORDS SUMMARY | 2024-06-01 13:24 | XMS_ITS | Encounter Summary ---
Author Organization [facility] Address [address] [place] [phone] Care Team Providers Care Timber Repairer Name Role Phone Unavailable Primary Care Provider Unavailabl e Encounter Details Date Type Department Care Team ([facility] st Contact Info) Description 11/10/2023 Scanned Document INTERFACE DEFAULT [address] [place] [address] System, Provider Not In Social History [...]
--- OUTSIDE RECORDS SUMMARY | 2024-06-01 13:24 | XMS_ITS | Encounter Summary ---
Author Organization [facility] Address [address] [place] [phone] Care Team Providers Care Machinist Class B Name Role Phone Unavailable Primary Care Provider Unavailabl e Encounter Details Date Type Department Care Team ([facility] Contact Info) Description 08/15/2023 Scanned Document INTERFACE DEFAULT [address] [place] [address] System, Provider Not In Social History [...]
--- OUTSIDE RECORDS SUMMARY | 2024-06-01 13:24 | XMS_ITS | Encounter Summary ---
Author Organization [facility] and [facility] Address [address] [place] [phone] Care Team Providers Care Video Game Designer Name Role Phone Unavailable Primary Care Provider Unavailabl e Encounter Details Date Type Department Care Team ([facility] Contact Info) Description 11/08/2023 Scanned Document INTERFACE DEFAULT [address] [place] [address] System, Provider Not In Social History [...]
--- OUTSIDE RECORDS SUMMARY | 2024-06-01 13:24 | XMS_ITS | Encounter Summary ---
Author Organization [facility] Address [address] [place] [phone] Care Team Providers Care Immigration Inspector Name Role Phone Unavailable Primary Care Provider Unavailabl e Encounter Details Date Type Department Care Team ([facility] Contact Info) Description 04/11/2023 Scanned Document INTERFACE DEFAULT [address] [place] [address] System, Provider Not In Social History [...]
--- OUTSIDE RECORDS SUMMARY | 2024-06-01 13:24 | XMS_ITS | Clinical Summary ---
Author Organization [facility] Address [address] [place] [address] Care Team Providers Care Creative Project Manager Name Role Phone Reyna Pak MD Primary Care Provider [phone] Allergies No known active allergies Medications amLODIPine [...] of 2) 06/28/2005 COVID-19 Vaccine (2 - season) 2023 05/14/2020 Alcohol/Substance Use Screening 02/08/2024 Depression Screening and Follow-Up 02/08/2024 Health Care Proxy Review 02/08/2024 Social Drivers of Health Annual Screening 02/08/2024 Influenza Vaccine (Season Ended) 2024 RSV Vaccine (60+ years old and patients) (1 - 1-dose 75+ series) 06/28/2030 DTaP,Tdap,and Td Vaccines (3 - Td or Tdap) 07/25/2031 07/24/2021, 01/10/2012, 10/22/2005, Additional history exists Hepatitis B Vaccines Aged Out No long er eligible based on patient's age to complete this topic Insurance [address] [id number] [facility] Advance Directives Documents on File Type Date Recorded Patient Neurology Manager Expl anation Health Care Proxy 04/20/2019 2:27 PM * Full Code (Latest Code Status on File) Date Activated Date Inactivated Comments 04/20/2019 9:36 AM 04/20/2019 4:50 PM Care Teams Creative Project Manager Relationship Specialty [place] [address] [place] [address] PCP - General Internal Medicine 09/30/21
--- OUTSIDE RECORDS SUMMARY | 2024-06-01 13:24 | XMS_ITS | Encounter Summary ---
Author Organization [facility] Address [address] [place] [phone] Care Team Providers Care Bit And Shank Department Supervisor Name Role Phone Unavailable Primary Care Provider Unavailabl e Encounter Details Date Type Department Care Team ([facility] st Contact Info) Description 05/31/2023 Scanned Document INTERFACE DEFAULT [address] [place] [phone] System, Provider Not In Social History Tobacco [...]
--- OUTSIDE RECORDS SUMMARY | 2024-06-01 13:24 | XMS_ITS | Encounter Summary ---
Author Organization [facility] and [facility] Address [address] [place] [phone] Care Team Providers Care Dot Compliance Manager Name Role Phone Unavailable Primary Care Provider Unavailabl e Encounter Details Date Type Department Care Team ([facility] Contact Info) Description 02/16/2023 Scanned Document INTERFACE DEFAULT [address] [place] [address] System, Provider Not In Social History [...]
--- OUTSIDE RECORDS SUMMARY | 2024-06-01 13:24 | XMS_ITS | Encounter Summary ---
Author Organization [facility] and [facility] Address [address] [place] [phone] Care Team Providers Care Repairer Veneer Sheet Name Role Phone Unavailable Primary Care Provider Unavailabl e Encounter Details Date Type Department Care Team ([facility] st Contact Info) Description 11/11/2023 Scanned Document INTERFACE DEFAULT [address] [place] [address] System, Provider Not In Social History [...]
--- OUTSIDE RECORDS SUMMARY | 2024-06-01 13:24 | XMS_ITS | Encounter Summary ---
Author Organization [facility] and [facility] Address [address] [place] [phone] Care Team Providers Care Registered Nurses Name Role Phone Unavailable Primary Care Provider Unavailabl e Encounter Details Date Type Department Care Team ([facility] st Contact Info) Description 10/04/2023 Scanned Document INTERFACE DEFAULT [address] [place] [address] System, Provider Not In Social History [...]
--- OUTSIDE RECORDS SUMMARY | 2024-06-01 13:24 | XMS_ITS | Encounter Summary ---
Author Organization [facility] and [facility] Address [address] [place] [phone] Care Team Providers Care Nursing Information Systems Coordinator Name Role Phone Unavailable Primary Care Provider Unavailabl e Encounter Details Date Type Department Care Team ([facility] st Contact Info) Description 03/29/2018 Scanned Document INTERFACE DEFAULT [address] [place] [phone] System, Provider Not In Social History Tobacco [...]
== END 2024-06-01 12:40 | disposition home or self-care (01) ==
LOC: HO.LAB 12:39
PROVIDERS: PCP Internal Medicine; Visit Provider Internal Medicine
DX: C50.919 Malignant neoplasm of unspecified site of unspecified female breast (principal); I25.2 Old myocardial infarction; R94.31 Abnormal electrocardiogram [ECG] [EKG]
CPT/HCPCS: 93005

== ENCOUNTER → 2024-06-01 12:44 | Outpatient (BNV) | payer OTHER, SELFPAY | PROVIDERS: PCP Internal Medicine; Visit Provider Internal Medicine | DX: R94.31 Abnormal electrocardiogram [ECG] [EKG] (principal); C50.919 Malignant neoplasm of unspecified site of unspecified female breast | CPT/HCPCS: 93010 ==

== ENCOUNTER → 2024-07-30 13:50 | Outpatient (BNV) | payer MEDICARE, SELFPAY | PROVIDERS: PCP Internal Medicine; Visit Provider Internal Medicine | DX: C50.911 Malignant neoplasm of unspecified site of right female breast (principal); C18.9 Malignant neoplasm of colon, unspecified; C79.51 Secondary malignant neoplasm of bone | CPT/HCPCS: 93010 ==

== ENCOUNTER 2024-09-10 14:40 | Outpatient (AMB) | payer MEDICARE, SELFPAY ==
--- OUTSIDE RECORDS SUMMARY | 2024-09-10 14:42 | XMS_ITS | Referral Summary ---
Author Organization [facility] Address [address] [place] [address] Care Team Providers Care Ward Service Supervisor Name Role Phone Reyna Pak MD Primary Care Provider [phone] Allergies No known active allergies Medications amLODIPine [...] 80 06/04/2020 11:33 AM EDT Temperature 37 C (98.6 F) 04/20/2019 11:50 AM EDT Respiratory Rate 18 04/20/2019 11:50 AM EDT Oxygen Saturation 94% 04/20/2019 11:50 AM EDT Inhaled Oxygen Concentration - - Weight 59 kg (130 lb) 06/04/2020 11:33 AM EDT Height 152.4 cm (5') 06/04/2020 11:33 AM EDT Body Mass Index 25.39 06/04/2020 11:33 AM EDT Plan of Treatment Not on file Insurance [facility] Advance Directives Documents on File Type Date Recorded Patient Pari Mutuel Ticket Cashier [facility] Proxy 04/20/2019 2:27 PM * Full Code (Latest Code Status on File) Date Activated Date Inactivated Comments 04/20/2019 9:36 AM 04/20/2019 4:50 PM Care Teams Ward Service Supervisor Relationship Specialty Start Date End Date Reyna Pak MD [facility] [place] [address] PCP - General Internal Medicine 09/30/21
--- OUTSIDE RECORDS SUMMARY | 2024-09-10 14:42 | XMS_ITS | Clinical Summary ---
Author Organization [address] Address [address] [place] [phone] Care Team Providers Care Mail Distribution Scheme Examiner Name Role Phone Unavailable Primary Care Provider [...]
--- OUTSIDE RECORDS SUMMARY | 2024-09-10 14:43 | XMS_ITS | Clinical Summary ---
Author Organization [facility] Address [address] [place] [address] Care Team Providers Care Head Of Precision Targeting Name Role Phone Karrie Aiken MD Primary Care Provider [phone] Allergies Active Allergy Reactions Criticality Noted Date [...] Visual Foot Exam 03/07/2020 Influenza Vaccine (#1) 2024 Hepatitis B Vaccine Aged Out No longe r eligible based on patient's age to complete this topic Insurance Medicaid [place] [facility] [place] [facility] Medicare Care Teams Head Of Precision Targeting Relationship Specialty Start Date End Date Karrie Aiken MD [address] [place], [place] PCP - General 02/18/20
--- OUTSIDE RECORDS SUMMARY | 2024-09-10 14:43 | XMS_ITS | Clinical Summary ---
Author Organization [facility] Address [address] [place] [address] Phone Care Team Providers Care Luggage Repairer Name Role Phone Reyna Pak MD Primary Care Provider [phone] Allergies Active Allergy Reactions Criticality Noted Date [...] Amount: 30 mg 10 tablet 5 Active Active Problems Problem Noted Date Diagnosed Date Adenocarcinoma of sigmoid colon ([facility] V24, S/[facility] V28) 01/19/2024 Other specified disorders of bladder 01/19/2024 Dysarthria 07/18/2015 Cerebrovascular accident (CV A) due to embolism of cerebral artery ([facility] V24, [facility] V28) 07/18/2015 Ovarian cyst 10/18/2013 Overview (11/25/2023): [...] Encounters Date Type Department Care Team Description 07/13/2024 Telephone General Surgery - [address] [place] [address] Ralph Kimble MD Forms/questionnaires from Last 3 Months Immunizations Name Administration Dates Next Due Td Tetanus diptheria (Tdvax) 7yo and older 10/22 Tdap Tetanus diptheria acell ular pertussis (Boostrix; Adacel) 7yo and older 01/10/2012 Surgical History Surgery Date Site/Laterality Comments BREAST LUMPECTOMY PROCEDURE: HISTORICAL BREAST LUMPECTOMY; COMMENT: 2002, left breast OTHER SURGICAL HISTORY PROCEDURE: [place] RESCJ OVARIAN/TUBAL/PERITONEAL MALIGNANCY W/BSO; COMMENT: COLONOSCOPY 01/20/10 PROCEDURE: HISTORICAL COLONOSCOPY; COMMENT: adenomas; repeat in three years COLONOSCOPY W/ POLYPECTOMY 02/10/15 PROCEDURE: [place] COLSC FLX W/RMVL OF TUMOR POLYP LESION SNARE TQ; COMMENT: adenomas; repeat in 3 yrs BREAST BIOPSY PROCEDURE: BX BREAST; PERC NEEDLE CORE W/IMAG GUID OOPHORECTOMY BREAST LUMPECTOMY Bilateral Medical History Medical History Date Comments DM (diabetes mellitus) (CMS/ HCC V24, CMS/HCC V28) DX:DM (diabetes mellitus) (H CC) Hypercholesteremia DX:Hyperchole steremia Unspecified essential hypertension DX:Unspecified essential hypertension Personal history of malignan t neoplasm of breast DX:Personal history of malig nant neoplasm of breast; COMMENT: 2002 lt side Colon polyp Sleep apnea Stroke (CMS/HCC V24, CMS/HCC V28) Family History Medical History Relation Name [...] 87 05/21/2024 9:27 AM EDT Temperature 36.6 C (97.9 F) 02/25/2024 3:20 PM EST Respiratory Rate 17 02/25/2024 3:20 PM EST [...] 9:40 AM EDT Office Visit Gastroenterology - [place] [facility] [address] [phone] Clive Kunz DO 175 [facility] [address] [place] [address] Health Maintenance Due Date Last Done Comments [...] 05/14/2020 Cholesterol Screening (Lipid Panel) 11/25/2023 11/16/2014 Hepatitis C Screening 11/25/2023 Medicare Annual Wellness Visit 11/25/2023 Osteoporosis Screening (Bone Density Screening) 11/25/2023 Social Influencers of Health Screening 11/25/2023 Diabetes: Annual Urine Albumin-Creatinine Ratio (uACR) 01/04/2024 11/16/2014 Diabetes: Blood Sugar Control Test (HGBA1C) 01/04/2024 05/09/2015 Depression Screening 02/08/2024 Influenza Vaccine (#1) 2024 Diabetes: Annual GFR (Glomerular Filtration Rate) [...] this topic Medical Devices Explanted Type Area Rigging Engineer Device Identifier Shelf Expiration Date Model / Serial / Lot Stent Uret [id number] Stretch W/O Gw - Sna - [id number] Explanted:Qty: 1 on 02/23/2024 by Ralph Kimble MD at [facility] Stents Left: Ureter [employer]GYN[employer]OL GY [id number] 08/16/2026 [id number] / NA / [id number] Procedures Procedure Name Priority Date/Time Associated Diagnosis [...] mmol/L LAB CHEMISTRY METHOD 02/25/2024 8:40 AM [facility] Potassium 3.5 3.5 - 5.5 mmol/L LAB CHEMISTRY METHOD 02/25/2024 8:40 AM EST [facility] Chloride 109 96 - 110 mmol/L LAB CHEMISTRY METHOD 02/25/2024 8:40 AM EST [facility] CO2 29 21 - 32 mmol/L LAB CHEMISTRY METHOD 02/25/2024 8:40 AM EST [facility] Anion Gap 5 3 - 11 LAB CHEMISTRY METHOD 02/25/2024 8:40 AM [facility] Glucose 175(H) 70 - 100 mg/dL LAB CHEMISTRY METHOD 02/25/2024 8:40 AM EST [facility] BUN 12 5 - 25 mg/dL LAB CHEMISTRY METHOD 02/25/2024 8:40 AM EST [facility] Creatinine 0.83 0.50 - 1.10 mg/dL LAB CHEMISTRY METHOD 02/25/2024 8:40 AM EST [facility] eGFR 77 >=60 mL/min/1. 73m2 LAB CHEMISTRY METHOD 02/25/2024 8:40 AM EST [facility] Comment:Calculation based on the Chronic Kidney Disease Epidemiology Collaboration (CKD-EPI) equation refit without adjustment for race. BUN/Creatinine Ratio 14.5 LAB CHEMISTRY METHOD 02/25/2024 8:40 AM [facility] Calcium 8.9 8.5 - 10.5 mg/dL LAB CHEMISTRY METHOD 02/25/2024 8:40 AM EST [facility] Blood Venous blood specimen / Unknown Venipuncture / Unknown 02/25/2024 6:24 AM EST 02/25/2024 6:51 AM EST Fernanda SYLVESTER LAB BLOOD ORDERABLES Final R esult [facility] [address] [place] [address], * COLONOSCOPY Anesthesia - MAC; [facility] ENDOSCOPY (02/06/2024 8:38 AM EST) Anatomical Region Laterality Modality Endoscopy 02/06/2024 7:31 AM EST Impressions 02/06/2024 8:38 AM EST - Hemorrhoids found on perianal exam. - Three 5 to 8 mm polyps at the recto-sigmoid colon, removed with a cold snare. Resected and retrieved. - Malignant partially obstructing tumor in the distal sigmoid colon. Biopsied. Tattooed. - The examination was otherwise normal on direct and retroflexion views. Recommendation: - Discharge patient to home. - Sigmoid colon mass (5 cm in length) at 20 cm from the anus. Tattooed proximally and distally. No other masses seen despite concern of syncronous colon cancer. - Soft diet. - Continue present medications. - Await pathology results. - F/U with general surgery. Narrative 02/06/2024 8:38 AM EST [facility] Patient Name: Monica Reese Procedure Date: 02/06/2024 7:31 AM Date of : 1955 Age: 68 Gender: Female Note Status: Finalized Attending MD: Clive Kunz DO, [id number] Procedure Date No Time: 02/06/2024 Procedure: Colonoscopy Indications: High risk colon cancer surveillance: Personal history of colon cancer Providers: Clive Kunz DO Referring MD: Reyna Pak MD, Ralph Kimble MD Medicines: General Anesthesia Complications: No immediate complications. Estimated blood loss: Minimal. Estimated Blood Loss: Estimated blood loss was minimal. Procedure: Pre-Anesthesia Assessment: - - Prior to the procedure, a History and Physical was performed, and patient medications and allergies were reviewed. The patient is competent. The risks and benefits of the procedure and the sedation options and risks were discussed with the patient. All questions were answered and informed consent was obtained. Patient identification and proposed procedure were verified by the physician, the nurse, the anesthesiologist, the personal loan specialist and the botany technician in the pre-procedure area in the endoscopy suite. Mental Status Examination: alert and oriented. Airway Examination: normal oropharyngeal airway and neck mobility. Respiratory Examination: clear to auscultation. CV Examination: normal. Prophylactic Antibiotics: The patient does not require prophylactic antibiotics. Prior Anticoagulants: The patient has taken no anticoagulant or antiplatelet agents. ASA Grade Assessment: II - A patient with severe systemic disease. After reviewing the risks and benefits, the patient was deemed in satisfactory condition to undergo the procedure. The anesthesia plan was to use monitored anesthesia care (MAC). Immediately prior to administration of medications, the patient was re-assessed for adequacy to receive sedatives. The heart rate, respiratory rate, oxygen saturations, blood pressure, adequacy of pulmonary ventilation, and response to care were monitored throughout the procedure. The physical status of the patient was re-assessed after the procedure. After I obtained informed consent, the scope was passed under direct vision. Throughout the procedure, the patient's blood pressure, pulse, and oxygen saturations were monitored continuously.The Colonoscope was introduced through the anus and advanced to the cecum, identified by appendiceal orifice and ileocecal valve. The colonoscopy was performed without difficulty. The patient tolerated the procedure well. The quality of the bowel preparation was good. Findings: Hemorrhoids were found on perianal exam. Three sessile polyps were found in the recto-sigmoid colon. The polyps were 5 to 8 mm in size. These polyps were removed with a cold snare. Resection and retrieval were complete. Estimated blood loss was minimal. A frond-like/villous, infiltrative and ulcerated partially obstructing large mass was found in the distal sigmoid colon. The mass was circumferential. The mass measured five cm in length. In addition, its diameter measured eleven mm. Oozing was present. Biopsies were taken with a cold forceps for histology. Area was tattooed with an injection of 5 mL of Spot (carbon black). Estimated blood loss was minimal. The exam was otherwise without abnormality on direct and retroflexion views. There was evidence of a prior end-to-end colo-colonic anastomosis in the sigmoid colon. This was patent and was characterized by congestion. Procedure Code(s): --- Professional --- 23439, Colonoscopy, flexible; with removal of tumor(s), polyp(s), or other lesion(s) by snare technique 14594, Colonoscopy, flexible; with directed submucosal injection(s), any substance 88044, 59, Colonoscopy, flexible; with biopsy, single or multiple Diagnosis Code(s): --- Professional --- Z85.038, Personal history of other malignant neoplasm of large intestine K64.9, Unspecified hemorrhoids D12.7, Benign neoplasm of rectosigmoid junction C18.7, Malignant neoplasm of sigmoid colon K56.690, Other partial intestinal obstruction CPT copyright 2020 [employer]. All rights reserved. The codes documented in this report are preliminary and upon insurance coder review may be revised to meet current compliance requirements. CLIVE Kunz DO 02/06/2024 8:38:14 AM This report has been signed electronically.Clive Kunz DO Number of Addenda: 0 Note Initiated On: 02/06/2024 7:31 AM Scope Withdrawal Time: 0 hours 11 minutes 36 seconds Scope In: 8:13:32 AM Scope Out: 8:27:51 AM Endoscopy Department at [facility] - [address] [place] [phone] Procedure Note Clive Kunz DO - 02/06/2024 [facility] Patient Name: Monica Reese Procedure Date: 02/06/2024 7:31 AM Date of : 1955 Age: 68 Gender: Female Note Status: Finalized Attending MD: Clive Kunz DO, [id number] Procedure Date No Time: 02/06/2024 Procedure: Colonoscopy [...] the physician, the nurse, the anesthesiologist, the personal loan specialist and thetechnician in the pre-procedure area in [...] views. There was evidence of a prior eyo-ar-jfnekdm-colonic anastomosis in the sigmoid colon. This was patentand was characterized by congestion. Procedure Code(s): --- Professional --- 72627, Colonoscopy, flexible; with removal of tumor(s), polyp(s), or other lesion(s) by snare technique 18924, Colonoscopy, flexible; with directedsubmucosal injection(s), any substance 14731, 59, Colonoscopy, flexible; with biopsy,single or multiple Diagnosis Code(s): --- Professional --- Z85.038, Personal history of other malignantneoplasm of large intestine K64.9, Unspecified hemorrhoids D12.7, Benign neoplasm of rectosigmoid junction C18.7, Malignant neoplasm of sigmoid colon K56.690, Other partial intestinal obstruction CPT copyright 2020 [employer]. All rights reserved. The codes documented in this report are preliminary and upon insurance coder reviewmay be revised to meet current compliance requirements. CLIVE Kunz DO 02/06/2024 8:38:14 AM This report has been signed electronically.Clive Kunz DO Number of Addenda: 0 Note Initiated On: 02/06/2024 7:31 AM Scope Withdrawal Time: 0 hours 11 minutes 36 seconds Scope In: 8:13:32 AM Scope Out: 8:27:51 AM Endoscopy Department at [facility] - [address] [place] [phone] IMPRESSION: - Hemorrhoids found on perianal exam. [...] pathology results. - F/U with general surgery. Result [facility] Clive Kunz DO GI~PROCEDURE ORDERABLES Final Re sult * (ABNORMAL) Hemoglobin A1c (05/09/2015) Pathologist [facility] Hemoglobin A1C 7.9(A) 4.0 - 6.0 % Blood Venous blood specimen / Unknown Result [facility] Historical Provider LAB BLOOD ORDERABLES Cecilia l Result * Urine Albumin Creatinine Ratio (11/16/2014) [facility] Urine Albumin Creatinine Ratio abstracted Result [facility] Historical Provider HEALTH MAINTENANCE Final Result * (ABNORMAL) Lipid panel (11/16/2014) Pathologist [facility] LDL/HDL Ratio 7(A) 0 - 4 Triglycerides 380(A) 0 - 150 mg/dL Cholesterol 269(A) 0 - 200 mg/dL HDL 38(A) >=40 mg/dL LDL Cholesterol 155(A) 0 - 100 mg/dL Blood Venous blood specimen / Unknown Result [facility] Historical Provider LAB BLOOD ORDERABLES Cecilia l Result from Last 3 Months or Most Recently Relevant to Health Maintenance Insurance [facility] MEDICARE ADV[employer]AGE Advance Directives Documents on File Type Date Recorded Patient Operations Systems Specialist Expl 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 Care Teams Luggage Repairer Relationship Specialty Start Date End Date Reyna Pak MD [address] [place] [address] PCP - General 10/03/23
[2024-09-10 15:02] VITALS: BP 120/52; PULSE 80; TEMP 36.9; O2SAT 96; BMI 25.6
--- NOTE | 2024-09-10 15:02 | AM.OFFWIN_ITS ---
Intake Vital Signs 09/10/24 15:02 Height 5 ft Weight 131 lb BMI 25.6 BP 120/52 L Blood Pressure Location Lt brachial Position Sitting Pulse 80 Pulse Source Pulse Oximeter Temp 98.5 F Temp Source Oral Pulse Oximetry (%) 96 Oxygen Delivery Method Room Air Intake Visit Reasons: EP Yeast Infection? Patient Tobacco Use Status: Former Tobacco user Steel Spar Operator Required: No Is last menstrual period known: No Post menopausal: Yes Patient : No Allergies dulaglutide (From Trulicity) Allergy (Mild, Verified 09/10/24 15:06) Abdominal Pain simvastatin Allergy (Verified 09/10/24 15:06) Joint Pain metformin Adverse Reaction (Mild, Verified 09/10/24 15:06) Diarrhea sitagliptin (Januvia) Adverse Reaction (Mild, Verified 09/10/24 15:06) abdominal pain Do you need a note to return to daycare/school/sports/work: No HPI HPI Comments History of Present Illness Details History - The patient is a 69-year-old female pr esenting with low back pain and increased urinary frequency. - Low back pain without fever or dysuria . - Increased urinary frequency without fe gris or burning. - Suspected urinary tract infection, no fever or dysuria. - Bacterial vaginosis panel planned. Physical Exam General: Cooperative, healthy appearing, comfortable, no acute distress and well developed Orientation: Patient oriented x3 Limitations: No limitations Head: Normal to inspection Ears: Hearing grossly normal bilaterally Nose: Normal External nose present Face and sinus: Normal facial exam Mouth: normal, moist oral mucosa Eyes: Appearance normal, both eyes and all related structures Neck: Normal visual inspection and Yes full ROM Respiratory: Normal respiratory effort and able to speak in complete sentences. 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 Son Skin cancer Brother No problems noted. Brother No problems noted. Family/Other Mental health disorder Substance use disorder Social History Household Members: [facility] Are you a primary healthcare customer service to a significant other at home: No Do you presently have visiting nurse or other home services: No Alcohol intake: never Patient Tobacco Use Status: Former Tobacco user Tobacco use type: Cigarette Years Smoked: 20 e-Cigarette/Vaping Use: Never Used Second Hand Smoke Exposure: No Patient : No service: No Current occupational status: disabled Cognitive needs: No Hearing needs: No Vision needs: No Female Reproductive History Menstrual Age of Menarche: 12 Review of Systems Const All systems reviewed & are unremarkable except as noted in HPI and below Physical Exam Vital Signs: Last Vital Signs Temp 98.5 F 09/10/24 15:02 Pulse 80 09/10/24 15:02 BP 120/52 L 09/10/24 15:02 Pulse Ox 96 09/10/24 15:02 Oxygen Delivery Method Room Air 09/10/24 15:02 BMI result Body Mass Index 25.6 Assessment & Plan Assessment & Plan (1) Sensation of pressure in bladder area: Code(s): R39.89 - Other symptoms and signs involving the genitourinary system Plan: Plan Patient was informed and verbally consented to the use of an ambient scribe for clinic note documentation during this visit Bacterial Vaginosis vs yeast vs UTI - VSS, afebrile and pt well appearing - Urinalysis to rule out UTI. - BV panel to confirm. Urinalysis has 15 leukocytes, positive nitrites and some protein, we will treat for urinary tract infection. BV panel pending. Sent message to her Oncologist, Dr Dave to advise. (2) Urinary tract infection: Code(s): N39.0 - Urinary tract infection, site not specified Qualifiers: Urinary tract infection type: acute cystitis Hematuria presence: without hematuria Qualified Code(s): N30.00 - Acute cystitis without hematuria Plan: as above Orders: Orders Bacterial Vaginosis Panel Today R39.89 - Other symptoms and signs involving the genitourinary system Medications: New cefuroxime axetil 500 mg PO Q12H 10 tabs 0RF Coding Level of Care Code Est Pt Level 4 (78045) Diagnoses Sensation of pressure in bladder area R39.89 Acute cystitis without hematuria N30.00 Urinary tract infection type: acute cystitis Hematuria presence: without hematuria
== END 2024-09-10 16:01 | disposition home or self-care (01) ==
PROVIDERS: PCP Internal Medicine; Visit Provider Physician Assistant
DX: R39.89 Other symptoms and signs involving the genitourinary system (principal); N30.00 Acute cystitis without hematuria; Z13.9 Encounter for screening, unspecified

== ENCOUNTER 2024-09-10 14:40 | Outpatient (REF) | payer MEDICARE, SELFPAY ==
[2024-09-11 11:36] LABS: Bacterial Vaginosis PCR NEGATIVE (Negative); Candida Group PCR NOT DETECTED (Not Detect); Candida glab krusei PCR NOT DETECTED (Not Detect); Trichomonas vaginalis PCR NOT DETECTED (Not Detect)
== END 2024-09-10 14:41 | disposition home or self-care (01) ==
LOC: HO.LAB 14:40
PROVIDERS: PCP Internal Medicine; Visit Provider Physician Assistant
DX: N30.00 Acute cystitis without hematuria (principal); R39.89 Other symptoms and signs involving the genitourinary system
CPT/HCPCS: 81003; 81515; 87086; 99212

== ENCOUNTER → 2024-10-02 09:25 | Outpatient (REF) | payer MEDICARE, SELFPAY ==
--- NOTE | ~2024-10-02 | NM_ITS ---
EXAMINATION: NM BONE SCAN WHOLE BODY HISTORY: bone mets. TECHNIQUE: A total body bone scan was performed following the intravenous administration of 21 mCi technetium 99m-MDP. COMPARISON: Correlation is made with a PET/CT scan dated 04/24/2024. FINDINGS: Multiple foci of abnormal activity are noted involving the thoracolumbar spine, the sacrum, the pelvis bilaterally, and the bilateral ribs, consistent with metastatic disease. Additional foci of abnormal uptake are noted at the occiput of the skull and at the vertex of the skull. Foci of activity involving both shoulders may be degenerative or metastatic in nature. There is normal bilateral renal uptake. NM/NM bone scan whole body IMPRESSION: Diffuse osseous metastatic disease as described. Electronically signed by: Juan Valdez MD 10/02/2024 01:53 PM EDT
--- OUTSIDE RECORDS SUMMARY | 2024-10-02 09:59 | XMS_ITS | Encounter Summary ---
Author Organization [facility] Address [address] [place] [address] Care Team Providers Care Strategic Planning Director Name Role Phone Vinicius Grubbs MD Primary Care Provider Bhumi Lechuga, Pcp Primary Care Provider Reyna Uriarte MD Primary Care Provider Ezequiel ilharry Reason for Visit * Reason Onset Date Comments hospital follow up 07/16/2015 needs to foll ow up with Dr Kelly bernal Encounter Details Date Type Department Care Team Description 07/16/2015 Telephone Adult Medicine [address] [address] Vinicius Grubbs MD hospital follow up (needs to follow up with Dr Kelly bernal) Social History Tobacco Use Types Packs/Day Years Used Date Smoking Tobacco: Former Cigarettes 1 10 Smokeless Tobacco: Never Comments:2002 Alcohol Use Standard Drinks/Week Comments No 0 (1 standard drink = 0.6 oz pur e alcohol) Sex Assigned at Date Recorded Not on file documented as of this encounter Miscellaneous Notes * Telephone Encounter - Tianna Estrella R.N. - 07/16/2015 5:13 PM EDT Pt booked for 07/[address] grubbs [facility] * Telephone Encounter - Yane Matt - 07/16/2015 5:09 PM EDT Patients daughter left voicemail on patient services machine asking for her mother to be booked gabe with pcp due to multiple strokes. I will call her tomorrow to get her complaint, if you could call aynidennise to book patient , thank you. * Telephone Encounter - Demetrice Ashley - 07/16/2015 4:56 PM EDT Pt's daughter calling back she is requesting call back today since her mother needs to be seen by pcp gabe (transferred to pt services) * Telephone Encounter - Demetrice Ashley - 07/16/2015 2:10 PM EDT Hospital follow up appointment needed Hospital patient was treated at: [facility] Was this only an ER visit or was the patient admitted to the hospital? Admitted to hospital Date of visit if ER visit only: If patient was admitted what was the date of discharge? 07/09/2015 Reason/diagnosis for visit or stay: multiple strokes When was the patient told to follow up? Gabe with pcp Was visit or stay related to an injury? NO If yes, what was the date of injury (DOI)? If yes, was the injury due to N/A documented in this encounter Plan of Treatment Not on file documented as of this encounter Visit Diagnoses Not on filedocumented in this encounter Care Teams Strategic Planning Director Relationship Specialty Start Date End Date Vinicius Grubbs MD PCP - General Internal Medicine 02/24/15 07/14/16 [facility], Hossein PCP - General Internal Medicine 07/15/16 10/02/23 Reyna Pak MD PCP - General Internal Medicine 10/03/23 documented as of this encounter
--- OUTSIDE RECORDS SUMMARY | 2024-10-02 09:59 | XMS_ITS | Encounter Summary ---
Author Organization [facility] Address [address] [place] [phone] Care Team Providers Care Vocational Rehabilitation Counselor Name Role Phone Unavailable Primary Care Provider Unavailabl e Encounter Details Date Type Department Care Team ([facility] Contact Info) Description 08/15/2023 Scanned Document INTERFACE DEFAULT [address] [place] [phone] System, Provider Not In Social History [...]
--- OUTSIDE RECORDS SUMMARY | 2024-10-02 09:59 | XMS_ITS | Clinical Summary ---
Author Organization [facility] Address [address] [place] [address] Care Team Providers Care Desktop Publishing Associate Name Role Phone Karrie Aiken MD Primary Care Provider Allergies Active Allergy Reactions Criticality Noted Date [...] Medicaid [place] [facility] Medicare Care Teams Desktop Publishing Associate Relationship Specialty Start Date End Date Karrie Aiken MD [address] [place], [place] PCP - General 02/18/20
--- OUTSIDE RECORDS SUMMARY | 2024-10-02 09:59 | XMS_ITS | Encounter Summary ---
Author Organization [facility] Address [address] [place] [address] Care Team Providers Care Pediatric Cns Name Role Phone Name, Daniel MACE Primary Care Provider Vinicius Wellington MD Primary Care Provider [facility], Pcp Primary Care Provider Reyna Uriarte MD Primary Care Provider [facility] Reason for Visit * Reason Onset Date Comments Infection 03/27/2012 Encounter Details Date Type Department Care Team Description 03/27/2012 Refill Adult Medicine [address] [address] Name, MD Daniel Infection Social History Tobacco Use Types Packs/Day Years Used Date Smoking Tobacco: Former Cigarettes 1 10 Smokeless Tobacco: Never Comments:2002 Alcohol Use Standard Drinks/Week Comments No 0 (1 standard drink = 0.6 oz pur e alcohol) Sex Assigned at Date Recorded Not on file documented as of this encounter Miscellaneous Notes * Telephone Encounter - Tianna Estrella R.N. - 03/27/2012 2:11 PM EST Pt has developed vaginal itching on antibioitc, she will use OTC meds and call if not improved. * Telephone Encounter - Lesley Sood - 03/27/2012 11:08 AM EST Symptoms patient is presenting: Patient is on antibiotics (augmentin) and is experiencing vaginal itching. She is asking for a rx for diflucan. How long has patient had these symptoms?: a few days PCP: Daniel Alfaro MD Payor: [facility] Plan: [facility] TYPE 1 $0 [place] [id number] Product Type: HMO [id number] documented in this encounter Plan of Treatment Not on file documented as of this encounter Visit Diagnoses Not on filedocumented in this encounter Care Teams Pediatric Cns Relationship Specialty Start Date End Date Name, MD Daniel PCP - General 07/12/08 02/23/15 Vinicius Mendoza MD PCP - General Internal Medicine 02/24/15 07/14/16 [facility], Hossein PCP - General Internal Medicine 07/15/16 10/02/23 Reyna Pak MD PCP - General Internal Medicine 10/03/23 documented as of this encounter
--- OUTSIDE RECORDS SUMMARY | 2024-10-02 09:59 | XMS_ITS | Encounter Summary ---
Author Organization [facility] Address [address] [place] [phone] Care Team Providers Care Quilting Supervisor Name Role Phone Unavailable Primary Care Provider Unavailabl e Encounter Details Date Type Department Care Team ([facility] Contact Info) Description 10/17/2023 Scanned Document INTERFACE DEFAULT [address] [place] [address] System, Provider Not In Social History [...]
--- OUTSIDE RECORDS SUMMARY | 2024-10-02 09:59 | XMS_ITS | Encounter Summary ---
Author Organization [facility] Address [address] [place] [address] Care Team Providers Care Document Control Assistant Name Role Phone Vinicius Mendoza MD Primary Care Provider Bhumi lomas [facility], Pcp Primary Care Provider Reyna Uriarte MD Primary Care Provider Ezequiel ilharry Reason for Visit * Reason Comments E-prescribe Rx Request Encounter Details Date Type Department Care Team Description 05/05/2016 Refill Adult Medicine [address] [address] Vinicius Mendoza MD E-prescribe Rx Request Social History Tobacco Use Types Packs/Day Years Used Date Smoking Tobacco: Former Cigarettes 1 10 Smokeless Tobacco: Never Comments:2002 Alcohol Use Standard Drinks/Week Comments No 0 (1 standard drink = 0.6 oz pur e alcohol) Sex Assigned at Date Recorded Not on file documented as of this encounter Miscellaneous Notes * Telephone Encounter - Margaret Nichols - 05/05/2016 11:24 AM EDT Faxed to pharmacy * Telephone Encounter - Sara Waldron M.A. - 05/05/2016 10:32 AM EDT Component Value Date HGBA1C 7.9 05/09/2015 MALBUR 44.0 11/16/2014 MALBCR 56.4 11/16/2014 CHOL 269 11/16/2014 LDL 155 11/16/2014 HDL 38 11/16/2014 TRIG 380 11/16/2014 GLU 116 05/09/2015 CREAT 0.7 05/09/2015 * Telephone Encounter - Emilee Adams - 05/05/2016 9:01 AM EDT Patient would like script to be: E-PRESCRIBED/FAXED TO PHARMACY WHEN WAS THE PATIENT'S LAST APPOINTMENT IN ADULT MEDICINE? 07/18/15 WHEN WAS THE LAST TIME THE PATIENT SAW THEIR PCP? Same as above Does patient have an upcoming appointment? No-[facility]ill [facility]. Appt due (THE MEDICATION REQUESTED IS ON THE MED LIST ABOVE) All of the medications requested were on the CURRENT MEDS list Did you check the Pharmacy information above?: YES Patient wants: 30 -day supply Is this a mail order prescription request ? NO Patients current insurance carrier is: [facility] / Plan: [employer] Pie[employer] CARE PLUS PLAN / Product Type: MEDICAID RISK documented in this encounter Plan of Treatment Not on file documented as of this encounter Visit Diagnoses Not on filedocumented in this encounter Care Teams Document Control Assistant Relationship Specialty Start Date End Date Vinicius Mendoza MD PCP - General Internal Medicine 02/24/15 07/14/16 Hossein Lechuga PCP - General Internal Medicine 07/15/16 10/02/23 Reyna Pak MD PCP - General Internal Medicine 10/03/23 documented as of this encounter
--- OUTSIDE RECORDS SUMMARY | 2024-10-02 09:59 | XMS_ITS | Clinical Summary ---
Author Organization [facility] Address [address] [place] [address] Phone Care Team Providers Care Steam Shovel Engineer Name Role Phone Reyna Pak MD Primary Care Provider [phone]- [phone] Allergies Active Allergy Reactions Criticality Noted Date [...] by the office 2 tablet 4 Active Additional Information Patient not taking.Reported on 09/13/2024 lisinopriL (PRINIVIL,ZESTR IL) 20 mg tablet Take 1 tablet (20 mg total) by mouth 1 (one) time each day. Active oxyCODONE (ROXICODONE) 5 mg immediate release tablet Take 1 tablet (5 mg total) by mouth every 4 (four) hours if needed for moderate pain. Max Daily Amount: 30 mg 10 tablet 5 Active Additional Information Patient not taking.Reported on 09/13/2024 anastrozole (ARIMIDEX) 1 mg Take 1 tablet (1 mg total) by mouth 1 (one) time each day 5 Active cefuroxime (CEFTIN) 500 mg tablet Take 1 tablet (500 mg total) by mouth 2 (two) times a day. 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 ([facility] V24, [facility] V28) 07/18/2015 Ovarian cyst 10/18/2013 Overview (11/25/2023): [...] Encounters Date Type Department Care Team Description 09/13/2024 9:40 AM EDT Office Visit Gastroenterology - [place] [facility] [address] [facility] [address] [place] [address] Clive Kunz DO History of colon cancer, stage II; History of partial colectomy; History of colonoscopy with polypectomy; History of colon cancer, stage I 07/13/2024 Telephone General Surgery - [place] [address] [facility] [address] [place] [address] Rlaph Kimble MD from Last 3 Months Immunizations Name Administration Dates Next Due Td Tetanus diptheria (Tdvax) 7yo and older 10/22 Tdap Tetanus diptheria acell ular pertussis (Boostrix; Adacel) 7yo and older 01/10/2012 Surgical History Surgery Date Site/Laterality Comments BREAST LUMPECTOMY PROCEDURE: HISTORICAL BREAST LUMPECTOMY; COMMENT: 2002, left breast OTHER SURGICAL HISTORY PROCEDURE: CT RESCJ OVARIAN/TUBAL/PERITONEAL MALIGNANCY W/BSO; COMMENT: COLONOSCOPY 01/20/10 PROCEDURE: HISTORICAL COLONOSCOPY; COMMENT: adenomas; repeat in three years COLONOSCOPY W/ POLYPECTOMY 02/10/15 PROCEDURE: CT COLSC FLX W/RMVL OF TUMOR POLYP LESION SNARE TQ; COMMENT: adenomas; repeat in 3 yrs BREAST BIOPSY PROCEDURE: BX BREAST; PERC NEEDLE CORE W/IMAG GUID OOPHORECTOMY BREAST LUMPECTOMY Bilateral Medical History Medical History Date Comments DM (diabetes mellitus) ([facility] V24, [facility] V28) DX:DM (diabetes mellitus) (H CC) Hypercholesteremia DX:Hyperchole steremia Unspecified essential hypertension DX:Unspecified essential hypertension Personal history of malignan t neoplasm of breast DX:Personal history of malig nant neoplasm of breast; COMMENT: 2002 lt side Colon polyp Sleep apnea Stroke ([facility] V24, [facility] V28) Family History Medical History Relation Name [...] Sign Reading Time Taken Comments Blood Pressure 142/58 09/13/2024 9:30 AM EDT Pulse 78 09/13/2024 9:30 AM EDT Temperature 36.6 C (97.9 F) 02/25/2024 3:20 PM EST Respiratory Rate 17 02/25/2024 3:20 PM EST Oxygen Saturation 98% 09/13/2024 9:30 AM EDT Inhaled Oxygen Concentration - - Weight 59.9 kg (132 lb) 09/13/2024 9:30 AM EDT Height 152.4 cm (5') 09/13/2024 9:30 AM EDT Body Mass Index 25.78 09/13/2024 9:30 AM EDT Plan of Treatment Health Maintenance [...] this topic Medical Devices Explanted Type Area Ore Crushing Dust Collector Device Identifier Shelf Expiration Date Model / Serial / Lot Stent Uret [id number] Stretch W/O Gw - Sna - [id number] Explanted:Qty: 1 on 02/23/2024 by Ralph Kimble MD at [facility] Stents Left: Ureter [employer]OL GY [id number] 08/16/2026 [id number] / NA / [id number] Procedures Procedure Name Priority Date/Time Associated Diagnosis [...] LAB CHEMISTRY METHOD 02/25/2024 8:40 AM EST [facility] Potassium 3.5 3.5 - 5.5 mmol/L LAB CHEMISTRY METHOD 02/25/2024 8:40 AM EST [facility] Chloride 109 96 - 110 mmol/L LAB CHEMISTRY METHOD 02/25/2024 8:40 AM [facility] CO2 29 21 - 32 mmol/L LAB CHEMISTRY METHOD 02/25/2024 8:40 AM [facility] Anion Gap 5 3 - 11 LAB CHEMISTRY METHOD 02/25/2024 8:40 AM [facility] Glucose 175(H) 70 - 100 mg/dL LAB CHEMISTRY METHOD 02/25/2024 8:40 AM [facility] BUN 12 5 - 25 mg/dL LAB CHEMISTRY METHOD 02/25/2024 8:40 AM [facility] Creatinine 0.83 0.50 - 1.10 mg/dL LAB CHEMISTRY METHOD 02/25/2024 8:40 AM [facility] eGFR 77 >=60 mL/min/1. 73m2 LAB CHEMISTRY METHOD 02/25/2024 8:40 AM [facility] Comment:Calculation based on the Chronic Kidney Disease Epidemiology Collaboration (CKD-EPI) equation refit without adjustment for race. BUN/Creatinine Ratio 14.5 LAB CHEMISTRY METHOD 02/25/2024 8:40 AM [facility] Calcium 8.9 8.5 - 10.5 mg/dL LAB CHEMISTRY METHOD 02/25/2024 8:40 AM [facility] Blood Venous blood specimen / Unknown Venipuncture / Unknown 02/25/2024 6:24 AM EST 02/25/2024 6:51 AM EST us Fernanda SYLVESTER LAB BLOOD ORDERABLES Final R esult [facility] [address] [place] [address], * COLONOSCOPY Anesthesia - MAC; [facility] ENDOSCOPY (02/06/2024 8:38 AM EST) Anatomical Region [...] general surgery. Narrative 02/06/2024 8:38 AM EST [facility] GI Patient Name: Monica Reese Procedure Date: 02/06/2024 7:31 AM Date of : 1955 Age: 68 Gender: Female Note Status: Finalized Attending MD: Clive Kunz DO, [id number] Procedure Date No Time: 02/06/2024 Procedure: Colonoscopy [...] the physician, the nurse, the anesthesiologist, the bakery supervisor and the tool and die technician in the pre-procedure area in the [...] by congestion. Procedure Code(s): --- Professional --- 31622, Colonoscopy, flexible; with removal of tumor(s), polyp(s), or other lesion(s) by snare technique 01929, Colonoscopy, flexible; with directed submucosal injection(s), any substance 94968, 59, Colonoscopy, flexible; with biopsy, single or multiple Diagnosis Code(s): --- Professional --- Z85.038, Personal history of other malignant neoplasm of large intestine K64.9, Unspecified hemorrhoids D12.7, Benign neoplasm of rectosigmoid junction C18.7, Malignant neoplasm of sigmoid colon K56.690, Other partial intestinal obstruction CPT copyright 2020 [employer]. All rights reserved. The codes documented in this report are preliminary and upon collections curator review may be revised to meet current compliance requirements. CLIVE Kunz DO 02/06/2024 8:38:14 AM This report has been signed electronically.Clive Kunz DO Number of Addenda: 0 Note Initiated On: 02/06/2024 7:31 AM Scope Withdrawal Time: 0 hours 11 minutes 36 seconds Scope In: 8:13:32 AM Scope Out: 8:27:51 AM Endoscopy Department at [facility] - [address] [place] [phone] Procedure Note Clive Kunz DO - 02/06/2024 [facility] GI Patient Name: Monica Reese Procedure Date: 02/06/2024 7:31 AM Date of : 1955 Age: 68 Gender: Female Note Status: Finalized Attending MD: Clive Kunz DO, [id number] Procedure Date No Time: 02/06/2024 Procedure: Colonoscopy [...] the physician, the nurse, the anesthesiologist, the bakery supervisor and thetechnician in the pre-procedure area in [...] views. There was evidence of a prior tzr-vn-hepwrvy-colonic anastomosis in the sigmoid colon. This was patentand was characterized by congestion. Procedure Code(s): --- Professional --- 66284, Colonoscopy, flexible; with removal of tumor(s), polyp(s), or other lesion(s) by snare technique 74791, Colonoscopy, flexible; with directedsubmucosal injection(s), any substance 04572, 59, Colonoscopy, flexible; with biopsy,single or multiple Diagnosis Code(s): --- Professional --- Z85.038, Personal history of other malignantneoplasm of large intestine K64.9, Unspecified hemorrhoids D12.7, Benign neoplasm of rectosigmoid junction C18.7, Malignant neoplasm of sigmoid colon K56.690, Other partial intestinal obstruction CPT copyright 2020 [employer]. All rights reserved. The codes documented in this report are preliminary and upon collections curator reviewmay be revised to meet current compliance requirements. CLIVE Kunz DO 02/06/2024 8:38:14 AM This report has been signed electronically.Clive Kunz DO Number of Addenda: 0 Note Initiated On: 02/06/2024 7:31 AM Scope Withdrawal Time: 0 hours 11 minutes 36 seconds Scope In: 8:13:32 AM Scope Out: 8:27:51 AM Endoscopy Department at [facility] - [address] [place] [phone] IMPRESSION: - Hemorrhoids found on perianal exam. [...] Re sult * (ABNORMAL) Hemoglobin A1c (05/09/2015) [facility] Hemoglobin A1C 7.9(A) 4.0 - 6.0 % Blood Venous blood specimen / Unknown Historical Provider LAB BLOOD ORDERABLES Cecilia l Result * Urine Albumin Creatinine Ratio (11/16/2014) [facility] Urine Albumin Creatinine Ratio abstracted Historical Provider HEALTH MAINTENANCE Final Result * (ABNORMAL) Lipid panel (11/16/2014) [facility] LDL/HDL Ratio 7(A) 0 - 4 Triglycerides 380(A) 0 - 150 mg/dL Cholesterol 269(A) 0 - 200 mg/dL HDL 38(A) >=40 mg/dL LDL Cholesterol 155(A) 0 - 100 mg/dL Blood Venous blood specimen / Unknown us Historical Provider LAB BLOOD ORDERABLES Cecilia l Result from Last 3 Months or Most Recently Relevant to Health Maintenance Insurance [employer] Advance Directives Documents on File Type Date Recorded Patient Correction Officer Penitentiary Expl anation Advance Directives and Living Will 02/27/2024 12:13 PM Advance Directives and Living Will 02/24/2024 1:58 PM [facility] Health Care Proxy * Full Code - [...] currently active code status orders. Care Teams Steam Shovel Engineer Relationship Specialty Start Date End Date Reyna Pak MD [address] [place] [address] PCP - General 10/03/23
--- OUTSIDE RECORDS SUMMARY | 2024-10-02 09:59 | XMS_ITS | Encounter Summary ---
Author Organization [facility] Address [address] [place] [address] Care Team Providers Care Section Laborer Name Role Phone Vinicius Grubbs MD Primary Care Provider Bhumi Lechuga, Pcp Primary Care Provider Reyna Uriarte MD Primary Care Provider Ezequiel ilharry Reason for Visit * Reason Onset Date Comments Faxed Order 08/06/2015 Encounter Details Date Type Department Care Team Description 08/06/2015 Telephone Adult Medicine [address] [address] Vinicius Grubbs MD Faxed Order Social History Tobacco Use Types Packs/Day Years Used Date Smoking Tobacco: Former Cigarettes 1 10 Smokeless Tobacco: Never Comments:2002 Alcohol Use Standard Drinks/Week Comments No 0 (1 standard drink = 0.6 oz pur e alcohol) Sex Assigned at Date Recorded Not on file documented as of this encounter Miscellaneous Notes * Telephone Encounter - Jenna Rm - 08/06/2015 10:25 AM EDT Sign order from yin antoine. Fax placed in dr grubbs's incoming. documented in this encounter Plan of Treatment Not on file documented as of this encounter Visit Diagnoses Not on filedocumented in this encounter Care Teams Section Laborer Relationship Specialty Start Date End Date Vinicius Grubbs MD PCP - General Internal Medicine 02/24/15 07/14/16 Ankush, Pcp PCP - General Internal Medicine 07/15/16 10/02/23 Reyna Pak MD PCP - General Internal Medicine 10/03/23 documented as of this encounter
--- OUTSIDE RECORDS SUMMARY | 2024-10-02 09:59 | XMS_ITS | Encounter Summary ---
Author Organization [facility] and [facility] Address [address] [place] [address] Care Team Providers Care Vulcan Crewmember Name Role Phone Unavailable Primary Care Provider Unavailabl e Encounter Details Date Type Department Care Team ([facility] st Contact Info) Description 10/04/2023 Scanned Document INTERFACE DEFAULT [address] [place] [address] System, Provider Not In Social History [...]
--- OUTSIDE RECORDS SUMMARY | 2024-10-02 09:59 | XMS_ITS | Clinical Summary ---
Author Organization [address] Address [address] [place] [phone] Care Team Providers Care Donor Support Technician Name Role Phone Unavailable Primary Care [...]
--- OUTSIDE RECORDS SUMMARY | 2024-10-02 09:59 | XMS_ITS | Encounter Summary ---
Author Organization [facility] Address [address] [place] [phone] Care Team Providers Care Porcelain Enamel Laborer Name Role Phone Unavailable Primary Care Provider Unavailabl e Encounter Details Date Type Department Care Team ([facility] Contact Info) Description 12/07/2023 Scanned Document [facility] Health Information Management [address] [place] [phone] External, Provider Social History Tobacco Use Types [...]
--- OUTSIDE RECORDS SUMMARY | 2024-10-02 09:59 | XMS_ITS | Encounter Summary ---
Author Organization [facility] and [facility] Address [address] [place] [phone] Care Team Providers Care Jackscrew Man Name Role Phone Unavailable Primary Care Provider Unavailabl e Encounter Details Date Type Department Care Team ([facility] Contact Info) Description 02/16/2023 Scanned Document INTERFACE DEFAULT [address] [place] [address] System, Provider Not In Social History [...]
--- OUTSIDE RECORDS SUMMARY | 2024-10-02 09:59 | XMS_ITS | Encounter Summary ---
Author Organization [facility] and [facility] Address [address] [place] [phone] Care Team Providers Care Hook Loader Name Role Phone Unavailable Primary Care Provider Unavailabl e Encounter Details Date Type Department Care Team ([facility] st Contact Info) Description 05/31/2023 Scanned Document INTERFACE DEFAULT [address] [place] [phone] System, Provider Not In Social History Tobacco [...]
--- OUTSIDE RECORDS SUMMARY | 2024-10-02 09:59 | XMS_ITS | Encounter Summary ---
Author Organization [facility] Address [address] [place] [address] Care Team Providers Care Clinical Laboratory Service Teacher Name Role Phone Name, Daniel MACE Primary Care Provider Vinicius Wellington MD Primary Care Provider [facility], Pcp Primary Care Provider Reyna Uriarte MD Primary Care Provider [facility] Reason for Visit * Reason Onset Date Comments Nuclear Stress Testing 05/29/2012 Encounter Details Date Type Department Care Team Description 05/29/2012 Telephone Adult Medicine [address] [address] Name, MD Daniel Nuclear Stress Testing Social [...] EDT You requested a nuclear test(insurance auth [id number] valid until 07-18) for this patient We [...] on filedocumented in this encounter Care Teams Clinical Laboratory Service Teacher Relationship Specialty Start Date End Date Name, MD Daniel PCP - General 07/12/08 02/23/15 Vinicius Mendoza MD PCP - General Internal Medicine 02/24/15 07/14/16 [facility] Pcp PCP - General Internal Medicine 07/15/16 10/02/23 Reyna Pak MD PCP - General Internal Medicine 10/03/23 documented as of this encounter
--- OUTSIDE RECORDS SUMMARY | 2024-10-02 09:59 | XMS_ITS | Encounter Summary ---
Author Organization [facility] Address [address] [place] [address] Care Team Providers Care Hotel Controller Name Role Phone Vinicius Mendoza MD Primary Care Provider Bhumi Lechuga, Pcp Primary Care Provider Reyna Uriarte MD Primary Care Provider Ezequiel ilharry Reason for Visit * Reason Onset Date Comments Faxed Order 07/31/2015 Encounter Details Date Type Department Care Team Description 07/31/2015 Telephone Adult Medicine [address] [address] Vinicius Mendoza MD Faxed Order Social History [...] on filedocumented in this encounter Care Teams Hotel Controller Relationship Specialty Start Date End Date Vinicius Mendoza MD PCP - General Internal Medicine 02/24/15 07/14/16 [facility], Pcp PCP - General Internal Medicine 07/15/16 10/02/23 Reyna Pak MD PCP - General Internal Medicine 10/03/23 documented as of this encounter
--- OUTSIDE RECORDS SUMMARY | 2024-10-02 09:59 | XMS_ITS | Clinical Summary ---
Author Organization [facility] Address [address] [place] [address] Care Team Providers Care Parking Regulation Enforcement Officer Name Role Phone Reyna Pak MD Primary Care Provider [phone] Allergies No known active allergies Medications amLODIPine [...] of Health Annual Screening 02/08/2024 Influenza Vaccine (#1) 2024 RSV Vaccine (60+ years old and patients) (1 - 1-dose 75+ series) 06/28/2030 DTaP,Tdap,and Td Vaccines (3 - Td or Tdap) 07/25/2031 07/24/2021, 01/10/2012, 10/22/2005, Additional history exists Hepatitis B Vaccines Aged Out No long er eligible based on patient's age to complete [id number] [facility] Advance Directives Documents on File Type Date Recorded Patient Turf Sales Person Expl anation Health Care Proxy 04/20/2019 2:27 PM * Full Code (Latest Code Status on File) Date Activated Date Inactivated Comments 04/20/2019 9:36 AM 04/20/2019 4:50 PM Care Teams Parking Regulation Enforcement Officer Relationship Specialty Start Date End Date Reyna Pak MD [address] [place] [id number] PCP - General Internal Medicine 09/30/21
--- OUTSIDE RECORDS SUMMARY | 2024-10-02 09:59 | XMS_ITS | Encounter Summary ---
Author Organization [facility] Address [address] [place] [phone] Care Team Providers Care Esl Instructor Name Role Phone Unavailable Primary Care Provider Unavailabl e Encounter Details Date Type Department Care Team ([facility] st Contact Info) Description 03/29/2018 Scanned Document INTERFACE DEFAULT [address] [place] [phone] System, Provider Not In Social History Tobacco [...]
--- OUTSIDE RECORDS SUMMARY | 2024-10-02 09:59 | XMS_ITS | Encounter Summary ---
Author Organization [facility] Address [address] [place] [address] Care Team Providers Care Business Sales Consultant Name Role Phone Vinicius Mendoza MD Primary Care Provider Bhumi Lechuga, Pcp Primary Care Provider Reyna Uriarte MD Primary Care Provider Ezequiel ilable Reason for Visit * Reason Comments Encounter Details Date Type Department Care Team Description 05/13/2015 [facility] [address] [address] Michael Cervantes PA-C Social History Tobacco Use [...] on filedocumented in this encounter Care Teams Business Sales Consultant Relationship Specialty Start Date End Date Vinicius Mendoza MD PCP - General Internal Medicine 02/24/15 07/14/16 Ankush, Pcp PCP - General Internal Medicine 07/15/16 10/02/23 Reyna Pak MD PCP - General Internal Medicine 10/03/23 documented as of this encounter
--- OUTSIDE RECORDS SUMMARY | 2024-10-02 09:59 | XMS_ITS | Encounter Summary ---
Author Organization [facility] Address [address] [place] [phone] Care Team Providers Care Special Officer Automat Name Role Phone Unavailable Primary Care Provider Unavailabl e Encounter Details Date Type Department Care Team ([facility] st Contact Info) Description 11/11/2023 Scanned Document INTERFACE DEFAULT [address] [place] [address] System, Provider Not In Social History [...]
--- OUTSIDE RECORDS SUMMARY | 2024-10-02 09:59 | XMS_ITS | Encounter Summary ---
Author Organization [facility] and [facility] Address [address] [place] [phone] Care Team Providers Care Postal Clerk Name Role Phone Unavailable Primary Care Provider Unavailabl e Encounter Details Date Type Department Care Team ([facility] Contact Info) Description 04/11/2023 Scanned Document INTERFACE DEFAULT [address] [place] [address] System, Provider Not In Social History [...]
--- OUTSIDE RECORDS SUMMARY | 2024-10-02 09:59 | XMS_ITS | Encounter Summary ---
Author Organization [facility] Address [address] [place] [phone] Care Team Providers Care Lamp Wirer Name Role Phone Unavailable Primary Care Provider Unavailabl e Encounter Details Date Type Department Care Team ([facility] st Contact Info) Description 11/10/2023 Scanned Document INTERFACE DEFAULT [address] [place] [address] System, Provider Not In Social History [...]
--- OUTSIDE RECORDS SUMMARY | 2024-10-02 09:59 | XMS_ITS | Encounter Summary ---
Author Organization [facility] Address [address] [place] [address] Care Team Providers Care Bending Roll Hand Name Role Phone Name, Daniel MCAE Primary Care Provider Vinicius Wellington MD Primary Care Provider [facility], Pcp Primary Care Provider Reyna Uriarte MD [facility] Reason for Visit * Reason Comments E-prescribe Rx Request Encounter Details Date Type Department Care Team Description 10/09/2013 Refill Adult Medicine [address] [address] Julia Abreu DO E-prescribe Rx Request Social [...] 0.7 09/11/2013 * Telephone Encounter - Saray Irene - 10/10/2013 8:43 AM EDT Patient would [...] NO Patients current insurance carrier is: Payor: [employer] FFS / Plan: [employer] CARE PLUS PLAN / Product Type: MEDICAID RISK documented in this encounter Plan of Treatment Not on file documented as of this encounter Visit Diagnoses Not on filedocumented in this encounter Care Teams Bending Roll Hand Relationship Specialty Start Date End Date Name, MD Daniel PCP - General 07/12/08 02/23/15 Vinicius Mendoza MD PCP - General Internal Medicine 02/24/15 07/14/16 Hossein Lechuga PCP - General Internal Medicine 07/15/16 10/02/23 Reyna Pak MD PCP - General Internal Medicine 10/03/23 documented as of this encounter
--- OUTSIDE RECORDS SUMMARY | 2024-10-02 09:59 | XMS_ITS | Encounter Summary ---
Author Organization [facility] Address [address] [place] [address] Care Team Providers Care Technology Trainer Name Role Phone Vinicius Mendoza MD Primary Care Provider Bhumi lomas Pending Sale To [facility], Pcp Primary Care Provider Reyna Uriarte MD Primary Care Provider Ezequiel ilharry Reason for Visit * Reason Comments E-prescribe Rx Request Encounter Details Date Type Department Care Team Description 06/17/2015 Refill OBGYN - [place] [address] [place] [address] Name, MD Daniel E-prescribe Rx Request Social [...] NO Patients current insurance carrier is: Payor: [employer] / Plan: [facility] TYPE II $10/$18 / Product Type: HMO [id number] documented in this encounter Plan of Treatment Not on file documented as of this encounter Visit Diagnoses Not on filedocumented in this encounter Care Teams Technology Trainer Relationship Specialty Start Date End Date Vinicius Mendoza MD PCP - General Internal Medicine 02/24/15 07/14/16 Hossein Lechuga PCP - General Internal Medicine 07/15/16 10/02/23 Reyna Pak MD PCP - General Internal Medicine 10/03/23 documented as of this encounter
--- OUTSIDE RECORDS SUMMARY | 2024-10-02 09:59 | XMS_ITS | Encounter Summary ---
Author Organization [facility] Address [address] [place] [address] Care Team Providers Care Histology Teacher Name Role Phone Name, Daniel MACE Primary Care Provider Vinicius Wellington MD Primary Care Provider Bhumi Lechuga, Pcp Primary Care Provider Reyna Uriarte MD Primary Care Provider [facility] Encounter Details Date Type Department Care Team Description 01/23/2013 [place] [facility] [address] [address] Name, MD Daniel Social History Tobacco Use [...] on filedocumented in this encounter Care Teams Histology Teacher Relationship Specialty Start Date End Date Name, MD Daniel PCP - General 07/12/08 02/23/15 Vinicius Mendoza MD PCP - General Internal Medicine 02/24/15 07/14/16 Ankush, Hossein PCP - General Internal Medicine 07/15/16 10/02/23 Reyna Pak MD PCP - General Internal Medicine 10/03/23 documented as of this encounter
--- OUTSIDE RECORDS SUMMARY | 2024-10-02 09:59 | XMS_ITS | Encounter Summary ---
Author Organization [facility] Address [address] [place] [address] Care Team Providers Care Dye Colorist Formulator Name Role Phone Name, Daniel MACE Primary Care Provider Vinicius Wellington MD Primary Care Provider [facility], Pcp Primary Care Provider Reyna Uriarte MD Primary Care Provider [facility] Encounter Details Date Type Department Care Team Description 01/30/2013 Orders Only Adult Medicine [address] [address] Name, MD Daniel DM type 2, uncontrolled, [...] - 150 mg/dL 03/03/2013 11:53 AM EST [facility] HDL CHOLESTEROL 39(L) >40 mg/dL 4 11:57 AM EST [facility] LDL CALCULATED 164(H) 0 - 100 mg/dL 03/03/2013 11:57 AM EST [facility] TC-HDLC RATIO 8(H) 0.0 - 4.4 mg/dL 03/03/2013 11:57 AM [facility] 03/03/2013 8:33 AM EST 03/03/2013 8:33 AM EST Daniel Alfaro MD LAB Performing Organization Address [facility] Co de Phone Number [address] * (ABNORMAL) MICROALBUMIN/CREATININE, URINE (03/03/2013 8:33 AM EST) CREAT,RANDOM URINE 109 mg/dL 03/03/2013 1:06 PM [facility] MICROALBUMIN, RANDOM 32.3(H) 0.0 - 29.0 mg/L 03/03/2013 1:07 PM [facility] MICROALB/CRE RATIO RANDOM 30(H) <30.0 mg/g 03/03/2013 1:07 PM [facility] 03/03/2013 8:33 AM EST 03/03/2013 8:33 AM EST Daniel Alfaro MD LAB Performing Organization Address [facility] de Phone Number [address] * (ABNORMAL) BASIC METABOLIC PANEL (03/03/2013 8:33 AM EST) GLUCOSE 110(H) 70 - 100 mg/dL 03/03/2013 11:56 AM [facility] Comment: Reference range applicable to fasting specimens only Based on recommendations from the ADA and AACE, the fasting glucose reference range has been changed to 70-100 mg/dL. This change is effective June 23, 2009 BUN 14 5 - 25 mg/dL 03/03/2013 11:51 AM [facility] CREAT 0.7 0.7 - 1.5 mg/dL 03/03/2013 11:54 AM [facility] GFR > 60 >60 03/03/2013 11:54 AM [facility] Comment: If patient is -[place], multiply result by 1.21 Chronic Kidney Disease: < 60 ml/min/1.73 square meters Kidney Failure: < 15 ml/min/1.73 square meters Sodium 144 133 - 145 mEq/L 03/03/2013 11:58 AM [facility] Potassium 3.8 3.5 - 5.2 mEq/L 03/03/2013 11:58 AM [facility] Chloride 104 96 - 108 mEq/L 03/03/2013 11:58 AM [facility] CO2 28.9 21.0 - 32.0 mEq/L 03/03/2013 11:53 AM [facility] CALCIUM 10.0 8.5 - 10.5 mg/dL 03/03/2013 11:52 AM [facility] 03/03/2013 8:33 AM EST 03/03/2013 8:33 AM EST Daniel Alfaro MD LAB Performing Organization Address [facility] de Phone Number [address] * (ABNORMAL) HEMOGLOBIN A1C (03/03/2013 8:33 AM EST) Glycosylated Hemoglobin A1C 7.7(H) 4.0 - 6.0 % 03/03/2013 10:43 AM [facility] Comment: HbA1C VALUES MAY NOT ACCURATELY REFLECT MEAN BLOOD GLUCOSE IN PATIENTS WITH HEMOGLOBIN VARIANTS SUCH HbF, HbS. 03/03/2013 8:33 AM EST 03/03/2013 8:33 AM EST Daniel Alfaro MD LAB Performing Organization Address [facility] de Phone Number [address] documented in this encounter Visit Diagnoses Diagnosis DM type 2, uncontrolled, with renal complications- Primary Type II or unspecified type diabetes mellitus with renal manifestations, uncontrolled documented in this encounter Care Teams Dye Colorist Formulator Relationship Specialty Start Date End Date Name, MD Daniel PCP - General 07/12/08 02/23/15 Vinicius Mendoza MD PCP - General Internal Medicine 02/24/15 07/14/16 Hossein Lechuga PCP - General Internal Medicine 07/15/16 10/02/23 Reyna Pak MD PCP - General Internal Medicine 10/03/23 documented as of this encounter
--- OUTSIDE RECORDS SUMMARY | 2024-10-02 09:59 | XMS_ITS | Encounter Summary ---
Author Organization [facility] Address [address] [place] [phone] Care Team Providers Care Line Erector Apprentice Name Role Phone Unavailable Primary Care Provider Unavailabl e Encounter Details Date Type Department Care Team ([facility] Contact Info) Description 11/08/2023 Scanned Document INTERFACE DEFAULT [address] [place] [address] System, Provider Not In Social History [...]
== END ==
LOC: HO.NUCMED 09:25
PROVIDERS: PCP Internal Medicine; Visit Provider Internal Medicine
DX: C50.919 Malignant neoplasm of unspecified site of unspecified female breast (principal)
CPT/HCPCS: 78306; A9503

== ENCOUNTER → 2024-10-02 09:27 | Outpatient (BNV) | payer MEDICARE, SELFPAY | PROVIDERS: PCP Internal Medicine; Visit Provider Radiology Diagnostic Radiology | DX: C79.51 Secondary malignant neoplasm of bone (principal) | CPT/HCPCS: 78306 ==

== ENCOUNTER 2024-10-30 09:34 | Outpatient (AMB) | payer OTHER, SELFPAY ==
[2024-10-30 09:38] VITALS: BP 122/52; PULSE 79; O2SAT 98; BMI 25.8
--- NOTE | 2024-10-30 09:38 | HO.NEPHOV ---
Vital Signs 10/30/24 09:38 Height 5 ft Weight 132 lb BMI 25.8 BP 122/52 L Blood Pressure Location Rt brachial Position Sitting Pulse 79 Pulse Source Pulse Oximeter Pulse Oximetry (%) 98 Oxygen Delivery Method Room Air Intake Visit Reasons: 6 MO FU-Conf w/spouse Physical Science Professor Required: No Physical Science Professor Services: Physical Science Professor Offered & Declined (Patient understands Japanese ) Accompanied by: Spouse Allergies [facility] Allergy (Mild, Verified 10/30/24 09:43) Abdominal Pain simvastatin Allergy (Verified 10/30/24 09:43) Joint Pain metformin Adverse Reaction (Mild, Verified 10/30/24 09:43) Diarrhea sitagliptin (Januvia) Adverse Reaction (Mild, Verified 10/30/24 09:43) abdominal pain Medication List - Last Reconciled 10/30/24 by Ernesto Flores MD acetaminophen (Pain Relief Extra Strength (acetaminophen)) 500 mg PO DAILY amlodipine 2.5 mg PO BEDTIME anastrozole (Arimidex) 1 mg PO DAILY aspirin 81 mg PO DAILY atorvastatin 80 mg PO BEDTIME blood sugar diagnostic (FreeStyle Lite Strips) As directed blood-glucose meter (FreeStyle Lite Meter kit) As directed blood-glucose sensor (FreeStyle Katelyn 3 Sensor device) As directed blood-glucose,marketing finance specialist,cont (FreeStyle Katelyn 3 Emmett) As directed cholecalciferol (vitamin D3) 50 mcg PO DAILY 90 days clopidogrel 75 mg PO BEDTIME docusate sodium (Colace) 100 mg PO BID fenofibrate 54 mg PO DAILY 90 days flash glucose scanning reader (FreeStyle Katelyn 14 Day Emmett) As directed flash glucose sensor (FreeStyle Katelyn 14 Day Sensor kit) Once every 14 days insulin glargine (Lantus U-100 Insulin) 52 units subcut DAILY insulin lispro (Humalog U-100 Insulin) 100 units subcut DAILY insulin syringe-needle U-100 (BD Insulin Syringe Ultra-Fine) Use 1 syringe four times a day lancets TEST 4 TIMES DAILY lisinopril 20 mg PO DAILY mastectomy bra (bra, mastectomy) As Directed pen needle, diabetic (BD Ultra-Fine Short Pen Needle) 4x daily ribociclib 600 mg PO DAILY HPI Comments Details: Middle-aged woman with a history of hypertension and obstructive sleep apnea. Overall blood pressure has been well controlled. She is unable to use CPAP machine and has returned the same. She continues to have lower abdominal pain has been evaluated by Dr. Loredo. 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 - Chronic Kidney Disease: Stable kidney function with normal creatinine levels. - Hypertension: Well-controlled with medications, BP 122/52 mmHg. - Sleep Apnea: History of sleep apnea, no CPAP use. - Metastatic Bone Cancer: Under treatment with ribociclib and hormonal therapy. c/o vaginal itching PFSH Medical History Hx of radiation therapy History of chemotherapy Arthritis On anticoagulant therapy Sleep apnea Colon cancer Hypercalcemia Mixed hyperlipidemia Dizziness [facility] (current) use of insulin Breast cancer Memory loss Muscle cramps Menieres disease HTN (hypertension) T2DM (type 2 diabetes mellitus) Skin lesion New daily persistent headache History of stroke Hypovitaminosis D Nausea Essential hypertension Diabetes mellitus Surgical History H/O colonoscopy History of parotid gland removal Status post unilateral salpingo-oophorectomy H/O right mastectomy History of left mastectomy History of hemicolectomy Family History Father Diabetes Mother Diabetes Hypertension Sister Cervical cancer Daughter No problems noted. Son Skin cancer Brother No problems noted. Brother No problems noted. Family/Other Mental health disorder Substance use disorder Social History Household Members: Spouse Housing: Condominium Are you a primary managed care coordinator to a significant other at home: No Do you presently have visiting nurse or other home services: No Alcohol intake: never Patient Tobacco Use Status: Former Tobacco user Tobacco use type: Cigarette Years Smoked: 20 e-Cigarette/Vaping Use: Never Used Second Hand Smoke Exposure: No service: No Current occupational status: disabled Cognitive needs: No Hearing needs: No Vision needs: No Female Reproductive History Menstrual Age of Menarche: 12 Physical Exam Vital Signs: Last Vital Signs Pulse 79 10/30/24 09:38 BP 122/52 L 10/30/24 09:38 Pulse Ox 98 10/30/24 09:38 Oxygen Delivery Method Room Air 10/30/24 09:38 BMI result Body Mass Index 25.8 Const General: comfortable Nutritional Appearance: well nourished Orientation/consciousness: patient oriented x3 HEENT Head: No normal to inspection Mouth: moist mucous membranes Neck Neck: Yes supple and Yes no JVD Resp Auscultation: clear to auscultation bilaterally, no rales and rub present Cardio Jugular venous distension: no JVD Palpation: no palpable S3 and no palpable S4 Heart sounds: no rubs GI Palpation (GI): Soft to palpation and nontender Percussion: No Fluid wave present General: Yes no CVA tenderness Back/Spine/Pelvis Back: no CVA tenderness Skin General skin exam: no rashes or lesions noted Neuro General: patient oriented x3 Extrem General: Yes no pedal edema and No clubbing Results Reviewed Nephrology Results: Hgb, (12.0-16.0) 12.0 g/dl 10/19/24 WBC, (4.8-10.8) 2.6 X10*3/uL L 10/19/24 Plt Count, (160-400) 165 X10*3/uL 10/19/24 Sodium, (135-145) 143 mmol/L 10/19/24 Potassium, (3.3-5.1) 3.7 mmol/L 10/19/24 Chloride, (96-108) 111 mmol/L H 10/19/24 Carbon Dioxide, (22-29) 24 mmol/L 10/19/24 BUN, (9-16) 17 mg/dL H 10/19/24 Creatinine, (0.5-1.4) 0.85 mg/dL 10/19/24 Calcium, (8.4-10.2) 9.6 mg/dL Δ 10/19/24 Assessment & Plan Assessment & Plan (1) Hypernatremia: Code(s): E87.0 - Hyperosmolality and hypernatremia Category: Medical (2) HTN (hypertension): Code(s): I10 - Essential (primary) hypertension Category: Medical Plan Middle-aged woman with well-controlled hypertension and an essentially normal renal function. She has no significant proteinuria. She is mild hypernatremia due to free water deficit. I have encouraged her to increase her free water intake. Keep intake more than output. Continue to stand low-sodium diet. At present blood pressure control therefore not made any changes to her medications. Continue to avoid nephrotoxic agents including NSAIDs. Breast CA and Colon CA PET with skeletal mets Await biopsy and management per Oncology 10/30/24 1. Chronic Kidney Disease - Continue current management, stable kidney function. - Follow-up in one year. 2. Hypertension - Maintain current antihypertensive regimen. 3. Sleep Apnea - Consider CPAP use in future. 4. Metastatic Bone Cancer - Continue ribociclib and hormonal therapy. 5. Yeast Infection - Fluconazole 200 mg x 1 dose prescribed. Follow up with PCP Patient Instructions - Continue taking your current medications as prescribed. - Follow up with your personal security specialist in one year unless you experience any changes in your symptoms. - Take the prescribed fluconazole 200 mg for your yeast infection. - Consider discussing CPAP use for sleep apnea in future visits. Medications: New fluconazole 200 mg (2 x 100 mg) PO ONCE 2 tabs 0RF Coding Level of Care Code Est Pt Level 4 (31132) Diagnoses Hypernatremia E87.0 HTN (hypertension) I10
--- OUTSIDE RECORDS SUMMARY | 2024-10-30 11:20 | XMS_ITS | Encounter Summary ---
Author Organization [facility] Address [address] [place] [phone] Care Team Providers Care Dye Jig Operator Name Role Phone Unavailable Primary Care Provider Unavailabl e Encounter Details Date Type Department Care Team ([facility] Contact Info) Description 04/11/2023 Scanned Document INTERFACE DEFAULT [address] [place] [address] System, Provider Not In Social History [...]
--- OUTSIDE RECORDS SUMMARY | 2024-10-30 11:20 | XMS_ITS | Encounter Summary ---
Author Organization [facility] Address [address] [place] [phone] Care Team Providers Care Pulp Screen Operator Name Role Phone Unavailable Primary Care Provider Unavailabl e Encounter Details Date Type Department Care Team ([facility] Contact Info) Description 11/08/2023 Scanned Document INTERFACE DEFAULT [address] [place] [address] System, Provider Not In Social History [...]
--- OUTSIDE RECORDS SUMMARY | 2024-10-30 11:20 | XMS_ITS | Encounter Summary ---
Author Organization [facility] Address [address] [place] [phone] Care Team Providers Care Manager Bar Name Role Phone Unavailable Primary Care Provider Unavailabl e Encounter Details Date Type Department Care Team ([facility] Contact Info) Description 02/16/2023 Scanned Document INTERFACE DEFAULT [address] [place] [address] System, Provider Not In Social History [...]
--- OUTSIDE RECORDS SUMMARY | 2024-10-30 11:20 | XMS_ITS | Encounter Summary ---
Author Organization [facility] Address [address] [place] [phone] Care Team Providers Care Software Project Lead Name Role Phone Unavailable Primary Care Provider Unavailabl e Encounter Details Date Type Department Care Team ([facility] st Contact Info) Description 03/29/2018 Scanned Document INTERFACE DEFAULT [address] [place] [phone] System, Provider Not In Social History Tobacco [...]
--- OUTSIDE RECORDS SUMMARY | 2024-10-30 11:20 | XMS_ITS | Encounter Summary ---
Author Organization [facility] Address [address] [place] [phone] Care Team Providers Care Administrator Social Welfare Name Role Phone Unavailable Primary Care Provider Unavailabl e Encounter Details Date Type Department Care Team ([facility] Contact Info) Description 08/15/2023 Scanned Document INTERFACE DEFAULT [address] [place] [address] System, Provider Not In Social History [...]
--- OUTSIDE RECORDS SUMMARY | 2024-10-30 11:20 | XMS_ITS | Clinical Summary ---
Author Organization [address] Address [address] [place] [phone] Care Team Providers Care Flat Surfacer Jewel Name Role Phone Unavailable Primary Care Provider [...] Series) 06/28/2005 Osteoporosis screening (bone density) 06/28/2020 Influenza vaccine 09/07/2024 Covid-19 vaccine series (2 - season) 2024 05/14/2020 RSV Immunization (1 - 1-dose 75+ series) 06/28/2030 Tetanus adult (Td q 10,TDAP once) 07/25/2031 07/24/2021, 01/10/2012, 10/22/2005 Colon cancer screening, Colonoscopy 10/03/2033 10/04/2023 Cervical cancer screening Discontinued Meningococcal B Vaccine Aged Out No l onger eligible based on patient's age to complete this topic Meningococcal Vaccine Aged Out No kiara francesca eligible based on patient's age to complete this topic Procedures Procedure Name Priority Date/Time Associated Diagnosis Comments COLONOSCOPY 10/04/2023 12:00 AM EDT from Last 3 Months or Most Recently Relevant to Health Maintenance Results * COLONOSCOPY (10/04/2023 12:00 AM EDT) us Provider Not In System HEALTH MAINTENANCE Final Result from Last 3 Months or Most Recently Relevant to Health Maintenance Insurance COMMERCIAL GENERIC COMMERCIAL GENERIC COMMERCIAL GENERIC
--- OUTSIDE RECORDS SUMMARY | 2024-10-30 11:20 | XMS_ITS | Encounter Summary ---
Author Organization [facility] Address [address] [place] [phone] Care Team Providers Care Pack Operator Name Role Phone Unavailable Primary Care Provider Unavailabl e Encounter Details Date Type Department Care Team ([facility] st Contact Info) Description 11/10/2023 Scanned Document INTERFACE DEFAULT [address] [place] [phone] System, Provider Not In Social History [...]
--- OUTSIDE RECORDS SUMMARY | 2024-10-30 11:20 | XMS_ITS | Clinical Summary ---
Author Organization [facility] Address [address] [place] [address] Care Team Providers Care Marketing Director Assisted Living Name Role Phone Reyna Pak MD Primary Care Provider [phone] Allergies No known active allergies Medications amLODIPine [...] 06/28/2005 Zoster Vaccines (1 of 2) 06/28/2005 Alcohol/Substance Use Screening 02/08/2024 Depression Screening and Follow-Up 02/08/2024 Health Care Proxy Review 02/08/2024 Social Drivers of Health Annual Screening 02/08/2024 COVID-19 Vaccine (2 - 2024- season) 2024 05/14/2020 Influenza Vaccine (#1) 2024 RSV Vaccine (60+ years old and patients) (1 - 1-dose 75+ series) 06/28/2030 DTaP,Tdap,and Td Vaccines (3 - Td or Tdap) 07/25/2031 07/24/2021, 01/10/2012, 10/22/2005, Additional history exists Hepatitis B Vaccines Aged Out No long er eligible based on patient's age [id number] [facility] Advance Directives Documents on File Type Date Recorded Patient Welding Machine Operator Thermit Expl anation Health Care Proxy 04/20/2019 2:27 PM * Full Code (Latest Code Status on File) Date Activated Date Inactivated Comments 04/20/2019 9:36 AM 04/20/2019 4:50 PM Care Teams Marketing Director Assisted Living Relationship Specialty Start Date End Date Reyna Pak MD [address] [place] [phone] PCP - General Internal Medicine 09/30/21
--- OUTSIDE RECORDS SUMMARY | 2024-10-30 11:20 | XMS_ITS | Encounter Summary ---
Author Organization [facility] Address [address] [place] [phone] Care Team Providers Care Carding Machine Operator Name Role Phone Unavailable Primary Care Provider Unavailabl e Encounter Details Date Type Department Care Team ([facility] Contact Info) Description 10/17/2023 Scanned Document INTERFACE DEFAULT [address] [place] [address] System, Provider Not In Social History [...]
--- OUTSIDE RECORDS SUMMARY | 2024-10-30 11:20 | XMS_ITS | Encounter Summary ---
Author Organization [facility] Address [address] [place] [phone] Care Team Providers Care Financial Controller Name Role Phone Unavailable Primary Care Provider Unavailabl e Encounter Details Date Type Department Care Team ([facility] st Contact Info) Description 10/04/2023 Scanned Document INTERFACE DEFAULT [address] [place] [phone] System, Provider Not In Social History [...]
--- OUTSIDE RECORDS SUMMARY | 2024-10-30 11:20 | XMS_ITS | Clinical Summary ---
Author Organization [facility] Address [address] [place] [address] Care Team Providers Care Client Service Consultant Name Role Phone Karrie Aiken MD Primary Care Provider [phone] Allergies Active Allergy Reactions Criticality Noted Date [...] Medicaid [place] [facility] Medicare Care Teams Client Service Consultant Relationship Specialty Start Date End Date Karrie Aiken MD [address] [place], [place] PCP - General 02/18/20
--- OUTSIDE RECORDS SUMMARY | 2024-10-30 11:20 | XMS_ITS | Encounter Summary ---
Author Organization [facility] Address [address] [place] [phone] Care Team Providers Care Campus Recruiting Coordinator Name Role Phone Unavailable Primary Care Provider Unavailabl e Encounter Details Date Type Department Care Team ([facility] st Contact Info) Description 05/31/2023 Scanned Document INTERFACE DEFAULT [address] [place] [phone] System, Provider Not In Social History Tobacco [...]
--- OUTSIDE RECORDS SUMMARY | 2024-10-30 11:20 | XMS_ITS | Encounter Summary ---
Author Organization [facility] and [facility] Address [address] [place] [phone] Care Team Providers Care Asset Protection Assistant Name Role Phone Unavailable Primary Care Provider Unavailabl e Encounter Details Date Type Department Care Team ([facility] st Contact Info) Description 11/11/2023 Scanned Document INTERFACE DEFAULT [address] [place] [address] System, Provider Not In Social History [...]
--- OUTSIDE RECORDS SUMMARY | 2024-10-30 11:20 | XMS_ITS | Clinical Summary ---
Author Organization [address] [facility] Address [address] [place] [address] Phone Care Team Providers Care Repair Mechanic Name Role Phone Reyna Pak MD Primary Care Provider [phone] Allergies Active Allergy Reactions Criticality Noted Date [...] Date Diagnosed Date Adenocarcinoma of sigmoid colon ([facility] V24, CM S/[facility] V28) 01/19/2024 Other specified disorders of bladder 01/19/2024 Dysarthria 07/18/2015 Cerebrovascular accident (CV A) due to embolism of cerebral artery ([facility] V24, [facility] V28) 07/18/2015 Ovarian cyst 10/18/2013 [...] Encounters Date Type Department Care Team Description 10/15/2024 Telephone Gastroenterology [facility] [address] [facility] [address] [place] [phone] Clive Kunz DO 09/13/2024 9:40 AM EDT Office Visit Gastroenterology [facility] [address] [facility] [address] [place] [address] Clive Kunz DO History of colon cancer, stage II; History of partial colectomy; History of colonoscopy with polypectomy; History of colon cancer, stage I from Last 3 Months Immunizations Name Administration Dates Next Due Td Tetanus diptheria (Tdvax) 7yo and older 10/22 Tdap Tetanus diptheria acell ular pertussis (Boostrix; Adacel) 7yo and older 01/10/2012 Surgical History Surgery Date Site/Laterality Comments BREAST LUMPECTOMY PROCEDURE: HISTORICAL BREAST LUMPECTOMY; COMMENT: 2002, left breast OTHER SURGICAL HISTORY PROCEDURE: [place] RESCJ OVARIAN/TUBAL/PERITONEAL MALIGNANCY W/BSO; COMMENT: COLONOSCOPY 01/20/10 PROCEDURE: HISTORICAL COLONOSCOPY; COMMENT: adenomas; repeat in three years COLONOSCOPY W/ POLYPECTOMY 02/10/15 PROCEDURE: [place] COLSC FLX W/RMVL OF TUMOR POLYP LESION SNARE TQ; COMMENT: adenomas; repeat in 3 yrs BREAST BIOPSY PROCEDURE: BX BREAST; PERC NEEDLE CORE W/IMAG GUID OOPHORECTOMY BREAST LUMPECTOMY Bilateral Medical History Medical History Date Comments DM (diabetes mellitus) ([facility] V24, [facility] V28) DX:DM (diabetes mellitus) (H CC) Hypercholesteremia DX:Hyperchole steremia Unspecified essential hypertension DX:Unspecified essential hypertension Personal history of malignan t neoplasm of breast DX:Personal history of malchana nant neoplasm of breast; COMMENT: 2002 lt side Colon polyp Sleep apnea Stroke ([facility] V24, [facility] V28) Family History Medical History [...] this topic Medical Devices Explanted Type Area Sql Server Consultant Device Identifier Shelf Expiration Date Model / Serial / Lot Stent Uret [id number] Stretch W/O Gw - Sna - [id number] Explanted:Qty: 1 on 02/23/2024 by Ralph Kimble MD at [facility] Stents Left: Ureter [employer]GYNECOL GY [id number] 08/16/2026 [id number] 60 / NA / [id number] Procedures Procedure Name Priority Date/Time Associated Diagnosis Comments BASIC METABOLIC PANEL Routine 02/25/2024 6:24 AM EST COLONOSCOPY Routine 02/06/2024 8:[address] of the abdomen Abnormal rectal biopsy Adenocarcinoma of colon ([facility] V24, [facility] V28) HEMOGLOBIN A1C Routine 05/09/2015 HM URINE ALBUMIN CREATININE RATIO Routine 11/16/2014 LIPID PANEL Routine 11/16/2014 from Last 3 Months or Most Recently Relevant to Health Maintenance Results * (ABNORMAL) Basic metabolic panel (02/25/2024 6:24 AM EST) Sodium 143 133 - 145 mmol/L LAB CHEMISTRY METHOD 02/25/2024 8:40 AM EST [facility] Potassium 3.5 3.5 - 5.5 mmol/L LAB CHEMISTRY METHOD 02/25/2024 8:40 AM EST [facility] Chloride 109 96 - 110 mmol/L LAB CHEMISTRY METHOD 02/25/2024 8:40 AM [facility] CO2 29 21 - 32 mmol/L LAB CHEMISTRY METHOD 02/25/2024 8:40 AM [facility] Anion Gap 5 3 - 11 LAB CHEMISTRY METHOD 02/25/2024 8:40 AM [facility] Glucose 175(H) 70 - 100 mg/dL LAB CHEMISTRY METHOD 02/25/2024 8:40 AM [facility] BUN 12 5 - 25 mg/dL LAB CHEMISTRY METHOD 02/25/2024 8:40 AM [facility] Creatinine 0.83 0.50 - 1.10 mg/dL LAB CHEMISTRY METHOD 02/25/2024 8:40 AM [facility] eGFR 77 >=60 mL/min/1. 73m2 LAB CHEMISTRY METHOD 02/25/2024 8:40 AM [facility] Comment:Calculation based on the Chronic Kidney Disease Epidemiology Collaboration (CKD-EPI) equation refit without adjustment for race. BUN/Creatinine Ratio 14.5 LAB CHEMISTRY METHOD 02/25/2024 8:40 AM [facility] Calcium 8.9 8.5 - 10.5 mg/dL LAB CHEMISTRY METHOD 02/25/2024 8:40 AM [facility] Blood Venous blood specimen / Unknown Venipuncture / Unknown 02/25/2024 6:24 AM EST 02/25/2024 6:51 AM EST us Fernanda SYLVESTER LAB BLOOD ORDERABLES Final R esult [facility] [address] [place] [address], * COLONOSCOPY Anesthesia - MAC; [facility] [...] general surgery. Narrative 02/06/2024 8:38 AM EST [facility] Patient Name: Monica Reese Procedure Date: 02/06/2024 7:31 AM Date of : 1955 Age: 68 Gender: Female Note Status: Finalized Attending MD: Clive Kunz DO, [id number] Procedure Date No Time: 02/06/2024 Procedure: Colonoscopy [...] the physician, the nurse, the anesthesiologist, the camp cook and the casting technician in the pre-procedure area in the [...] by congestion. Procedure Code(s): --- Professional --- 72496, Colonoscopy, flexible; with removal of tumor(s), polyp(s), or other lesion(s) by snare technique 74030, Colonoscopy, flexible; with directed submucosal injection(s), any substance 55806, 59, Colonoscopy, flexible; with biopsy, single or multiple Diagnosis Code(s): --- Professional --- Z85.038, Personal history of other malignant neoplasm of large intestine K64.9, Unspecified hemorrhoids D12.7, Benign neoplasm of rectosigmoid junction C18.7, Malignant neoplasm of sigmoid colon K56.690, Other partial intestinal obstruction CPT copyright 2020 [employer]. All rights reserved. The codes documented in this report are preliminary and upon graffiti cleaner review may be revised to meet current compliance requirements. CLIVE Kunz DO 02/06/2024 8:38:14 AM This report has been signed electronically.Clive Kunz DO Number of Addenda: 0 Note Initiated On: 02/06/2024 7:31 AM Scope Withdrawal Time: 0 hours 11 minutes 36 seconds Scope In: 8:13:32 AM Scope Out: 8:27:51 AM Endoscopy Department at [facility] - [address] [place] [phone] Procedure Note Clive Kunz DO - 02/06/2024 [facility] Patient Name: Monica Reese Procedure Date: 02/06/2024 7:31 AM Date of : 1955 Age: 68 Gender: Female Note Status: Finalized Attending MD: Clive Kunz DO, [id number] Procedure Date No Time: 02/06/2024 Procedure: Colonoscopy [...] the physician, the nurse, the anesthesiologist, the camp cook and thetechnician in the pre-procedure area in [...] views. There was evidence of a prior ril-wf-mqfbzcr-colonic anastomosis in the sigmoid colon. This was patentand was characterized by congestion. Procedure Code(s): --- Professional --- 99630, Colonoscopy, flexible; with removal of tumor(s), polyp(s), or other lesion(s) by snare technique 07617, Colonoscopy, flexible; with directedsubmucosal injection(s), any substance 28870, 59, Colonoscopy, flexible; with biopsy,single or multiple Diagnosis Code(s): --- Professional --- Z85.038, Personal history of other malignantneoplasm of large intestine K64.9, Unspecified hemorrhoids D12.7, Benign neoplasm of rectosigmoid junction C18.7, Malignant neoplasm of sigmoid colon K56.690, Other partial intestinal obstruction CPT copyright 2020 [employer]. All rights reserved. The codes documented in this report are preliminary and upon graffiti cleaner reviewmay be revised to meet current compliance requirements. CLIVE Kunz DO 02/06/2024 8:38:14 AM This report has been signed electronically.Clive Kunz DO Number of Addenda: 0 Note Initiated On: 02/06/2024 7:31 AM Scope Withdrawal Time: 0 hours 11 minutes 36 seconds Scope In: 8:13:32 AM Scope Out: 8:27:51 AM Endoscopy Department at [facility] - [address] [place] [phone] IMPRESSION: - Hemorrhoids found on perianal exam. [...] Re sult * (ABNORMAL) Hemoglobin A1c (05/09/2015) [facility] Hemoglobin A1C 7.9(A) 4.0 - 6.0 % Blood Venous blood specimen / Unknown Historical Provider LAB BLOOD ORDERABLES Cecilia l Result * Urine Albumin Creatinine Ratio (11/16/2014) [facility] Urine Albumin Creatinine Ratio abstracted Historical [...] Documents on File Type Date Recorded Patient Air Control/Anti Air Warfare Officer Expl 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 Care Teams Repair Mechanic Relationship Specialty Start Date End Date Reyna Pak MD [address] [place] [address] PCP - General 10/03/23
--- OUTSIDE RECORDS SUMMARY | 2024-10-30 11:20 | XMS_ITS | Encounter Summary ---
Author Organization [facility] and [facility] Address [address] [place] [phone] Care Team Providers Care Surface Mount Technology Operator Name Role Phone Unavailable Primary Care Provider Unavailabl e Encounter Details Date Type Department Care Team ([facility] Contact Info) Description 12/07/2023 Scanned Document [facility] Health Information Management [address] [place] [address] External, Provider Social History Tobacco Use Types [...]
== END 2024-10-30 09:57 | disposition home or self-care (01) ==
LOC: HO.HKA 09:35
PROVIDERS: PCP Internal Medicine; Visit Provider Internal Medicine Hypertension Specialist
DX: E87.0 Hyperosmolality and hypernatremia (principal); I10 Essential (primary) hypertension
CPT/HCPCS: 99214

== ENCOUNTER → 2024-10-30 09:34 | Outpatient (BNVA) | payer OTHER, SELFPAY | PROVIDERS: PCP Internal Medicine; Visit Provider Internal Medicine Hypertension Specialist | DX: E87.0 Hyperosmolality and hypernatremia (principal); I10 Essential (primary) hypertension | CPT/HCPCS: 99212 ==

== ENCOUNTER 2024-11-13 09:20 | Outpatient (REF) | payer OTHER, SELFPAY | END 2024-11-13 09:21 | disposition home or self-care (01) | LOC: HO.LNP 09:20 | PROVIDERS: PCP Internal Medicine; Visit Provider Obstetrics & Gynecology | DX: Z01.419 Encounter for gynecological examination (general) (routine) without abnormal findings (principal); Z79.82 Long term (current) use of aspirin | CPT/HCPCS: 87626; 88175; 99397 ==

== ENCOUNTER 2024-11-13 09:20 | Outpatient (AMB) | payer OTHER, SELFPAY ==
--- NOTE | 2024-11-13 10:00 | MHC.OFFVIS ---
Vital Signs 11/13/24 10:04 Height 5 ft Weight 133 lb BMI 26.0 BP 134/60 Blood Pressure Location Lt brachial Position Sitting Intake Visit Reasons: annual Intake Note: here for annual Information Interpreted: non-clinical & clinical Log Cut Off Sawyer: Log Cut Off Sawyer Present (jenna) Accompanied by: Allergies dulaglutide (From [employer]) Allergy (Mild, Verified 11/13/24 10:06) Abdominal Pain simvastatin Allergy (Verified 11/13/24 10:06) Joint Pain metformin Adverse Reaction (Mild, Verified 11/13/24 10:06) Diarrhea sitagliptin (Januvia) Adverse Reaction (Mild, Verified 11/13/24 10:06) abdominal pain Medication List - Last Reconciled 11/13/24 by Ana Laura Peña LPN acetaminophen (Pain Relief Extra Strength (acetaminophen)) 500 mg PO DAILY amlodipine 2.5 mg PO BEDTIME anastrozole (Arimidex) 1 mg PO DAILY aspirin 81 mg PO DAILY atorvastatin 80 mg PO BEDTIME blood sugar diagnostic (FreeStyle Lite Strips) As directed blood-glucose meter (Here@ [employer] Lite Meter kit) As directed blood-glucose sensor (Here@ [employer] Katelyn 3 Sensor device) As directed blood-glucose,mail machine operator,cont (FreeStyle Katelyn 3 Slaughters) As directed cholecalciferol (vitamin D3) 50 mcg PO DAILY 90 days clopidogrel 75 mg PO BEDTIME docusate sodium (Colace) 100 mg PO BID fenofibrate 54 mg PO DAILY 90 days flash glucose scanning reader (Here@ [employer] Katelyn 14 Day Slaughters) As directed flash glucose sensor (FreeStyle Katelyn 14 Day Sensor kit) Once every 14 days fluconazole 200 mg (2 x 100 mg) PO ONCE insulin glargine (Lantus U-100 Insulin) 52 units subcut DAILY insulin lispro (Humalog U-100 Insulin) 100 units subcut DAILY insulin syringe-needle U-100 (BD Insulin Syringe Ultra-Fine) Use 1 syringe four times a day lancets TEST 4 TIMES DAILY lisinopril 20 mg PO DAILY mastectomy bra (bra, mastectomy) As Directed pen needle, diabetic (BD Ultra-Fine Short Pen Needle) 4x daily ribociclib 600 mg PO DAILY Do you need a note to return to daycare/school/sports/work: No HPI Comments Details: Presenting for annual exam. No complaints. Recently diagnose with recurrent metastatic breast cancer to the bone No Pap/HPV on record Last Mammogram was in 03/02 BI-RADS 2, the patient is status post bilateral mastectomy Last Colonoscopy was diagnosed with colon cancer Recent diagnosis of metastatic bone cancer [facility] Medical History Former smoker Hx of radiation therapy History of chemotherapy Arthritis On anticoagulant therapy Sleep apnea Colon cancer Hypercalcemia Mixed hyperlipidemia Dizziness care home (current) use of insulin Breast cancer Memory loss Muscle cramps Menieres disease HTN (hypertension) T2DM (type 2 diabetes mellitus) Skin lesion New daily persistent headache History of stroke Hypovitaminosis D Nausea Essential hypertension Diabetes mellitus Surgical History H/O colonoscopy History of parotid gland removal Status post unilateral salpingo-oophorectomy H/O right mastectomy History of left mastectomy History of hemicolectomy Family History Father Diabetes Mother Diabetes Hypertension Sister Cervical cancer Daughter No problems noted. Son Skin cancer Brother No problems noted. Brother No problems noted. Family/Other Mental health disorder Substance use disorder Social History Household Members: Spouse Housing: Condominium Are you a primary complex care nurse practitioner to a significant other at home: No Do you presently have visiting nurse or other home services: No Alcohol intake: never Patient Tobacco Use Status: Former Tobacco user Tobacco use type: Cigarette Years Smoked: 20 e-Cigarette/Vaping Use: Never Used Second Hand Smoke Exposure: No service: No Current occupational status: disabled Cognitive needs: No Hearing needs: No Vision needs: No Female Reproductive History Menstrual Age of Menarche: 12 Menopause type: natural Review of Systems Const All systems reviewed & are unremarkable except as noted in HPI and below Physical Exam Vital Signs: Last Vital Signs BP 134/60 11/13/24 10:04 BMI result Body Mass Index 26.0 General: Yes no CVA tenderness External Female Exam: normal external appearance and normal appearance of the urethra Speculum Exam - Vagina: normal appearance of the vagina, normal palpation, no lesions and no masses Speculum Exam - Cervix: normal appearance of the cervix, normal palpation, no lesions, no masses and nontender Bimanual exam- vagina & uterus: normal bimanual exam, normal palpation, uterine size normal, normal palpation, uterine shape normal, No Cervical tenderness present and non-tender Bimanual Exam- Adnexa, other: normal adnexae Back/Spine/Pelvis Back: no CVA tenderness Assessment & Plan Assessment & Plan (1) Well woman exam: Code(s): Z01.419 - Encounter for gynecological examination (general) (routine) without abnormal findings Category: Medical Plan: Co testing on since there is no Pap smear /HPV on record All questions answered and the patient verbalized understanding. Coding Level of Care Code Est Pt Prev Care >65y(39239) Diagnoses Well woman exam Z01.419
[2024-11-13 10:04] VITALS: BP 134/60; BMI 26.0
--- OUTSIDE RECORDS SUMMARY | 2024-11-13 10:25 | XMS_ITS | Encounter Summary ---
Author Organization [facility] and [facility] Address [address] [place] [phone] Care Team Providers Care Clinical Statistical Programmer Name Role Phone Unavailable Primary Care Provider Unavailabl e Encounter Details Date Type Department Care Team ([facility] st Contact Info) Description 11/10/2023 Scanned Document INTERFACE DEFAULT [address] [place] [address] System, Provider Not In Social History [...]
--- OUTSIDE RECORDS SUMMARY | 2024-11-13 10:25 | XMS_ITS | Encounter Summary ---
Author Organization [facility] and [facility] Address [address] [place] [phone] Care Team Providers Care Kettle Fry Cook Operator Name Role Phone Unavailable Primary Care Provider Unavailabl e Encounter Details Date Type Department Care Team ([facility] st Contact Info) Description 10/04/2023 Scanned Document INTERFACE DEFAULT [address] [place] [address] System, Provider Not In Social History [...]
--- OUTSIDE RECORDS SUMMARY | 2024-11-13 10:25 | XMS_ITS | Encounter Summary ---
Author Organization [facility] Address [address] [place] [phone] Care Team Providers Care Supervisor Kosher Dietary Service Name Role Phone Unavailable Primary Care Provider Unavailabl e Encounter Details Date Type Department Care Team ([facility] Contact Info) Description 10/17/2023 Scanned Document INTERFACE DEFAULT [address] [place] [address] System, Provider Not In Social History [...]
--- OUTSIDE RECORDS SUMMARY | 2024-11-13 10:25 | XMS_ITS | Encounter Summary ---
Author Organization [facility] Address [address] [place] [phone] Care Team Providers Care Imaging Science Professor Name Role Phone Unavailable Primary Care Provider Unavailabl e Encounter Details Date Type Department Care Team ([facility] Contact Info) Description 04/11/2023 Scanned Document INTERFACE DEFAULT [address] [place] [address] System, Provider Not In Social History [...]
--- OUTSIDE RECORDS SUMMARY | 2024-11-13 10:25 | XMS_ITS | Encounter Summary ---
Author Organization [facility] Address [address] [place] [phone] Care Team Providers Care Curb Supervisor Name Role Phone Unavailable Primary Care Provider Unavailabl e Encounter Details Date Type Department Care Team ([facility] st Contact Info) Description 11/11/2023 Scanned Document INTERFACE DEFAULT [address] [place] [address] System, Provider Not In Social History [...]
--- OUTSIDE RECORDS SUMMARY | 2024-11-13 10:25 | XMS_ITS | Clinical Summary ---
Author Organization [address] Address [address] [place] [phone] Care Team Providers Care Brazing Machine Feeder Name Role Phone Unavailable Primary Care Provider [...]
--- OUTSIDE RECORDS SUMMARY | 2024-11-13 10:25 | XMS_ITS | Encounter Summary ---
Author Organization [facility] and [facility] Address [address] [place] [phone] Care Team Providers Care Habilitative Interventionist Name Role Phone Unavailable Primary Care Provider Unavailabl e Encounter Details Date Type Department Care Team ([facility] Contact Info) Description 12/07/2023 Scanned Document [facility] Health Information Management [address] [place] [phone] External, Provider Social History Tobacco Use Types [...]
--- OUTSIDE RECORDS SUMMARY | 2024-11-13 10:25 | XMS_ITS | Clinical Summary ---
Author Organization [facility] Address [address] [place] [address] Care Team Providers Care Food Equipment Service Technician Name Role Phone Karrie Aiken MD Primary Care Provider [phone] Allergies Active Allergy Reactions Criticality Noted Date [...] Medicaid [place] [facility] Medicare Care Teams Food Equipment Service Technician Relationship Specialty Start Date End Date Karrie Aiken MD [address] [place], [place] PCP - General 02/18/20
--- OUTSIDE RECORDS SUMMARY | 2024-11-13 10:25 | XMS_ITS | Encounter Summary ---
Author Organization [facility] and [facility] Address [address] [place] [phone] Care Team Providers Care Windows Server Specialist Name Role Phone Unavailable Primary Care Provider Unavailabl e Encounter Details Date Type Department Care Team ([facility] Contact Info) Description 11/08/2023 Scanned Document INTERFACE DEFAULT [address] [place] [address] System, Provider Not In Social History [...]
--- OUTSIDE RECORDS SUMMARY | 2024-11-13 10:25 | XMS_ITS | Encounter Summary ---
Author Organization [facility] and [facility] Address [address] [place] [phone] Care Team Providers Care Director Of Physical Security Name Role Phone Unavailable Primary Care Provider Unavailabl e Encounter Details Date Type Department Care Team ([facility] st Contact Info) Description 03/29/2018 Scanned Document INTERFACE DEFAULT [address] [place] [phone] System, Provider Not In Social History Tobacco [...]
--- OUTSIDE RECORDS SUMMARY | 2024-11-13 10:25 | XMS_ITS | Encounter Summary ---
Author Organization [facility] and [facility] Address [address] [place] [phone] Care Team Providers Care Frame Table Operator Helper Name Role Phone Unavailable Primary Care Provider Unavailabl e Encounter Details Date Type Department Care Team ([facility] Contact Info) Description 02/16/2023 Scanned Document INTERFACE DEFAULT [address] [place] [address] System, Provider Not In Social History [...]
--- OUTSIDE RECORDS SUMMARY | 2024-11-13 10:25 | XMS_ITS | Clinical Summary ---
Author Organization [facility] Address [address] [place] [address] Care Team Providers Care Advertising Statistical Clerk Name Role Phone Reyna Pak MD Primary Care Provider [phone] Allergies No known active allergies Medications amLODIPine [...] patient's age [place] [id number] [facility] Advance Directives Documents on File Type Date Recorded Patient Rehab Director Expl anation Health Care Proxy 04/20/2019 2:27 PM * Full Code (Latest Code Status on File) Date Activated Date Inactivated Comments 04/20/2019 9:36 AM 04/20/2019 4:50 PM Care Teams Advertising Statistical Clerk Relationship Specialty Start Date End Date Reyna Pak MD [address] [place] [phone] PCP - General Internal Medicine 09/30/21
--- OUTSIDE RECORDS SUMMARY | 2024-11-13 10:25 | XMS_ITS | Encounter Summary ---
Author Organization [facility] and [facility] Address [address] [place] [phone] Care Team Providers Care Orthopaedic Physician Assistant Name Role Phone Unavailable Primary Care Provider Unavailabl e Encounter Details Date Type Department Care Team ([facility] Contact Info) Description 08/15/2023 Scanned Document INTERFACE DEFAULT [address] [place] [address] System, Provider Not In Social History [...]
--- OUTSIDE RECORDS SUMMARY | 2024-11-13 10:25 | XMS_ITS | Encounter Summary ---
Author Organization [facility] Address [address] [place] [phone] Care Team Providers Care Prep Cook Name Role Phone Unavailable Primary Care Provider Unavailabl e Encounter Details Date Type Department Care Team ([facility] st Contact Info) Description 05/31/2023 Scanned Document INTERFACE DEFAULT [address] [place] [phone] System, Provider Not In Social History Tobacco [...]
--- OUTSIDE RECORDS SUMMARY | 2024-11-13 10:25 | XMS_ITS | Clinical Summary ---
Author Organization [address] [facility] Address [address] [place] [address] Phone Care Team Providers Care Paramedic Instructor Name Role Phone Reyna Pak MD Primary Care Provider [phone]- [phone] Allergies Active Allergy Reactions Criticality Noted Date [...] Date Diagnosed Date Adenocarcinoma of sigmoid colon ([facility] V24, [facility] S/[facility] V28) 01/19/2024 Other specified disorders of bladder 01/19/2024 Dysarthria 07/18/2015 Cerebrovascular accident (CV A) due to embolism of cerebral artery ([facility] V24, [facility] V28) 07/18/2015 Ovarian cyst 10/18/2013 [...] Department Care Team Description 10/15/2024 Telephone Gastroenterology [facility] [address] [place] [address] Clive Kunz DO 09/13/2024 9:40 AM EDT Office Visit Gastroenterology [facility] [address] [place] [address] Clive Kunz DO History of colon cancer, stage II; History of partial colectomy; History of colonoscopy with polypectomy; History of colon cancer, stage I from Last 3 Months Immunizations Immunization Administration Dates Next Due Td Tetanus diptheria (Tdvax) 7yo and older 10/22 Tdap Tetanus diptheria acell ular pertussis (Boostrix; Adacel) 7yo and older 01/10/2012 Surgical History Surgery Date Site/Laterality Comments BREAST LUMPECTOMY PROCEDURE: HISTORICAL BREAST LUMPECTOMY; COMMENT: 2002, left breast OTHER SURGICAL HISTORY PROCEDURE: [place] RESCJ OVARIAN/TUBAL/PERITONEAL MALIGNANCY W/BSO; COMMENT: COLONOSCOPY 01/20/10 PROCEDURE: HISTORICAL COLONOSCOPY; COMMENT: adenomas; repeat in three years COLONOSCOPY W/ POLYPECTOMY 02/10/15 PROCEDURE: OH COLSC FLX W/RMVL OF TUMOR POLYP LESION SNARE TQ; COMMENT: adenomas; repeat in 3 yrs BREAST BIOPSY PROCEDURE: BX BREAST; PERC NEEDLE CORE W/IMAG GUID OOPHORECTOMY BREAST LUMPECTOMY Bilateral Medical History Medical History Date Comments DM (diabetes mellitus) ([facility] V24, [facility] V28) DX:DM (diabetes mellitus) (H CC) Hypercholesteremia DX:Hyperchole steremia Unspecified essential hypertension DX:Unspecified essential hypertension Personal history of malignan t neoplasm of breast DX:Personal history of malchana nant neoplasm of breast; COMMENT: 2002 lt side Colon polyp Sleep apnea Stroke ([facility] V24, [facility] V28) Family History Medical History [...] Safety Answer Date Record ed Physical Abuse Unrecognized value 02/23/2024 Verbal Abuse Unrecognized value 02/23/2024 Comments Unknown Sex and Gender Information [...] this topic Medical Devices Explanted Type Area Steam Hoist Operator Device Identifier Shelf Expiration Date Model / Serial / Lot Stent Uret [id number] Stretch W/O Gw - Sna - [id number] Explanted:Qty: 1 on 02/23/2024 by Ralph Kimble MD at [facility] Stents Left: Ureter [employer] GY [id number] 08/16/2026 [id number] / NA / [id number] Procedures Procedure Name Priority Date/Time Associated Diagnosis Comments BASIC METABOLIC PANEL Routine 02/25/2024 6:24 AM EST COLONOSCOPY Routine 02/06/2024 8:[address] of the abdomen Abnormal rectal biopsy Adenocarcinoma of colon ([facility] V24, [facility] V28) HEMOGLOBIN A1C Routine 05/09/2015 HM URINE [...] [facility] Comment:Calculation based on the [...] Final R esult [facility] [address] [place] [address], * COLONOSCOPY Anesthesia - MAC; [facility] ENDOSCOPY (02/06/2024 8:38 AM EST) Anatomical [...] Status: Finalized Attending MD: Clive Kunz DO, [id number] Procedure Date No Time: 02/06/2024 Procedure: Colonoscopy [...] the physician, the nurse, the anesthesiologist, the commercial illustrator and the dairy lab technician in the pre-procedure area in the [...] by congestion. Procedure Code(s): --- Professional --- 02847, Colonoscopy, flexible; with removal of tumor(s), polyp(s), or other lesion(s) by snare technique 19759, Colonoscopy, flexible; with directed submucosal injection(s), any substance 17974, 59, Colonoscopy, flexible; with biopsy, single or multiple Diagnosis Code(s): --- Professional --- Z85.038, Personal history of other malignant neoplasm of large intestine K64.9, Unspecified hemorrhoids D12.7, Benign neoplasm of rectosigmoid junction C18.7, Malignant neoplasm of sigmoid colon K56.690, Other partial intestinal obstruction CPT copyright 2020 [employer]. All rights reserved. The codes documented in this report are preliminary and upon executor of estate review may be revised to meet current compliance requirements. CLIVE Kunz DO 02/06/2024 8:38:14 AM This report has been signed electronically.Clive Kunz DO Number of Addenda: 0 Note Initiated On: 02/06/2024 7:31 AM Scope Withdrawal Time: 0 hours 11 minutes 36 seconds Scope In: 8:13:32 AM Scope Out: 8:27:51 AM Endoscopy Department at [facility] - [address] [place] [phone] Procedure Note Clive Kunz DO - 02/06/2024 [facility] GI Patient Name: Monica Reese Procedure Date: 02/06/2024 7:31 AM Date of : 1955 Age: 68 Gender: Female Note Status: Finalized Attending MD: Clive Kunz DO, [id number] Procedure Date No Time: 02/06/2024 Procedure: Colonoscopy [...] the physician, the nurse, the anesthesiologist, the commercial illustrator and thetechnician in the pre-procedure area in [...] views. There was evidence of a prior qhe-sw-pokdpab-colonic anastomosis in the sigmoid colon. This was patentand was characterized by congestion. Procedure Code(s): --- Professional --- 67942, Colonoscopy, flexible; with removal of tumor(s), polyp(s), or other lesion(s) by snare technique 70496, Colonoscopy, flexible; with directedsubmucosal injection(s), any substance 83827, 59, Colonoscopy, flexible; with biopsy,single or multiple Diagnosis Code(s): --- Professional --- Z85.038, Personal history of other malignantneoplasm of large intestine K64.9, Unspecified hemorrhoids D12.7, Benign neoplasm of rectosigmoid junction C18.7, Malignant neoplasm of sigmoid colon K56.690, Other partial intestinal obstruction CPT copyright 2020 [employer]. All rights reserved. The codes documented in this report are preliminary and upon executor of estate reviewmay be revised to meet current compliance requirements. CLIVE Kunz DO 02/06/2024 8:38:14 AM This report has been signed electronically.Clive Kunz DO Number of Addenda: 0 Note Initiated On: 02/06/2024 7:31 AM Scope Withdrawal Time: 0 hours 11 minutes 36 seconds Scope In: 8:13:32 AM Scope Out: 8:27:51 AM Endoscopy Department at [facility] - [address] [place] [phone] IMPRESSION: - Hemorrhoids found on perianal exam. 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 Care Teams Paramedic Instructor Relationship Specialty Start Date End Date Reyna Pak MD [address] [place] [address] PCP - General 10/03/23
== END 2024-11-13 10:29 | disposition home or self-care (01) ==
LOC: HO.HWS 09:20
PROVIDERS: PCP Internal Medicine; Visit Provider Obstetrics & Gynecology
DX: Z01.419 Encounter for gynecological examination (general) (routine) without abnormal findings (principal)
CPT/HCPCS: 99397; 99459

== ENCOUNTER 2024-12-12 10:44 | Outpatient (AMB) | payer OTHER, SELFPAY ==
--- OUTSIDE RECORDS SUMMARY | 2023-06-22 04:15 | XMS_ITS | Continuity of Care Document ---
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 Name Role Phone Eugenio MACE, MOUSTAPHA, Juan SILVA Unavailable U navailable Procedures Procedure Date Offic/outpt E&m Estab 5 Min Trial- Telem edicine CT & [place] Offic Cons New/estab Mod 40 Mi 24 Duplex Scan-extrem Veins; Comp 24 Advance Directives Directive Yes / No Effective Date File Name No Information Encounters Encounter Description Practice Location Reason(s) For Visit Diagnoses Date Provider Providers Copied on Encounter [facility], [address] [place] [address] [address] [place], [id number], [place] tel:[phone] CVR - [facility] No Information 4 Eugenio MACE, RICARDO GERARD. [address] [facility] [address], [place], [place], [id number] , [place]. tel:[phone] Referring Provider: DOES NOT HAVE REF. Offic/outpt E&m Estab 5 Min Trial- Telemedicine CT & [place] [facility], [address] [place] [address] [address] [place], [id number], tel:[phone] CVR [facility] Essential (primary) hypertensionLo calized edemaCramp and spasmRestless legs syndromeVenous insufficiency (chronic) (peripheral)Ty pe 2 diabetes mellitus without complications May-0 4 Eugenio MACE RVT, RPVI Robert. [facility], Suite [facility], [place], [id number] , [place]. tel:[phone] Referring Provider: Reyna Pena, [address] [address] [facility], [place], [address]. tel:[phone] Offic Cons New/estab Mod 40 Ri [facility], [address] [place] [address] [address], [place], [id number], [place] tel:[phone] [place] Localized edemaCramp and spasmVenous insufficiency (chronic) (peripheral)Ty pe 2 diabetes mellitus without complicationsR estless legs syndromeEssent ial (primary) hypertensionPa in in right lower legPain in left lower leg 4 Eugenio MACE RVT, RICARDO Martinez. [address] [place] [address], [place], [id number] , [place]. tel:[phone] Referring Provider: Reyna Pena, [address] [facility], [place], [address]. tel:[phone] [facility], [address] [place] [address] [address], [place], [id number], [place] tel:[phone] [facility] [place] Chronic venous hypertension (idiopathic) with other complications of bilateral lower extremityEdema , unspecified 4 Eugenio MACE RVT, RPVI Robert. [facility], Suite [facility], [place], [id number] , [place]. tel:[phone] Referring Provider: Juan Becker MD, RVT, RICARDO, [address] [place] [address] [address] [facility], [place], [address] . tel:[phone] Family History Family Member Type Diagnosis Age At Onset No Information Payers Payer name Insurance type Covered republican ID Adia kumar(s) [employer] Medicare CI [id number] Social History Type Description Quantity Date Captured Comments Sex Female Smoking Status No Information Chief Complaint And Reason For Visit No Information Reason For Referral Reason For Referral No Information Plan Of Treatment Date Type Action Status Goal Diet education completed Referral Ordered: Weight management: Referral to physician timeframe: 3 Months (related to Body mass index (BMI) 25.0-25.9, adult) ordered History Of Present Illness Encounter Date Complaint History Of Prese nt Illness No Information Functional Status Date Functional Assessmen t No Information Instructions Date Instruction Additional Infor mation Compression stocking usage as conservative measure Related to Localized edema Patient education booklet given Related to Localized edema Diet education Related to Body mass index (BMI) 25.0-25.9, adult Giving Encouragement to exercise Related to Body mass index (BMI) 25.0-25.9, adult Lifestyle education Related to B radha mass index (BMI) 25.0-25.9, adult Patient education booklet given Related to Pain in right lower leg Pre and post instruc tions reviewed and provided Related to Pain in right lower leg Assessments Type Assessment Date No Information Patient Care Teams Name Effective Dates (start - stop) Status Members No Information
--- NOTE | 2024-12-12 10:45 | A.OFFPC_ITS ---
Vital Signs 12/12/24 10:50 Height 5 ft 0.5 in Weight 134 lb 8 oz BMI 25.8 BP 124/70 Blood Pressure Location Rt brachial Position Sitting Respiration 16 Pulse 78 Pulse Source Pulse Oximeter Temp 97.1 F Temp Source Temporal Artery Scan Pulse Oximetry (%) 96 Oxygen Delivery Method Room Air Intake Visit Reasons: Routine - transfer pt Fish Header Required: No Accompanied by: Spouse Allergies dulaglutide (From [facility]) Allergy (Mild, Verified 12/12/24 10:46) Abdominal Pain simvastatin Allergy (Verified 12/12/24 10:46) Joint Pain metformin Adverse Reaction (Mild, Verified 12/12/24 10:46) Diarrhea sitagliptin (Januvia) Adverse Reaction (Mild, Verified 12/12/24 10:46) abdominal pain Medication List - Last Reconciled 12/12/24 by Reyna Pak MD acetaminophen (Pain Relief Extra Strength (acetaminophen)) 500 mg PO DAILY amlodipine 2.5 mg PO BEDTIME anastrozole (Arimidex) 1 mg PO DAILY aspirin 81 mg PO DAILY atorvastatin 80 mg PO BEDTIME blood sugar diagnostic (FreeStyle Lite Strips) As directed blood-glucose meter (FreeStyle Lite Meter kit) As directed blood-glucose sensor (FreeStyle Katelyn 3 Sensor device) As directed blood-glucose,noodle press operator,cont (FreeStyle Katelyn 3 [place]) As directed cholecalciferol (vitamin D3) 50 mcg PO DAILY 90 days clopidogrel 75 mg PO BEDTIME docusate sodium (Colace) 100 mg PO BID fenofibrate 54 mg PO DAILY 90 days flash glucose scanning reader (FreeStyle Katelyn 14 Day [place]) As directed flash glucose sensor (FreeStyle Katelyn 14 Day Sensor kit) Once every 14 days insulin glargine (Lantus U-100 Insulin) 34 units subcut DAILY insulin lispro (Humalog U-100 Insulin) 1 sliding scale dose subcut DAILY insulin syringe-needle U-100 (BD Insulin Syringe Ultra-Fine) Use 1 syringe four times a day lancets TEST 4 TIMES DAILY lisinopril 20 mg PO DAILY mastectomy bra (bra, mastectomy) As Directed pen needle, diabetic (BD Ultra-Fine Short Pen Needle) 4x daily ribociclib (Kisqali) 200 mg PO TID Tobacco use date assessed: 12/12/24 Fall risk assessment: No Falls in past year Last assessed Fall Risk: 12/12/24 Dental Screening Dental Screen Date: 12/12/24 Did you have a dental visit in the last 12 months?: Yes Did you have a dental problem in the last 6 months where you did not have access to dental care?: No Was dental information given to patient?: Patient has dentist HPI HPI Comments History of Present Illness Details The patient is a 69 year old female presenting to re-establish care and management of recently diagnosed metastatic bone cancer and gastric adenocarcinoma. Metastatic breast cancer to bones Symptoms include fatigue. On chemotherapy Colon Adenocarcinoma: s/p surgery. Dehydration and Hypernatremia: Dehydration noted. Evaluated by moth proofer for hypernatremia. Has poor water intake daily. Diabetes Mellitus: High blood glucose levels reported. Recent fasting reading was normal at 90 mg/dL. Sees traveling representative Dr. Sherman at [facility]. Dyslipidemia: Elevated liver enzymes noted. Atorvastatin usage adjusted by patient. Has been taking atorvastatin 80mg every other day. Suspected Sleep Apnea: Possible sleep apnea suspected due to nocturnal breathing issues. Had testing in the past but could not tolerate machine, records not available at this visit Family History: - Family member recently Diagnostic Results: - Labs: Elevated liver enzymes noted - Tests: Negative COVID and flu tests Review of Systems - General: Reports fatigue - Respiratory: occasional sob, apnea ep isodes - Cardiovascular: Denies current chest p ain but has past complaints of chest discomfort - Gastrointestinal: no diarrhea, no abdo nai pain. Physical Exam - Ears- cerumen impaction in both ears -- Respiratory- Lungs clear bilaterally - Cardiovascular- No abnormal heart soun ds noted; soft murmur across precordium - Abdominal: SNTND, +BS - Extremities- Trace edema in both legs Assessment and Plan 1. Metastatic Bone Cancer and Colon Tang ocarcinoma -Follow up with oncology 2. Dehydration and Hypernatremia - Increase water intake, monitor electro lytes. 3. Diabetes Mellitus - Monitor blood sugars, endocrine follow -up. 4. Dyslipidemia - Await liver enzyme results before alte ring atorvastatin. 5. Suspected Sleep Apnea - Sleep specialist referral. 6. Due to ongoing sob and episodes of ch est discomfort will obtain stress test since pt is high risk Discussion Notes I discussed the current management plan for the patient's metastatic bone cancer and colon cancer specifically focusing on review and necessary adjustments in chemotherapy regimens. We reviewed the impact of dehydration and hypernatremia, emphasizing the importance of proper hydration while avoiding sodium-rich preparations. With her diabetes, maintaining consistent monitoring of blood sugars and following up with the traveling representative was supported. We reviewed the current use of atorvastatin and the need to check liver functions before making dosage changes. The possibility of sleep apnea was addressed, with a referral made to a sleep specialist for further assessment. Follow-up plans were clearly outlined with anticipations of laboratory results and referrals. Patient Instructions - Drink more water daily to stay hydrate d. - Avoid drinks with too much sodium. - Check blood sugar regularly. - Wait for new lab results before changi ng any medication doses. - Follow up for sleep apnea assessment. - Contact us if you feel more tired, thi rsty, confused, or overly hungry. - Make sure to eat a balanced diet with vegetables and proteins. [facility] Medical History (Updated 12/12/24 @ 17:21 by Reyna Pak MD) Shortness of breath Obstructive sleep apnea Former smoker Hx of radiation therapy History of chemotherapy Arthritis On anticoagulant therapy Sleep apnea Colon cancer Hypercalcemia Mixed hyperlipidemia Dizziness intermediate designer (current) use of insulin Breast cancer Memory loss Muscle cramps Menieres disease HTN (hypertension) T2DM (type 2 diabetes mellitus) Skin lesion New daily persistent headache History of stroke Hypovitaminosis D Nausea Essential hypertension Diabetes mellitus Surgical History (Updated 12/11/24 @ 17:04 by Tati Abebe) H/O colonoscopy (~10/04/23) History of parotid gland removal Status post unilateral salpingo-oophorectomy H/O right mastectomy History of left mastectomy History of hemicolectomy Family History Father Diabetes Mother Diabetes Hypertension Sister Cervical cancer Daughter No problems noted. Son Skin cancer Brother No problems noted. Brother No problems noted. Family/Other Mental health disorder Substance use disorder Social History Household Members: Spouse Housing: Condominium Are you a primary director of health care marketing to a significant other at home: No Do you presently have visiting nurse or other home services: No Alcohol intake: never Patient Tobacco Use Status: Former Tobacco user Tobacco use type: Cigarette Years Smoked: 20 e-Cigarette/Vaping Use: Never Used Second Hand Smoke Exposure: No service: No Current occupational status: disabled Cognitive needs: No Hearing needs: No Vision needs: No Female Reproductive History Menstrual Age of Menarche: 12 Questionnaire Thrive Questionnaire Date Thrive assessed: 05/28/21 AUDIT C Alcohol Use Questionnaire (AUDIT-C) 1. How often do you have a drink containing alcohol?: Never 3. How often do you have six or more drinks on one occasion?: Never Total Score: 0 FOUZIA-7 AMB Questionnaire FOUZIA-7 Date FOUZIA - 7 assessed: 05/28/21 Source: Developed by Drs. Juan Madden, Barbara Nelson, Marco Perkins and colleagues, with an educational omid from [employer]. Physical exam (Primary Care) Vital Signs: Last Vital Signs Temp 97.1 F 12/12/24 10:50 Pulse 78 12/12/24 10:50 Resp 16 12/12/24 10:50 BP 124/70 12/12/24 10:50 Pulse Ox 96 12/12/24 10:50 Oxygen Delivery Method Room Air 12/12/24 10:50 BMI result Body Mass Index 25.8 Tobacco/Smoking Status: Tobacco use Status Tobacco use date assessed 12/12/24 12/12/24 10:50 Patient Tobacco Use Status Former Tobacco user 12/12/24 10:50 Tobacco use type Cigarette 12/12/24 10:50 e-Cigarette/Vaping Use Never Used 12/12/24 10:50 Thrive Assessment: Date of Thrive Assessment Date Thrive assessed 05/28/21 12/12/24 10:50 Coding Level of Care Code Est Pt Level 4 (88227) Complex EM visit Add On G2211 Diagnoses Type 2 diabetes mellitus with hyperglycemia, with long-term current use of insulin E11.65; Z79.4 Diabetes mellitus termination clerk insulin use: with snf use Diabetes mellitus complication status: with hyperglycemia Obstructive sleep apnea G47.33 Shortness of breath R06.02 Primary hypertension I10 Hypertension type: primary hypertension Mixed hyperlipidemia E78.2 Hyperlipidemia type: mixed hyperlipidemia intermediate designer (current) use of insulin Z79.4 Malignant neoplasm of colon, unspecified part of colon C18.9 Colon location: unspecified part of colon Malignant neoplasm of female breast, unspecified estrogen receptor status, unspecified laterality, unspecified site of breast C50.919 Breast location: unspecified site of breast Estrogen receptor status: unspecified Laterality: unspecified laterality Patient sex: female Assessment & Plan Assessment & Plan (1) T2DM (type 2 diabetes mellitus): Code(s): E11.9 - Type 2 diabetes mellitus without complications Category: Medical Qualifiers: Diabetes mellitus snf insulin use: with termination clerk use Diabetes mellitus complication status: with hyperglycemia Qualified Code(s): E11.65 - Type 2 diabetes mellitus with hyperglycemia; Z79.4 - intermediate designer (current) use of insulin (2) Obstructive sleep apnea: Code(s): G47.33 - Obstructive sleep apnea (adult) (pediatric) Category: Medical (3) Shortness of breath: Code(s): R06.02 - Shortness of breath Category: Medical (4) HTN (hypertension): Code(s): I10 - Essential (primary) hypertension Category: Medical Qualifiers: Hypertension type: primary hypertension Qualified Code(s): I10 - Essential (primary) hypertension (5) HLD (hyperlipidemia): Code(s): E78.5 - Hyperlipidemia, unspecified Category: Medical Qualifiers: Hyperlipidemia type: mixed hyperlipidemia Qualified Code(s): E78.2 - Mixed hyperlipidemia (6) intermediate designer (current) use of insulin: Code(s): Z79.4 - intermediate designer (current) use of insulin Category: Medical (7) Colon cancer: Code(s): C18.9 - Malignant neoplasm of colon, unspecified Category: Medical Qualifiers: Colon location: unspecified part of colon Qualified Code(s): C18.9 - Malignant neoplasm of colon, unspecified (8) Breast cancer: Code(s): C50.919 - Malignant neoplasm of unspecified site of unspecified female breast Category: Medical Qualifiers: Breast location: unspecified site of breast Estrogen receptor status: unspecified Laterality: unspecified laterality Patient sex: female Qualified Code(s): C50.919 - Malignant neoplasm of unspecified site of unspecified female breast Plan - Increase water intake - Monitor blood sugars - Atorvastatin to be adjusted pending labs - Sleep apnea referral - Follow up in 2 months Orders: Orders CA stress test Today R06.02 - Shortness of breath, R07.9 - Chest pain, unspecified Comprehensive Met. Panel Today E11.65 - Type 2 diabetes mellitus with hyperglycemia, I10 - Essential (primary) hypertension, Z79.4 - MCFP (current) use of insulin Hemoglobin A1c Today E11.65 - Type 2 diabetes mellitus with hyperglycemia, I10 - Essential (primary) hypertension, Z79.4 - intermediate designer (current) use of insulin NM cardiolite stress test Today R06.02 - Shortness of breath Referrals Sleep Medicine Referral G47.33 - Obstructive sleep apnea (adult) (pediatric) Medications: New carbamide peroxide 6.5% (Debrox) 5 drps otic (ears) BID 15 mL 0RF 4 days Changed From insulin glargine (Lantus U-100 Insulin) 34 units subcut DAILY To insulin glargine (Lantus U-100 Insulin) 54 units subcut DAILY Patient Instructions: SOMEONE WILL CALL YOU TO SCHEDULE SLEEP CLINIC APPOINTMENT WE WILL ALSO SCHEDULE STRESS TEST GET LABS TODAY
[2024-12-12 10:50] VITALS: BP 124/70; PULSE 78; RESP 16; TEMP 36.2; O2SAT 96; BMI 25.8
--- OUTSIDE RECORDS SUMMARY | 2024-12-12 12:31 | XMS_ITS | Encounter Summary ---
Author Organization [facility] Address [address] [place] [phone] Care Team Providers Care Guidance Services Coordinator Name Role Phone Unavailable Primary Care Provider Unavailabl e Encounter Details Date Type Department Care Team ([facility] st Contact Info) Description 11/10/2023 Scanned Document INTERFACE DEFAULT [address] [place] [phone] System, Provider Not In Social History [...]
--- OUTSIDE RECORDS SUMMARY | 2024-12-12 12:31 | XMS_ITS | Encounter Summary ---
Author Organization [facility] Address [address] [place] [phone] Care Team Providers Care Artisan Plasterer Name Role Phone Unavailable Primary Care Provider Unavailabl e Encounter Details Date Type Department Care Team ([facility] Contact Info) Description 12/07/2023 Scanned Document [facility] Health Information Management [address] [place] [address] External, Provider Social History Tobacco Use Types [...]
--- OUTSIDE RECORDS SUMMARY | 2024-12-12 12:31 | XMS_ITS | Encounter Summary ---
Author Organization [facility] Address [address] [place] [phone] Care Team Providers Care Ore Crushing Dust Collector Name Role Phone Unavailable Primary Care Provider Unavailabl e Encounter Details Date Type Department Care Team ([facility] Contact Info) Description 11/08/2023 Scanned Document INTERFACE DEFAULT [address] [place] [address] System, Provider Not In Social History [...]
--- OUTSIDE RECORDS SUMMARY | 2024-12-12 12:32 | XMS_ITS | Encounter Summary ---
Author Organization [facility] Address [address] [place] [phone] Care Team Providers Care Hse Coordinator Name Role Phone Unavailable Primary Care Provider Unavailabl e Encounter Details Date Type Department Care Team ([facility] Contact Info) Description 02/16/2023 Scanned Document INTERFACE DEFAULT [address] [place] [address] System, Provider Not In Social History [...]
--- OUTSIDE RECORDS SUMMARY | 2024-12-12 12:32 | XMS_ITS | Clinical Summary ---
Author Organization [facility] Address [address] [place] [address] Care Team Providers Care Manager Intensive Care Unit Name Role Phone Reyna Pak MD Primary Care Provider [phone] Allergies No known active allergies Medications amLODIPine [...] Health Maintenance Due Date Last Done Comments Cologuard 1955 Colon Cancer Screening 1955 Colonoscopy 1955 FOBT / Fit Test 1955 Sigmoidoscopy 1955 Mammogram 1995 Osteoporosis Screening 06/28/2005 Pneumococcal Vaccine: 50+ Years (1 of 1 - PCV) 06/28/2005 Zoster Vaccines (1 of 2) 06/28/2005 Alcohol/Substance Use Screening 02/08/2024 Health Care Proxy Review 02/08/2024 COVID-19 Vaccine (2 - 2024- season) 2024 05/14/2020 Influenza Vaccine (#1) 2024 RSV Vaccine (60+ years old and patients) (1 - 1-dose 75+ series) 06/28/2030 DTaP,Tdap,and Td Vaccines (3 - Td or Tdap) 07/25/2031 07/24/2021, 01/10/2012, 10/22/2005, Additional history exists Hepatitis B Vaccines Aged Out No long er eligible based on patient's age to complete this topic Insurance [facility] Advance Directives Documents on File Type Date Recorded Patient Return Checker [facility] Care Proxy 04/20/2019 2:27 PM * Full Code (Latest Code Status on File) Date Activated Date Inactivated Comments 04/20/2019 9:36 AM 04/20/2019 4:50 PM Care Teams Manager Intensive Care Unit Relationship Specialty Start Date End Date Reyna Pak MD [address] [place] [address] PCP - General Internal Medicine 09/30/21
--- OUTSIDE RECORDS SUMMARY | 2024-12-12 12:32 | XMS_ITS | Encounter Summary ---
Author Organization [facility] Address [address] [place] [phone] Care Team Providers Care River Transportation Worker Name Role Phone Unavailable Primary Care Provider Unavailabl e Encounter Details Date Type Department Care Team ([facility] st Contact Info) Description 03/29/2018 Scanned Document INTERFACE DEFAULT [address] [place] [phone] System, Provider Not In Social History Tobacco [...]
--- OUTSIDE RECORDS SUMMARY | 2024-12-12 12:32 | XMS_ITS | Encounter Summary ---
Author Organization [facility] and [facility] Address [address] [place] [phone] Care Team Providers Care Pluck Trimmer Name Role Phone Unavailable Primary Care Provider Unavailabl e Encounter Details Date Type Department Care Team ([facility] Contact Info) Description 10/17/2023 Scanned Document INTERFACE DEFAULT [address] [place] [address] System, Provider Not In Social History [...]
--- OUTSIDE RECORDS SUMMARY | 2024-12-12 12:32 | XMS_ITS | Encounter Summary ---
Author Organization [facility] and [facility] Address [address] [place] [phone] Care Team Providers Care Carpet Technician Name Role Phone Unavailable Primary Care Provider Unavailabl e Encounter Details Date Type Department Care Team ([facility] Contact Info) Description 08/15/2023 Scanned Document INTERFACE DEFAULT [address] [place] [address] System, Provider Not In Social History [...]
--- OUTSIDE RECORDS SUMMARY | 2024-12-12 12:32 | XMS_ITS | Encounter Summary ---
Author Organization [facility] and [facility] Address [address] [place] [phone] Care Team Providers Care Transport Pilot Name Role Phone Unavailable Primary Care Provider Unavailabl e Encounter Details Date Type Department Care Team ([facility] st Contact Info) Description 10/04/2023 Scanned Document INTERFACE DEFAULT [address] [place] [address] System, Provider Not In Social History [...]
--- OUTSIDE RECORDS SUMMARY | 2024-12-12 12:32 | XMS_ITS | Clinical Summary ---
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 ([facility] V24, [facility] V28) 07/18/2015 Ovarian cyst 10/18/2013 [...] Department Care Team Description 10/15/2024 Telephone Gastro[facility]ology [facility] [address] [place] [address] Clive Kunz DO 09/13/2024 9:40 AM EDT Office Visit Gastroenterology [facility] [address] [place] [address] Clive Kunz DO History of [...] 2002, left breast OTHER SURGICAL HISTORY PROCEDURE: MA RESCJ OVARIAN/TUBAL/PERITONEAL MALIGNANCY W/BSO; COMMENT: COLONOSCOPY 01/20/10 PROCEDURE: HISTORICAL COLONOSCOPY; COMMENT: adenomas; repeat in three years COLONOSCOPY W/ POLYPECTOMY 02/10/15 PROCEDURE: MA COLSC FLX W/RMVL OF TUMOR POLYP LESION SNARE TQ; COMMENT: adenomas; repeat in 3 yrs BREAST BIOPSY PROCEDURE: BX BREAST; PERC NEEDLE CORE W/IMAG GUID OOPHORECTOMY BREAST LUMPECTOMY Bilateral Medical History Medical History Date Comments DM (diabetes mellitus) ([facility] V24, [facility] V28) DX:DM (diabetes mellitus) (H CC) Hypercholesteremia DX:Hyperchole steremia Unspecified essential hypertension DX:Unspecified essential hypertension Personal history of malignan t neoplasm of breast DX:Personal history of malchana nant neoplasm of breast; COMMENT: 2002 lt side Colon polyp Sleep apnea Stroke ([facility] V24, [facility] V28) Family History Medical History [...] RSV Immunization Adult Patients (1 - Risk 50-74 years 1-dose series) 06/28/2005 COVID-19 Vaccine (2 - Saurav risk series) [...] this topic Medical Devices Explanted Type Area Orchestrator Device Identifier Shelf Expiration Date Model / Serial / Lot Stent Uret [id number] Stretch W/O Gw - Sna - [id number] Explanted:Qty: 1 on 02/23/2024 by Ralph Kimble MD at [facility] Stents Left: Ureter [employer] GY [id number] 08/16/2026 [id number] / NA / [id number] Procedures Procedure Name Priority Date/Time Associated Diagnosis Comments BASIC METABOLIC PANEL Routine 02/25/2024 6:24 AM EST COLONOSCOPY Routine 02/06/2024 8:[address] of the abdomen Abnormal rectal biopsy Adenocarcinoma of colon ([facility] V24, [facility] V28) HEMOGLOBIN A1C Routine 05/09/2015 HM URINE ALBUMIN CREATININE RATIO Routine 11/16/2014 LIPID PANEL Routine 11/16/2014 from Last 3 Months or Most Recently Relevant to Health Maintenance Results * (ABNORMAL) Basic metabolic panel (02/25/2024 6:24 AM EST) Sodium 143 133 - 145 mmol/L LAB CHEMISTRY METHOD 02/25/2024 8:[address] [facility] Potassium 3.5 3.5 - 5.5 mmol/L LAB CHEMISTRY METHOD 02/25/2024 8:[address] [facility] Chloride 109 96 - 110 mmol/L LAB CHEMISTRY METHOD 02/25/2024 8:40 AM [facility] CO2 29 21 - 32 mmol/L LAB CHEMISTRY METHOD 02/25/2024 8:40 AM [facility] Anion Gap 5 3 - 11 LAB CHEMISTRY METHOD 02/25/2024 8:40 AM [facility] Glucose 175(H) 70 - 100 mg/dL LAB CHEMISTRY METHOD 02/25/2024 8:40 AM [facility] BUN 12 5 - 25 mg/dL LAB CHEMISTRY METHOD 02/25/2024 8:40 AM [facility] Creatinine 0.83 0.50 - 1.10 mg/dL LAB CHEMISTRY METHOD 02/25/2024 8:40 AM [facility] eGFR 77 >=60 mL/min/1. 73m2 LAB CHEMISTRY METHOD 02/25/2024 8:40 AM [facility] Comment:Calculation based on the Chronic Kidney Disease Epidemiology Collaboration (CKD-EPI) equation refit without adjustment for race. BUN/Creatinine Ratio 14.5 LAB CHEMISTRY METHOD 02/25/2024 8:40 AM [facility] Calcium 8.9 8.5 - 10.5 mg/dL LAB CHEMISTRY METHOD 02/25/2024 8:40 AM [facility] Blood Venous blood specimen / Unknown Venipuncture / Unknown 02/25/2024 6:24 AM EST 02/25/2024 6:51 AM EST us Fernanda SYLVESTER LAB BLOOD ORDERABLES Final R esult [facility] [address] [place] [address], * COLONOSCOPY Anesthesia - MAC; [facility] ENDOSCOPY (02/06/2024 8:38 AM EST) Anatomical Region [...] surgery. Narrative 02/06/2024 8:38 AM EST [facility] GI Patient Name: Monica Reese Procedure Date: 02/06/2024 7:31 AM Date of : 1955 Age: 68 Gender: Female Note Status: Finalized Attending MD: Clive Kunz DO, [id number] Procedure Date No Time: 02/06/2024 Procedure: Colonoscopy [...] the physician, the nurse, the anesthesiologist, the litigation docket manager and the thin film technician in the pre-procedure area in the [...] by congestion. Procedure Code(s): --- Professional --- 63248, Colonoscopy, flexible; with removal of tumor(s), polyp(s), or other lesion(s) by snare technique 16251, Colonoscopy, flexible; with directed submucosal injection(s), any substance 35995, 59, Colonoscopy, flexible; with biopsy, single or multiple Diagnosis Code(s): --- Professional --- Z85.038, Personal history of other malignant neoplasm of large intestine K64.9, Unspecified hemorrhoids D12.7, Benign neoplasm of rectosigmoid junction C18.7, Malignant neoplasm of sigmoid colon K56.690, Other partial intestinal obstruction CPT copyright 2020 [employer]. All rights reserved. The codes documented in this report are preliminary and upon utilization supervisor review may be revised to meet current compliance requirements. CLIVE Kunz DO 02/06/2024 8:38:14 AM This report has been signed electronically.Clive Kunz DO Number of Addenda: 0 Note Initiated On: 02/06/2024 7:31 AM Scope Withdrawal Time: 0 hours 11 minutes 36 seconds Scope In: 8:13:32 AM Scope Out: 8:27:51 AM Endoscopy Department at [facility] - [address] [place] [phone] Procedure Note Clive Kunz DO - 02/06/2024 [facility] GI Patient Name: Monica Reese Procedure Date: 02/06/2024 7:31 AM Date of : 1955 Age: 68 Gender: Female Note Status: Finalized Attending MD: Clive Kunz DO, [id number] Procedure Date No Time: 02/06/2024 Procedure: Colonoscopy [...] the physician, the nurse, the anesthesiologist, the litigation docket manager and thetechnician in the pre-procedure area in [...] views. There was evidence of a prior kty-aa-nslpbht-colonic anastomosis in the sigmoid colon. This was patentand was characterized by congestion. Procedure Code(s): --- Professional --- 80742, Colonoscopy, flexible; with removal of tumor(s), polyp(s), or other lesion(s) by snare technique 03479, Colonoscopy, flexible; with directedsubmucosal injection(s), any substance 83719, 59, Colonoscopy, flexible; with biopsy,single or multiple Diagnosis Code(s): --- Professional --- Z85.038, Personal history of other malignantneoplasm of large intestine K64.9, Unspecified hemorrhoids D12.7, Benign neoplasm of rectosigmoid junction C18.7, Malignant neoplasm of sigmoid colon K56.690, Other partial intestinal obstruction CPT copyright 2020 [employer]. All rights reserved. The codes documented in this report are preliminary and upon utilization supervisor reviewmay be revised to meet current compliance requirements. CLIVE Kunz DO 02/06/2024 8:38:14 AM This report has been signed electronically.Clive Kunz DO Number of Addenda: 0 Note Initiated On: 02/06/2024 7:31 AM Scope Withdrawal Time: 0 hours 11 minutes 36 seconds Scope In: 8:13:32 AM Scope Out: 8:27:51 AM Endoscopy Department at [facility] - [address] [place] [phone] IMPRESSION: - Hemorrhoids found on perianal exam. [...] Re sult * (ABNORMAL) Hemoglobin A1c (05/09/2015) [facility] Hemoglobin A1C 7.9(A) 4.0 - 6.0 % Blood Venous blood specimen / Unknown Historical Provider LAB BLOOD ORDERABLES Cecilia l Result * Urine Albumin Creatinine Ratio (11/16/2014) Pathologist [facility]1983 Urine Albumin Creatinine Ratio abstracted Historical Provider [...] Documents on File Type Date Recorded Patient Assurance Manager Expl 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 Care Teams Actuary Manager Relationship Specialty Start Date End Date Reyna Pak MD [address] [place] [address] PCP - General 10/03/23
--- OUTSIDE RECORDS SUMMARY | 2024-12-12 12:32 | XMS_ITS | Encounter Summary ---
Author Organization [facility] and [facility] Address [address] [place] [phone] Care Team Providers Care Leaf Binner Name Role Phone Unavailable Primary Care Provider Unavailabl e Encounter Details Date Type Department Care Team ([facility] Contact Info) Description 04/11/2023 Scanned Document INTERFACE DEFAULT [address] [place] [address] System, Provider Not In Social History [...]
--- OUTSIDE RECORDS SUMMARY | 2024-12-12 12:32 | XMS_ITS | Clinical Summary ---
Author Organization [address] Address [address] [place] [phone] Care Team Providers Care Part Maker Name Role Phone Unavailable Primary Care Provider [...]
--- OUTSIDE RECORDS SUMMARY | 2024-12-12 12:32 | XMS_ITS | Encounter Summary ---
Author Organization [facility] and [facility] Address [address] [place] [phone] Care Team Providers Care Per Diem Nurse Name Role Phone Unavailable Primary Care Provider Unavailabl e Encounter Details Date Type Department Care Team ([facility] st Contact Info) Description 05/31/2023 Scanned Document INTERFACE DEFAULT [address] [place] [phone] System, Provider Not In Social History Tobacco [...]
--- OUTSIDE RECORDS SUMMARY | 2024-12-12 12:32 | XMS_ITS | Encounter Summary ---
Author Organization [facility] Address [address] [place] [phone] Care Team Providers Care Industrial Welder Name Role Phone Unavailable Primary Care Provider Unavailabl e Encounter Details Date Type Department Care Team ([facility] st Contact Info) Description 11/11/2023 Scanned Document INTERFACE DEFAULT [address] [place] [address] System, Provider Not In Social History [...]
== END 2024-12-12 12:06 | disposition home or self-care (01) ==
LOC: HO.HMCHD 10:45
PROVIDERS: PCP Internal Medicine; Visit Provider Internal Medicine
DX: E11.65 Type 2 diabetes mellitus with hyperglycemia (principal); Z79.4 Long term (current) use of insulin; G47.33 Obstructive sleep apnea (adult) (pediatric); R06.02 Shortness of breath; I10 Essential (primary) hypertension; E78.2 Mixed hyperlipidemia; C18.9 Malignant neoplasm of colon, unspecified; C50.919 Malignant neoplasm of unspecified site of unspecified female breast

== ENCOUNTER 2024-12-12 11:56 | Outpatient (REF) | payer OTHER, SELFPAY ==
[2024-12-12 14:07] LABS: Alanine Aminotransferase 37 U/L (0-31); Albumin Level 3.9 g/dL (3.5-5.0); Alkaline Phosphatase 113 U/L (39-117); Anion Gap 12 (12-20); Aspartate Amino Transferase 26 U/L (5-31); Blood Urea Nitrogen 16 mg/dL (9-16); Calcium 9.8 mg/dL (8.4-10.2); Carbon Dioxide 29 mmol/L (22-29); Chloride 110 mmol/L (96-108); Estimated Glomerular Filt Rate > 60; Potassium 3.9 mmol/L (3.3-5.1); Sodium 147 mmol/L (135-145); Total Protein 7.5 g/dL (6.5-8.0)
== END 2024-12-12 11:57 | disposition home or self-care (01) ==
LOC: HO.10HDL 11:56
PROVIDERS: Visit Provider Internal Medicine
DX: E11.65 Type 2 diabetes mellitus with hyperglycemia (principal); I10 Essential (primary) hypertension; E78.5 Hyperlipidemia, unspecified; E86.0 Dehydration; G47.33 Obstructive sleep apnea (adult) (pediatric); R06.02 Shortness of breath; E78.2 Mixed hyperlipidemia; C18.9 Malignant neoplasm of colon, unspecified; C50.919 Malignant neoplasm of unspecified site of unspecified female breast; R07.9 Chest pain, unspecified; Z79.4 Long term (current) use of insulin
CPT/HCPCS: 36415; 80053; 83036; 99212

== ENCOUNTER 2024-12-21 10:13 | Outpatient (AMB) | payer OTHER, SELFPAY ==
--- NOTE | 2024-12-21 11:02 | AM.OFFVISNUR ---
Intake Visit Reasons: Ear Lavage Allergies dulaglutide (From Trulicity) Allergy (Mild, Verified 12/12/24 10:46) Abdominal Pain simvastatin Allergy (Verified 12/12/24 10:46) Joint Pain metformin Adverse Reaction (Mild, Verified 12/12/24 10:46) Diarrhea sitagliptin (Januvia) Adverse Reaction (Mild, Verified 12/12/24 10:46) abdominal pain Nursing Note Patient here today for bilateral ear lavage, accompanied by her partner. Tells me ears feel blocked for some time now no pain just a blocked sensation in both. Office Procedures Cerumen Removal From which ear canal was the cerumen removed: bilateral Removal: irrigation and cerumen loop/spoon Notes: patient tolerated procedure well, no complications and ear canal clear [id number] Irrigation/Lavage Coding Patient Type Established History Problem Focused Medical Decision Making Straight Forward CPT Codes Office Procedure - CPT: 46965-Dft Irrigation/Lavage ([id number]) Time Spent (min) 20
--- OUTSIDE RECORDS SUMMARY | 2024-12-21 12:37 | XMS_ITS | Clinical Summary ---
Author Organization [address] Address [address] [place] [phone] Care Team Providers Care Location Worker Name Role Phone Unavailable Primary Care [...]
--- OUTSIDE RECORDS SUMMARY | 2024-12-21 12:38 | XMS_ITS | Clinical Summary ---
Author Organization [facility] Address [address] [place] [address] Care Team Providers Care Veneer Taping Machine Operator Name Role Phone Reyna Pak MD Primary Care Provider [phone] Allergies No known active allergies Medications amLODIPine [...] patient's age to complete this topic Insurance [facility] Advance Directives Documents on File Type Date Recorded Patient Database Programmer Analyst [facility] Care Proxy 04/20/2019 2:27 PM * Full Code (Latest Code Status on File) Date Activated Date Inactivated Comments 04/20/2019 9:36 AM 04/20/2019 4:50 PM Care Teams Veneer Taping Machine Operator Relationship Specialty Start Date End Date Reyna Pak MD [address] [place] [address] PCP - General Internal Medicine 09/30/21
--- OUTSIDE RECORDS SUMMARY | 2024-12-21 12:38 | XMS_ITS | Encounter Summary ---
Author Organization [facility] and [facility] Address [address] [place] [phone] Care Team Providers Care Data Capture Specialist Name Role Phone Unavailable Primary Care Provider Unavailabl e Encounter Details Date Type Department Care Team ([facility] st Contact Info) Description 11/10/2023 Scanned Document INTERFACE DEFAULT [address] [place] [address] System, Provider Not In Social History [...]
--- OUTSIDE RECORDS SUMMARY | 2024-12-21 12:38 | XMS_ITS | Encounter Summary ---
Author Organization [facility] and [facility] Address [address] [place] [phone] Care Team Providers Care Supervisor Garage Name Role Phone Unavailable Primary Care Provider Unavailabl e Encounter Details Date Type Department Care Team ([facility] Contact Info) Description 11/08/2023 Scanned Document INTERFACE DEFAULT [address] [place] [address] System, Provider Not In Social History [...]
--- OUTSIDE RECORDS SUMMARY | 2024-12-21 12:38 | XMS_ITS | Encounter Summary ---
Author Organization [facility] and [facility] Address [address] [place] [phone] Care Team Providers Care Salesforce Specialist Name Role Phone Unavailable Primary Care Provider Unavailabl e Encounter Details Date Type Department Care Team ([facility] Contact Info) Description 12/07/2023 Scanned Document [facility] Health Information Management [address] [place] [address] External, Provider Social History Tobacco Use Types [...]
--- OUTSIDE RECORDS SUMMARY | 2024-12-21 12:39 | XMS_ITS | Encounter Summary ---
Author Organization [facility] and [facility] Address [address] [place] [phone] Care Team Providers Care Home And Family Living Professor Name Role Phone Unavailable Primary Care Provider Unavailabl e Encounter Details Date Type Department Care Team ([facility] st Contact Info) Description 10/04/2023 Scanned Document INTERFACE DEFAULT [address] [place] [address] System, Provider Not In Social History [...]
--- OUTSIDE RECORDS SUMMARY | 2024-12-21 12:39 | XMS_ITS | Encounter Summary ---
Author Organization [facility] Address [address] [place] [phone] Care Team Providers Care Leadership Coach Name Role Phone Unavailable Primary Care Provider Unavailabl e Encounter Details Date Type Department Care Team ([facility] st Contact Info) Description 11/11/2023 Scanned Document INTERFACE DEFAULT [address] [place] [address] System, Provider Not In Social History [...]
--- OUTSIDE RECORDS SUMMARY | 2024-12-21 12:39 | XMS_ITS | Encounter Summary ---
Author Organization [facility] and [facility] Address [address] [place] [phone] Care Team Providers Care Sales Training Coordinator Name Role Phone Unavailable Primary Care Provider Unavailabl e Encounter Details Date Type Department Care Team ([facility] Contact Info) Description 10/17/2023 Scanned Document INTERFACE DEFAULT [address] [place] [address] System, Provider Not In Social History [...]
--- OUTSIDE RECORDS SUMMARY | 2024-12-21 12:40 | XMS_ITS | Encounter Summary ---
Author Organization [facility] and [facility] Address [address] [place] [phone] Care Team Providers Care Drapery And Upholstery Measurer Name Role Phone Unavailable Primary Care Provider Unavailabl e Encounter Details Date Type Department Care Team ([facility] Contact Info) Description 02/16/2023 Scanned Document INTERFACE DEFAULT [address] [place] [address] System, Provider Not In Social History [...]
--- OUTSIDE RECORDS SUMMARY | 2024-12-21 12:40 | XMS_ITS | Encounter Summary ---
Author Organization [facility] and [facility] Address [address] [place] [phone] Care Team Providers Care Insurance Licensing Supervisor Name Role Phone Unavailable Primary Care Provider Unavailabl e Encounter Details Date Type Department Care Team ([facility] Contact Info) Description 04/11/2023 Scanned Document INTERFACE DEFAULT [address] [place] [address] System, Provider Not In Social History [...]
--- OUTSIDE RECORDS SUMMARY | 2024-12-21 12:41 | XMS_ITS | Encounter Summary ---
Author Organization [facility] and [facility] Address [address] [place] [phone] Care Team Providers Care Meat Market Manager Name Role Phone Unavailable Primary Care Provider Unavailabl e Encounter Details Date Type Department Care Team ([facility] st Contact Info) Description 03/29/2018 Scanned Document INTERFACE DEFAULT [address] [place] [phone] System, Provider Not In Social History Tobacco [...]
--- OUTSIDE RECORDS SUMMARY | 2024-12-21 12:41 | XMS_ITS | Encounter Summary ---
Author Organization [facility] and [facility] Address [address] [place] [phone] Care Team Providers Care Nut Sifter Name Role Phone Unavailable Primary Care Provider Unavailabl e Encounter Details Date Type Department Care Team ([facility] st Contact Info) Description 05/31/2023 Scanned Document INTERFACE DEFAULT [address] [place] [phone] System, Provider Not In Social History Tobacco [...]
--- OUTSIDE RECORDS SUMMARY | 2024-12-21 12:41 | XMS_ITS | Encounter Summary ---
Author Organization [facility] and [facility] Address [address] [place] [phone] Care Team Providers Care Sawmill Hand Name Role Phone Unavailable Primary Care Provider Unavailabl e Encounter Details Date Type Department Care Team ([facility] Contact Info) Description 08/15/2023 Scanned Document INTERFACE DEFAULT [address] [place] [address] System, Provider Not In Social History [...]
--- OUTSIDE RECORDS SUMMARY | 2024-12-21 12:42 | XMS_ITS | Encounter Summary ---
Author Organization [facility] Address [address] [place] [address] Care Team Providers Care Traffic Maintenance Supervisor Name Role Phone Vinicius Mendoza MD Primary Care Provider Bhumi Lechuga, Pcp Primary Care Provider Reyna Uriarte MD Primary Care Provider Ezequiel ilharry Reason for Visit * Reason Onset Date Comments Faxed Order 07/31/2015 Encounter Details Date Type Department Care Team Description 07/31/2015 Telephone Adult Medicine [address] [address] Vinicius Mendoza MD Faxed Order Social History [...] on filedocumented in this encounter Care Teams Traffic Maintenance Supervisor Relationship Specialty Start Date End Date Vinicius Mendoza MD PCP - General Internal Medicine 02/24/15 07/14/16 [facility], Pcp PCP - General Internal Medicine 07/15/16 10/02/23 Reyna Pak MD PCP - General Internal Medicine 10/03/23 documented as of this encounter
--- OUTSIDE RECORDS SUMMARY | 2024-12-21 12:43 | XMS_ITS | Encounter Summary ---
Author Organization [facility] Address [address] [place] [address] Care Team Providers Care Survey Crew Chief Name Role Phone Vinicius Mendoza MD Primary Care Provider Bhumi Lechuga, Pcp Primary Care Provider Reyna Uirarte MD Primary Care Provider Ezequiel ilharry Reason for Visit * Reason Comments E-prescribe Rx Request Encounter Details Date Type Department Care Team Description 02/22/2016 Refill Adult Medicine [address] [address] Vinicius Mendoza MD E-prescribe Rx Request Social History Tobacco Use Types Packs/Day Years Used Date Smoking Tobacco: Former Cigarettes 1 10 Smokeless Tobacco: Never Comments:2002 Alcohol Use Standard Drinks/Week Comments No 0 (1 standard drink = 0.6 oz pur e alcohol) Sex Assigned at Date Recorded Not on file documented as of this encounter Miscellaneous Notes * Telephone Encounter - Blanca May - 02/24/2016 2:03 PM EST Patient would like script to be: E-PRESCRIBED/FAXED TO PHARMACY WHEN WAS THE PATIENT'S LAST APPOINTMENT IN ADULT MEDICINE? 07/18/15 WHEN WAS THE LAST TIME THE PATIENT SAW THEIR PCP? Same as above Does patient have an upcoming appointment? [facility] to [facility]ill request. Appt due jesus (THE MEDICATION REQUESTED IS ON THE MED LIST ABOVE) All of the medications requested were on the CURRENT MEDS list Did you check the Pharmacy information above?: YES Patient wants: 30 -day supply Is this a mail order prescription request ? NO Patients current insurance carrier is: Payor: [employer] FFS / Plan: [employer] PLUS PLAN / Product Type: MEDICAID RISK documented in this encounter Plan of Treatment Not on file documented as of this encounter Visit Diagnoses Not on filedocumented in this encounter Care Teams Survey Crew Chief Relationship Specialty Start Date End Date Vinicius Mendoza MD PCP - General Internal Medicine 02/24/15 07/14/16 Hossein Lechuga PCP - General Internal Medicine 07/15/16 10/02/23 Renya Pak MD PCP - General Internal Medicine 10/03/23 documented as of this encounter
--- OUTSIDE RECORDS SUMMARY | 2024-12-21 12:43 | XMS_ITS | Encounter Summary ---
Author Organization [facility] Address [address] [place] [address] Care Team Providers Care Artificial Snow Making Machine Operator Name Role Phone Vinicius Grubbs MD Primary Care Provider Bhumi Lechuga, Pcp Primary Care Provider Reyna Uriarte MD Primary Care Provider Ezequiel ilharry Reason for Visit * Reason Onset Date Comments Faxed Order 08/06/2015 Encounter Details Date Type Department Care Team Description 08/06/2015 Telephone Adult Medicine [address] [address] Vinicius Grubbs MD Faxed Order Social History [...] on filedocumented in this encounter Care Teams Artificial Snow Making Machine Operator Relationship Specialty Start Date End Date Vinicius Grubbs MD PCP - General Internal Medicine 02/24/15 07/14/16 Ankush, Pcp PCP - General Internal Medicine 07/15/16 10/02/23 Reyna Pak MD PCP - General Internal Medicine 10/03/23 documented as of this encounter
--- OUTSIDE RECORDS SUMMARY | 2024-12-21 12:43 | XMS_ITS | Encounter Summary ---
Author Organization [facility] Address [address] [place] [address] Care Team Providers Care Electrician Control Equipment Name Role Phone Vinicius Mendoza MD Primary Care Provider Bhumi Lechuga, Pcp Primary Care Provider Reyna Uriarte MD Primary Care Provider Ezequiel ilharry Reason for Visit * Reason Onset Date Comments Faxed Order 07/28/2015 Encounter Details Date Type Department Care Team Description 07/28/2015 Telephone Adult Medicine [address] [address] Vinicius Mendoza MD Faxed Order Social History Tobacco Use Types Packs/Day Years Used Date Smoking Tobacco: Former Cigarettes 1 10 Smokeless Tobacco: Never Comments:2002 Alcohol Use Standard Drinks/Week Comments No 0 (1 standard drink = 0.6 oz pur e alcohol) Sex Assigned at Date Recorded Not on file documented as of this encounter Miscellaneous Notes * Telephone Encounter - Sara Waldron M.A. - 07/28/2015 2:34 PM EDT Stephanie ERVIN is requesting Dr. Cope signature documented in this encounter Plan of Treatment Not on file documented as of this encounter Visit Diagnoses Not on filedocumented in this encounter Care Teams Electrician Control Equipment Relationship Specialty Start Date End Date Vinicius Mendoza MD PCP - General Internal Medicine 02/24/15 07/14/16 [facility], Pcp PCP - General Internal Medicine 07/15/16 10/02/23 Reyna Pak MD PCP - General Internal Medicine 10/03/23 documented as of this encounter
--- OUTSIDE RECORDS SUMMARY | 2024-12-21 12:44 | XMS_ITS | Encounter Summary ---
Author Organization [facility] Address [address] [place] [address] Care Team Providers Care Planting Supervisor Name Role Phone Name, Daniel MACE Primary Care Provider Viincius Wellington MD Primary Care Provider [facility], Pcp Primary Care Provider Reyna Uriarte MD Primary Care Provider [facility] Encounter Details Date Type Department Care Team Description 01/30/2013 Orders Only Adult Medicine [address] [address] Name, MD Daniel DM type 2, uncontrolled, [...] - 150 mg/dL 03/03/2013 11:53 AM EST [facility] HDL CHOLESTEROL 39(L) >40 mg/dL 4 11:57 AM EST [facility] LDL CALCULATED 164(H) 0 - 100 mg/dL 03/03/2013 11:57 AM EST [facility] TC-HDLC RATIO 8(H) 0.0 - 4.4 mg/dL 03/03/2013 11:57 AM [facility] 03/03/2013 8:33 AM EST 03/03/2013 8:33 AM EST Daniel Alfaro MD LAB Performing Organization Address [facility] Co de Phone Number [address] * (ABNORMAL) MICROALBUMIN/CREATININE, URINE (03/03/2013 8:33 AM EST) CREAT,RANDOM URINE 109 mg/dL 03/03/2013 1:06 PM [facility] MICROALBUMIN, RANDOM 32.3(H) 0.0 - 29.0 mg/L 03/03/2013 1:07 PM [facility] MICROALB/CRE RATIO RANDOM 30(H) <30.0 mg/g 03/03/2013 1:07 PM [facility] 03/03/2013 8:33 AM EST 03/03/2013 8:33 AM EST Daniel Alfaro MD LAB Performing Organization Address [facility] de Phone Number [address] * (ABNORMAL) BASIC METABOLIC PANEL (03/03/2013 8:33 AM EST) GLUCOSE 110(H) 70 - 100 mg/dL 03/03/2013 11:56 AM [facility] Comment: Reference range applicable to fasting specimens only Based on recommendations from the ADA and AACE, the fasting glucose reference range has been changed to 70-100 mg/dL. This change is effective June 23, 2009 BUN 14 5 - 25 mg/dL 03/03/2013 11:51 AM [facility] CREAT 0.7 0.7 - 1.5 mg/dL 03/03/2013 11:54 AM [facility] GFR > 60 >60 03/03/2013 11:54 AM [facility] Comment: If patient is -[place]atem[place], multiply result by 1.21 Chronic Kidney Disease: < 60 ml/min/1.73 square meters Kidney Failure: < 15 ml/min/1.73 square meters Sodium 144 133 - 145 mEq/L 03/03/2013 11:58 AM [facility] Potassium 3.8 3.5 - 5.2 mEq/L 03/03/2013 11:58 AM [facility] Chloride 104 96 - 108 mEq/L 03/03/2013 11:58 AM [facility] CO2 28.9 21.0 - 32.0 mEq/L 03/03/2013 11:53 AM [facility] CALCIUM 10.0 8.5 - 10.5 mg/dL 03/03/2013 11:52 AM [facility] 03/03/2013 8:33 AM EST 03/03/2013 8:33 AM EST Daniel Alfaro MD LAB Performing Organization Address [facility] de Phone Number [address] * (ABNORMAL) HEMOGLOBIN A1C (03/03/2013 8:33 AM EST) Glycosylated Hemoglobin A1C 7.7(H) 4.0 - 6.0 % 03/03/2013 10:43 AM [facility] Comment: HbA1C VALUES MAY NOT ACCURATELY REFLECT MEAN BLOOD GLUCOSE IN PATIENTS WITH HEMOGLOBIN VARIANTS SUCH HbF, HbS. 03/03/2013 8:33 AM EST 03/03/2013 8:33 AM EST Daniel Alfaro MD LAB Performing Organization Address [facility] de Phone Number [address] documented in this encounter Visit Diagnoses Diagnosis DM type 2, uncontrolled, with renal complications- Primary Type II or unspecified type diabetes mellitus with renal manifestations, uncontrolled documented in this encounter Care Teams Planting Supervisor Relationship Specialty Start Date End Date Name, MD Daniel PCP - General 07/12/08 02/23/15 Vinicius Mendoza MD PCP - General Internal Medicine 02/24/15 07/14/16 Hossein Lechuga PCP - General Internal Medicine 07/15/16 10/02/23 Reyna Pak MD PCP - General Internal Medicine 10/03/23 documented as of this encounter
--- OUTSIDE RECORDS SUMMARY | 2024-12-21 12:44 | XMS_ITS | Encounter Summary ---
Author Organization [facility] Address [address] [place] [address] Care Team Providers Care Duco Polisher Name Role Phone Vinicius Mendoza MD Primary Care Provider Bhumi Lechuga, Pcp Primary Care Provider Reyna Uriarte MD Primary Care Provider Ezequiel borrero Encounter Details Date Type Department Care Team Description 11/05/2015 Release of Information [facility] [address] [place] [id number] Abstract, Provider Social History Tobacco Use Types [...] on filedocumented in this encounter Care Teams Duco Polisher Relationship Specialty Start Date End Date Vinicius Mendoza MD PCP - General Internal Medicine 02/24/15 07/14/16 Ankush, Pcp PCP - General Internal Medicine 07/15/16 10/02/23 Reyna Pak MD PCP - General Internal Medicine 10/03/23 documented as of this encounter
--- OUTSIDE RECORDS SUMMARY | 2024-12-21 12:45 | XMS_ITS | Encounter Summary ---
Author Organization [facility] Address [address] [place] [address] Care Team Providers Care Tourist Cabin Keeper Name Role Phone Vinicius Mendoza MD Primary Care Provider Bhumi lomas [facility], Pcp Primary Care Provider Reyna Uriarte MD Primary Care Provider Ezequiel ilharry Reason for Visit * Reason Comments E-prescribe Rx Request Encounter Details Date Type Department Care Team Description 05/05/2016 Refill Adult Medicine [address] [address] Vinicius Mendoza MD E-prescribe Rx Request Social [...] an upcoming appointment? [facility] due to refill request. Appt due (THE MEDICATION REQUESTED IS ON THE MED LIST ABOVE) All of the medications requested were on the CURRENT MEDS list Did you check the Pharmacy information above?: YES Patient wants: 30 -day supply Is this a mail order prescription request ? NO Patients current insurance carrier is: [facility] FFS / Plan: [employer] CARE PLUS PLAN / Product Type: MEDICAID RISK documented in this encounter Plan of Treatment Not on file documented as of this encounter Visit Diagnoses Not on filedocumented in this encounter Care Teams Tourist Cabin Keeper Relationship Specialty Start Date End Date Vinicius Mendoza MD PCP - General Internal Medicine 02/24/15 07/14/16 Hossein Lechuga PCP - General Internal Medicine 07/15/16 10/02/23 Reyna Pak MD PCP - General Internal Medicine 10/03/23 documented as of this encounter
--- OUTSIDE RECORDS SUMMARY | 2024-12-21 12:45 | XMS_ITS | Clinical Summary ---
Author Organization [facility] Address [address] [place] [address] Care Team Providers Care Watch Leader Name Role Phone Krarie Aiken MD Primary Care Provider [phone] Allergies Active Allergy Reactions Criticality Noted Date [...] Medicaid [place] [facility] Medicare Care Teams Watch Leader Relationship Specialty Start Date End Date Karrie Aiken MD [address] [place], [place] PCP - General 02/18/20
--- OUTSIDE RECORDS SUMMARY | 2024-12-21 12:45 | XMS_ITS | Encounter Summary ---
Author Organization [facility] Address [address] [place] [address] Care Team Providers Care Photographic Intelligence Officer Name Role Phone Name, Daniel MACE Primary Care Provider Vinicius Wellington MD Primary Care Provider Bhumi Lechuga, Pcp Primary Care Provider Reyna Uriarte MD Primary Care Provider [facility] Encounter Details Date Type Department Care Team Description 10/18/2013 [place] [facility] [address] [address] Name, MD Daniel Social History Tobacco Use [...] on filedocumented in this encounter Care Teams Photographic Intelligence Officer Relationship Specialty Start Date End Date Name, MD Daniel PCP - General 07/12/08 02/23/15 Vinicius Mendoza MD PCP - General Internal Medicine 02/24/15 07/14/16 Ankush, Hossein PCP - General Internal Medicine 07/15/16 10/02/23 Reyna Pak MD PCP - General Internal Medicine 10/03/23 documented as of this encounter
--- OUTSIDE RECORDS SUMMARY | 2024-12-21 12:46 | XMS_ITS | Clinical Summary ---
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 ([facility] V24, [facility] V28) 07/18/2015 Ovarian cyst 10/18/2013 Overview (11/25/2023): [...] Department Care Team Description 10/15/2024 Telephone Gastroenterology - [place] [address] [place] [address] Clive Kunz DO from Last 3 Months Immunizations Immunization Administration Dates Next Due Td Tetanus diptheria (Tdvax) 7yo and older 10/22 Tdap Tetanus diptheria acell ular pertussis (Boostrix; Adacel) 7yo and older 01/10/2012 Surgical History Surgery Date Site/Laterality Comments BREAST LUMPECTOMY PROCEDURE: HISTORICAL BREAST LUMPECTOMY; COMMENT: 2002, left breast OTHER SURGICAL HISTORY PROCEDURE: [place] RESCJ OVARIAN/TUBAL/PERITONEAL MALIGNANCY W/BSO; COMMENT: COLONOSCOPY 01/20/10 PROCEDURE: HISTORICAL COLONOSCOPY; COMMENT: adenomas; repeat in three years COLONOSCOPY W/ POLYPECTOMY 02/10/15 PROCEDURE: [place] COLSC FLX W/RMVL OF TUMOR POLYP LESION SNARE TQ; COMMENT: adenomas; repeat in 3 yrs BREAST BIOPSY PROCEDURE: BX BREAST; PERC NEEDLE CORE W/IMAG GUID OOPHORECTOMY BREAST LUMPECTOMY Bilateral Medical History Medical History Date Comments DM (diabetes mellitus) (CMS/ HCC V24, CMS/[facility] V28) DX:DM (diabetes mellitus) (H CC) Hypercholesteremia DX:Hyperchole steremia Unspecified essential hypertension DX:Unspecified essential hypertension Personal history of malignan t neoplasm of breast DX:Personal history of malig nant neoplasm of breast; COMMENT: 2002 lt side Colon polyp Sleep apnea Stroke (CMS/[facility] V24, [facility] V28) Family History Medical History Relation Name [...] this topic Medical Devices Explanted Type Area Crowning Inspector Device Identifier Shelf Expiration Date Model / Serial / Lot Stent Uret [id number] Stretch W/O Gw - Sna - [id number] Explanted:Qty: 1 on 02/23/2024 by Ralph Kimble MD at [facility] Stents Left: Ureter [employer] GY [id number] 08/16/2026 [id number] / NA / [id number] Procedures Procedure Name Priority Date/Time Associated Diagnosis [...] 8:40 AM EST [facility] Potassium 3.5 3.5 [...] 11 LAB CHEMISTRY METHOD 02/25/2024 8:40 AM EST [facility] Glucose 175(H) 70 - 100 mg/dL LAB CHEMISTRY METHOD 02/25/2024 8:40 AM EST [facility] BUN 12 5 - 25 mg/dL LAB CHEMISTRY METHOD 02/25/2024 8:40 AM [facility] Creatinine 0.83 0.50 - 1.10 mg/dL LAB CHEMISTRY METHOD 02/25/2024 8:40 AM EST [facility] eGFR 77 >=60 mL/min/1. 73m2 LAB CHEMISTRY METHOD 02/25/2024 8:40 AM [facility] Comment:Calculation based on the Chronic Kidney Disease Epidemiology Collaboration (CKD-EPI) equation refit without adjustment for race. BUN/Creatinine Ratio 14.5 LAB CHEMISTRY METHOD 02/25/2024 8:40 AM [facility] Calcium 8.9 8.5 - 10.5 mg/dL LAB CHEMISTRY METHOD 02/25/2024 8:40 AM EST [facility] Blood Venous blood specimen / Unknown Venipuncture / Unknown 02/25/2024 6:24 AM EST 02/25/2024 6:51 AM EST Fernanda SYLVESTER LAB BLOOD ORDERABLES Final R esult [facility] [address] [place] [address], * COLONOSCOPY Anesthesia - [facility]; [facility] ENDOSCOPY (02/06/2024 8:38 AM EST) Anatomical [...] general surgery. Narrative 02/06/2024 8:38 AM EST [facility] Patient Name: Monica Reese Procedure Date: 02/06/2024 7:31 AM Date of : 1955 Age: 68 Gender: Female Note Status: Finalized Attending MD: Clive Kunz DO, [id number] Procedure Date No Time: 02/06/2024 Procedure: Colonoscopy [...] the physician, the nurse, the anesthesiologist, the glove cleaner and the test and turn up technician in the pre-procedure area in the [...] by congestion. Procedure Code(s): --- Professional --- 36508, Colonoscopy, flexible; with removal of tumor(s), polyp(s), or other lesion(s) by snare technique 24025, Colonoscopy, flexible; with directed submucosal injection(s), any substance 99226, 59, Colonoscopy, flexible; with biopsy, single or multiple Diagnosis Code(s): --- Professional --- Z85.038, Personal history of other malignant neoplasm of large intestine K64.9, Unspecified hemorrhoids D12.7, Benign neoplasm of rectosigmoid junction C18.7, Malignant neoplasm of sigmoid colon K56.690, Other partial intestinal obstruction CPT copyright 2020 [employer]. All rights reserved. The codes documented in this report are preliminary and upon expediter service order review may be revised to meet current compliance requirements. CLIVE Kunz DO 02/06/2024 8:38:14 AM This report has been signed electronically.Clive Kunz DO Number of Addenda: 0 Note Initiated On: 02/06/2024 7:31 AM Scope Withdrawal Time: 0 hours 11 minutes 36 seconds Scope In: 8:13:32 AM Scope Out: 8:27:51 AM Endoscopy Department at [facility] - [address] [place] [id number] Procedure Note Clive Kunz DO - 02/06/2024 [facility] Patient Name: Monica Reese Procedure Date: 02/06/2024 7:31 AM Date of : 1955 Age: 68 Gender: Female Note Status: Finalized Attending MD: Clive Kunz DO, [id number] Procedure Date No Time: 02/06/2024 Procedure: Colonoscopy [...] the physician, the nurse, the anesthesiologist, the glove cleaner and thetechnician in the pre-procedure area in [...] views. There was evidence of a prior klu-kq-itrmtmi-colonic anastomosis in the sigmoid colon. This was patentand was characterized by congestion. Procedure Code(s): --- Professional --- 31392, Colonoscopy, flexible; with removal of tumor(s), polyp(s), or other lesion(s) by snare technique 39011, Colonoscopy, flexible; with directedsubmucosal injection(s), any substance 47263, 59, Colonoscopy, flexible; with biopsy,single or multiple Diagnosis Code(s): --- Professional --- Z85.038, Personal history of other malignantneoplasm of large intestine K64.9, Unspecified hemorrhoids D12.7, Benign neoplasm of rectosigmoid junction C18.7, Malignant neoplasm of sigmoid colon K56.690, Other partial intestinal obstruction CPT copyright 2020 [employer]. All rights reserved. The codes documented in this report are preliminary and upon expediter service order reviewmay be revised to meet current compliance requirements. CLIVE Kunz DO 02/06/2024 8:38:14 AM This report has been signed electronically.Clive Kunz DO Number of Addenda: 0 Note Initiated On: 02/06/2024 7:31 AM Scope Withdrawal Time: 0 hours 11 minutes 36 seconds Scope In: 8:13:32 AM Scope Out: 8:27:51 AM Endoscopy Department at [facility] - [address] [place] [phone] IMPRESSION: - Hemorrhoids found on perianal exam. [...] sult * (ABNORMAL) Hemoglobin A1c (05/09/2015) Pathologist [facility] Hemoglobin A1C 7.9(A) 4.0 - 6.0 % Blood Venous blood specimen / Unknown Historical Provider LAB BLOOD ORDERABLES Cecilia l Result * Urine Albumin Creatinine Ratio (11/16/2014) Pathologist [facility] Urine Albumin Creatinine Ratio abstracted Historical Provider HEALTH MAINTENANCE Final Result * (ABNORMAL) Lipid panel (11/16/2014) [facility] LDL/HDL Ratio 7(A) 0 - 4 Triglycerides [...] Documents on File Type Date Recorded Patient Fraud Prevention Analyst Expl 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 Care Teams Machine Inspector Relationship Specialty Start Date End Date Reyna Pak MD [address] [place] [address] PCP - General 10/03/23
--- OUTSIDE RECORDS SUMMARY | 2024-12-21 12:46 | XMS_ITS | Encounter Summary ---
Author Organization [facility] Address [address] [place] [address] Care Team Providers Care Java Core Developer Name Role Phone Vinicius Mendoza MD Primary Care Provider Bhumi Lechuga, Pcp Primary Care Provider Reyna Uriarte MD Primary Care Provider Ezequiel borrero Encounter Details Date Type Department Care Team Description 07/14/2015 Hospital Medical Records [address] [place] [address] Kieran Mcfadden MD Social History Tobacco Use Types Packs/Day [...] on filedocumented in this encounter Care Teams Java Core Developer Relationship Specialty Start Date End Date Vinicius Mendoza MD PCP - General Internal Medicine 02/24/15 07/14/16 Ankush, Hossein PCP - General Internal Medicine 07/15/16 10/02/23 Reyna Pak MD PCP - General Internal Medicine 10/03/23 documented as of this encounter
--- OUTSIDE RECORDS SUMMARY | 2024-12-21 12:47 | XMS_ITS | Encounter Summary ---
Author Organization [facility] Address [address] [place] [address] Care Team Providers Care Lens Molding Equipment Operator Name Role Phone Vinicius Mendoza MD Primary Care Provider Bhumi lomas [facility], Pcp Primary Care Provider Reyna Uriarte MD Primary Care Provider Ezequiel ilharry Reason for Visit * Reason Comments E-prescribe Rx Request Encounter Details Date Type Department Care Team Description 06/17/2015 Refill OBGYN - [place] [address] [place] [address] Name, MD Daniel E-prescribe Rx Request Social [...] NO Patients current insurance carrier is: Payor: [employer] / Plan: [facility] TYPE II $10/$18 / Product Type: HMO [id number] documented in this encounter Plan of Treatment Not on file documented as of this encounter Visit Diagnoses Not on filedocumented in this encounter Care Teams Lens Molding Equipment Operator Relationship Specialty Start Date End Date Vinicius Mendoza MD PCP - General Internal Medicine 02/24/15 07/14/16 Hossein Lechuga PCP - General Internal Medicine 07/15/16 10/02/23 Reyna Pak MD PCP - General Internal Medicine 10/03/23 documented as of this encounter
== END 2024-12-21 11:11 | disposition home or self-care (01) ==
LOC: HO.HMCHD 10:14
PROVIDERS: PCP Internal Medicine; Visit Provider Internal Medicine
DX: H61.23 Impacted cerumen, bilateral (principal)

== ENCOUNTER 2024-12-21 10:45 | Outpatient (REF) | payer OTHER, SELFPAY ==
[2024-12-21 14:04] LABS: Alanine Aminotransferase 25 U/L (0-31); Albumin Level 4.0 g/dL (3.5-5.0); Alkaline Phosphatase 97 U/L (39-117); Anion Gap 13 (12-20); Aspartate Amino Transferase 26 U/L (5-31); Blood Urea Nitrogen 22 mg/dL (9-16); Calcium 9.6 mg/dL (8.4-10.2); Carbon Dioxide 28 mmol/L (22-29); Chloride 110 mmol/L (96-108); Estimated Glomerular Filt Rate > 60; Potassium 3.8 mmol/L (3.3-5.1); Sodium 147 mmol/L (135-145); Total Protein 7.3 g/dL (6.5-8.0)
== END 2024-12-21 10:46 | disposition home or self-care (01) ==
LOC: HO.10HDL 10:45
PROVIDERS: Visit Provider Internal Medicine
DX: C50.919 Malignant neoplasm of unspecified site of unspecified female breast (principal)
CPT/HCPCS: 36415; 80053

== ENCOUNTER 2025-01-21 13:54 | Outpatient (AMB) | payer OTHER, SELFPAY ==
--- NOTE | 2025-01-21 14:25 | MHC.PC.OV ---
Vital Signs 01/21/25 14:27 Height 5 ft 0.5 in Weight 136 lb 4 oz BMI 26.2 BP 130/60 Blood Pressure Location Lt brachial Position Sitting Respiration 16 Pulse 86 Pulse Source Pulse Oximeter Temp 98.2 F Temp Source Temporal Artery Scan Pulse Oximetry (%) 98 Oxygen Delivery Method Room Air Intake Visit Reasons: Toe nail pain Director Of In Service Education Required: No Accompanied by: Self / Same As Patient Allergies dulaglutide (From [facility]) Allergy (Mild, Verified 01/21/25 14:26) Abdominal Pain simvastatin Allergy (Verified 01/21/25 14:26) Joint Pain metformin Adverse Reaction (Mild, Verified 01/21/25 14:26) Diarrhea sitagliptin (Januvia) Adverse Reaction (Mild, Verified 01/21/25 14:26) abdominal pain Medication List - Last Reconciled 01/21/25 by Reyna Pak MD acetaminophen (Pain Relief Extra Strength (acetaminophen)) 500 mg PO DAILY amlodipine 2.5 mg PO BEDTIME anastrozole (Arimidex) 1 mg PO DAILY aspirin 81 mg PO DAILY atorvastatin (Lipitor) 20 mg PO BEDTIME blood sugar diagnostic (FreeStyle Lite Strips) As directed blood-glucose meter (FreeStyle Lite Meter kit) As directed blood-glucose sensor (FreeStyle Katelyn 3 Sensor device) As directed blood-glucose,repair armature winder,cont (FreeStyle Katelyn 3 Ipava) As directed carbamide peroxide 6.5% (Debrox) 5 drps otic (ears) BID 4 days clopidogrel 75 mg PO BEDTIME docusate sodium (Colace) 100 mg PO BID PRN fenofibrate 54 mg PO DAILY 90 days flash glucose scanning reader (FreeStyle Katelyn 14 Day Ipava) As directed flash glucose sensor (FreeStyle Katelyn 14 Day Sensor kit) Once every 14 days insulin glargine (Lantus U-100 Insulin) 54 units subcut DAILY insulin lispro (Humalog U-100 Insulin) 1 sliding scale dose subcut DAILY insulin syringe-needle U-100 (BD Insulin Syringe Ultra-Fine) Use 1 syringe four times a day lancets TEST 4 TIMES DAILY lisinopril 20 mg PO DAILY mastectomy bra (bra, mastectomy) As Directed pen needle, diabetic (BD Ultra-Fine Short Pen Needle) 4x daily ribociclib (Kisqali) 600 mg (3 x 200 mg/day (200 mg x 1)) PO DAILY Tobacco use date assessed: 12/12/24 Last assessed Fall Risk: 01/21/25 Dental Screening Dental Screen Date: 12/12/24 HPI HPI Comments History of Present Illness Details The patient is a 69 year old female presenting with issue with her toenails. Toe pain and swelling: The patient reports increased pain in her left big toe for about a week, which started after she attempted to cut the nail herself. She has been taking extra-strength Tylenol for the pain. Excoriation near right hip: The patient notes a painful spot on her right hip that she first noticed about two weeks ago. She reports scratching the area, which has caused it to become more irritated and resulted in an excoriation. Dental Issues: The patient reports a starting cavity and notes that her teeth are falling out. Podiatry History: The patient previously saw a carpenter supervisor in [place] but had a negative experience, stating the provider cut her twice. Diabetes mellitus type 2- compliant with regimen [facility] Medical History (Updated 01/21/25 @ 17:38 by Reyna Pak MD) Paronychia of toe of left foot Onychomycosis Shortness of breath Obstructive sleep apnea Former smoker Hx of radiation therapy History of chemotherapy Arthritis On anticoagulant therapy Sleep apnea Colon cancer Hypercalcemia Mixed hyperlipidemia Dizziness longterm (current) use of insulin Breast cancer Memory loss Muscle cramps Menieres disease HTN (hypertension) T2DM (type 2 diabetes mellitus) Skin lesion New daily persistent headache History of stroke Hypovitaminosis D Nausea Essential hypertension Diabetes mellitus Surgical History (Updated 12/11/24 @ 17:04 by Tati Abebe) H/O colonoscopy (~10/04/23) History of parotid gland removal Status post unilateral salpingo-oophorectomy H/O right mastectomy History of left mastectomy History of hemicolectomy Family History Father Diabetes Mother Diabetes Hypertension Sister Cervical cancer Daughter No problems noted. Son Skin cancer Brother No problems noted. Brother No problems noted. Family/Other Mental health disorder Substance use disorder Social History Household Members: Spouse Housing: Condominium Are you a primary care management assistant to a significant other at home: No Do you presently have visiting nurse or other home services: No Alcohol intake: never Patient Tobacco Use Status: Former Tobacco user Tobacco use type: Cigarette Years Smoked: 20 e-Cigarette/Vaping Use: Never Used Second Hand Smoke Exposure: No service: No Current occupational status: disabled Cognitive needs: No Hearing needs: No Vision needs: No Female Reproductive History Menstrual Age of Menarche: 12 Questionnaire PHQ-9 Over the last 2 weeks, how often have you been bothered by any of the following problems? 1. Little interest or pleasure in doing things: not at all 2. Feeling down, depressed, or hopeless: not at all 3. Trouble falling or staying asleep, or sleeping too much: not at all 4. Feeling tired or having little energy: several days 5. Poor appetite or overeating: not at all 6. Feeling bad about yourself - or that you are a failure or have let yourself or your family down: not at all 7. Trouble concentrating on things, such as reading the newspaper or watching television: not at all 8. Moving or speaking so slowly that other people could have noticed. Or the opposite - being so fidgety or restless that you have been moving around a lot more than usual: not at all 9. Thoughts that you would be better off or of hurting yourself in some way: not at all Total score: 1 Depression Screening Interpretation: Negative Depression Screening Done: Yes 09471 - PHQ-9 Billing: Yes Source: Developed by Drs. Juan Madden, Marco Zapata and colleagues, with an educational omid from [employer]. Thrive Questionnaire Date Thrive assessed: 05/28/21 AUDIT C Alcohol Use Questionnaire (AUDIT-C) 1. How often do you have a drink containing alcohol?: Never 3. How often do you have six or more drinks on one occasion?: Never Total Score: 0 FOUZIA-7 AMB Questionnaire FOUZIA-7 Date FOUZIA - 7 assessed: 05/28/21 Source: Developed by Drs. Juan Madden, Marco Zapata and colleagues, with an educational omid from [employer]. Review of Systems Narrative Review of Systems - Lower Extremities: per hpi - Skin: Reports a painful lesion on the right hip for two weeks. - Dental: Reports a new cavity and that teeth are falling out. - Neurological/Sleep: Reports ongoing sleep issues. Physical exam (Primary Care) Vital Signs: Last Vital Signs Temp 98.2 F 01/21/25 14:27 Pulse 86 01/21/25 14:27 Resp 16 01/21/25 14:27 BP 130/60 01/21/25 14:27 Pulse Ox 98 01/21/25 14:27 Oxygen Delivery Method Room Air 01/21/25 14:27 BMI result Body Mass Index 26.2 Tobacco/Smoking Status: Tobacco use Status Tobacco use date assessed 12/12/24 01/21/25 14:35 Patient Tobacco Use Status Former Tobacco user 01/21/25 14:35 Tobacco use type Cigarette 01/21/25 14:35 e-Cigarette/Vaping Use Never Used 01/21/25 14:35 PHQ-9: PHQ-9 Score PHQ-9: Total score 1 01/21/25 14:49 Depression Screening Interpretation: Negative Thrive Assessment: Date of Thrive Assessment Date Thrive assessed 05/28/21 01/21/25 14:35 Narrative Physical Exam - General: Patient is alert and oriented. - Cardiovascular: Normal rhythm, soft murmur noted. - Pulmonary: Lungs are clear to auscultation. - Skin: Small erythematous excoriation present on the right hip, no discharge. - Lower Extremities: Bilateral calluses are present. - Lower Extremities: Onychomycosis noted on toenails. - Lower Extremities: The left big toe is inflamed and tender; other toes are normal. - Lower Extremities: The right toe is slightly swollen. - Vascular: Dorsalis pedis pulse is 1+ on the right and 2+ on the left. Coding Level of Care Code Est Pt Level 4 (17782) Add On Problem Visit Only Diagnoses Paronychia of toe of left foot L03.032 Onychomycosis B35.1 Additional Codes PHQ-9 - 89542 - PHQ-9 Billing: Yes ([id number]) Assessment & Plan Assessment & Plan (1) Paronychia of toe of left foot: Code(s): L03.032 - Cellulitis of left toe Category: Medical (2) Onychomycosis: Code(s): B35.1 - Tinea unguium Category: Medical Plan Assessment and Plan 1. Paronychia left great toe - The patient presents with inflammation and pain in the left great toe after attempting to cut the nail, consistent with cellulitis. - She will be prescribed doxycycline 100 mg one tablet twice daily for seven days. - She is advised to take the medication with food. - It is recommended she also perform Epsom salt soaks to help calm the inflammation. 2. Onychomycosis and Calluses - The patient has significant fungal changes in her toenails and calluses on her feet. - A referral will be made to podiatry for further management. - The patient was given the podiatry office's number to follow up on the referral at the end of the week. 3. Excoriation near right hip - The patient has a painful, irritated lesion on her right hip from scratching it for the past two weeks. - Mupirocin (Bactroban) ointment will be prescribed to apply to the area. - The patient should monitor the area over the next week. 4. Dental Issues - The patient reports a new cavity and teeth falling out. - She is advised to inform her oncologist Plan - Prescribed doxycycline 100 mg, one tablet twice daily for seven days, for the infected toe. - Recommended taking doxycycline with food. - Recommended Epsom salt soaks for the inflamed toe. - Placing a referral to a carpenter supervisor. - Provided the patient with the phone number for the podiatry office to follow up on the referral. - Prescribed mupirocin (Bactroban) ointment for the skin lesion on the right hip. - Advised the patient to inform her oncologist about her dental issues. Patient Instructions - Take one tablet of doxycycline twice a day for seven days for your infected toe. Be sure to take it with food. - You can soak your foot in warm water with Epsom salts to help with the swelling and pain in your toe. - We are sending a referral to a foot doctor (carpenter supervisor) - Apply the mupirocin ointment to the sore spot on your right hip as prescribed. Keep an eye on it for the next week. 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 Bradford
[2025-01-21 14:27] VITALS: BP 130/60; PULSE 86; RESP 16; TEMP 36.8; O2SAT 98; BMI 26.2
--- OUTSIDE RECORDS SUMMARY | 2025-01-21 20:14 | XMS_ITS | Encounter Summary ---
Author Organization [facility] and [facility] Address [address] [place] [phone] Care Team Providers Care Telegraphic Typewriter Repairer Name Role Phone Unavailable Primary Care Provider Unavailabl e Encounter Details Date Type Department Care Team ([facility] st Contact Info) Description 11/10/2023 Scanned Document INTERFACE DEFAULT [address] [place] [phone] System, Provider Not In Social History [...]
--- OUTSIDE RECORDS SUMMARY | 2025-01-21 20:14 | XMS_ITS | Encounter Summary ---
Author Organization [facility] and [facility] Address [address] [place] [phone] Care Team Providers Care Burlapper Name Role Phone Unavailable Primary Care Provider Unavailabl e Encounter Details Date Type Department Care Team ([facility] st Contact Info) Description 03/29/2018 Scanned Document INTERFACE DEFAULT [address] [place] [phone] System, Provider Not In Social History Tobacco [...]
--- OUTSIDE RECORDS SUMMARY | 2025-01-21 20:14 | XMS_ITS | Encounter Summary ---
Author Organization [facility] and [facility] Address [address] [place] [phone] Care Team Providers Care Welder Assembler Name Role Phone Unavailable Primary Care Provider Unavailabl e Encounter Details Date Type Department Care Team ([facility] Contact Info) Description 11/08/2023 Scanned Document INTERFACE DEFAULT [address] [place] [phone] System, Provider Not In Social History [...]
--- OUTSIDE RECORDS SUMMARY | 2025-01-21 20:14 | XMS_ITS | Encounter Summary ---
Author Organization [facility] and [facility] Address [address] [place] [phone] Care Team Providers Care Director Of Restaurant Operations Name Role Phone Unavailable Primary Care Provider Unavailabl e Encounter Details Date Type Department Care Team ([facility] st Contact Info) Description 11/11/2023 Scanned Document INTERFACE DEFAULT [address] [place] [phone] System, Provider Not In Social History [...]
--- OUTSIDE RECORDS SUMMARY | 2025-01-21 20:14 | XMS_ITS | Clinical Summary ---
Author Organization [facility] Address [address] [place] [address] Care Team Providers Care Wood Preparation Supervisor Name Role Phone Reyna Pak MD Primary Care Provider [phone] Allergies No known active allergies Medications amLODIPine [...] Screening 02/08/2024 Health Care Proxy Review 02/08/2024 Influenza Vaccine (#1) 2024 COVID-19 Vaccine (2 - season) 2024 05/14/2020 RSV Vaccine (60+ years old and patients) (1 - 1-dose 75+ series) 06/28/2030 DTaP,Tdap,and Td Vaccines (3 - Td or Tdap) 07/25/2031 07/24/2021, 01/10/2012, 10/22/2005, Additional history exists Hepatitis B Vaccines Aged Out No long er eligible based on patient's age to complete this topic Insurance [facility] Advance Directives Documents on File Type Date Recorded Patient Wellness Specialist [facility] Proxy 04/20/2019 2:27 PM * Full Code (Latest Code Status on File) Date Activated Date Inactivated Comments 04/20/2019 9:36 AM 04/20/2019 4:50 PM Care Teams Wood Preparation Supervisor Relationship Specialty Start Date End Date Reyna Pak MD [address] [place] [address] PCP - General Internal Medicine 09/30/21
--- OUTSIDE RECORDS SUMMARY | 2025-01-21 20:14 | XMS_ITS | Clinical Summary ---
Author Organization [address] Address [address] [place] [phone] Care Team Providers Care Switchbox Assembler Name Role Phone Unavailable Primary Care [...]
--- OUTSIDE RECORDS SUMMARY | 2025-01-21 20:14 | XMS_ITS | Encounter Summary ---
Author Organization [facility] and [facility] Address [address] [place] [phone] Care Team Providers Care Sales Support Technician Name Role Phone Unavailable Primary Care Provider Unavailabl e Encounter Details Date Type Department Care Team ([facility] Contact Info) Description 04/11/2023 Scanned Document INTERFACE DEFAULT [address] [place] [phone] System, Provider Not In Social History [...]
--- OUTSIDE RECORDS SUMMARY | 2025-01-21 20:14 | XMS_ITS | Encounter Summary ---
Author Organization [facility] and [facility] Address [address] [place] [phone] Care Team Providers Care Hot Roll Inspector Name Role Phone Unavailable Primary Care Provider Unavailabl e Encounter Details Date Type Department Care Team ([facility] st Contact Info) Description 10/04/2023 Scanned Document INTERFACE DEFAULT [address] [place] [phone] System, Provider Not In Social History [...]
--- OUTSIDE RECORDS SUMMARY | 2025-01-21 20:14 | XMS_ITS | Encounter Summary ---
Author Organization [facility] and [facility] Address [address] [place] [phone] Care Team Providers Care Certified Medical Aide Name Role Phone Unavailable Primary Care Provider Unavailabl e Encounter Details Date Type Department Care Team ([facility] st Contact Info) Description 05/31/2023 Scanned Document INTERFACE DEFAULT [address] [place] [phone] System, Provider Not In Social History Tobacco [...]
--- OUTSIDE RECORDS SUMMARY | 2025-01-21 20:14 | XMS_ITS | Encounter Summary ---
Author Organization [facility] and [facility] Address [address] [place] [phone] Care Team Providers Care Cash Grain Grower Name Role Phone Unavailable Primary Care Provider Unavailabl e Encounter Details Date Type Department Care Team ([facility] Contact Info) Description 12/07/2023 Scanned Document [facility] Health Information Management [address] [place] [phone] External, Provider Social History Tobacco Use Types [...]
--- OUTSIDE RECORDS SUMMARY | 2025-01-21 20:14 | XMS_ITS | Encounter Summary ---
Author Organization [facility] and [facility] Address [address] [place] [phone] Care Team Providers Care Traffic Law Attorney Name Role Phone Unavailable Primary Care Provider Unavailabl e Encounter Details Date Type Department Care Team ([facility] Contact Info) Description 10/17/2023 Scanned Document INTERFACE DEFAULT [address] [place] [phone] System, Provider Not In Social History [...]
--- OUTSIDE RECORDS SUMMARY | 2025-01-21 20:14 | XMS_ITS | Encounter Summary ---
Author Organization [facility] and [facility] Address [address] [place] [phone] Care Team Providers Care Exhaust Emissions Automotive Technician Name Role Phone Unavailable Primary Care Provider Unavailabl e Encounter Details Date Type Department Care Team ([facility] Contact Info) Description 02/16/2023 Scanned Document INTERFACE DEFAULT [address] [place] [phone] System, Provider Not In Social History [...]
--- OUTSIDE RECORDS SUMMARY | 2025-01-21 20:15 | XMS_ITS | Encounter Summary ---
Author Organization [facility] and [facility] Address [address] [place] [phone] Care Team Providers Care Site Surveyor Name Role Phone Unavailable Primary Care Provider Unavailabl e Encounter Details Date Type Department Care Team ([facility] Contact Info) Description 08/15/2023 Scanned Document INTERFACE DEFAULT [address] [place] [phone] System, Provider Not In Social History [...]
--- OUTSIDE RECORDS SUMMARY | 2025-01-21 20:15 | XMS_ITS | Clinical Summary ---
Author Organization 175 [facility] Address [address] [place] [address] Phone Care Team Providers Care Feather Stitcher Name Role Phone Reyna Pak MD Primary Care Provider +1- [phone] Allergies Active Allergy Reactions Criticality Noted Date [...] update HTN (hypertension) 07/29/2008 High cholesterol 07/29/2008 Immunizations Immunization Administration Dates Next Due Td Tetanus diptheria (Tdvax) 7yo and older 10/22 Tdap Tetanus diptheria acell ular pertussis (Boostrix; Adacel) 7yo and older 01/10/2012 Surgical History Surgery Date Site/Laterality Comments BREAST LUMPECTOMY PROCEDURE: HISTORICAL BREAST LUMPECTOMY; COMMENT: 2002, left breast OTHER SURGICAL HISTORY PROCEDURE: ME RESCJ OVARIAN/TUBAL/PERITONEAL MALIGNANCY W/BSO; COMMENT: COLONOSCOPY 01/20/10 PROCEDURE: HISTORICAL COLONOSCOPY; COMMENT: adenomas; repeat in three years COLONOSCOPY W/ POLYPECTOMY 02/10/15 PROCEDURE: ME COLSC FLX W/RMVL OF TUMOR POLYP LESION SNARE TQ; COMMENT: adenomas; repeat in 3 yrs BREAST BIOPSY PROCEDURE: BX BREAST; PERC NEEDLE CORE W/IMAG GUID OOPHORECTOMY BREAST LUMPECTOMY Bilateral Medical History Medical History Date Comments DM (diabetes mellitus) ([facility] V24, [facility] V28) DX:DM (diabetes mellitus) ([facility]) Hypercholesteremia DX:Hyperchole steremia Unspecified essential hypertension DX:Unspecified essential hypertension Personal history of malignan t neoplasm of breast DX:Personal history of malig nant neoplasm of breast; COMMENT: 2002 lt side Colon polyp Sleep apnea Stroke ([facility] V24, [facility] V28) Family History Medical History Relation Name [...] Orientation Straight 02/21/2024 12 :06 PM EST Last Filed Vital Signs Vital Sign Reading [...] this topic Medical Devices Explanted Type Area Statement Processor Device Identifier Shelf Expiration Date Model / Serial / Lot Stent Uret [id number] Stretch W/O Gw - Sna - [id number] Explanted:Qty: 1 on 02/23/2024 by Ralph Kimble MD at [facility] Stents Left: Ureter [employer]/GYNECOL GY [id number] 08/16/2026 [id number] / NA / [id number] Procedures Procedure Name Priority Date/Time Associated Diagnosis Comments BASIC METABOLIC PANEL Routine 02/25/2024 6:24 AM EST COLONOSCOPY Routine 02/06/2024 8:[address] of the abdomen Abnormal rectal biopsy Adenocarcinoma of colon ([facility] V24, [facility] V28) HEMOGLOBIN A1C Routine 05/09/2015 HM URINE ALBUMIN CREATININE RATIO Routine 11/16/2014 LIPID PANEL Routine 11/16/2014 from Last 3 Months or Most Recently Relevant to Health Maintenance Results * (ABNORMAL) Basic metabolic panel (02/25/2024 6:24 AM EST) Sodium 143 133 - 145 mmol/L LAB CHEMISTRY METHOD 02/25/2024 8:40 AM [facility] Potassium 3.5 3.5 - 5.5 mmol/L LAB CHEMISTRY METHOD 02/25/2024 8:40 AM [facility] Chloride 109 96 - 110 mmol/L LAB CHEMISTRY METHOD 02/25/2024 8:40 AM [facility] CO2 29 21 - 32 mmol/L LAB CHEMISTRY METHOD 02/25/2024 8:40 AM [facility] Anion Gap 5 3 - 11 LAB CHEMISTRY METHOD 02/25/2024 8:40 AM [facility] Glucose 175(H) 70 - 100 mg/dL LAB CHEMISTRY METHOD 02/25/2024 8:40 AM [facility] BUN 12 5 - 25 mg/dL LAB CHEMISTRY METHOD 02/25/2024 8:40 AM [facility] Creatinine 0.83 0.50 - 1.10 mg/dL LAB CHEMISTRY METHOD 02/25/2024 8:40 AM EST [facility] eGFR 77 >=60 mL/min/1. 73m2 LAB CHEMISTRY METHOD 02/25/2024 8:40 AM EST [facility] Comment:Calculation based on the Chronic Kidney Disease Epidemiology Collaboration (CKD-EPI) equation refit without adjustment for race. BUN/Creatinine Ratio 14.5 LAB CHEMISTRY METHOD 02/25/2024 8:40 AM EST [facility] Calcium 8.9 8.5 - 10.5 mg/dL LAB CHEMISTRY METHOD 02/25/2024 8:40 AM EST [facility] Blood Venous blood specimen / Unknown Venipuncture / Unknown 02/25/2024 6:24 AM EST 02/25/2024 6:51 AM EST Fernanda SYLVESTER LAB BLOOD ORDERABLES Final R esult [facility] [address] [place] [address], [place] [phone] * COLONOSCOPY Anesthesia - [facility]; [facility] ENDOSCOPY (02/06/2024 8:38 AM EST) [...] general surgery. Narrative 02/06/2024 8:38 AM EST [facility] GI Patient Name: Monica Reese Procedure Date: 02/06/2024 7:31 AM Date of : 1955 Age: 68 Gender: Female Note Status: Finalized Attending MD: Clive Kunz DO, [id number] Procedure Date No Time: 02/06/2024 Procedure: Colonoscopy [...] the physician, the nurse, the anesthesiologist, the publications writer and the page technician in the pre-procedure area in the [...] by congestion. Procedure Code(s): --- Professional --- 43062, Colonoscopy, flexible; with removal of tumor(s), polyp(s), or other lesion(s) by snare technique 07666, Colonoscopy, flexible; with directed submucosal injection(s), any substance 97845, 59, Colonoscopy, flexible; with biopsy, single or multiple Diagnosis Code(s): --- Professional --- Z85.038, Personal history of other malignant neoplasm of large intestine K64.9, Unspecified hemorrhoids D12.7, Benign neoplasm of rectosigmoid junction C18.7, Malignant neoplasm of sigmoid colon K56.690, Other partial intestinal obstruction CPT copyright 2020 [employer]. All rights reserved. The codes documented in this report are preliminary and upon emblem fuser tender review may be revised to meet current compliance requirements. CLIVE Kunz DO 02/06/2024 8:38:14 AM This report has been signed electronically.Clive Kunz DO Number of Addenda: 0 Note Initiated On: 02/06/2024 7:31 AM Scope Withdrawal Time: 0 hours 11 minutes 36 seconds Scope In: 8:13:32 AM Scope Out: 8:27:51 AM Endoscopy Department at [facility] - [address] [place] [phone] Procedure Note Clive Kunz DO - 02/06/2024 [facility] GI Patient Name: Monica Reese Procedure Date: 02/06/2024 7:31 AM Date of : 1955 Age: 68 Gender: Female Note Status: Finalized Attending MD: Clive Kunz DO, [id number] Procedure Date No Time: 02/06/2024 Procedure: Colonoscopy [...] the physician, the nurse, the anesthesiologist, the publications writer and thetechnician in the pre-procedure area in [...] views. There was evidence of a prior qnd-ol-kniabll-colonic anastomosis in the sigmoid colon. This was patentand was characterized by congestion. Procedure Code(s): --- Professional --- 38526, Colonoscopy, flexible; with removal of tumor(s), polyp(s), or other lesion(s) by snare technique 13751, Colonoscopy, flexible; with directedsubmucosal injection(s), any substance 11891, 59, Colonoscopy, flexible; with biopsy,single or multiple Diagnosis Code(s): --- Professional --- Z85.038, Personal history of other malignantneoplasm of large intestine K64.9, Unspecified hemorrhoids D12.7, Benign neoplasm of rectosigmoid junction C18.7, Malignant neoplasm of sigmoid colon K56.690, Other partial intestinal obstruction CPT copyright 2020 [employer]. All rights reserved. The codes documented in this report are preliminary and upon emblem fuser tender reviewmay be revised to meet current compliance requirements. CLIVE Kunz DO 02/06/2024 8:38:14 AM This report has been signed electronically.Clive Kuzn DO Number of Addenda: 0 Note Initiated On: 02/06/2024 7:31 AM Scope Withdrawal Time: 0 hours 11 minutes 36 seconds Scope In: 8:13:32 AM Scope Out: 8:27:51 AM Endoscopy Department at [facility] - [address] [place] [phone] IMPRESSION: - Hemorrhoids found on perianal exam. [...] sult * (ABNORMAL) Hemoglobin A1c (05/09/2015) Pathologist [facility] Hemoglobin A1C 7.9(A) 4.0 - 6.0 % Blood Venous blood specimen / Unknown Historical Provider LAB BLOOD ORDERABLES Cecilia l Result * Urine Albumin Creatinine Ratio (11/16/2014) Pathologist [facility] Urine Albumin Creatinine Ratio abstracted Result [facility] Historical Provider HEALTH MAINTENANCE Final Result * (ABNORMAL) Lipid panel (11/16/2014) Pathologist [facility] LDL/HDL Ratio 7(A) 0 - 4 Triglycerides 380(A) 0 - 150 mg/dL Cholesterol 269(A) 0 - 200 mg/dL HDL 38(A) >=40 mg/dL LDL Cholesterol 155(A) 0 - 100 mg/dL Blood Venous blood specimen / Unknown Historical Provider LAB BLOOD ORDERABLES Cecilia l Result from Last 3 Months or Most Recently Relevant to Health [place] [id number] [facility] [employer] Advance Directives Documents on File Type Date Recorded Patient Lay Ups Assembler Expl 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 Care Teams Feather Stitcher Relationship Specialty Start Date End Date Reyna Pak MD [address] [place] [address] PCP - General 10/03/23
== END 2025-01-21 15:00 | disposition home or self-care (01) ==
LOC: HO.HMCHD 13:55
PROVIDERS: PCP Internal Medicine; Visit Provider Internal Medicine
DX: L03.032 Cellulitis of left toe (principal); B35.1 Tinea unguium

== ENCOUNTER → 2025-01-21 | Outpatient (BNVA) | payer OTHER, SELFPAY | PROVIDERS: PCP Internal Medicine; Visit Provider Internal Medicine | DX: L03.032 Cellulitis of left toe (principal); B35.1 Tinea unguium; Z13.31 Encounter for screening for depression | CPT/HCPCS: 96127; 99212 ==

== ENCOUNTER → 2025-01-29 09:21 | Outpatient (REF) | payer OTHER, SELFPAY ==
--- NOTE | ~2025-01-29 | NM_ITS ---
EXERCISE MYOCARDIAL PERFUSION STUDY INDICATION: Shortness of breath to evaluate for myocardial ischemia TECHNIQUE: The patient was brought in for an exercise perfusion study on 01/29/2025. Patient performed exercise as per Rk protocol and was injected 25 mCi of sestamibi once target heart rate was achieved. Images were obtained using the SPECT gamma camera interlaced with the gating device. Images were obtained in supine position. Resting perfusion study was performed on 01/30/2025. Patient was administered 25 mCi of sestamibi intravenously at rest. Images were then obtained in supine position. Images were processed with the software and compared side to side in short axis, horizontal long axis and vertical long axis views. Images obtained without without CT attenuation. Total DLP 51 mGy-cm. FINDINGS: Raw images were reviewed The stress perfusion study showed both attenuated as well as nonattenuated images show overall normal uptake of radiotracer in all segments of the LV myocardium there is suggestion of left ventricular hypertrophy. The gated study shows normal LV systolic function with calculated LVEF of 50%. LV cavity is normal in size. The gated study shows normal systolic wall thickening and contraction of segments. Resting study shows normal uptake of radiotracer in all segments of the LV myocardium on nonattenuated images. Gating at rest reveals normal systolic wall motion with ejection fraction at 56%. The findings are consistent with normal myocardial perfusion. NM/NM cardiolite stress test IMPRESSION: 1. Myocardial perfusion imaging study shows normal myocardial perfusion. 2. Gated LVEF is 56%. 3. Transient ischemic dilatation not present. EKG revealed positive for ischemia. Electronically signed by: Julian Singh MD 01/30/2025 02:47 PM [facility]
--- NOTE | 2025-01-29 09:23 | CA_ITS ---
Acquisition Time: 2025-01-29 10:18:26 Total Exercise Time: 00:05:00 Test Indications: Medications: Protocol: TAMMY Max HR: 133 BPM 88% of Pred: 151 BPM Max BP: 206/70 mmHG Max Work Load: 5.1 METS Exercise stress test with exercise 5 mins of Tammy Protocol held at Stage 1 with increased incline to 12%, achieving 88% MPHR, with reports of SOB, no chest pain, without any arrythmias, with normotensive response to exercise. With ST depression inferolaterally meeting criteria for ischemia. In recovery, breathing returned to baseline and pt feeling back to baseline. ST segment improved. Nuclear images pending. Test reviewed with Dr. Singh. Referred By: Reyna Pak Electronically Signed By: Patric Anderson
--- OUTSIDE RECORDS SUMMARY | 2025-01-29 10:04 | XMS_ITS | Encounter Summary ---
Author Organization [facility] and [facility] Address [address] [place] [phone] Care Team Providers Care Device Repair Technician Name Role Phone Unavailable Primary Care Provider Unavailabl e Encounter Details Date Type Department Care Team ([facility] st Contact Info) Description 10/04/2023 Scanned Document INTERFACE DEFAULT [address] [place] [address] System, Provider Not In Social History [...]
--- OUTSIDE RECORDS SUMMARY | 2025-01-29 10:04 | XMS_ITS | Encounter Summary ---
Author Organization [facility] and [facility] Address [address] [place] [phone] Care Team Providers Care Technical Manager Name Role Phone Unavailable Primary Care Provider Unavailabl e Encounter Details Date Type Department Care Team ([facility] Contact Info) Description 10/17/2023 Scanned Document INTERFACE DEFAULT [address] [place] [address] System, Provider Not In Social History [...]
--- OUTSIDE RECORDS SUMMARY | 2025-01-29 10:04 | XMS_ITS | Encounter Summary ---
Author Organization [facility] and [facility] Address [address] [place] [phone] Care Team Providers Care Is Architect Name Role Phone Unavailable Primary Care Provider Unavailabl e Encounter Details Date Type Department Care Team ([facility] Contact Info) Description 12/07/2023 Scanned Document [facility] Health Information Management [address] [place] [address] External, Provider Social History Tobacco Use Types [...]
--- OUTSIDE RECORDS SUMMARY | 2025-01-29 10:04 | XMS_ITS | Encounter Summary ---
Author Organization [facility] and [facility] Address [address] [place] [phone] Care Team Providers Care Oxygen System Tester Name Role Phone Unavailable Primary Care Provider Unavailabl e Encounter Details Date Type Department Care Team ([facility] Contact Info) Description 02/16/2023 Scanned Document INTERFACE DEFAULT [address] [place] [address] System, Provider Not In Social History [...]
--- OUTSIDE RECORDS SUMMARY | 2025-01-29 10:04 | XMS_ITS | Encounter Summary ---
Author Organization [facility] and [facility] Address [address] [place] [phone] Care Team Providers Care Fabrics And Material Cutter Name Role Phone Unavailable Primary Care Provider Unavailabl e Encounter Details Date Type Department Care Team ([facility] Contact Info) Description 11/08/2023 Scanned Document INTERFACE DEFAULT [address] [place] [address] System, Provider Not In Social History [...]
--- OUTSIDE RECORDS SUMMARY | 2025-01-29 10:04 | XMS_ITS | Encounter Summary ---
Author Organization [facility] Address [address] [place] [address] Care Team Providers Care Rn Urgent Care Name Role Phone Unavailable Primary Care Provider Unavailabl e Encounter Details Date Type Department Care Team ([facility] st Contact Info) Description 11/11/2023 Scanned Document INTERFACE DEFAULT [address] [place] [address] System, Provider Not In Social History [...]
--- OUTSIDE RECORDS SUMMARY | 2025-01-29 10:04 | XMS_ITS | Encounter Summary ---
Author Organization [facility] Address [address] [place] [address] Care Team Providers Care Fishing Vessel Operator Name Role Phone Unavailable Primary Care Provider Unavailabl e Encounter Details Date Type Department Care Team ([facility] st Contact Info) Description 11/10/2023 Scanned Document INTERFACE DEFAULT [address] [place] [address] System, Provider Not In Social History [...]
--- OUTSIDE RECORDS SUMMARY | 2025-01-29 10:05 | XMS_ITS | Clinical Summary ---
Author Organization [facility] Address [address] [place] [address] Care Team Providers Care Power Shovel Operator Helper Name Role Phone Reyna Pak MD Primary Care Provider +1 [phone] Allergies No known active allergies Medications amLODIPine [...] patient's age to complete this topic Insurance [facility] Advance Directives Documents on File Type Date Recorded Patient Sewer Line Photo Inspector [facility] Proxy 04/20/2019 2:27 PM * Full Code (Latest Code Status on File) Date Activated Date Inactivated Comments 04/20/2019 9:36 AM 04/20/2019 4:50 PM Care Teams Power Shovel Operator Helper Relationship Specialty Start Date End Date Reyna Pak MD [address] [place] [address] PCP - General Internal Medicine 09/30/21
--- OUTSIDE RECORDS SUMMARY | 2025-01-29 10:05 | XMS_ITS | Encounter Summary ---
Author Organization [facility] and [facility] Address [address] [place] [phone] Care Team Providers Care Truck Technician Name Role Phone Unavailable Primary Care Provider Unavailabl e Encounter Details Date Type Department Care Team ([facility] Contact Info) Description 08/15/2023 Scanned Document INTERFACE DEFAULT [address] [place] [address] System, Provider Not In Social History [...]
--- OUTSIDE RECORDS SUMMARY | 2025-01-29 10:05 | XMS_ITS | Clinical Summary ---
Author Organization [address] Address [address] [place] [phone] Care Team Providers Care Feeder Operator Name Role Phone Unavailable Primary Care [...]
--- OUTSIDE RECORDS SUMMARY | 2025-01-29 10:05 | XMS_ITS | Clinical Summary ---
Author Organization 175 [facility] Address [address] [place] [address] Phone Care Team Providers Care Obstetrics Gynecology Physician Name Role Phone Reyna aPk MD Primary Care Provider [phone] Allergies Active Allergy Reactions Criticality Noted Date [...] Encounters Date Type Department Care Team Description 01/25/2025 Telephone Gastroenterology - [place] [address] [facility] [address] [place] [address] Clive Kunz DO from Last 3 Months Immunizations Immunization Administration Dates Next Due Td Tetanus diptheria (Tdvax) 7yo and older 10/22 Tdap Tetanus diptheria acell ular pertussis (Boostrix; Adacel) 7yo and older 01/10/2012 Surgical History Surgery Date Site/Laterality Comments BREAST LUMPECTOMY PROCEDURE: HISTORICAL BREAST LUMPECTOMY; COMMENT: 2002, left breast OTHER SURGICAL HISTORY PROCEDURE: [place] RESCJ OVARIAN/TUBAL/PERITONEAL MALIGNANCY W/BSO; COMMENT: COLONOSCOPY 01/20/10 PROCEDURE: HISTORICAL COLONOSCOPY; COMMENT: adenomas; repeat in three years COLONOSCOPY W/ POLYPECTOMY 02/10/15 PROCEDURE: NM COLSC FLX W/RMVL OF TUMOR POLYP LESION [...] this topic Medical Devices Explanted Type Area Otr Refrigerated Cdl Truck Driver Device Identifier Shelf Expiration Date Model / Serial / Lot Stent Uret [id number] Stretch W/O Gw - Sna - [id number] Explanted:Qty: 1 on 02/23/2024 by Ralph Kimble MD at [facility] Stents Left: Ureter [employer]/GYN[employer]OL GY [id number] 08/16/2026 [id number] / NA / [id number] Procedures Procedure Name Priority Date/Time Associated Diagnosis [...] LAB CHEMISTRY METHOD 02/25/2024 8:40 AM EST [facility] Potassium 3.5 3.5 - 5.5 mmol/L LAB CHEMISTRY METHOD 02/25/2024 8:40 AM EST [facility] Chloride 109 96 - 110 mmol/L LAB CHEMISTRY METHOD 02/25/2024 8:40 AM EST [facility] CO2 29 21 - 32 mmol/L LAB CHEMISTRY METHOD 02/25/2024 8:40 AM EST [facility] Anion Gap 5 3 - 11 LAB CHEMISTRY METHOD 02/25/2024 8:40 AM EST [facility] Glucose 175(H) 70 - 100 mg/dL LAB CHEMISTRY METHOD 02/25/2024 8:40 AM EST [facility] BUN 12 5 - 25 mg/dL LAB CHEMISTRY METHOD 02/25/2024 8:40 AM EST [facility] Creatinine 0.83 0.50 - 1.10 mg/dL LAB CHEMISTRY METHOD 02/25/2024 8:40 AM EST [facility] eGFR 77 >=60 mL/min/1. 73m2 LAB CHEMISTRY METHOD 02/25/2024 8:40 AM EST [facility] Comment:Calculation based on the Chronic Kidney Disease Epidemiology Collaboration (CKD-EPI) equation refit without adjustment for race. BUN/Creatinine Ratio 14.5 LAB CHEMISTRY METHOD 02/25/2024 8:40 AM [facility] Calcium 8.9 8.5 - 10.5 mg/dL LAB CHEMISTRY METHOD 02/25/2024 8:40 AM EST [facility] Blood Venous blood specimen / Unknown Venipuncture / Unknown 02/25/2024 6:24 AM EST 02/25/2024 6:51 AM EST us Fernanda SYLVESTER LAB BLOOD ORDERABLES Final R esult [facility] [address] [place] [address], * COLONOSCOPY Anesthesia - [facility]; [facility] ENDOSCOPY (02/06/2024 8:38 AM EST) Anatomical Region [...] general surgery. Narrative 02/06/2024 8:38 AM EST [facility] Patient Name: Monica Reese Procedure Date: 02/06/2024 7:31 AM Date of : 1955 Age: 68 Gender: Female Note Status: Finalized Attending MD: Clive Kunz DO, [id number] Procedure Date No Time: 02/06/2024 Procedure: Colonoscopy [...] the physician, the nurse, the anesthesiologist, the saw filer and the drinking water technician in the pre-procedure area in the [...] by congestion. Procedure Code(s): --- Professional --- 43895, Colonoscopy, flexible; with removal of tumor(s), polyp(s), or other lesion(s) by snare technique 89958, Colonoscopy, flexible; with directed submucosal injection(s), any substance 57577, 59, Colonoscopy, flexible; with biopsy, single or multiple Diagnosis Code(s): --- Professional --- Z85.038, Personal history of other malignant neoplasm of large intestine K64.9, Unspecified hemorrhoids D12.7, Benign neoplasm of rectosigmoid junction C18.7, Malignant neoplasm of sigmoid colon K56.690, Other partial intestinal obstruction CPT copyright 2020 [employer]. All rights reserved. The codes documented in this report are preliminary and upon yard brakeman review may be revised to meet current compliance requirements. CLIVE Kunz DO 02/06/2024 8:38:14 AM This report has been signed electronically.Clive Kunz DO Number of Addenda: 0 Note Initiated On: 02/06/2024 7:31 AM Scope Withdrawal Time: 0 hours 11 minutes 36 seconds Scope In: 8:13:32 AM Scope Out: 8:27:51 AM Endoscopy Department at [facility] - [address] [place] [phone] Procedure Note Clive Kunz DO - 02/06/2024 [facility] GI Patient Name: Monica Reese Procedure Date: 02/06/2024 7:31 AM Date of : 1955 Age: 68 Gender: Female Note Status: Finalized Attending MD: Clive Kunz DO, [id number] Procedure Date No Time: 02/06/2024 Procedure: Colonoscopy [...] the physician, the nurse, the anesthesiologist, the saw filer and thetechnician in the pre-procedure area in [...] views. There was evidence of a prior mkg-uo-uocvftg-colonic anastomosis in the sigmoid colon. This was patentand was characterized by congestion. Procedure Code(s): --- Professional --- 69005, Colonoscopy, flexible; with removal of tumor(s), polyp(s), or other lesion(s) by snare technique 43096, Colonoscopy, flexible; with directedsubmucosal injection(s), any substance 34880, 59, Colonoscopy, flexible; with biopsy,single or multiple Diagnosis Code(s): --- Professional --- Z85.038, Personal history of other malignantneoplasm of large intestine K64.9, Unspecified hemorrhoids D12.7, Benign neoplasm of rectosigmoid junction C18.7, Malignant neoplasm of sigmoid colon K56.690, Other partial intestinal obstruction CPT copyright 2020 [employer]. All rights reserved. The codes documented in this report are preliminary and upon yard brakeman reviewmay be revised to meet current compliance requirements. CLIVE Kunz DO 02/06/2024 8:38:14 AM This report has been signed electronically.Clive Kunz DO Number of Addenda: 0 Note Initiated On: 02/06/2024 7:31 AM Scope Withdrawal Time: 0 hours 11 minutes 36 seconds Scope In: 8:13:32 AM Scope Out: 8:27:51 AM Endoscopy Department at [facility] - [address] [place] [phone] IMPRESSION: - Hemorrhoids found on perianal exam. [...] results. - F/U with general surgery. Result [facility] Clive Kunz DO GI~PROCEDURE ORDERABLES Final Re sult * (ABNORMAL) Hemoglobin A1c (05/09/2015) Pathologist [facility] Hemoglobin A1C 7.9(A) 4.0 - 6.0 % Blood Venous blood specimen / Unknown Result [facility] Historical Provider LAB BLOOD ORDERABLES Cecilia l Result * Urine Albumin Creatinine Ratio (11/16/2014) Pathologist [facility] Urine Albumin Creatinine Ratio abstracted Result [facility] Historical Provider HEALTH MAINTENANCE Final Result * (ABNORMAL) Lipid panel (11/16/2014) LDL/HDL Ratio 7(A) 0 - 4 Triglycerides 380(A) 0 - 150 mg/dL Cholesterol 269(A) 0 - 200 mg/dL HDL 38(A) >=40 mg/dL LDL Cholesterol 155(A) 0 - 100 mg/dL Blood Venous blood specimen / Unknown Result [facility] Historical Provider LAB BLOOD ORDERABLES Cecilia l Result from Last 3 Months or Most Recently Relevant to Health Maintenance Insurance [employer] Advance Directives Documents on File Type Date Recorded 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 Care Teams Obstetrics Gynecology Physician Relationship Specialty Start Date End Date Reyna Pak MD [address] [place] [address] PCP - General 10/03/23
--- OUTSIDE RECORDS SUMMARY | 2025-01-29 10:05 | XMS_ITS | Encounter Summary ---
Author Organization [facility] and [facility] Address [address] [place] [phone] Care Team Providers Care Classroom Aide Name Role Phone Unavailable Primary Care Provider Unavailabl e Encounter Details Date Type Department Care Team ([facility] st Contact Info) Description 03/29/2018 Scanned Document INTERFACE DEFAULT [address] [place] [phone] System, Provider Not In Social History Tobacco [...]
--- OUTSIDE RECORDS SUMMARY | 2025-01-29 10:05 | XMS_ITS | Encounter Summary ---
Author Organization [facility] Address [address] [place] [address] Care Team Providers Care Piece Presser Name Role Phone Reyna Pak MD Primary Care Provider [phone] Reason for Visit * Reason Onset Date Comments Advice Only 01/25/2025 Encounter Details Date Type Department Care Team ([facility] st Contact Info) Description 01/25/2025 Telephone Gastroenterology - [place] [address] [address] [address] [place] [address] Tate Kunz, DO [address] [place] [address] Social History Tobacco Use Types Packs/Day Years [...] Orientation Straight 02/21/2024 12 :06 PM EST documented as of this encounter Progress Notes * Licha Antoine - 01/25/2025 11:15 AM EST Pt is calling to speak with and doesn't want to say what is the reason he is callingabout and states he only wants to talk with Dr. Kunz only documented in this encounter Plan of Treatment Not on file documented as of this encounter Visit Diagnoses Not on filedocumented in this encounter Care Teams Piece Presser Relationship Specialty Start Date End Date Reyna Pak MD [address] [place] [address] PCP - General 10/03/23 documented as of this encounter
--- OUTSIDE RECORDS SUMMARY | 2025-01-29 10:05 | XMS_ITS | Clinical Summary ---
Author Organization [facility] Address [address] [place] [address] Care Team Providers Care Pinball Machine Repairer Name Role Phone Karrie Aiken MD Primary Care Provider [phone] Allergies Active Allergy Reactions Criticality Noted Date [...] Medicaid [place] [facility] Medicare Care Teams Pinball Machine Repairer Relationship Specialty Start Date End Date Karrie Aiken MD [address] [place], [place] PCP - General 02/18/20
--- OUTSIDE RECORDS SUMMARY | 2025-01-29 10:05 | XMS_ITS | Encounter Summary ---
Author Organization [facility] Address [address] [place] [phone] Care Team Providers Care Opticianry Teacher Name Role Phone Unavailable Primary Care Provider Unavailabl e Encounter Details Date Type Department Care Team ([facility] Contact Info) Description 04/11/2023 Scanned Document INTERFACE DEFAULT [address] [place] [address] System, Provider Not In Social History [...]
--- OUTSIDE RECORDS SUMMARY | 2025-01-29 10:05 | XMS_ITS | Encounter Summary ---
Author Organization [facility] and [facility] Address [address] [place] [address] Care Team Providers Care Frit Burner Name Role Phone Unavailable Primary Care Provider Unavailabl e Encounter Details Date Type Department Care Team ([facility] st Contact Info) Description 05/31/2023 Scanned Document INTERFACE DEFAULT [address] [place] [phone] System, Provider Not In Social History Tobacco [...]
== END ==
LOC: HO.CARD 09:21
PROVIDERS: PCP Internal Medicine; Visit Provider Internal Medicine
DX: R06.02 Shortness of breath (principal); R07.9 Chest pain, unspecified
CPT/HCPCS: 78452; 93017; A9500; J0280; J2785

== ENCOUNTER → 2025-01-29 09:23 | Outpatient (BNV) | payer OTHER, SELFPAY | PROVIDERS: PCP Internal Medicine | DX: R06.02 Shortness of breath (principal) | CPT/HCPCS: 78452; 93016; 93018 ==

== ENCOUNTER 2025-02-04 13:51 | Outpatient (AMB) | payer OTHER, SELFPAY ==
--- NOTE | 2025-02-04 14:03 | A.OFFVIS_ITS ---
Vital Signs 02/04/25 14:05 Height 5 ft Weight 134 lb BMI 26.2 Intake Visit Reasons: Onychomycosis Intake Note: Monica is a 69 year old female who presents today as a mew patient for an evaluation of her onychomycosis. Patient reports the fungus has been going on for about 1 year and she has tried OTC fungal treatment and hos found no relief for her symptoms. the fungus is located on bilateral feet on the toenails. She reports the fungus began after leaving on nail ecuadorean for a long period time. The nails appear thick and discolored. Rotating Equipment Specialist Required: Yes Rotating Equipment Specialist Services: Rotating Equipment Specialist Offered & Declined Allergies dulaglutide (From Trulicity) Allergy (Mild, Verified 02/04/25 14:05) Abdominal Pain simvastatin Allergy (Verified 02/04/25 14:05) Joint Pain metformin Adverse Reaction (Mild, Verified 02/04/25 14:05) Diarrhea sitagliptin (Januvia) Adverse Reaction (Mild, Verified 02/04/25 14:05) abdominal pain HPI Comments Details: The patient is a 69 year old female with a past medical history as seen below presenting for management of painful calluses and tinea unguium. She has a history of diabetes, with blood glucose levels that are up and down . Her blood glucose this morning was 146 mg/dL, and her last HbA1c was approximately 7.0. She takes insulin, which she reports helps a little bit. The patient reports long-standing numbness and tingling in her feet. Within the last week, she has also developed numbness and tingling in her fingers, with some difficulty holding objects. She has previously tried an OTC topical medication for her toenail fungus. The patient has no known allergies to food or medicine. She consistently wears sandals or slippers while in the house. She denies any recent pedal injuries or any other pedal concerns. Patient was accompanied by her . [facility] Medical History (Updated 02/10/25 @ 19:44 by Crista Bradford DPM) Pain in both feet Nail dystrophy Intractable plantar keratosis Other specified epidermal thickening Diabetic neuropathy Tinea unguium Paronychia of toe of left foot Onychomycosis Shortness of breath Obstructive sleep apnea Former smoker Hx of radiation therapy History of chemotherapy Arthritis On anticoagulant therapy Sleep apnea Colon cancer Hypercalcemia Mixed hyperlipidemia Dizziness FCI (current) use of insulin Breast cancer Memory loss Muscle cramps Menieres disease HTN (hypertension) T2DM (type 2 diabetes mellitus) Skin lesion New daily persistent headache History of stroke Hypovitaminosis D Nausea Essential hypertension Diabetes mellitus Surgical History (Updated 12/11/24 @ 17:04 by Tati Abebe) H/O colonoscopy (~10/04/23) History of parotid gland removal Status post unilateral salpingo-oophorectomy H/O right mastectomy History of left mastectomy History of hemicolectomy Family History Father Diabetes Mother Diabetes Hypertension Sister Cervical cancer Daughter No problems noted. Son Skin cancer Brother No problems noted. Brother No problems noted. Family/Other Mental health disorder Substance use disorder Social History Household Members: Spouse Housing: [facility] Are you a primary client care coordinator to a significant other at home: No Do you presently have visiting nurse or other home services: No Alcohol intake: never Patient Tobacco Use Status: Former Tobacco user Tobacco use type: Cigarette Years Smoked: 20 e-Cigarette/Vaping Use: Never Used Second Hand Smoke Exposure: No service: No Current occupational status: disabled Cognitive needs: No Hearing needs: No Vision needs: No Female Reproductive History Menstrual Age of Menarche: 12 Review of Systems Const Details: - Musculoskeletal: Reports bilateral foot pain at the area of the hyperkeratotic lesions. - Dermatological: Reports thickened, elongated, and discolored toenails x10. - Neurological: Reports long-standing numbness and tingling in the feet and recent onset of numbness, tingling, and difficulty holding objects in her hands. All systems reviewed & are unremarkable except as noted in HPI and below Physical Exam Vital Signs: BMI result Body Mass Index 26.2 Extrem Other: Bilateral lower extremity focused physical exam: Derm: Hyperkeratotic lesions noted to the medial aspect of the hallux bilaterally. Toenails x10 noted to be elongated, slightly thickened, slightly discolored with mild subungual debris. No open lesions abrasions or wounds noted. No he ecchymosis, erythema, or discoloration noted. No maceration noted. No active bleeding, purulence, or drainage noted. No clinical signs of infection noted. Skin supple and turgor within normal limits. Vascular: DP/PT pulses palpable. Capillary refill time less than 3 seconds. Temperature gradient warm to warm. Pedal hair absent. Neuro: Protective sensation is grossly diminished to light touch and monofilament testing. MSK: Mild pain on palpation to the hyperkeratotic lesions noted to the medial aspects of the halluces bilaterally. No crepitus or fluctuance noted. Nonantalgic slow gait noted. No other gross abnormalities noted. Office Procedures AMB Debridement/Avulsion Podia Details: Debrided toenails x10 using sterile nail nippers and Dremel without incidents. Debrided the hyperkeratotic lesions noted to the medial aspect of bilateral halluces using a sterile 15 blade without incidents. 35370-Zmdpmkfxsqq of Nail 6+ 00619-Fftkcdzofnm of Callus (2-4) Procedure code (CPT) selection complete Diabetic Foot Exam G9226 - Diabetic Foot Exam Results Reviewed Results Reviewed: Laboratory Tests 12/12/24 01/25/25 12:00 12:08 WBC 3.2 L Random Glucose 123 H Hemoglobin A1c % 7.9 H AST 23 ALT 22 Assessment & Plan Assessment & Plan (1) Tinea unguium: Code(s): B35.1 - Tinea unguium Category: Medical (2) Diabetes mellitus: Code(s): E11.9 - Type 2 diabetes mellitus without complications Category: Medical Qualifiers: Diabetes mellitus type: type 2 Diabetes mellitus long-term insulin use: with long-term use Diabetes mellitus complication status: with hyperglycemia Qualified Code(s): E11.65 - Type 2 diabetes mellitus with hyperglycemia; Z79.4 - termite exterminator (current) use of insulin (3) termite exterminator (current) use of insulin: Code(s): Z79.4 - FCI (current) use of insulin Category: Medical (4) Diabetic neuropathy: Code(s): E11.40 - Type 2 diabetes mellitus with diabetic neuropathy, unspecified Category: Medical (5) Other specified epidermal thickening: Code(s): L85.8 - Other specified epidermal thickening Category: Medical (6) Intractable plantar keratosis: Code(s): L84 - Corns and callosities Category: Medical (7) Nail dystrophy: Code(s): L60.3 - Nail dystrophy Category: Medical (8) Pain in both feet: Code(s): M79.671 - Pain in right foot; M79.672 - Pain in left foot Category: Medical Plan Patient was informed and verbally consented to the use of an ambient scribe for clinic note documentation during this visit. Educated the patient on diabetes in the affects to the lower extremities. I discussed the treatment options for her toenail fungus, explaining that there is a topical nail ecuadorean that is applied daily for about a year and an oral medication taken for three to four months. I noted that the oral medication can potentially elevate liver function enzymes, which would require monitoring. We decided to proceed with the topical nail ecuadorean. I explained that I would shave down her calluses for pain relief and that applying a thick cream like Vaseline afterward would help slow the recurrence, although they will always come back. I also performed routine nail care by cutting and filing the nails. I emphasized the importance of always having protection on her feet due to her history of diabetes, which can lead to delayed wound healing. I informed the patient that a prescription was sent to her pharmacy and that she should schedule a follow-up appointment in 9 weeks. Prescribed ciclopirox to be applied to the nails daily. Advised patient to file/buff the dorsal aspect of the nails prior to re- application of the ciclopirox. Debrided toenails x10. Debrided hyperkeratotic lesions x2. Recommend routine nail care and foot care every 9 weeks. Advised patient to wear supportive shoe gear and avoid barefoot walking. RTC in 9 weeks. Orders: Orders AMB Diabetic Foot Exam 02/04/25 B35.1 - Tinea unguium, E11.40 - Type 2 diabetes mellitus with diabetic neuropathy, unspecified, E11.65 - Type 2 diabetes mellitus with hyperglycemia, L60.3 - Nail dystrophy, L84 - Corns and callosities, L85.8 - Other specified epidermal thickening, M79.671 - Pain in right foot, M79.672 - Pain in left foot, Z79.4 - termite exterminator (current) use of insulin AMB Debridement/Avulsion Podiatry 02/04/25 B35.1 - Tinea unguium, E11.40 - Type 2 diabetes mellitus with diabetic neuropathy, unspecified, E11.65 - Type 2 diabetes mellitus with hyperglycemia, L60.3 - Nail dystrophy, L84 - Corns and callosities, L85.8 - Other specified epidermal thickening, M79.671 - Pain in right foot, M79.672 - Pain in left foot, Z79.4 - termite exterminator (current) use of insulin Medications: New ciclopirox 8% 1 appl topical BEDTIME 6.6 mL 1RF 4 weeks B35.1 - Tinea unguium Coding Level of Care Code New Pt Level 4 (75184) Diagnoses Tinea unguium B35.1 Type 2 diabetes mellitus with hyperglycemia, with long-term current use of insulin E11.65; Z79.4 Diabetes mellitus type: type 2 Diabetes mellitus long-term insulin use: with long-term use Diabetes mellitus complication status: with hyperglycemia termite exterminator (current) use of insulin Z79.4 Diabetic neuropathy E11.40 Other specified epidermal thickening L85.8 Intractable plantar keratosis L84 Nail dystrophy L60.3 Pain in both feet M79.671; M79.672 CPT Codes Skin Debridement - CPT: 07041-Fntwoxqtsxd of Nail 6+ ([id number]) Skin Debridement - CPT: 36639-Ykcikhssbhy of Callus (2-4) ([id number]) Diabetic Foot Exam - CPT: G9226 - Diabetic Foot Exam ([id number]) Time Spent (min) 60 Comment 15 mins for procedures
[2025-02-04 14:05] VITALS: BMI 26.2
--- OUTSIDE RECORDS SUMMARY | 2025-02-04 16:07 | XMS_ITS | Clinical Summary ---
Author Organization [facility] Facility Address [address] [place] [address] Care Team Providers Care Sound Installation Worker Name Role Phone Karrie Aiken MD Primary [...] Medicaid [place] [facility] Medicare Care Teams Sound Installation Worker Relationship Specialty Start Date End Date Karrie Aiken MD [address] [place], [place] PCP - General 02/18/20
--- OUTSIDE RECORDS SUMMARY | 2025-02-04 16:07 | XMS_ITS | Encounter Summary ---
Author Organization [facility] and [facility] Address [address] [place] [phone] Care Team Providers Care Marketing Director Assisted Living Name Role Phone Unavailable Primary Care Provider Unavailabl e Encounter Details Date Type Department Care Team ([facility] st Contact Info) Description 03/29/2018 Scanned Document INTERFACE DEFAULT [address] [place] [phone] System, Provider Not In Social History Tobacco [...]
--- OUTSIDE RECORDS SUMMARY | 2025-02-04 16:07 | XMS_ITS | Clinical Summary ---
Author Organization [address] [facility] Address [address] [place] [address] Phone Care Team Providers Care Liquefaction Supervisor Name Role Phone Reyna Pak MD Primary Care Provider [phone]- [phone] Allergies Active Allergy Reactions Criticality Noted Date [...] Care Team Description 01/25/2025 Telephone Gastroenterology - [place] [address] [facility] [address] [place] [address] Clive Kunz DO from Last [...] this topic Medical Devices Explanted Type Area Top Flavor Attendant Device Identifier Shelf Expiration Date Model / Serial / Lot Stent Uret [id number] Stretch W/O Gw - Sna - [id number] Explanted:Qty: 1 on 02/23/2024 by Ralph Kimble MD at [facility] Stents Left: Ureter [employer]GYN[employer]OL GY [id number] 08/16/2026 [id number] / NA / [id number] Procedures Procedure Name Priority Date/Time Associated Diagnosis [...] LAB CHEMISTRY METHOD 02/25/2024 8:40 AM EST [facility] Potassium 3.5 3.5 - 5.5 mmol/L LAB CHEMISTRY METHOD 02/25/2024 8:40 AM EST [facility] Chloride 109 96 - 110 mmol/L LAB CHEMISTRY METHOD 02/25/2024 8:40 AM EST [facility] CO2 29 21 - 32 mmol/L LAB CHEMISTRY METHOD 02/25/2024 8:40 AM EST [facility] Anion Gap 5 3 - 11 LAB CHEMISTRY METHOD 02/25/2024 8:40 AM EST [facility] Glucose 175(H) 70 - 100 mg/dL LAB CHEMISTRY METHOD 02/25/2024 8:40 AM EST [facility] BUN 12 5 - 25 mg/dL LAB CHEMISTRY METHOD 02/25/2024 8:40 AM EST [facility] Creatinine 0.83 0.50 - 1.10 mg/dL LAB CHEMISTRY METHOD 02/25/2024 8:40 AM EST [facility] eGFR 77 >=60 mL/min/1. 73m2 LAB CHEMISTRY METHOD 02/25/2024 8:40 AM EST [facility] Comment:Calculation based on the Chronic Kidney Disease Epidemiology Collaboration (CKD-EPI) equation refit without adjustment for race. BUN/Creatinine Ratio 14.5 LAB CHEMISTRY METHOD 02/25/2024 8:40 AM [facility] Calcium 8.9 8.5 - 10.5 mg/dL LAB CHEMISTRY METHOD 02/25/2024 8:40 AM EST [facility] Blood Venous blood specimen / Unknown Venipuncture / Unknown 02/25/2024 6:24 AM EST 02/25/2024 6:51 AM EST us Fernanda SYLVESTER LAB BLOOD ORDERABLES Final R esult [facility] [address] [place] [address], * [place] [facility] [place] [facility] (02/06/2024 [...] surgery. Narrative 02/06/2024 8:38 AM EST [facility] Patient Name: Monica Reese Procedure Date: 02/06/2024 7:31 AM Date of : 1955 Age: 68 Gender: Female Note Status: Finalized Attending MD: Clive Kunz DO, [id number] Procedure Date No Time: 02/06/2024 Procedure: Colonoscopy [...] the physician, the nurse, the anesthesiologist, the grocery deliverer and the food safety technician in the pre-procedure area in the [...] by congestion. Procedure Code(s): --- Professional --- 45781, Colonoscopy, flexible; with removal of tumor(s), polyp(s), or other lesion(s) by snare technique 91455, Colonoscopy, flexible; with directed submucosal injection(s), any substance 24521, 59, Colonoscopy, flexible; with biopsy, single or multiple Diagnosis Code(s): --- Professional --- Z85.038, Personal history of other malignant neoplasm of large intestine K64.9, Unspecified hemorrhoids D12.7, Benign neoplasm of rectosigmoid junction C18.7, Malignant neoplasm of sigmoid colon K56.690, Other partial intestinal obstruction CPT copyright 2020 [employer]. All rights reserved. The codes documented in this report are preliminary and upon inside phone sales review may be revised to meet current compliance requirements. CLIVE Kunz DO 02/06/2024 8:38:14 AM This report has been signed electronically.Clive Kunz DO Number of Addenda: 0 Note Initiated On: 02/06/2024 7:31 AM Scope Withdrawal Time: 0 hours 11 minutes 36 seconds Scope In: 8:13:32 AM Scope Out: 8:27:51 AM Endoscopy Department at [facility] - [address] [place] [phone] Procedure Note Clive Kunz DO - 02/06/2024 [facility] Patient Name: Monica Reese Procedure Date: 02/06/2024 7:31 AM Date of : 1955 Age: 68 Gender: Female Note Status: Finalized Attending MD: Clive Kunz DO, [id number] Procedure Date No Time: 02/06/2024 Procedure: Colonoscopy [...] the physician, the nurse, the anesthesiologist, the grocery deliverer and thetechnician in the pre-procedure area in [...] views. There was evidence of a prior yls-jw-jtnzgmj-colonic anastomosis in the sigmoid colon. This was patentand was characterized by congestion. Procedure Code(s): --- Professional --- 33519, Colonoscopy, flexible; with removal of tumor(s), polyp(s), or other lesion(s) by snare technique 56463, Colonoscopy, flexible; with directedsubmucosal injection(s), any substance 12911, 59, Colonoscopy, flexible; with biopsy,single or multiple Diagnosis Code(s): --- Professional --- Z85.038, Personal history of other malignantneoplasm of large intestine K64.9, Unspecified hemorrhoids D12.7, Benign neoplasm of rectosigmoid junction C18.7, Malignant neoplasm of sigmoid colon K56.690, Other partial intestinal obstruction CPT copyright 2020 [employer]. All rights reserved. The codes documented in this report are preliminary and upon inside phone sales reviewmay be revised to meet current compliance requirements. CLIVE Kunz DO 02/06/2024 8:38:14 AM This report has been signed electronically.Clive Kunz DO Number of Addenda: 0 Note Initiated On: 02/06/2024 7:31 AM Scope Withdrawal Time: 0 hours 11 minutes 36 seconds Scope In: 8:13:32 AM Scope Out: 8:27:51 AM Endoscopy Department at [facility] - [address] [place] [phone] IMPRESSION: - Hemorrhoids found on perianal exam. [...] results. - F/U with general surgery. Result [facility] Clive Kunz DO GI~PROCEDURE ORDERABLES Final Re sult * (ABNORMAL) Hemoglobin A1c (05/09/2015) Pathologist [facility] Hemoglobin A1C 7.9(A) 4.0 - 6.0 % Blood Venous blood specimen / Unknown Result [facility] Historical Provider LAB BLOOD ORDERABLES Cecilia l Result * Urine Albumin Creatinine Ratio (11/16/2014) Pathologist [facility] Urine Albumin Creatinine Ratio abstracted Result [facility] Historical Provider HEALTH MAINTENANCE Final Result * (ABNORMAL) Lipid panel (11/16/2014) LDL/HDL Ratio 7(A) 0 - 4 Triglycerides 380(A) 0 - 150 mg/dL Cholesterol 269(A) 0 - 200 mg/dL HDL 38(A) >=40 mg/dL LDL Cholesterol 155(A) 0 - 100 mg/dL Blood Venous blood specimen / Unknown Result [facility] Historical Provider LAB BLOOD ORDERABLES Cecilia l Result from Last 3 Months or Most Recently Relevant to Health Maintenance Insurance [employer] Advance Directives Documents on File Type Date Recorded Patient Drying Machine Back Tender Expl 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 Care Teams Liquefaction Supervisor Relationship Specialty Start Date End Date Reyna Pak MD [address] [place] [id number] PCP - General 10/03/23
--- OUTSIDE RECORDS SUMMARY | 2025-02-04 16:07 | XMS_ITS | Encounter Summary ---
Author Organization [facility] and [facility] Address [address] [place] [phone] Care Team Providers Care Wall And Floor Tiler Name Role Phone Unavailable Primary Care Provider Unavailabl e Encounter Details Date Type Department Care Team ([facility] Contact Info) Description 04/11/2023 Scanned Document INTERFACE DEFAULT [address] [place] [phone] System, Provider Not In Social History [...]
--- OUTSIDE RECORDS SUMMARY | 2025-02-04 16:07 | XMS_ITS | Encounter Summary ---
Author Organization [facility] and [facility] Address [address] [place] [phone] Care Team Providers Care Culinary Chef Name Role Phone Unavailable Primary Care Provider Unavailabl e Encounter Details Date Type Department Care Team ([facility] st Contact Info) Description 10/04/2023 Scanned Document INTERFACE DEFAULT [address] [place] [address] System, Provider Not In Social History [...]
--- OUTSIDE RECORDS SUMMARY | 2025-02-04 16:07 | XMS_ITS | Clinical Summary ---
Author Organization [facility] Address [address] [place] [address] Care Team Providers Care Bobbin Painter Name Role Phone Reyna Pak MD Primary Care Provider [phone] Allergies No known active allergies Medications amLODIPine [...] patient's age to complete this topic Insurance [facility] Advance Directives Documents on File Type Date Recorded Patient Sat Math Tutor [facility] Proxy 04/20/2019 2:27 PM * Full Code (Latest Code Status on File) Date Activated Date Inactivated Comments 04/20/2019 9:36 AM 04/20/2019 4:50 PM Care Teams Bobbin Painter Relationship Specialty Start Date End Date Reyna Pak MD [address] [place] [address] PCP - General Internal Medicine 09/30/21
--- OUTSIDE RECORDS SUMMARY | 2025-02-04 16:07 | XMS_ITS | Encounter Summary ---
Author Organization [facility] and [facility] Address [address] [place] [phone] Care Team Providers Care Supervisor Refining Name Role Phone Unavailable Primary Care Provider Unavailabl e Encounter Details Date Type Department Care Team ([facility] st Contact Info) Description 11/10/2023 Scanned Document INTERFACE DEFAULT [address] [place] [address] System, Provider Not In Social History [...]
--- OUTSIDE RECORDS SUMMARY | 2025-02-04 16:07 | XMS_ITS | Encounter Summary ---
Author Organization [facility] Address [address] [place] [address] Care Team Providers Care Integration Specialist Name Role Phone Reyna Pak MD Primary Care Provider [phone] Reason for Visit * Reason Onset Date Comments Advice Only 01/25/2025 Encounter Details Date Type Department Care Team ([facility] st Contact Info) Description 01/25/2025 Telephone Gastroenterology - [facility] [address] [place] [phone] Tate Kunz DO [address] [place] [address] Social History Tobacco Use Types Packs/Day Years [...] as of this encounter Progress Notes * Hanh Ken MA - 01/29/2025 2:23 PM EST Called and spoke with [facility]- they are requesting to switch from [facility] oncology to [facility]. * Licha Antoine - 01/25/2025 11:15 AM EST Pt is calling to speak with and doesn't want to say what is the reason he is callingabout and states he only wants to talk with Dr. Kunz only documented in this encounter Plan of Treatment Not on file documented as of this encounter Visit Diagnoses Not on filedocumented in this encounter Care Teams Integration Specialist Relationship Specialty Start Date End Date Reyna Pak MD [address] [place] [address] PCP - General 10/03/23 documented as of this encounter
--- OUTSIDE RECORDS SUMMARY | 2025-02-04 16:07 | XMS_ITS | Encounter Summary ---
Author Organization [facility] Address [address] [place] [phone] Care Team Providers Care Human Resource Intern Name Role Phone Unavailable Primary Care Provider Unavailabl e Encounter Details Date Type Department Care Team ([facility] Contact Info) Description 08/15/2023 Scanned Document INTERFACE DEFAULT [address] [place] [address] System, Provider Not In Social History [...]
--- OUTSIDE RECORDS SUMMARY | 2025-02-04 16:07 | XMS_ITS | Encounter Summary ---
Author Organization [facility] and [facility] Address [address] [place] [phone] Care Team Providers Care Piggery Worker Name Role Phone Unavailable Primary Care Provider Unavailabl e Encounter Details Date Type Department Care Team ([facility] Contact Info) Description 10/17/2023 Scanned Document INTERFACE DEFAULT [address] [place] [address] System, Provider Not In Social History [...]
--- OUTSIDE RECORDS SUMMARY | 2025-02-04 16:07 | XMS_ITS | Encounter Summary ---
Author Organization [facility] and [facility] Address [address] [place] [phone] Care Team Providers Care Detail Drafter Name Role Phone Unavailable Primary Care Provider Unavailabl e Encounter Details Date Type Department Care Team ([facility] st Contact Info) Description 05/31/2023 Scanned Document INTERFACE DEFAULT [address] [place] [phone] System, Provider Not In Social History Tobacco [...]
--- OUTSIDE RECORDS SUMMARY | 2025-02-04 16:07 | XMS_ITS | Encounter Summary ---
Author Organization [facility] and [facility] Address [address] [place] [phone] Care Team Providers Care Schedule Announcer Name Role Phone Unavailable Primary Care Provider Unavailabl e Encounter Details Date Type Department Care Team ([facility] st Contact Info) Description 11/11/2023 Scanned Document INTERFACE DEFAULT [address] [place] [phone] System, Provider Not In Social History Tobacco [...]
--- OUTSIDE RECORDS SUMMARY | 2025-02-04 16:07 | XMS_ITS | Clinical Summary ---
Author Organization [address] Address [address] [place] [phone] Care Team Providers Care Field Technical Assistant Name Role Phone Unavailable Primary Care [...]
--- OUTSIDE RECORDS SUMMARY | 2025-02-04 16:07 | XMS_ITS | Encounter Summary ---
Author Organization [facility] and [facility] Address [address] [place] [phone] Care Team Providers Care Buckshot Swage Operator Name Role Phone Unavailable Primary Care Provider Unavailabl e Encounter Details Date Type Department Care Team ([facility] Contact Info) Description 12/07/2023 Scanned Document [facility] Health Information Management [address] [place] [address] External, Provider Social History Tobacco Use Types [...]
--- OUTSIDE RECORDS SUMMARY | 2025-02-04 16:07 | XMS_ITS | Encounter Summary ---
Author Organization [facility] and [facility] Address [address] [place] [phone] Care Team Providers Care Gold Plater Name Role Phone Unavailable Primary Care Provider Unavailabl e Encounter Details Date Type Department Care Team ([facility] Contact Info) Description 02/16/2023 Scanned Document INTERFACE DEFAULT [address] [place] [address] System, Provider Not In Social History [...]
--- OUTSIDE RECORDS SUMMARY | 2025-02-04 16:07 | XMS_ITS | Encounter Summary ---
Author Organization [facility] and [facility] Address [address] [place] [phone] Care Team Providers Care Physical Sciences Instructor Name Role Phone Unavailable Primary Care Provider Unavailabl e Encounter Details Date Type Department Care Team ([facility] Contact Info) Description 11/08/2023 Scanned Document INTERFACE DEFAULT [address] [place] [phone] System, Provider Not In Social History [...]
== END 2025-02-04 14:41 | disposition home or self-care (01) ==
LOC: HO.HPODS 13:52
PROVIDERS: PCP Internal Medicine; Visit Provider Student in an Organized Health Care Education/Training Program
DX: E11.40 Type 2 diabetes mellitus with diabetic neuropathy, unspecified (principal); B35.1 Tinea unguium; E11.65 Type 2 diabetes mellitus with hyperglycemia; Z79.4 Long term (current) use of insulin; L85.8 Other specified epidermal thickening; L84 Corns and callosities; L60.3 Nail dystrophy; M79.671 Pain in right foot; M79.672 Pain in left foot
CPT/HCPCS: 11056; 11721; 99204; G9226

== ENCOUNTER → 2025-02-04 13:51 | Outpatient (BNVA) | payer OTHER, SELFPAY | PROVIDERS: PCP Internal Medicine; Visit Provider Student in an Organized Health Care Education/Training Program | DX: B35.1 Tinea unguium (principal); E11.65 Type 2 diabetes mellitus with hyperglycemia; Z79.4 Long term (current) use of insulin; E11.40 Type 2 diabetes mellitus with diabetic neuropathy, unspecified; L85.8 Other specified epidermal thickening; L84 Corns and callosities; L60.3 Nail dystrophy; M79.671 Pain in right foot; M79.672 Pain in left foot | CPT/HCPCS: 11056; 11721; 99202 ==